=== PATIENT | female | born 1990 | race Caucasian/White ===

== ENCOUNTER 2017-05-04 16:27 | Emergency (ER) | payer MEDICAID, OTHER ==
[2017-05-04] MEDS ORDERED: NORMAL SALINE 1000 ML 1,000 ML IV ONE ×3 (16:30→17:52)
--- NOTE | 2017-05-04 16:32 | ER Document Report ---
ED Medical Screen (RME) - General Stated Complaint: VOMITING Time Seen by Provider: 05/04/17 16:30 Mode of Arrival: Wheelchair Information source: Patient, Relative Notes: Patient presents with nausea and vomiting and concerned about DKA. Patient was sent here from her doctor's office. Patient tachycardic and vomiting in the triage area. Family stated that patient was recently intubated 2 weeks ago due to her DKA. Charge nurse advised the patient status TRAVEL OUTSIDE OF THE [place] IN LAST 30 DAYS: No - Related Data Allergies/Adverse Reactions: No Known Allergies Allergy (Verified 06/16/11 12:34) Past Medical History Pulmonary Medical History: Reports: Hx Asthma Endocrine Medical History: Reports: Hx Diabetes Mellitus Type 1 - Immunizations Hx Diphtheria, Pertussis, Tetanus Vaccination: Yes Physical Exam - Cardiovascular Rhythm: Tachycardia Heart sounds: S1 appreciated, S2 appreciated
[2017-05-04 17:25] LABS: ABSOLUTE BASOPHILS # (AUTO) 0.1 10^3/uL (0.0-0.2); ABSOLUTE LYMPHOCYTES (AUTO) 2.1 10^3/uL (0.5-4.7); ABSOLUTE MONOCYTES (AUTO) 0.8 10^3/uL (0.1-1.4); ABSOLUTE NEUT (AUTO) 7.7 10^3/uL (1.7-8.2); BASOPHILS % (AUTO) 0.6 % (0-2); EOSINOPHILS % (AUTO) 0.3 % (0-6); HEMATOCRIT 50.9 % (36.0-47.0); HEMOGLOBIN 17.7 g/dL (12.0-15.5); LYMPHOCYTES % (AUTO) 19.7 % (13-45); MEAN CORPUSCULAR HEMOGLOBIN 33.2 pg (27.0-33.4); MEAN CORPUSCULAR HGB CONC 34.8 g/dL (32.0-36.0); MEAN CORPUSCULAR VOLUME 96 fl (80-97); MONOCYTES % (AUTO) 7.5 % (3-13); PLATELET COUNT 705 10^3/uL (150-450); RED BLOOD COUNT 5.33 10^6/uL (3.72-5.28); RED CELL DISTRIBUTION WIDTH 13.9 % (11.5-14.0); SEGMENTED NEUTROPHILS % (AUTO) 71.9 % (42-78); TOTAL CELLS COUNTED % (AUTO) 100 %; WHITE BLOOD COUNT 10.6 10^3/uL (4.0-10.5)
--- NOTE | 2017-05-04 17:34 | RADIOLOGY REPORT (SQ) ---
EXAM DESCRIPTION: CHEST SINGLE VIEW COMPLETED DATE/TIME: 05/04/2017 5:24 pm REASON FOR STUDY: vomiting, tachycardia COMPARISON: 10/07/2015 NUMBER OF VIEWS: One view. TECHNIQUE: Single frontal radiographic view of the chest acquired. LIMITATIONS: None. FINDINGS: LUNGS AND PLEURA: No opacities, masses or pneumothorax. No pleural effusion. MEDIASTINUM AND HILAR STRUCTURES: No masses. Contour normal. HEART AND VASCULAR STRUCTURES: Heart normal in size. Normal vasculature. BONES: No acute findings. HARDWARE: None in the chest. OTHER: No other significant finding. IMPRESSION: NO SIGNIFICANT RADIOGRAPHIC FINDING IN THE CHEST. TECHNICAL DOCUMENTATION: JOB ID: [id number] [employer]- All Rights Reserved
[2017-05-04 17:47] LABS: ALANINE AMINOTRANSFERASE 16 U/L (9-52); ALKALINE PHOSPHATASE 159 U/L (38-126); ASPARTATE AMINO TRANSFERASE 14 U/L (14-36); BILIRUBIN,DIRECT 0.7 mg/dL (0.0-0.4); BILIRUBIN,TOTAL 1.2 mg/dL (0.2-1.3); BLOOD UREA NITROGEN 28 mg/dL (7-20); LIPASE 96.2 U/L (23-300); TOTAL PROTEIN 8.6 g/dL (6.3-8.2)
[2017-05-04 17:49] LABS: VENOUS BLOOD BASE EXCESS -6.3 mmol/L; VENOUS BLOOD HCO3 17.1 mmol/L (20-32); VENOUS BLOOD PCO2 30.1 mmHg (35-63); VENOUS BLOOD PH 7.37 (7.30-7.42)
[2017-05-04 17:55] LABS: CARBON DIOXIDE 16 mmol/L (22-30); CHLORIDE 93 mmol/L (98-107); POTASSIUM 4.8 mmol/L (3.6-5.0); SODIUM 133.5 mmol/L (137-145)
[2017-05-04 17:58] LABS: ANION GAP 25 (5-19)
[2017-05-04 18:01] LABS: CALCIUM 12.1 mg/dL (8.4-10.2); GLUCOSE 420 mg/dL (75-110)
[2017-05-04] MEDS ORDERED: INSULIN REG, HUMAN 100 UNIT/ML 3 ML VIAL (PYX) IV ONE (18:16)
[2017-05-04 19:03] LABS: APPEARANCE,URINE SLIGHTLY-CLOUDY; BILIRUBIN,URINE NEGATIVE (NEGATIVE); COLOR,URINE YELLOW; GLUCOSE, URINE >=500 mg/dL (NEGATIVE); KETONES,URINE 80 mg/dL (NEGATIVE); LEUKOCYTE ESTERASE,URINE NEGATIVE (NEGATIVE); NITRITE,URINE NEGATIVE (NEGATIVE); PROTEIN,URINE 30 mg/dL (NEGATIVE); URINE SPECIFIC GRAVITY 1.026; UROBILINOGEN,URINE NEGATIVE mg/dL (<2.0)
[2017-05-04 19:13] LABS: URINE AMPHETAMINES SCREEN NEGATIVE; URINE BARBITURATES SCREEN NEGATIVE; URINE BENZODIAZEPINES SCREEN NEGATIVE; URINE COCAINE SCREEN NEGATIVE; URINE MARIJUANA (THC) SCREEN NEGATIVE; URINE METHADONE SCREEN NEGATIVE; URINE PHENCYCLIDINE SCREEN NEGATIVE
--- NOTE | 2017-05-04 19:29 | ER Document Report ---
ED Flu Like - General Chief Complaint: Vomiting Stated Complaint: VOMITING Time Seen by Provider: 05/04/17 16:30 Mode of Arrival: Wheelchair Notes: The patient is a 26-year-old female, past medical history type 1 diabetes, history of polysubstance abuse, presents with 4 days of decreased oral intake, nausea vomiting. She feels like she is back in DKA. She was admitted to an outside hospital a few weeks ago where she required intubation due to severe DKA. She said that she is taking her insulin as directed, but she is not eating much. Her cousin said that she smoked meth 4 days ago. Patient denies abdominal pain, fevers, rash, diarrhea, constipation, chest pain or shortness of breath. TRAVEL OUTSIDE OF THE [place] IN LAST 30 DAYS: No - Related Data Allergies/Adverse Reactions: No Known Allergies Allergy (Verified 05/04/17 17:14) Past Medical History - General Information source: Patient, Relative - Social History Smoking Status: Unknown if Ever Smoked Chew tobacco use (# tins/day): No Frequency of alcohol use: None Drug Abuse: Heroin - in the past, Methamphetamine, Prescription drugs - in the past Family History: Reviewed & Not Pertinent Patient has suicidal ideation: No Patient has homicidal ideation: No Pulmonary Medical History: Reports: Hx Asthma Endocrine Medical History: Reports: Hx Diabetes Mellitus Type 1 Renal/ Medical History: Denies: Hx Peritoneal Dialysis - Immunizations Hx Diphtheria, Pertussis, Tetanus Vaccination: Yes Hx Pneumococcal Vaccination: 10/23/11 Review of Systems - Review of Systems Notes: REVIEW OF SYSTEMS: CONSTITUTIONAL: -fevers, -chills EENT: -eye pain, -difficulty swallowing, -nasal congestion CARDIOVASCULAR: -chest pain, -syncope. RESPIRATORY: -cough, -SOB GASTROINTESTINAL: -abdominal pain, +nausea, +vomiting, -diarrhea GENITOURINARY: -dysuria, -hematuria MUSCULOSKELETAL: -back pain, -neck pain SKIN: -rash or skin lesions. HEMATOLOGIC: -easy bruising or bleeding. LYMPHATIC: -swollen, enlarged glands. NEUROLOGICAL: -altered mental status or loss of consciousness, -headache, - neurologic symptoms PSYCHIATRIC: -anxiety, -depression. ALL OTHER SYSTEMS REVIEWED AND NEGATIVE. Physical Exam - Vital signs Vitals: Temp Pulse Resp BP Pulse Ox 97.8 F 158 H 18 101/61 97 05/04/17 16:29 05/04/17 16:29 05/04/17 16:29 05/04/17 16:29 05/04/17 16:29 - Notes Notes: PHYSICAL EXAMINATION: GENERAL: Well-appearing, well-nourished and in no acute distress. HEAD: Atraumatic, normocephalic. EYES: Pupils equal round and reactive to light, extraocular movements intact, sclera anicteric, conjunctiva are normal. ENT: nares patent, oropharynx clear without exudates. Moist mucous membranes. NECK: Normal range of motion, supple without lymphadenopathy LUNGS: Breath sounds clear to auscultation bilaterally and equal. No wheezes rales or rhonchi. HEART: Tachycardia, regular rhythm. ABDOMEN: Soft, nontender, normoactive bowel sounds. No guarding, no rebound. No masses appreciated. EXTREMITIES: Normal range of motion, no pitting or edema. No cyanosis. NEUROLOGICAL: Cranial nerves grossly intact. Normal speech, normal gait. Normal sensory and motor exams. PSYCH: Normal mood, normal affect. SKIN: Warm, Dry, normal turgor, no rashes or lesions noted. Course - Re-evaluation Re-evalutation: Patient found to be in mild DKA, most likely from noncompliance with her insulin. Provided her with IV fluids started on insulin drip to help close the anion gap. 05/04/17 23:24 Pt feels much better. She is eating and drinking in the ER and her anion gap remains closed. Her potassium dropped as expected and she was provided potassium replacement and instructed to eat foods with potassium. Patient is requesting a refill of her Lantus 24 units qHS, Humalog 12 units tidwm, lancets and accucheck strips. She will follow-up with her primary care physician for further evaluation and treatment. Given very strict return precautions and she understands. - Vital Signs Vital signs: Temp Pulse Resp BP Pulse Ox 97.8 F 158 H 15 133/85 H 100 05/04/17 16:29 05/04/17 16:29 05/04/17 19:01 05/04/17 19:01 05/04/17 19:01 - Laboratory Result Diagrams: 05/04/17 17:02 05/04/17 23:15 Laboratory results interpreted by me: 05/04/17 05/04/17 05/04/17 17:02 17:02 17:02 WBC 10.6 H RBC 5.33 H Hgb 17.7 H Hct 50.9 H Plt Count 705 H VBG pCO2 30.1 L VBG HCO3 17.1 L Sodium 133.5 L Potassium Chloride 93 L Carbon Dioxide 16 L Anion Gap 25 H BUN 28 H Creatinine Glucose 420 H* POC Glucose Calcium 12.1 H* Direct Bilirubin 0.7 H AST Alkaline Phosphatase 159 H Total Protein 8.6 H Albumin Urine Protein Urine Glucose (UA) Urine Ketones 05/04/17 05/04/17 05/04/17 18:43 19:20 19:40 WBC RBC Hgb Hct Plt Count VBG pCO2 VBG HCO3 Sodium 136.4 L Potassium Chloride Carbon Dioxide 14 L Anion Gap BUN 24 H Creatinine Glucose 332 H POC Glucose 314 H Calcium Direct Bilirubin 0.5 H AST Alkaline Phosphatase Total Protein Albumin Urine Protein 30 H Urine Glucose (UA) >=500 H Urine Ketones 80 H 05/04/17 05/04/17 05/04/17 20:42 21:52 22:45 WBC RBC Hgb Hct Plt Count VBG pCO2 VBG HCO3 Sodium Potassium Chloride Carbon Dioxide Anion Gap BUN Creatinine Glucose POC Glucose 291 H 179 H 161 H Calcium Direct Bilirubin AST Alkaline Phosphatase Total Protein Albumin Urine Protein Urine Glucose (UA) Urine Ketones 05/04/17 23:15 WBC RBC Hgb Hct Plt Count VBG pCO2 VBG HCO3 Sodium Potassium 2.8 L* D Chloride 108 H Carbon Dioxide 20 L Anion Gap BUN Creatinine 0.42 L Glucose 117 H POC Glucose Calcium Direct Bilirubin AST 8 L Alkaline Phosphatase Total Protein 5.5 L Albumin 3.1 L Urine Protein Urine Glucose (UA) Urine Ketones - Diagnostic Test Radiology reviewed: Image reviewed, Reports reviewed Radiology results interpreted by me: CXR: NAD - EKG Interpretation by Me EKG shows normal: Sinus rhythm, [place], Intervals, QRS Complexes, ST-T Waves Rate: Normal Critical Care Note - Critical Care Note Total time excluding time spent on procedures (mins): 65 Discharge - Discharge Clinical Impression: DKA (diabetic ketoacidoses) Qualifiers: Diabetes mellitus type: type 1 Diabetes mellitus complication detail: without coma Qualified Code(s): E10.10 - Type 1 diabetes mellitus with ketoacidosis without coma Condition: Stable Disposition: HOME, SELF-CARE Additional Instructions: Diabetes You have an abnormally high blood sugar, suspicious for diabetes. Not all high blood sugar requires long-term treatment. High blood sugar can be due to medications, , or the stress of illness. (These cases are "borderline diabetes.") If the doctor feels your high blood sugar might get better with time, you may not require treatment now. You will be scheduled for further evaluation. It's very important that you follow through. Uncontrolled high blood sugar leads to early heart disease , strokes, nerve damage, eye damage, and kidney damage. All diabetics should follow a diet designed to control the blood sugar. Overweight diabetics should exercise regularly and lose weight. If this is not sufficient to control the blood sugar, pills or insulin shots are necessary. Younger people who develop diabetes almost always require insulin daily. Home testing of blood sugars or urine sugar is required. Diabetic teaching is available to help you figure insulin doses and monitor the blood sugar. Call the physician if there is faintness, excess sleepiness, or very rapid breathing. If hypoglycemia (LOW blood sugar) develops, symptoms are shakiness, weakness, sweating, and confusion. In this case, you should eat or drink something with sugar at once. Prescriptions: Insulin Glargine,Hum.rec.anlog [Lantus Insulin 100 Unit/1 ml 10 ml] 24 unit SUBCUT QHS 30 Days unit Blood Sugar Diagnostic [Accu-Chek Guide Test Strip] 1 each MC TID PRN #90 strip PRN Reason: Insulin Lispro [Humalog Kwikpen U-200] 12 unit SQ TID #1 insuln.pen Lancets [Accu-Chek] 1 each MC TID #90 each Metoclopramide HCl [Reglan 10 mg Tablet] 1 - 2 tab PO ASDIR PRN #25 tablet PRN Reason: Forms: Elevated Blood Pressure Referrals: [facility] [Outside] - Follow up as needed
[2017-05-04] MEDS ORDERED: NORMAL SALINE 1000 ML 1,000 ML IV SCH (19:30)
[2017-05-04 19:42] LABS: ALANINE AMINOTRANSFERASE 17 U/L (9-52); ALBUMIN 3.7 g/dL (3.5-5.0); ALKALINE PHOSPHATASE 108 U/L (38-126); ANION GAP 19 (5-19); ASPARTATE AMINO TRANSFERASE 15 U/L (14-36); BILIRUBIN,DIRECT 0.5 mg/dL (0.0-0.4); BILIRUBIN,TOTAL 0.8 mg/dL (0.2-1.3); BLOOD UREA NITROGEN 24 mg/dL (7-20); CALCIUM 9.5 mg/dL (8.4-10.2); CARBON DIOXIDE 14 mmol/L (22-30); CHLORIDE 103 mmol/L (98-107); GLUCOSE 332 mg/dL (75-110); POTASSIUM 4.8 mmol/L (3.6-5.0); SODIUM 136.4 mmol/L (137-145); TOTAL PROTEIN 6.4 g/dL (6.3-8.2)
[2017-05-04] MEDS ORDERED: INSULIN LISPRO 100 UNIT/ML 3 ML VIAL SUBCUT ONE (20:26)
[2017-05-04] MEDS ORDERED: INSULIN GLARGINE,HUM.REC.ANLOG 1,000 UNIT/10 ML UNIT SUBCUT ONE (20:26)
[2017-05-04] MEDS ORDERED: METOCLOPRAMIDE HCL INJ/PF 10 MG/2 ML SDV IV ONE (22:00)
[2017-05-04 23:33] LABS: ALANINE AMINOTRANSFERASE 19 U/L (9-52); ALBUMIN 3.1 g/dL (3.5-5.0); ALKALINE PHOSPHATASE 96 U/L (38-126); ANION GAP 11 (5-19); ASPARTATE AMINO TRANSFERASE 8 U/L (14-36); BILIRUBIN,DIRECT 0.1 mg/dL (0.0-0.4); BILIRUBIN,TOTAL 0.5 mg/dL (0.2-1.3); BLOOD UREA NITROGEN 18 mg/dL (7-20); CALCIUM 8.4 mg/dL (8.4-10.2); CARBON DIOXIDE 20 mmol/L (22-30); CHLORIDE 108 mmol/L (98-107); GLUCOSE 117 mg/dL (75-110); SODIUM 138.6 mmol/L (137-145); TOTAL PROTEIN 5.5 g/dL (6.3-8.2)
[2017-05-04 23:44] LABS: POTASSIUM 2.8 mmol/L (3.6-5.0)
[2017-05-04] MEDS ORDERED: POTASSIUM CHLORIDE 10 MEQ TABLET.SA PO ONE (23:46)
[2017-05-05 00:42] VITALS: BP 108/69
--- NOTE | 2017-05-05 09:30 | EKG REPORT ---
SEVERITY:- ABNORMAL ECG - SINUS TACHYCARDIA LEFT POSTERIOR FASCICULAR BLOCK BORDERLINE PROLONGED QT INTERVAL : Confirmed by: Katya Armendariz 05-May-2017 09:29:45
== END 2017-05-05 00:55 | disposition home or self-care (01) ==
LOC: ER 16:27
DX: E10.10 Type 1 diabetes mellitus with ketoacidosis without coma (principal); R11.2 Nausea with vomiting, unspecified; Z79.4 Long term (current) use of insulin
CPT/HCPCS: 93005; 99285; 96361; 96374; 36415; 82962; 83690; 84703; 85025; 80053; 81001; 80307; 82803; 71045; 93010; J1815 ×3; J2765; J7030

== ENCOUNTER 2018-08-09 09:51 | Inpatient (IN) | payer OTHER ==
[2018-08-09] MEDS ORDERED: NORMAL SALINE 1000 ML 1,000 ML IV ONE (09:53)
[2018-08-09] MEDS ORDERED: ONDANSETRON HCL INJ/PF 4 MG/2 ML SDV IV ONE (09:55)
[2018-08-09] MEDS ORDERED: ONDANSETRON HCL INJ/PF 4 MG/2 ML SDV ONE (09:56)
--- NOTE | 2018-08-09 09:59 | ER Document Report ---
ED Blood Sugar Problem - General Chief Complaint: High Blood Sugar Stated Complaint: ABNORMAL LABS Time Seen by Provider: 08/09/18 09:56 Information source: Patient Notes: 28-year-old female that presents to the front with some altered mental status. Mom is at bedside and states a history of diabetes. Unknown if she has been taking her insulin appropriately. Mom states she just recently moved here around 2 weeks ago from [place]. Supposedly patient was having some vomiting yesterday. Mom states the patient has been "intubated" 3 times in the past secondary to DKA with multiple admissions. Mom states that the patient's blood sugar "always runs high". Mom states the patient did have a methamphetamine add iction in the past but denies any drug use recently. Mom denies any other recent illnesses. Patient does not have a primary care physician here. Patient herself has her eyes open and is able to nod yes or no to questions. She states she has been taking her insulin. She denies any pain. TRAVEL OUTSIDE OF THE [place] IN LAST 30 DAYS: No - Related Data Allergies/Adverse Reactions: No Known Allergies Allergy (Verified 05/04/17 17:14) Past Medical History - Social History Smoking Status: Unknown if Ever Smoked Family History: Reviewed & Not Pertinent Pulmonary Medical History: Reports: Hx Asthma Endocrine Medical History: Reports: Hx Diabetes Mellitus Type 1 Renal/ Medical History: Denies: Hx Peritoneal Dialysis - Immunizations Hx Diphtheria, Pertussis, Tetanus Vaccination: Yes Hx Pneumococcal Vaccination: 10/23/11 Review of Systems - Review of Systems Constitutional: denies: Fever EENT: denies: Eye discharge, Nose discharge Cardiovascular: denies: Chest pain, Palpitations Respiratory: denies: Cough, Hurts to breathe, Short of breath Gastrointestinal: Vomiting Genitourinary: denies: Dysuria Musculoskeletal: denies: Leg swelling Skin: Other - no hives. denies: Rash Neurological/Psychological: Other - no slurred speech -: Yes All other systems reviewed and negative Physical Exam - Vital signs Vitals: Temp Pulse Resp BP 97.6 F 113 H 28 H 147/79 H 08/09/18 09:53 08/09/18 09:53 08/09/18 09:53 08/09/18 09:53 Interpretation: Tachycardic Notes: Reviewed vital signs and nursing note as charted by RN. CONSTITUTIONAL: Patient is alert and nods yes or no to questions. She does have some decreased mentation HEAD: Normocephalic; atraumatic EYES: PERRL; no nystagmus ENT: Normal nose; no rhinorrhea; dry mucous membranes; pharynx without lesions noted NECK: Supple without meningismus; non-tender; no cervical lymphadenopathy, no masses CARD: Tachycardic and regular; no murmurs; symmetric distal pulses RESP: Patient is having long deep breaths consistent with kussmaul respirations; breath sounds clear and equal bilaterally; no wheezes, no rhonchi, no rales ABD/GI: Normal bowel sounds; non-distended; soft, non-tender; no palpable organomegaly or masses BACK: The back appears normal and is non-tender to palpation EXT: Normal ROM in all joints; non-tender to palpation; no edema SKIN: No acute lesions noted NEURO: 5/5 bilateral upper and lower extremity strength with sensation intact to light touch Course - Re-evaluation Re-evalutation: 08/09/18 09:59 Given the history and physical, with Accu-Chek as recorded, we will obtain 2 large IV access sites and provide 2 L of fluid while we await for the chemistry venous blood gas, and test. We will elevate the head of the bed 30 degrees to help prevent aspiration. 08/09/18 10:14 EKG showed heart rate of 115, sinus tachycardia, normal axis, no peak T waves or widening QRS complexe. 08/09/18 10:45 pH is 7.19. Ental status slightly improving. I have called out of the facility to help decipher the patient's chemistry. They state that 1 of the analyzers is broken and will take another 20 minutes. 08/09/18 11:20 Chemistry and blood gas as recorded. We will provide IV potassium as well as an insulin drip and admit the patient to the ICU. - Vital Signs Vital signs: Temp Pulse Resp BP Pulse Ox 97.6 F 113 H 27 H 140/81 H 100 08/09/18 09:53 08/09/18 09:53 08/09/18 11:15 08/09/18 11:00 08/09/18 10:01 - Laboratory Result Diagrams: 08/09/18 09:55 08/09/18 09:55 Laboratory results interpreted by me: 08/09/18 08/09/18 08/09/18 09:55 09:55 09:55 WBC 11.6 H RDW 15.1 H Plt Count 471 H Seg Neutrophils % 82.2 H Lymphocytes % 12.5 L Absolute Neutrophils 9.5 H VBG pH 7.19 L* VBG pCO2 17.8 L* VBG HCO3 6.6 L Carbon Dioxide 6 L* Anion Gap 37 H Glucose 438 H* Calcium 10.4 H Direct Bilirubin 0.5 H Alkaline Phosphatase 165 H Critical Care Note - Critical Care Note Total time excluding time spent on procedures (mins): 45 Discharge - Discharge Clinical Impression: Diabetic keto-acidosis Qualifiers: Diabetes mellitus type: type 1 Diabetes mellitus complication detail: without coma Qualified Code(s): E10.10 - Type 1 diabetes mellitus with ketoacidosis without coma Condition: Serious Disposition: ADMITTED INPATIENT Admitting Provider: Omega (Hospitalist) Unit Admitted: ICU
[2018-08-09 10:09] LABS: ABSOLUTE LYMPHOCYTES (AUTO) 1.5 10^3/uL (0.5-4.7); ABSOLUTE MONOCYTES (AUTO) 0.6 10^3/uL (0.1-1.4); ABSOLUTE NEUT (AUTO) 9.5 10^3/uL (1.7-8.2); BASOPHILS % (AUTO) 0.3 % (0-2); EOSINOPHILS % (AUTO) 0.3 % (0-6); HEMATOCRIT 46.2 % (36.0-47.0); HEMOGLOBIN 15.3 g/dL (12.0-15.5); LYMPHOCYTES % (AUTO) 12.5 % (13-45); MEAN CORPUSCULAR HEMOGLOBIN 30.8 pg (27.0-33.4); MEAN CORPUSCULAR HGB CONC 33.2 g/dL (32.0-36.0); MEAN CORPUSCULAR VOLUME 93 fl (80-97); MONOCYTES % (AUTO) 4.7 % (3-13); PLATELET COUNT 471 10^3/uL (150-450); RED BLOOD COUNT 4.97 10^6/uL (3.72-5.28); RED CELL DISTRIBUTION WIDTH 15.1 % (11.5-14.0); SEGMENTED NEUTROPHILS % (AUTO) 82.2 % (42-78); TOTAL CELLS COUNTED % (AUTO) 100 %; WHITE BLOOD COUNT 11.6 10^3/uL (4.0-10.5)
[2018-08-09] MEDS ORDERED: NORMAL SALINE 1000 ML 1,000 ML IV PRN (10:21)
[2018-08-09 10:42] LABS: VENOUS BLOOD BASE EXCESS -19.2 mmol/L; VENOUS BLOOD HCO3 6.6 mmol/L (20-32)
[2018-08-09 10:45] LABS: VENOUS BLOOD PCO2 17.8 mmHg (35-63); VENOUS BLOOD PH 7.19 (7.30-7.42)
[2018-08-09 10:52] LABS: ALANINE AMINOTRANSFERASE 40 U/L (9-52); ALBUMIN 4.6 g/dL (3.5-5.0); ALKALINE PHOSPHATASE 165 U/L (38-126); ASPARTATE AMINO TRANSFERASE 28 U/L (14-36); BILIRUBIN,DIRECT 0.5 mg/dL (0.0-0.4); BILIRUBIN,TOTAL 0.7 mg/dL (0.2-1.3); BLOOD UREA NITROGEN 14 mg/dL (7-20); CALCIUM 10.4 mg/dL (8.4-10.2); POTASSIUM 3.7 mmol/L (3.6-5.0); TOTAL PROTEIN 7.4 g/dL (6.3-8.2)
[2018-08-09 10:57] LABS: CHLORIDE 98 mmol/L (98-107); SODIUM 141.1 mmol/L (137-145)
[2018-08-09 11:08] LABS: ANION GAP 37 (5-19)
[2018-08-09 11:10] LABS: CARBON DIOXIDE 6 mmol/L (22-30); GLUCOSE 438 mg/dL (75-110)
[2018-08-09] MEDS ORDERED: POTASSI CL 20 MEQ/NS 1L 1,000 ML IV ONE (11:17)
[2018-08-09] MEDS ORDERED: POTASSI CL 20 MEQ/50 ML RIDER 20 MEQ/50 ML RTUPB IV ONE (11:18)
[2018-08-09] MEDS ORDERED: DEXTROSE 40% GEL 15 GM TUBE PO PRN ×2 (11:19)
[2018-08-09] MEDS ORDERED: DEXTROSE 50%-WATER 25 GM/50 ML DISP.SYRIN IV PRN ×2 (11:19)
[2018-08-09] MEDS ORDERED: GLUCAGON,HUMAN RECOMB 1 MG INJ IM PRN (11:19)
[2018-08-09] MEDS ORDERED: INSULIN REG, HUMAN 100 UNIT/ML 3 ML VIAL (PYX) ONE (11:25)
[2018-08-09] MEDS: NORMAL SALINE 100 ML with INSULIN REGULAR, HUMAN 100 UNIT IV PRN ×2 (11:39)
[2018-08-09] MEDS ORDERED: ONDANSETRON 4 MG TAB.RAPDIS PO PRN (12:30)
[2018-08-09] MEDS ORDERED: IPRATROPIUM/ALBUTEROL 0.5-2.5 MG/3 ML AMPUL NEB PRN (12:30)
[2018-08-09] MEDS ORDERED: OXYCODONE-ACETAMINOPHEN 5-325 MG TABLET PO PRN (12:30)
[2018-08-09] MEDS ORDERED: ACETAMINOPHEN 325 MG TABLET PO PRN (12:30)
--- NOTE | 2018-08-09 12:48 | PDOC H&P ---
History of Present Illness Admission Date/PCP: 08/09/18 11:50 History of Present Illness: ZANE GEIGER is a 27 year old female past medical history of diabetes type 1 with multiple DKA admissions, presenting to ED accompanied by her mother complaining of nausea, vomiting, starting 4 AM last night. Source of history is mother who is at bed side. Patient herself is very lethargic and altered. Mother reports compliance with her insulin regimen denies any fever,chills, chest pain, cough diarrhea, constipation or any urinary symptoms. In ED he was found to have a be very tachycardic, tachypneic, VBG pH 7.19, WBC 11.6, bicarb 6, glucose 438 anion gap of 37. Patient was started on volume resuscitation and insulin drip and hospitalist consulted for admission. Past Medical History Pulmonary Medical History: Reports: Asthma Endocrine Medical History: Reports: Diabetes Mellitus Type 1 Social History Smoking Status: Unknown if Ever Smoked Frequency of Alcohol Use: None Hx Recreational Drug Use: No Drugs: None Hx Prescription Drug Abuse: No Family History Family History: Reviewed & Not Pertinent Parental Family History Reviewed: Yes Children Family History Reviewed: Yes Sibling(s) Family History Reviewed.: Yes Medication/Allergy Home Medications: Insulin Aspart Protam & Aspart [Novolog Mix 70-30 Vial] 0 unit SQ MEALS 08/09/18 Insulin Lispro [Humalog Insulin 100 Unit/1 ml 3 ml Vial] unit SUBCUT QHS 9 Magnesium Oxide [Mag-Ox 400 mg Tablet] 400 mg PO BID 08/09/18 Allergies/Adverse Reactions: No Known Allergies Allergy (Verified 05/04/17 17:14) Review of Systems Review of Systems: as per HPI Physical Exam Vital Signs: Temp Pulse Resp BP Pulse Ox 97.6 F 113 H 27 H 140/81 H 100 08/09/18 09:53 08/09/18 09:53 08/09/18 11:15 08/09/18 11:00 08/09/18 10:01 Intake & Output 08/08/18 08/09/18 08/10/18 06:59 06:59 06:59 Intake Total 1000 Balance 1000 Weight 52.163 kg General appearance: PRESENT: mild distress, severe distress Eye exam: PRESENT: conjunctiva pink, EOMI, PERRLA. ABSENT: scleral icterus Respiratory exam: PRESENT: accessory muscle use, clear to auscultation george, tachypnea. ABSENT: rales, rhonchi, wheezes Cardiovascular exam: PRESENT: RRR, tachycardia. ABSENT: diastolic murmur, rubs, systolic murmur GI/Abdominal exam: PRESENT: normal bowel sounds, soft. ABSENT: distended, guarding, mass, organolmegaly, rebound, tenderness Extremities exam: PRESENT: full ROM. ABSENT: calf tenderness, clubbing, pedal edema Neurological exam: PRESENT: alert, awake, oriented to person, CN II-XII grossly intact. ABSENT: motor sensory deficit Skin exam: PRESENT: dry, intact, warm. ABSENT: cyanosis, rash Results Laboratory Results: 08/09/18 09:55 08/09/18 09:55 08/09/18 08/09/18 08/09/18 09:55 09:55 09:55 WBC 11.6 H RBC 4.97 Hgb 15.3 Hct 46.2 MCV 93 MCH 30.8 MCHC 33.2 RDW 15.1 H Plt Count 471 H Seg Neutrophils % 82.2 H Lymphocytes % 12.5 L Monocytes % 4.7 Eosinophils % 0.3 Basophils % 0.3 Absolute Neutrophils 9.5 H Absolute Lymphocytes 1.5 Absolute Monocytes 0.6 Absolute Eosinophils 0.0 Absolute Basophils 0.0 VBG pH 7.19 L* VBG pCO2 17.8 L* VBG HCO3 6.6 L VBG Base Excess -19.2 Sodium 141.1 Potassium 3.7 Chloride 98 Carbon Dioxide 6 L* Anion Gap 37 H BUN 14 Creatinine 0.69 Est GFR ( Amer) > 60 Est GFR (Non-Af Amer) > 60 Glucose 438 H* Calcium 10.4 H Total Bilirubin 0.7 AST 28 ALT 40 Alkaline Phosphatase 165 H Total Protein 7.4 Albumin 4.6 Serum HCG, Qual 08/09/18 09:55 WBC RBC Hgb Hct MCV MCH MCHC RDW Plt Count Seg Neutrophils % Lymphocytes % Monocytes % Eosinophils % Basophils % Absolute Neutrophils Absolute Lymphocytes Absolute Monocytes Absolute Eosinophils Absolute Basophils VBG pH VBG pCO2 VBG HCO3 VBG Base Excess Sodium Potassium Chloride Carbon Dioxide Anion Gap BUN Creatinine Est GFR ( Amer) Est GFR (Non-Af Amer) Glucose Calcium Total Bilirubin AST ALT Alkaline Phosphatase Total Protein Albumin Serum HCG, Qual NEGATIVE Assessment and Plan - Diagnosis (1) DKA (diabetic ketoacidosis) Qualifiers: Diabetes mellitus type: type 1 Diabetes mellitus complication detail: with out coma Qualified Code(s): E10.10 - Type 1 diabetes mellitus with ketoac idosis without coma Is this a current diagnosis for this admission?: Yes Plan: No trigger identified. Patient known to have been noncompliant with her insulin regimen in the past and has been intubated in the past due to DKA. UA negative for infection. IV fluid resuscitation, antiemetics, insulin drip, BMP every 6, replace electrolytes as needed, switch to D5 NS once blood glucose level drops to less than 250. Transition to subcutaneous insulins once patient's gap is closed. Advance diet as tolerated. (2) Diabetes type I Is this a current diagnosis for this admission?: Yes Plan: As #1. (3) Tobacco dependency Is this a current diagnosis for this admission?: No Plan: Counseled on quitting. NicoDerm patch. (4) Metabolic encephalopathy Is this a current diagnosis for this admission?: Yes (5) Hypothermia Qualifiers: Encounter type: initial encounter Qualified Code(s): T68.XXXA - Hypothermia, initial encounter Is this a current diagnosis for this admission?: Yes Plan: Volume depletion vs Sepsis Volume resuscitation. Panculture. Empiric IV antibiotics. Trend lactic acid. TSH, Random Cortisol. (6) Metabolic acidosis Is this a current diagnosis for this admission?: Yes Plan: Due to DKA. pH 6.99, HCO3 9. Bicar Drip, DKA protocol. Will transfer to ICU and intubate if Pt can not protect airways. (7) Oral ulcer Is this a current diagnosis for this admission?: No Plan: Patient is altered and does not provide any history. Will culture. Needs further history
[2018-08-09 13:27] LABS: APPEARANCE,URINE SLIGHTLY-CLOUDY; BILIRUBIN,URINE NEGATIVE (NEGATIVE); COLOR,URINE STRAW; GLUCOSE, URINE >=500 mg/dL (NEGATIVE); KETONES,URINE 80 mg/dL (NEGATIVE); LEUKOCYTE ESTERASE,URINE TRACE (NEGATIVE); NITRITE,URINE NEGATIVE (NEGATIVE); PROTEIN,URINE NEGATIVE (NEGATIVE); URINE SPECIFIC GRAVITY 1.018; UROBILINOGEN,URINE NEGATIVE mg/dL (<2.0)
[2018-08-09 16:35] LABS: ARTERIAL BLOOD BASE EXCESS -27.3 mmol/L; ARTERIAL BLOOD H2CO3 0.27 mmol/L (1.05-1.35); ARTERIAL BLOOD HCO3 2.2 mmol/L (20-24); ARTERIAL BLOOD O2 SATURATION 97.9 % (94-98); ARTERIAL BLOOD TOTAL CO2 2.4 mmol/L (21-25)
[2018-08-09 16:38] LABS: ARTERIAL BLOOD PH 6.99 (7.35-7.45)
[2018-08-09 16:39] LABS: ARTERIAL BLOOD PCO2 9.1 mmHg (35-45)
[2018-08-09] MEDS: POTASSI CL 20 MEQ/NS 1L 1,000 ML IV PRN ×2 (16:43→19:43)
[2018-08-09 16:51] LABS: ARTERIAL BLOOD FIO2 ROOM AIR
[2018-08-09] MEDS ORDERED: SODIUM BICARBONATE 8.4% INJ 50 MEQ/50 ML DISP.SYRIN ONE (16:58)
[2018-08-09] MEDS ORDERED: SODIUM BICARBONATE 8.4% INJ 50 MEQ/50 ML DISP.SYRIN IV ONE (17:00)
[2018-08-09] MEDS: DOCUSATE SODIUM 100 MG CAPSULE PO SCH (17:18)
[2018-08-09] MEDS ORDERED: VANCOMYCIN HCL 0 MG in DEXTROSE 5%-WATER 250 ML IV NR (18:00)
[2018-08-09] MEDS ORDERED: SODIUM BICARBONATE 8.4% INJ 50 MEQ/50 ML DISP.SYRIN IV SCH (18:00)
[2018-08-09] MEDS ORDERED: LIDOCAINE 1%/EPINEPHRINE INJ 20 ML VIAL INJ ONE (18:30)
--- NOTE | 2018-08-09 19:05 | PDOC CONSULTATION ---
Consultation Consult Date: 08/09/18 Provider Consulted: ANETA MCKINNEY Consult reason:: need IV access History of Present Illness Admission Date/PCP: 08/09/18 11:50 History of Present Illness: ZANE GEIGER is a 27 year old female with type 1 diabetes in DKA in need of IV access fro medications and fluids administration. Past Medical History Pulmonary Medical History: Reports: Asthma Endocrine Medical History: Reports: Diabetes Mellitus Type 1 Social History Smoking Status: Unknown if Ever Smoked Frequency of Alcohol Use: None Hx Recreational Drug Use: No Drugs: None Hx Prescription Drug Abuse: No - Advance Directive Resuscitation Status: Full Code Family History Family History: Reviewed & Not Pertinent Parental Family History Reviewed: No Children Family History Reviewed: No Sibling(s) Family History Reviewed.: No Medication/Allergy Home Medications: Insulin Aspart Protam & Aspart [Novolog Mix 70-30 Vial] 0 unit SQ MEALS 08/09/18 Insulin Lispro [Humalog Insulin 100 Unit/1 ml 3 ml Vial] unit SUBCUT QHS 08/09/18 Magnesium Oxide [Mag-Ox 400 mg Tablet] 400 mg PO BID 08/09/18 Allergies/Adverse Reactions: No Known Allergies Allergy (Verified 05/04/17 17:14) Physical Exam Vital Signs: Temp Pulse Resp BP Pulse Ox 96.2 F L 119 H 36 H 126/77 H 100 08/09/18 18:32 08/09/18 18:32 08/09/18 18:32 08/09/18 18:32 08/09/18 18:32 Intake & Output 08/08/18 08/09/18 08/10/18 06:59 06:59 06:59 Intake Total 3018 Output Total 800 Balance 2218 Weight 51.5 kg General appearance: PRESENT: mild distress, other - confused and agitated Mouth exam: PRESENT: dry mucosa, neck supple Neck exam: PRESENT: full ROM Respiratory exam: PRESENT: chest wall tenderness Cardiovascular exam: PRESENT: RRR GI/Abdominal exam: PRESENT: soft Psychiatric exam: PRESENT: agitated, anxious Results Laboratory Results: 08/09/18 09:55 08/09/18 09:55 08/09/18 08/09/18 08/09/18 09:55 09:55 09:55 WBC 11.6 H RBC 4.97 Hgb 15.3 Hct 46.2 MCV 93 MCH 30.8 MCHC 33.2 RDW 15.1 H Plt Count 471 H Seg Neutrophils % 82.2 H Lymphocytes % 12.5 L Monocytes % 4.7 Eosinophils % 0.3 Basophils % 0.3 Absolute Neutrophils 9.5 H Absolute Lymphocytes 1.5 Absolute Monocytes 0.6 Absolute Eosinophils 0.0 Absolute Basophils 0.0 Carbonic Acid HCO3/H2CO3 Ratio ABG pH ABG pCO2 ABG pO2 ABG HCO3 ABG O2 Saturation ABG Base Excess VBG pH 7.19 L* VBG pCO2 17.8 L* VBG HCO3 6.6 L VBG Base Excess -19.2 FiO2 Sodium 141.1 Potassium 3.7 Chloride 98 Carbon Dioxide 6 L* Anion Gap 37 H BUN 14 Creatinine 0.69 Est GFR ( Amer) > 60 Est GFR (Non-Af Amer) > 60 Glucose 438 H* Calcium 10.4 H Total Bilirubin 0.7 AST 28 ALT 40 Alkaline Phosphatase 165 H Total Protein 7.4 Albumin 4.6 Serum HCG, Qual Urine Color Urine Appearance Urine pH Ur Specific [place] Urine Protein Urine Glucose (UA) Urine Ketones Urine Blood Urine Nitrite Ur Leukocyte Esterase Urine WBC (Auto) Urine RBC (Auto) 08/09/18 08/09/18 08/09/18 09:55 12:05 16:12 WBC RBC Hgb Hct MCV MCH MCHC RDW Plt Count Seg Neutrophils % Lymphocytes % Monocytes % Eosinophils % Basophils % Absolute Neutrophils Absolute Lymphocytes Absolute Monocytes Absolute Eosinophils Absolute Basophils Carbonic Acid 0.27 L HCO3/H2CO3 Ratio 8:1 ABG pH 6.99 L* ABG pCO2 9.1 L* ABG pO2 154.0 H ABG HCO3 2.2 L ABG O2 Saturation 97.9 ABG Base Excess -27.3 VBG pH VBG pCO2 VBG HCO3 VBG Base Excess FiO2 ROOM AIR Sodium Potassium Chloride Carbon Dioxide Anion Gap BUN Creatinine Est GFR ( Amer) Est GFR (Non-Af Amer) Glucose Calcium Total Bilirubin AST ALT Alkaline Phosphatase Total Protein Albumin Serum HCG, Qual NEGATIVE Urine Color STRAW Urine Appearance SLIGHTLY-CLOUDY Urine pH 5.0 Ur Specific [place] 1.018 Urine Protein NEGATIVE Urine Glucose (UA) >=500 H Urine Ketones 80 H Urine Blood NEGATIVE Urine Nitrite NEGATIVE Ur Leukocyte Esterase TRACE H Urine WBC (Auto) 3 Urine RBC (Auto) 2 Assessment & Plan - Diagnosis (1) Need for intravenous access Is this a current diagnosis for this admission?: Yes (2) DKA (diabetic ketoacidosis) Qualifiers: Diabetes mellitus type: type 1 Diabetes mellitus complication detail: without coma Qualified Code(s): E10.10 - Type 1 diabetes mellitus with ketoacidosis without coma Is this a current diagnosis for this admission?: Yes - Plan Summary Plan Summary: A/ 27 y/o F with DKA in need of IV access for medications and fluids P/ Placement emergently if central venous line in the ICU Patient unable to sign her own consent. I will sign it for her.
[2018-08-09] MEDS ORDERED: DEXTROSE 5%-NORMAL SALINE 1,000 ML IV PRN (19:06)
--- NOTE | 2018-08-09 19:07 | Operative Report ---
Nonrecallable Operative Report DATE OF SURGERY: 08/09/18 PREOPERATIVE DIAGNOSIS: need of IV access POSTOPERATIVE DIAGNOSIS: same OPERATION: Placement of right subclavian vein central venous catheter TISSUE REMOVED OR ALTERED: n/a COMPLICATIONS: none ESTIMATED BLOOD LOSS: n/a INTRAOPERATIVE FINDINGS: single venoius stick PROCEDURE: see dictation
[2018-08-09] MEDS ORDERED: DEXTROSE 5%-WATER 1000 ML 1,000 ML with SODIUM BICARBONATE 150 MEQ IV ONE ×2 (20:00)
--- NOTE | 2018-08-09 20:13 | RADIOLOGY REPORT (SQ) ---
EXAM DESCRIPTION: XR CHEST 1 VIEW COMPLETED DATE/TME: 08/09/2018 18:45 CLINICAL HISTORY: 27 years, Female, Placement of Central Line COMPARISON: Prior study from 05/04/2017 NUMBER OF VIEWS: One TECHNIQUE: Single frontal radiograph the chest was obtained LIMITATIONS: None. FINDINGS: Right subclavian approach central venous catheter tip is located in the SVC. Cardiac and mediastinal contours are normal. Lungs are clear. No pleural effusion or pneumothorax. IMPRESSION: Right sequela approach central venous catheter tip is located in the SVC. Otherwise, clear lungs. copyright 2010 [employer]- All Rights Reserved
[2018-08-09] MEDS: PIPERACILLIN SODIUM/TAZOBACTAM 3.375 GM in NORMAL SALINE 100 ML IV SCH (21:32)
[2018-08-09] MEDS: FAMOTIDINE 20 MG TABLET PO SCH (21:32)
--- NOTE | 2018-08-09 22:14 | OPERATIVE REPORT E ---
Operative Report NAME: ZANE GEIGER : 1990 AGE: 27Y DATE OF SURGERY: 08/09/2018 ROOM: 602 PREOPERATIVE DIAGNOSIS: 1. DKA. 2. COMA. 3. NEED FOR IV ACCESS. POSTOPERATIVE DIAGNOSIS: 1. DKA. 2. COMA. 3. NEED FOR IV ACCESS. OPERATION: Placement of right subclavian vein triple-lumen central venous catheter. SURGEON: ANETA MCKINNEY M.D. STUDIO OPERATIONS MANAGER: None. ESTIMATED BLOOD LOSS: None. COMPLICATIONS: None. ANESTHESIA: Local, 10 mL of 1% lidocaine without epinephrine. INDICATIONS AND FINDINGS: A 27-year-old female with type 1 diabetes on BKA and confusion who needs IV access for administration of medication and fluids. PROCEDURE: The procedure was done emergently in the ICU. The patient was in supine position. A rolled towel was placed in between the scapulae. The right side of the neck and chest was prepped and draped in the usual fashion. The area just below the mid clavicle was infiltrated with lidocaine. Following this, a 16-gauge needle was used to cannulate the right subclavian vein just below the mid portion of the right clavicle without difficulty. The guidewire was inserted through the needle into the subclavian vein and superior vena cava. The needle was removed. The insertion point for the guidewire was enlarged with a #11 blade and a tissue dilator, which was removed, and a triple-lumen catheter was inserted over the guidewire into the subclavian vein and superior vena cava, up to 16 cm. The guidewire was then removed. The catheter was secured to the skin with silk sutures and covered with sterile dressings. Every port of the catheter was aspirated and flushed with normal saline without difficulty. The patient tolerated the procedure well. A chest x-ray was then done to confirm good position of the line. DICTATING PHYSICIAN: ANETA MCKINNEY M.D. [id number] PHY#: [id number] ID: [id number] JOB#: [id number] ACCT: [id number] cc:ANETA MCKINNEY M.D. > [facility]
[2018-08-09] MEDS: VANCOMYCIN HCL 500 MG in DEXTROSE 5%-WATER 100 ML IV SCH (22:18)
[2018-08-09 23:45] LABS: BLOOD UREA NITROGEN 12 mg/dL (7-20); CALCIUM 8.6 mg/dL (8.4-10.2); CHLORIDE 120 mmol/L (98-107); GLUCOSE 219 mg/dL (75-110); POTASSIUM 4.2 mmol/L (3.6-5.0); SODIUM 144.4 mmol/L (137-145)
[2018-08-09 23:51] LABS: ANION GAP 18 (5-19)
[2018-08-10] MEDS: PROMETHAZINE HCL INJ 25 MG/1 ML VIAL IV PRN ×2 (00:11→04:40)
[2018-08-10 00:19] LABS: CARBON DIOXIDE 6 mmol/L (22-30)
[2018-08-10] MEDS: NORMAL SALINE 100 ML with INSULIN REGULAR, HUMAN 100 UNIT IV PRN ×2 (00:56)
[2018-08-10] MEDS: PIPERACILLIN SODIUM/TAZOBACTAM 3.375 GM in NORMAL SALINE 100 ML IV SCH ×4 (03:36→21:53)
[2018-08-10 05:16] LABS: BLOOD UREA NITROGEN 10 mg/dL (7-20); CALCIUM 7.9 mg/dL (8.4-10.2); CHLORIDE 120 mmol/L (98-107); GLUCOSE 116 mg/dL (75-110); SODIUM 145.5 mmol/L (137-145)
[2018-08-10] MEDS: VANCOMYCIN HCL 500 MG in DEXTROSE 5%-WATER 100 ML IV SCH ×3 (05:27→21:57)
[2018-08-10 05:28] LABS: ANION GAP 7 (5-19)
[2018-08-10 05:30] LABS: CARBON DIOXIDE 19 mmol/L (22-30); POTASSIUM 3.2 mmol/L (3.6-5.0)
[2018-08-10] MEDS ORDERED: GLUCAGON,HUMAN RECOMB 1 MG INJ IM PRN (06:30)
[2018-08-10] MEDS ORDERED: DEXTROSE 40% GEL 15 GM TUBE X 2 PO PRN (06:30)
[2018-08-10] MEDS ORDERED: DEXTROSE 40% GEL 15 GM TUBE PO PRN (06:30)
[2018-08-10] MEDS ORDERED: DEXTROSE 50%-WATER SYRINGE 25 GM/50 ML DOSE IV PRN (06:30)
[2018-08-10] MEDS ORDERED: DEXTROSE 50%-WATER SYRINGE 12.5 GM/25 ML DOSE IV PRN (06:30)
[2018-08-10] MEDS ORDERED: INSULIN GLARGINE,HUM.REC.ANLOG 1,000 UNIT/10 ML VIAL SUBCUT SCH (07:00)
[2018-08-10] MEDS: INSULIN REG, HUMAN 100 UNIT/ML 3 ML VIAL (PYX) SUBCUT SCH ×4 (08:44→21:38)
[2018-08-10] MEDS ORDERED: POTASSIUM CHLORIDE 10 MEQ CAPSULE.ER PO ONE (10:00)
[2018-08-10] MEDS: FAMOTIDINE 20 MG TABLET PO SCH ×2 (10:01→21:42)
[2018-08-10] MEDS: ENOXAPARIN SODIUM INJ 40 MG/0.4 ML DISP.SYRIN SUBCUT SCH (10:01)
[2018-08-10] MEDS: DOCUSATE SODIUM 100 MG CAPSULE PO SCH ×2 (10:01→17:29)
[2018-08-10] MEDS: INSULIN GLARGINE,HUM.REC.ANLOG 1,000 UNIT/10 ML VIAL SUBCUT SCH ×2 (10:01→21:45)
[2018-08-10] MEDS: POTASSI CL 20 MEQ/NS 1L 1,000 ML IV PRN ×2 (10:02→21:38)
[2018-08-10 12:54] LABS: ANION GAP 12 (5-19); BLOOD UREA NITROGEN 6 mg/dL (7-20); CALCIUM 7.4 mg/dL (8.4-10.2); CARBON DIOXIDE 15 mmol/L (22-30); CHLORIDE 112 mmol/L (98-107); GLUCOSE 231 mg/dL (75-110); POTASSIUM 3.4 mmol/L (3.6-5.0); SODIUM 138.8 mmol/L (137-145)
--- NOTE | 2018-08-10 15:48 | PDOC PROGRESS REPORT ---
Subjective Progress Note for:: 08/10/18 Subjective:: This is a 27 years old female patient presented with chief complaint of nausea and vomiting. Patient is a known case of diabetes and bronchial asthma. At admission patient was found to be in DKA for which she is admitted to ICU and started on insulin drip. Currently her anion gap is closed patient is able to eat and tolerate well. No more nausea vomiting or fever. Her vitals and blood works are unremarkable and patient downgraded to medical floor. Reason For Visit: DIABETIC KETO ACIDOSIS Physical Exam Vital Signs: Temp Pulse Resp BP Pulse Ox 98.1 F 85 28 H 125/81 100 08/10/18 12:00 08/10/18 12:00 08/10/18 12:00 08/10/18 12:00 08/10/18 12:00 Intake & Output 08/09/18 08/10/18 08/11/18 06:59 06:59 06:59 Intake Total 5725 1200 Output Total 2125 1050 Balance 3600 150 Weight 51.6 kg General appearance: PRESENT: no acute distress Head exam: PRESENT: atraumatic Eye exam: PRESENT: conjunctiva pink Neck exam: ABSENT: carotid bruit, JVD, lymphadenopathy, thyromegaly Respiratory exam: PRESENT: clear to auscultation george. ABSENT: rales, rhonchi, wheezes GI/Abdominal exam: PRESENT: normal bowel sounds, soft. ABSENT: distended, guarding, mass, organolmegaly, rebound, tenderness Neurological exam: PRESENT: alert, awake, oriented to time, oriented to situation Results Laboratory Results: 08/09/18 09:55 08/10/18 12:07 08/09/18 08/09/18 08/09/18 16:12 19:01 22:05 Carbonic Acid 0.27 L HCO3/H2CO3 Ratio 8:1 ABG pH 6.99 L* ABG pCO2 9.1 L* ABG pO2 154.0 H ABG HCO3 2.2 L ABG O2 Saturation 97.9 ABG Base Excess -27.3 FiO2 ROOM AIR Sodium Potassium Chloride Carbon Dioxide Anion Gap BUN Creatinine Est GFR ( Amer) Est GFR (Non-Af Amer) Glucose Lactic Acid 2.2 H Calcium Magnesium TSH 0.14 L 08/09/18 08/09/18 08/10/18 22:48 22:48 03:42 Carbonic Acid HCO3/H2CO3 Ratio ABG pH ABG pCO2 ABG pO2 ABG HCO3 ABG O2 Saturation ABG Base Excess FiO2 Sodium 144.4 Cancelled Potassium 4.2 Cancelled Chloride 120 H Cancelled Carbon Dioxide 6 L* Cancelled Anion Gap 18 Cancelled BUN 12 Cancelled Creatinine 0.53 Cancelled Est GFR ( Amer) > 60 Cancelled Est GFR (Non-Af Amer) > 60 Cancelled Glucose 219 H Cancelled Lactic Acid 1.0 Calcium 8.6 Cancelled Magnesium Cancelled TSH 08/10/18 08/10/18 04:42 12:07 Carbonic Acid HCO3/H2CO3 Ratio ABG pH ABG pCO2 ABG pO2 ABG HCO3 ABG O2 Saturation ABG Base Excess FiO2 Sodium 145.5 H 138.8 Potassium 3.2 L D 3.4 L Chloride 120 H 112 H Carbon Dioxide 19 L D 15 L Anion Gap 7 12 BUN 10 6 L Creatinine 0.39 L 0.38 L Est GFR ( Amer) > 60 > 60 Est GFR (Non-Af Amer) > 60 > 60 Glucose 116 H 231 H Lactic Acid Calcium 7.9 L 7.4 L Magnesium 1.6 1.5 L TSH Impressions: Chest X-Ray 08/09/18 18:45 IMPRESSION: Right sequela approach central venous catheter tip is located in the SVC. Otherwise, clear lungs. copyright 2011 [employer]- All Rights Reserved Assessment and Plan - Diagnosis (1) DKA (diabetic ketoacidoses) Qualifiers: Diabetes mellitus type: type 1 Is this a current diagnosis for this admission?: Yes Plan: Has resolved. Patient switched to subcu insulin. (2) Uncontrolled type 1 diabetes mellitus Qualifiers: Glycemic state: with hyperglycemia Qualified Code(s): E10.65 - Type 1 diabetes mellitus with hyperglycemia Is this a current diagnosis for this admission?: Yes Plan: Her hemoglobin A1c is 9.3. We will reinforce diabetic education. (3) Metabolic encephalopathy Is this a current diagnosis for this admission?: Yes Plan: Has resolved (4) Metabolic acidosis Is this a current diagnosis for this admission?: Yes Plan: Has been resolving. (5) Tobacco dependence Is this a current diagnosis for this admission?: Yes Plan: Patient counseled and encouraged to quit smoking. (6) Bronchial asthma Is this a current diagnosis for this admission?: Yes Plan: In remission.
[2018-08-11] MEDS: PIPERACILLIN SODIUM/TAZOBACTAM 3.375 GM in NORMAL SALINE 100 ML IV SCH ×2 (03:59→10:12)
[2018-08-11] MEDS: VANCOMYCIN HCL 500 MG in DEXTROSE 5%-WATER 100 ML IV SCH (05:59)
[2018-08-11 06:38] LABS: VANCOMYCIN,TROUGH 6.5 ug/mL (5.0-20.0)
[2018-08-11 07:08] LABS: ANION GAP 11 (5-19); CALCIUM 7.6 mg/dL (8.4-10.2); CARBON DIOXIDE 22 mmol/L (22-30); CHLORIDE 106 mmol/L (98-107); GLUCOSE 198 mg/dL (75-110); SODIUM 139.4 mmol/L (137-145)
[2018-08-11 07:13] LABS: BLOOD UREA NITROGEN < 2 mg/dL (7-20)
[2018-08-11 07:15] LABS: POTASSIUM 2.8 mmol/L (3.6-5.0)
[2018-08-11] MEDS: INSULIN REG, HUMAN 100 UNIT/ML 3 ML VIAL (PYX) SUBCUT SCH ×4 (07:30→21:26)
[2018-08-11] MEDS ORDERED: PROMETHAZINE HCL INJ 25 MG/1 ML VIAL IV PRN (08:30)
[2018-08-11] MEDS: POTASSIUM CHLORIDE 20 MEQ/50 ML RTU IV SCH ×2 (08:44→10:16)
[2018-08-11] MEDS ORDERED: MAGNESIUM SULFATE/D5W 1 GM/100 ML RTUPB IV ONE (09:00)
[2018-08-11] MEDS ORDERED: ONDANSETRON 4 MG TAB.RAPDIS PO PRN (09:00)
[2018-08-11] MEDS ORDERED: POTASSIUM CHLORIDE 10 MEQ CAPSULE.ER PO ONE ×2 (09:00→17:45)
[2018-08-11] MEDS: FAMOTIDINE 20 MG TABLET PO SCH ×2 (10:14→21:27)
[2018-08-11] MEDS: DOCUSATE SODIUM 100 MG CAPSULE PO SCH ×2 (10:14→17:09)
[2018-08-11] MEDS: INSULIN GLARGINE,HUM.REC.ANLOG 1,000 UNIT/10 ML VIAL SUBCUT SCH ×2 (10:14→21:26)
[2018-08-11] MEDS: ENOXAPARIN SODIUM INJ 40 MG/0.4 ML DISP.SYRIN SUBCUT SCH (10:22)
--- NOTE | 2018-08-11 11:23 | EKG REPORT ---
SEVERITY:- ABNORMAL ECG - SINUS TACHYCARDIA BIATRIAL ABNORMALITIES PROLONGED QT INTERVAL : Confirmed by: Katya Armendariz 11-Aug-2018 11:22:48
[2018-08-11 14:29] LABS: ANION GAP 12 (5-19); CALCIUM 7.8 mg/dL (8.4-10.2); CARBON DIOXIDE 22 mmol/L (22-30); CHLORIDE 105 mmol/L (98-107); GLUCOSE 292 mg/dL (75-110); POTASSIUM 3.5 mmol/L (3.6-5.0); SODIUM 138.7 mmol/L (137-145)
[2018-08-11 14:34] LABS: BLOOD UREA NITROGEN < 2 mg/dL (7-20)
[2018-08-11 14:42] LABS: FREE T3 4.54 pg/mL (2.77-5.27); FREE T4 (FREE THYROXINE) 1.35 ng/dL (0.78-2.19)
--- NOTE | 2018-08-11 15:03 | PDOC PROGRESS REPORT ---
Subjective Progress Note for:: 08/11/18 Subjective:: This is a 27 yr old female who was admitted to the ICU due to severe DKA. She was started on IV fluids, insulin drip and electrolyte replacements. Her DKA resolved. No acute event overnight. Potassium came back severely low at 2.8. She is not eating a lot yet and has poor appetite. No vomiting. Reason For Visit: DIABETIC KETO ACIDOSIS Physical Exam Vital Signs: Temp Pulse Resp BP Pulse Ox 97.9 F 97 16 115/59 L 100 08/11/18 12:00 08/11/18 14:07 08/11/18 14:07 08/11/18 12:00 08/11/18 14:07 Intake & Output 08/10/18 08/11/18 08/12/18 06:59 06:59 06:59 Intake Total 5725 2690 1628 Output Total 2125 2175 Balance 3600 515 1628 Weight 113 lb 12.136 oz 116 lb 6.465 oz General appearance: PRESENT: no acute distress, well-developed, well-nourished Head exam: PRESENT: atraumatic, normocephalic Eye exam: PRESENT: conjunctiva pink, EOMI, PERRLA. ABSENT: scleral icterus Ear exam: PRESENT: normal external ear exam Mouth exam: PRESENT: moist, tongue midline Neck exam: ABSENT: carotid bruit, JVD, lymphadenopathy, thyromegaly Respiratory exam: PRESENT: clear to auscultation george. ABSENT: rales, rhonchi, wheezes Cardiovascular exam: PRESENT: RRR. ABSENT: diastolic murmur, rubs, systolic murmur Pulses: PRESENT: normal dorsalis pedis pul GI/Abdominal exam: PRESENT: normal bowel sounds, soft. ABSENT: distended, guarding, mass, organolmegaly, rebound, tenderness Rectal exam: PRESENT: deferred Neurological exam: PRESENT: alert, awake, oriented to person, oriented to place, oriented to time, oriented to situation, CN II-XII grossly intact. ABSENT: motor sensory deficit Results Laboratory Results: 08/09/18 09:55 08/11/18 13:45 08/11/18 08/11/18 08/11/18 05:45 13:45 13:45 Sodium 139.4 138.7 Potassium 2.8 L* 3.5 L Chloride 106 105 Carbon Dioxide 22 22 Anion Gap 11 12 BUN < 2 L < 2 L Creatinine 0.38 L 0.38 L Est GFR ( Amer) > 60 > 60 Est GFR (Non-Af Amer) > 60 > 60 Glucose 198 H 292 H Calcium 7.6 L 7.8 L Magnesium 1.5 L 1.9 Free T4 1.35 Free T3 pg/mL 4.54 Impressions: Chest X-Ray 08/09/18 18:45 IMPRESSION: Right sequela approach central venous catheter tip is located in the SVC. Otherwise, clear lungs. copyright 2010 [employer]- All Rights Reserved Assessment and Plan - Diagnosis (1) DKA (diabetic ketoacidosis) Qualifiers: Diabetes mellitus type: type 1 Diabetes mellitus complication detail: without coma Qualified Code(s): E10.10 - Type 1 diabetes mellitus with ketoacidosis without coma Is this a current diagnosis for this admission?: Yes Plan: Resolved. Cultures have been negative so far. No other evidence of ongoing infection requiring antibiotics. DC vancomycin and Zosyn. Will check thyroid panel. (2) Hypokalemia Is this a current diagnosis for this admission?: Yes Plan: Replace with oral and PO Potassium. Repeat K thereafter. (3) Metabolic encephalopathy Is this a current diagnosis for this admission?: Yes Plan: Resolved. - Time Time Spent with patient: 15-24 minutes
[2018-08-11] MEDS: POTASSI CL 20 MEQ/NS 1L 1,000 ML IV PRN (16:57)
[2018-08-12] MEDS: POTASSI CL 20 MEQ/NS 1L 1,000 ML IV PRN (05:42)
[2018-08-12] MEDS: INSULIN REG, HUMAN 100 UNIT/ML 3 ML VIAL (PYX) SUBCUT SCH ×3 (08:48→16:49)
--- NOTE | 2018-08-12 10:28 | RADIOLOGY REPORT (SQ) ---
EXAM DESCRIPTION: HAND RIGHT 2 VIEWS COMPLETED DATE/TIME: 08/12/2018 10:15 am REASON FOR STUDY: fall, swelling COMPARISON: None. EXAM PARAMETERS: NUMBER OF VIEWS: Three views. TECHNIQUE: AP, lateral and oblique radiographic images acquired of the right hand. LIMITATIONS: None. FINDINGS: MINERALIZATION: Normal. BONES: No acute fracture or dislocation. No worrisome bone lesions. JOINTS: No effusions. SOFT TISSUES: Soft tissue swelling dorsal aspect of the hand. OTHER: No other significant finding. IMPRESSION: No acute posttraumatic bony changes. Soft tissue swelling dorsal aspect of the hand TECHNICAL DOCUMENTATION: JOB ID: [id number] [employer]- All Rights Reserved Reading location - IP/workstation name: [email or web address]
[2018-08-12] MEDS: DOCUSATE SODIUM 100 MG CAPSULE PO SCH (10:36)
[2018-08-12] MEDS: FAMOTIDINE 20 MG TABLET PO SCH (10:42)
[2018-08-12] MEDS: ENOXAPARIN SODIUM INJ 40 MG/0.4 ML DISP.SYRIN SUBCUT SCH (10:43)
[2018-08-12] MEDS: INSULIN GLARGINE,HUM.REC.ANLOG 1,000 UNIT/10 ML VIAL SUBCUT SCH (10:48)
[2018-08-12 13:57] LABS: ABSOLUTE EOSINOPHILS # (AUTO) 0.1 10^3/uL (0.0-0.6); ABSOLUTE LYMPHOCYTES (AUTO) 1.5 10^3/uL (0.5-4.7); ABSOLUTE MONOCYTES (AUTO) 0.4 10^3/uL (0.1-1.4); ABSOLUTE NEUT (AUTO) 3.5 10^3/uL (1.7-8.2); BASOPHILS % (AUTO) 0.1 % (0-2); EOSINOPHILS % (AUTO) 1.2 % (0-6); HEMATOCRIT 34.9 % (36.0-47.0); LYMPHOCYTES % (AUTO) 27.3 % (13-45); MEAN CORPUSCULAR HEMOGLOBIN 30.8 pg (27.0-33.4); MEAN CORPUSCULAR HGB CONC 34.3 g/dL (32.0-36.0); MEAN CORPUSCULAR VOLUME 90 fl (80-97); MONOCYTES % (AUTO) 7.2 % (3-13); PLATELET COUNT 261 10^3/uL (150-450); RED BLOOD COUNT 3.89 10^6/uL (3.72-5.28); RED CELL DISTRIBUTION WIDTH 15.3 % (11.5-14.0); SEGMENTED NEUTROPHILS % (AUTO) 64.2 % (42-78); TOTAL CELLS COUNTED % (AUTO) 100 %; WHITE BLOOD COUNT 5.5 10^3/uL (4.0-10.5)
[2018-08-12 14:13] LABS: BLOOD UREA NITROGEN 5 mg/dL (7-20); CALCIUM 8.5 mg/dL (8.4-10.2); CARBON DIOXIDE 31 mmol/L (22-30); CHLORIDE 104 mmol/L (98-107); GLUCOSE 242 mg/dL (75-110); SODIUM 138.7 mmol/L (137-145)
[2018-08-12 14:14] LABS: ANION GAP 4 (5-19)
[2018-08-12 17:32] VITALS: BP 126/77
--- NOTE | 2018-08-13 17:46 | PDOC DISCHARGE SUMMARY ---
General - Admit/Disc Date/PCP Admission Date/Primary Care Provider: 08/09/18 11:50 Discharge Date: 08/12/18 - Discharge Diagnosis (1) DKA (diabetic ketoacidosis) Is this a current diagnosis for this admission?: Yes (2) Hypokalemia Is this a current diagnosis for this admission?: Yes (3) Metabolic encephalopathy Is this a current diagnosis for this admission?: Yes - Additional Information Resuscitation Status: Full Code Discharge Diet: As Tolerated, Diabetic Discharge Activity: Activity As Tolerated, Balance Activity w/Rest Home Medications: Magnesium Oxide [Mag-Ox 400 mg Tablet] 400 mg PO BID 08/09/18 Insulin Aspart [Novolog Flexpen] 20 unit SUBCUT MEALS 08/12/18 Insulin Glargine,Hum.rec.anlog [Lantus Insulin 100 Unit/1 ml 10 ml] 28 unit SUBCUT QHS MDD NEVER PICKED UP 08/12/18 History of Present Illness History of Present Illness: Admitting hospitalist's H&P: ZANE GEIGER is a 27 year old female past medical history of diabetes type 1 with multiple DKA admissions, presenting to ED accompanied by her mother complaining of nausea, vomiting, starting 4 AM last night. Source of history is mother who is at bed side. Patient herself is very let hargic and altered. Mother reports compliance with her insulin regimen denies any fever,chills, chest pain, cough diarrhea, constipation or any urinary symptoms. In ED he was found to have a be very tachycardic, tachypneic, VBG pH 7.19, WBC 11.6, bicarb 6, glucose 438 anion gap of 37. Patient was started on volume resuscitation and insulin drip and hospitalist consulted for admission. Hospital Course Hospital Course: This is a 27 yr old female who was admitted to the ICU due to severe DKA. She was started on IV fluids, insulin drip and electrolyte replacements. Her DKA resolved the next day. Her encephalopathy also promptly resolved with resolution of her DKA. Her diet was advanced and she started tolerating her diet. Hba1c came back at 9.3. When pharmacy verified her home meds and dosing with her local pharmacy, latter said she has not picked up her last refill of Lantus and Novolog. Patient though says she had insulin supplies from [place]. Physical Exam Vital Signs: Temp Pulse Resp BP Pulse Ox 97.2 F 67 16 126/77 H 99 08/12/18 17:27 08/12/18 17:27 08/12/18 17:27 08/12/18 17:27 08/12/18 17:27 Intake & Output 08/12/18 08/13/18 08/14/18 06:59 06:59 06:59 Intake Total 5038 480 Output Total 2 Balance 5038 478 Weight 116 lb 9.992 oz General appearance: PRESENT: no acute distress, well-developed, well-nourished Head exam: PRESENT: atraumatic, normocephalic Eye exam: PRESENT: conjunctiva pink, EOMI, PERRLA. ABSENT: scleral icterus Ear exam: PRESENT: normal external ear exam Mouth exam: PRESENT: moist, tongue midline Neck exam: ABSENT: carotid bruit, JVD, lymphadenopathy, thyromegaly Respiratory exam: PRESENT: clear to auscultation george. ABSENT: rales, rhonchi, wheezes Cardiovascular exam: PRESENT: RRR. ABSENT: diastolic murmur, rubs, systolic murmur Pulses: PRESENT: normal dorsalis pedis pul GI/Abdominal exam: PRESENT: normal bowel sounds, soft. ABSENT: distended, guarding, mass, organolmegaly, rebound, tenderness Rectal exam: PRESENT: deferred Neurological exam: PRESENT: alert, awake, oriented to person, oriented to place, oriented to time, oriented to situation, CN II-XII grossly intact. ABSENT: m otor sensory deficit Results Laboratory Results: 08/12/18 13:30 08/12/18 13:30 08/09/18 16:12 Mouth - Sore Gram Stain - Final Impressions: Chest X-Ray 08/09/18 18:45 IMPRESSION: Right sequela approach central venous catheter tip is located in the SVC. Otherwise, clear lungs. copyright 2011 [employer]- All Rights Reserved Hand X-Ray 08/12/18 08:48 IMPRESSION: No acute posttraumatic bony changes. Soft tissue swelling dorsal aspect of the hand Qualifiers - * PATIENT BEING DISCHARGED WITH ANY OF THE FOLLOWING DIAGNOSIS: No Acute Heart Failure Is this a Heart Failure Patient?: No
== END 2018-08-12 18:45 | disposition home or self-care (01) | DRG 637 ==
LOC: ER 09:51 → EH 11:50 → 3N 14:30 → ICU 18:22 → 4N 08-10 17:48
PROVIDERS: ADMIT Internal Medicine; ATTEND Internal Medicine
PROC: 02HV33Z Insertion of Infusion Device into Superior Vena Cava, Percutaneous Approach (ICD-10-PCS; principal; 2018-08-09)
DX: E10.11 Type 1 diabetes mellitus with ketoacidosis with coma (principal); G93.41 Metabolic encephalopathy; E87.6 Hypokalemia; T68.XXXA Hypothermia, initial encounter; K12.1 Other forms of stomatitis; J45.909 Unspecified asthma, uncomplicated; F17.210 Nicotine dependence, cigarettes, uncomplicated; Z79.4 Long term (current) use of insulin; Z91.14 Patient's other noncompliance with medication regimen
CPT/HCPCS: 36415; 71045; 80048; 80053; 80202; 81001; 81025; 82533; 82803; 82962; 83036; 83605; 83735; 84439; 84443; 84481; 84703; 85025; 87040; 87070; 87205; 93005; 93010; 96361; 96374; 99291; C1751; J1650; J1815; J2405; J2543; J2550; J3370; J3475; J3480; J3490; J7030; J7042; J7050; J7060

== ENCOUNTER 2018-08-16 04:20 | Inpatient (IN) | payer OTHER ==
[2018-08-16] MEDS ORDERED: MIDAZOLAM HCL 50 MG/100 ML RTUINJ ONE (04:57)
[2018-08-16] MEDS ORDERED: NOREPINEPHRINE BITARTRATE INJ/PF 4 MG/4 ML SDV IV ONE (04:57)
[2018-08-16] MEDS ORDERED: ETOMIDATE INJ/PF 20 MG/10 ML SDV IV ONE ×4 (04:57→06:31)
[2018-08-16] MEDS: MIDAZOLAM HCL 50 MG/100 ML RTUINJ IV PRN ×3 (05:08→19:36)
[2018-08-16 05:24] LABS: HEMOGLOBIN 12.9 g/dL (12.0-15.5); RED CELL DISTRIBUTION WIDTH 16.7 % (11.5-14.0)
[2018-08-16 05:29] LABS: VENOUS BLOOD BASE EXCESS -27.9 mmol/L; VENOUS BLOOD HCO3 4.4 mmol/L (20-32); VENOUS BLOOD PCO2 23.2 mmHg (35-63)
[2018-08-16 05:31] LABS: HEMATOCRIT 42.5 % (36.0-47.0); MEAN CORPUSCULAR HEMOGLOBIN 30.4 pg (27.0-33.4); MEAN CORPUSCULAR HGB CONC 30.4 g/dL (32.0-36.0); PLATELET COUNT 462 10^3/uL (150-450); RED BLOOD COUNT 4.25 10^6/uL (3.72-5.28); WHITE BLOOD COUNT 26.6 10^3/uL (4.0-10.5)
[2018-08-16] MEDS: RINGERS SOLUTION,LACTATED 1,000 ML IV PRN ×2 (05:33→06:34)
--- NOTE | 2018-08-16 05:36 | ER Document Report ---
ED General - General Chief Complaint: Unresponsive Stated Complaint: UNRESPONSIVE Notes: Patient is a 27-year-old female who is brought in by ambulance after being found poorly responsive and altered at her house by her boyfriend. Patient is a known diabetic who is frequently DKA. She was actually just recently discharged from our facility on after being treated for DKA. She is been on the ventilator several times due to severe DKA. Per medics arrived they said that she was hypotensive and hypothermic. Upon arrival here her core temp is 87 degrees. Patient is very confused and thrashing about and she is unable to give us any further history. TRAVEL OUTSIDE OF THE [place] IN LAST 30 DAYS: No - Related Data Allergies/Adverse Reactions: No Known Allergies Allergy (Verified 05/04/17 17:14) Past Medical History - Social History Smoking Status: Current Every Day Smoker Frequency of alcohol use: unknown Drug Abuse: Other - unknown Family History: Other - unknown Pulmonary Medical History: Reports: Hx Asthma Endocrine Medical History: Reports: Hx Diabetes Mellitus Type 1 Renal/ Medical History: Denies: Hx Peritoneal Dialysis - Immunizations Hx Diphtheria, Pertussis, Tetanus Vaccination: Yes Hx Pneumococcal Vaccination: 10/23/11 Review of Systems - Review of Systems -: Yes ROS unobtainable due to patient's medical condition - Patient is altered and unable to contribute Physical Exam - Vital signs Vitals: Resp BP 24 H 105/70 08/16/18 04:21 08/16/18 04:21 - Notes Notes: General Appearance: Patient has eyes closed. Mouth is very dry. She smells of ketones. She is thrashing about in the bed and obviously altered. Patient is very thin. Vitals: reviewed, See vital signs table. Head: no swelling or tenderness to the head Eyes: PERRL, EOMI, Conjuctiva clear Mouth: Very dry mucous membranes. Neck: Supple, no neck tenderness Lungs: No wheezing, No rales, No rhonci, No accessory muscle use, good air exchange bilaterally. Heart: Normal rate, Regular rythm, No murmur, no rub Abdomen: Normal BS, soft, No rigidity, No abdominal tenderness, No guarding, no rebound, no abdominal masses, no organomegaly Extremities: strength 5/5 in all extremities, good pulses in all extremities, no swelling in extremities., no edema. Skin: warm, dry, appropriate color, no rash Neuro: Patient is very strong on exam and thrashing about. She does not appear to be aware of what she is doing. She is obviously altered. She maintains eyes closed. When I do check her pupils with light she does have equal pupils which are reactive to light. She does not answer any questions or following commands at this time. Course - Re-evaluation Re-evalutation: 08/16/18 05:31 I was at bedside soon as the patient arrived by ambulance. We immediately tried to place more peripheral lines to give her IV fluids however she had poor peripheral access. I therefore placed central line and right femoral vein. This was placed on first attempt. Patient started on 2 L of lactated Ringer's. Fluids are being placed thru the warmer because the patient is hypothermic. Bear hugger placed on patient. Patient is very confused and is fighting the staff and difficult to treat. We did do four-point restraints but she continues to fight through the four-point restraints therefore I decided to intubate her so that we can treat her appropriately and also for her own safety as I was afraid that she would injure herself pulling so hard against restraints and eventually she would lose her lines and be difficult to treat. I did place her on the ventilator at a rate of 22 because I suspect that she is very acidotic from DKA. I am awaiting her labs to come back to determine what start her insulin drip at to make sure that her potassium level is appropriate. I have spoken with the mother who is aware of the situation. 08/16/18 05:57 Chemistry panel results are still not yet back which I assume is because patient's blood sugar is very high therefore they sometimes have to diluted before given result. I therefore did call them and to at least obtain the potassium result. Potassium is 5.3. Therefore we will start her on insulin drip. I have notified the nurse of the orders for insulin drip so we can get it started. She is blood pressure is maintaining well without any pressors. Heart rate is in upper 90s to low 100s. She is doing well on the ventilator and sedation 08/16/18 06:32 Chemistry panel is back. Patient is very acidotic. pH is 6.9. I did call and speak to the hospitalist, Dr. Fierro, who agrees to accept the patient for admission and will likely have the daytime hospitalist admit the patient being that they come on in less than 30 minutes. I asked him about bicarb drip and he said to go ahead and started at this time. I have ordered bicarb drip. Patient received 2 L of lactated Ringer's. Insulin drip has been started. I will order a repeat BMP to trend patient's potassium and acidosis. She does have a leukocytosis but I do not suspect infection as patient's urine is clear, her chest x-ray is clear, and she is in severe DKA suggesting that this is more likely a white blood cell count elevation related to demargination. I did talk to the boyfriend who said that the patient was fine 24 hours ago without any complaints or any signs of infection. Dictation of this chart was performed using voice recognition software; therefore, there may be some unintended grammatical errors. 08/16/18 06:45 - Vital Signs Vital signs: Temp Pulse Resp BP Pulse Ox 89.9 F L 22 H 122/80 100 08/16/18 05:36 08/16/18 05:36 08/16/18 05:36 08/16/18 05:36 - Laboratory Result Diagrams: 08/16/18 04:50 08/16/18 04:50 Laboratory results interpreted by me: 08/16/18 08/16/18 08/16/18 04:50 04:50 04:50 WBC 26.6 H MCV 100 H D MCHC 30.4 L RDW 16.7 H Plt Count 462 H Seg Neuts % (Manual) 91 H Band Neutrophils % 2 L Lymphocytes % (Manual) 3 L Abs Neuts (Manual) 24.7 H VBG pH 6.90 L* VBG pCO2 23.2 L VBG HCO3 4.4 L Sodium 151.4 H Potassium 5.3 H Chloride 111 H Carbon Dioxide < 5 L* BUN 35 H Creatinine 1.42 H Est GFR ( Amer) 54 L Est GFR (Non-Af Amer) 45 L Glucose 788 H* POC Glucose Direct Bilirubin 0.5 H Alkaline Phosphatase 242 H Urine Glucose (UA) Urine Ketones Urine Blood Salicylates < 1.0 L Acetaminophen < 10 L 08/16/18 08/16/18 04:50 06:07 WBC MCV MCHC RDW Plt Count Seg Neuts % (Manual) Band Neutrophils % Lymphocytes % (Manual) Abs Neuts (Manual) VBG pH VBG pCO2 VBG HCO3 Sodium Potassium Chloride Carbon Dioxide BUN Creatinine Est GFR ( Amer) Est GFR (Non-Af Amer) Glucose POC Glucose 531 H* Direct Bilirubin Alkaline Phosphatase Urine Glucose (UA) >=500 H Urine Ketones 80 H Urine Blood MODERATE H Salicylates Acetaminophen - EKG Interpretation by Me Additional EKG results interpreted by me: 08/16/18 05:37 EKG is reviewed and interpreted by me. EKG shows sinus rhythm with rate of [address] up ST segment elevation in inferior leads. No reciprocal ST segment depression. DC interval, QRS duration, QT intervals are within normal range. Procedures - Intubation Orotracheal Airway evaluation: Normal anatomy Mallampati Classification: Class 1 Intubation method: Orotracheal Blade type: Shay Blade size: 3 ETT size: 7.5 Breath Sounds after Intubation: Equal End tidal CO2 confirmed: Yes Post Intubation Xray: Yes - appropriate positioning Intubation Complications: No complications Critical Care Note - Critical Care Note Total time excluding time spent on procedures (mins): 70 Comments: Critical care time for the patient not including time spent on procedures approximately 70 minutes due to management of hypothermia, management of DKA, management of sedation for ventilator. Discharge - Discharge Clinical Impression: Metabolic acidosis DKA (diabetic ketoacidoses) Qualifiers: Diabetes mellitus type: type 1 Diabetes mellitus complication detail: with coma Qualified Code(s): E10.11 - Type 1 diabetes mellitus with ketoacidosis with coma Leukocytosis Qualifiers: Leukocytosis type: unspecified Qualified Code(s): D72.829 - Elevated white blood cell count, unspecified Hypothermia Qualifiers: Encounter type: initial encounter Qualified Code(s): T68.XXXA - Hypothermia, initial encounter Condition: Serious Disposition: ADMITTED INPATIENT Admitting Provider: Vadim (Hospitalist) Unit Admitted: ICU
[2018-08-16 05:45] LABS: ABSOLUTE LYMPHOCYTES# (MANUAL) 0.8 10^3/uL (0.5-4.7); ABSOLUTE MONOCYTES # (MANUAL) 1.1 10^3/uL (0.1-1.4); ABSOLUTE NEUTROPHILS# (MANUAL) 24.7 10^3/uL (1.7-8.2); BAND NEUTROPHILS % (MANUAL) 2 % (3-5); BASOPHILS % (MANUAL) 0 % (0-2); EOSINOPHILS % (MANUAL) 0 % (0-6); LYMPHOCYTES % (MANUAL) 3 % (13-45); MONOCYTES % (MANUAL) 4 % (3-13); SEGMENTED NEUTROPHILS % (MAN) 91 % (42-78); TOTAL CELLS COUNTED 100; TOXIC VACUOLATION PRESENT; VENOUS BLOOD PH 6.9 (7.30-7.42)
[2018-08-16 05:47] LABS: ALANINE AMINOTRANSFERASE 24 U/L (9-52); ALBUMIN 4.1 g/dL (3.5-5.0); ALKALINE PHOSPHATASE 242 U/L (38-126); ASPARTATE AMINO TRANSFERASE 24 U/L (14-36); BILIRUBIN,DIRECT 0.5 mg/dL (0.0-0.4); BILIRUBIN,TOTAL 0.5 mg/dL (0.2-1.3); BLOOD UREA NITROGEN 35 mg/dL (7-20); CHLORIDE 111 mmol/L (98-107); POTASSIUM 5.3 mmol/L (3.6-5.0); SODIUM 151.4 mmol/L (137-145); TOTAL PROTEIN 6.7 g/dL (6.3-8.2)
[2018-08-16 05:48] LABS: APPEARANCE,URINE CLEAR; BILIRUBIN,URINE NEGATIVE (NEGATIVE); COLOR,URINE YELLOW; GLUCOSE, URINE >=500 mg/dL (NEGATIVE); KETONES,URINE 80 mg/dL (NEGATIVE); LEUKOCYTE ESTERASE,URINE NEGATIVE (NEGATIVE); NITRITE,URINE NEGATIVE (NEGATIVE); PROTEIN,URINE NEGATIVE (NEGATIVE); URINE SPECIFIC GRAVITY 1.022; UROBILINOGEN,URINE NEGATIVE mg/dL (<2.0)
[2018-08-16 05:51] LABS: ANISOCYTOSIS 1+; PLATELET COMMENT INCREASED
[2018-08-16 05:52] LABS: BURR CELLS 2+; OVALOCYTES 1+; POLYCHROMASIA SLIGHT
[2018-08-16] MEDS ORDERED: GLUCAGON,HUMAN RECOMB 1 MG INJ IM PRN ×3 (05:53→19:50)
[2018-08-16] MEDS ORDERED: DEXTROSE 50%-WATER 25 GM/50 ML DISP.SYRIN IV PRN ×6 (05:53→19:50)
[2018-08-16] MEDS ORDERED: NORMAL SALINE 100 ML with INSULIN REGULAR, HUMAN 100 UNIT IV PRN ×2 (05:53)
[2018-08-16] MEDS ORDERED: DEXTROSE 40% GEL 15 GM TUBE PO PRN ×6 (05:53→19:50)
[2018-08-16 05:54] LABS: ACETAMINOPHEN < 10 ug/mL (10-30); ALCOHOL < 10 mg/dL (NONE DETECTED); SALICYLATE < 1.0 mg/dL (2.0-20.0)
--- NOTE | 2018-08-16 05:55 | RADIOLOGY REPORT (SQ) ---
EXAM DESCRIPTION: XR CHEST 1 VIEW COMPLETED DATE/TME: 08/16/2018 04:37 CLINICAL HISTORY: 27 years Female, AMS, DKA COMPARISON: 10/07/15 NUMBER OF VIEWS/TECHNIQUE: 1/AP FINDINGS: Adequate lung volume, clear parenchyma, normal cardiac silhouette, and intact bony thorax. Adequate appearing endotracheal tube. Adequate appearing enteric tube. IMPRESSION: No acute cardiopulmonary findings.
[2018-08-16 06:00] LABS: MEAN CORPUSCULAR VOLUME 100 fl (80-97)
[2018-08-16] MEDS ORDERED: INSULIN REG, HUMAN 100 UNIT/ML 3 ML VIAL (PYX) ONE (06:01)
[2018-08-16 06:02] LABS: URINE BARBITURATES SCREEN NEGATIVE; URINE BENZODIAZEPINES SCREEN NEGATIVE; URINE COCAINE SCREEN NEGATIVE; URINE MARIJUANA (THC) SCREEN NEGATIVE; URINE METHADONE SCREEN NEGATIVE; URINE PHENCYCLIDINE SCREEN NEGATIVE
[2018-08-16 06:15] LABS: GLUCOSE 788 mg/dL (75-110)
[2018-08-16 06:16] LABS: CARBON DIOXIDE < 5 mmol/L (22-30)
[2018-08-16] MEDS ORDERED: ROCURONIUM BROMIDE INJ 50 MG/5 ML VIAL IV ONE ×2 (06:28→11:38)
[2018-08-16] MEDS ORDERED: DEXTROSE 5%-WATER 1000 ML 1,000 ML with SODIUM BICARBONATE 150 MEQ IV PRN ×2 (06:30)
[2018-08-16] MEDS ORDERED: RINGERS SOLUTION,LACTATED 1,000 ML IV ONE ×2 (06:31→06:32)
[2018-08-16] MEDS ORDERED: SODIUM BICARBONATE 8.4% INJ 50 MEQ/50 ML DISP.SYRIN ONE (06:36)
--- NOTE | 2018-08-16 06:59 | EKG REPORT ---
SEVERITY:- BORDERLINE ECG - SINUS RHYTHM BORDERLINE PROLONGED QT INTERVAL : Confirmed by: Katya Armendariz 16-Aug-2018 06:58:55
--- NOTE | 2018-08-16 08:20 | PDOC H&P ---
History of Present Illness History of Present Illness: ZANE GEIGER is a 27 year old female patient with past medical history of uncontrolled type 1 diabetes mellitus, recurrent DKA, recurrent acute metabolic encephalopathy which requires intubation and ICU placement, brought by EMS with chief complaint of unresponsiveness. Since patient is intubated and on mechanical ventilation she is not social history. History is obtained from ER attending note and and by reviewing previous medical records and charts. As per ER attending note patient brought in by ambulance after being found poorly responsive and altered at her house by her boyfriend. Patient is a known diabetic who is frequently DKA. She was actually just recently discharged from the facility on August 12 after being treated for DKA. She has been on the ventilator several times due to severe DKA. When paramedics arrived they states that she was hypotensive and hypothermic. Upon arrival her core temperature is 87 degrees. Her initial blood work shows marked leukocytosis which might be related to her DKA, blood sugar of 788, BUN of 35, creatinine of 1.42, potassium 5.3, sodium of 151 and bicarb of less than 5. Further detailed history and review of systems unobtainable due to patient's mental status. Past Medical History Pulmonary Medical History: Reports: Asthma Endocrine Medical History: Reports: Diabetes Mellitus Type 1 Social History Smoking Status: Current Every Day Smoker Frequency of Alcohol Use: None Hx Recreational Drug Use: No Drugs: None Hx Prescription Drug Abuse: No - Advance Directive Resuscitation Status: Full Code Family History Family History: Other - unknown Parental Family History Reviewed: Yes Children Family History Reviewed: Yes Sibling(s) Family History Reviewed.: Yes Medication/Allergy Home Medications: Magnesium Oxide [Mag-Ox 400 mg Tablet] 400 mg PO BID 08/09/18 Insulin Aspart [Novolog Flexpen] 20 unit SUBCUT MEALS 08/12/18 Insulin Glargine,Hum.rec.anlog [Lantus Insulin 100 Unit/1 ml 10 ml] 28 unit SUBCUT QHS MDD NEVER PICKED UP 08/12/18 Allergies/Adverse Reactions: No Known Allergies Allergy (Verified 08/16/18 07:37) Review of Systems ROS unobtainable: Due to mental status Physical Exam Vital Signs: Temp Pulse Resp BP Pulse Ox 98.1 F 27 H 107/51 L 99 08/16/18 07:36 08/16/18 07:36 08/16/18 07:36 08/16/18 07:36 Intake & Output 08/15/18 08/16/18 08/17/18 06:59 06:59 06:59 Intake Total 1000 3516 Output Total 1000 Balance 1000 2516 Weight 45.359 kg General appearance: PRESENT: no acute distress Mouth exam: PRESENT: dry mucosa Respiratory exam: PRESENT: clear to auscultation george. ABSENT: rales, rhonchi, wheezes Cardiovascular exam: PRESENT: RRR. ABSENT: diastolic murmur, rubs, systolic murmur GI/Abdominal exam: PRESENT: normal bowel sounds, soft. ABSENT: distended, guarding, mass, organolmegaly, rebound, tenderness Neurological exam: PRESENT: altered Results Laboratory Results: 08/16/18 04:50 08/16/18 04:50 08/16/18 08/16/18 08/16/18 04:50 04:50 04:50 WBC 26.6 H RBC 4.25 Hgb 12.9 Hct 42.5 MCV 100 H D MCH 30.4 MCHC 30.4 L RDW 16.7 H Plt Count 462 H Seg Neutrophils % Not Reportable Lymphocytes % Not Reportable Monocytes % Not Reportable Eosinophils % Not Reportable Basophils % Not Reportable Absolute Neutrophils Not Reportable Absolute Lymphocytes Not Reportable Absolute Monocytes Not Reportable Absolute Eosinophils Not Reportable Absolute Basophils Not Reportable VBG pH 6.90 L* VBG pCO2 23.2 L VBG HCO3 4.4 L VBG Base Excess -27.9 Sodium 151.4 H Potassium 5.3 H Chloride 111 H Carbon Dioxide < 5 L* Anion Gap CLEANING ATTENDANT BUN 35 H Creatinine 1.42 H Est GFR ( Amer) 54 L Est GFR (Non-Af Amer) 45 L Glucose 788 H* Lactic Acid Calcium 10.0 Total Bilirubin 0.5 AST 24 ALT 24 Alkaline Phosphatase 242 H Total Protein 6.7 Albumin 4.1 Serum HCG, Qual Urine Color Urine Appearance Urine pH Ur Specific [place] Urine Protein Urine Glucose (UA) Urine Ketones Urine Blood Urine Nitrite Ur Leukocyte Esterase Urine WBC (Auto) 08/16/18 08/16/18 08/16/18 04:50 04:50 04:50 WBC RBC Hgb Hct MCV MCH MCHC RDW Plt Count Seg Neutrophils % Lymphocytes % Monocytes % Eosinophils % Basophils % Absolute Neutrophils Absolute Lymphocytes Absolute Monocytes Absolute Eosinophils Absolute Basophils VBG pH VBG pCO2 VBG HCO3 VBG Base Excess Sodium Potassium Chloride Carbon Dioxide Anion Gap BUN Creatinine Est GFR ( Amer) Est GFR (Non-Af Amer) Glucose Lactic Acid 1.5 Calcium Total Bilirubin AST ALT Alkaline Phosphatase Total Protein Albumin Serum HCG, Qual NEGATIVE Urine Color YELLOW Urine Appearance CLEAR Urine pH 5.0 Ur Specific [place] 1.022 Urine Protein NEGATIVE Urine Glucose (UA) >=500 H Urine Ketones 80 H Urine Blood MODERATE H Urine Nitrite NEGATIVE Ur Leukocyte Esterase NEGATIVE Urine WBC (Auto) 2 Impressions: Chest X-Ray 08/16/18 04:37 IMPRESSION: No acute cardiopulmonary findings. Assessment and Plan - Diagnosis (1) Acute metabolic encephalopathy Is this a current diagnosis for this admission?: Yes Plan: Due to DKA. Patient requires mechanical ventilation and intubation. Treating her underlying DKA will resolve her encephalopathy. (2) DKA (diabetic ketoacidoses) Qualifiers: Diabetes mellitus type: type 1 Is this a current diagnosis for this admission?: Yes Plan: Patient has history of recurrent DKA. She is noncompliant with her medications. Patient is on DKA protocol and admitted to ICU. Acute check your every an hour and BMP every 2 hours. We will manage her fluid requirement based on his clinical response and blood glucose level. (3) Uncontrolled diabetes mellitus Qualifiers: Diabetes mellitus type: type 1 Is this a current diagnosis for this admission?: Yes Plan: Her last hemoglobin A1c was 9.3 about a week ago. Reportedly patient failed to refill her insulin. We will reinforce diabetic education. (4) History of polysubstance abuse Is this a current diagnosis for this admission?: Yes Plan: Currently her urine drug screen is negative. (5) Tobacco dependence Is this a current diagnosis for this admission?: Yes Plan: When she wakes up will encourage counseled her to quit smoking.
[2018-08-16 08:37] LABS: BLOOD UREA NITROGEN 33 mg/dL (7-20); CALCIUM 9.3 mg/dL (8.4-10.2); POTASSIUM 5.4 mmol/L (3.6-5.0)
[2018-08-16 08:43] LABS: CHLORIDE 114 mmol/L (98-107); SODIUM 152.2 mmol/L (137-145)
[2018-08-16 08:57] LABS: ANION GAP 32 (5-19)
[2018-08-16 08:59] LABS: CARBON DIOXIDE 6 mmol/L (22-30); GLUCOSE 577 mg/dL (75-110)
[2018-08-16 09:38] LABS: ARTERIAL BLOOD BASE EXCESS -19.5 mmol/L; ARTERIAL BLOOD H2CO3 0.49 mmol/L (1.05-1.35); ARTERIAL BLOOD HCO3 6.3 mmol/L (20-24); ARTERIAL BLOOD O2 SATURATION 99.4 % (94-98); ARTERIAL BLOOD PO2 235.1 mmHg (80-100); ARTERIAL BLOOD TOTAL CO2 6.8 mmol/L (21-25)
[2018-08-16 09:39] LABS: ARTERIAL BLOOD FIO2 40%
[2018-08-16 09:41] LABS: ARTERIAL BLOOD PCO2 16.4 mmHg (35-45)
[2018-08-16] MEDS ORDERED: NORMAL SALINE 1000 ML 1,000 ML IV PRN (10:16)
[2018-08-16] MEDS ORDERED: LORAZEPAM INJ 2 MG/1 ML VIAL ONE (10:37)
[2018-08-16] MEDS: ENOXAPARIN SODIUM INJ 40 MG/0.4 ML DISP.SYRIN SUBCUT SCH (10:39)
[2018-08-16] MEDS: PANTOPRAZOLE SODIUM 40 MG VIAL IV SCH (10:40)
[2018-08-16] MEDS: NORMAL SALINE 100 ML with INSULIN REGULAR, HUMAN 100 UNIT IV PRN ×4 (10:44→17:14)
[2018-08-16 11:19] LABS: ARTERIAL BLOOD BASE EXCESS -13.2 mmol/L; ARTERIAL BLOOD HCO3 9.6 mmol/L (20-24); ARTERIAL BLOOD O2 SATURATION 99.2 % (94-98); ARTERIAL BLOOD PH 7.38 (7.35-7.45); ARTERIAL BLOOD PO2 178.7 mmHg (80-100); ARTERIAL BLOOD TOTAL CO2 10.1 mmol/L (21-25)
[2018-08-16 11:24] LABS: ARTERIAL BLOOD FIO2 35%; ARTERIAL BLOOD PCO2 16.7 mmHg (35-45)
[2018-08-16] MEDS ORDERED: PROPOFOL 1,000 MG/100 ML INFUS..BTL IV ONE (11:27)
[2018-08-16 12:35] LABS: BLOOD UREA NITROGEN 31 mg/dL (7-20); GLUCOSE 245 mg/dL (75-110)
[2018-08-16 12:41] LABS: CARBON DIOXIDE 11 mmol/L (22-30); CHLORIDE 120 mmol/L (98-107)
[2018-08-16 12:51] LABS: POTASSIUM 4.2 mmol/L (3.6-5.0)
[2018-08-16 12:52] LABS: ANION GAP 23 (5-19)
[2018-08-16] MEDS: DEXTROSE 5%-1/2 NORMAL SALINE 1,000 ML IV PRN (14:00)
[2018-08-16] MEDS: PROPOFOL 1,000 MG/100 ML INFUS..BTL IV PRN ×2 (14:05→23:23)
[2018-08-16 14:52] LABS: ANION GAP 17 (5-19); BLOOD UREA NITROGEN 31 mg/dL (7-20); CALCIUM 9.1 mg/dL (8.4-10.2); CARBON DIOXIDE 18 mmol/L (22-30); CHLORIDE 122 mmol/L (98-107); GLUCOSE 132 mg/dL (75-110); POTASSIUM 4.1 mmol/L (3.6-5.0); SODIUM 156.5 mmol/L (137-145)
[2018-08-16] MEDS: LORAZEPAM INJ 2 MG/1 ML VIAL IV PRN (15:35)
[2018-08-16] MEDS ORDERED: INSULIN, REGULAR 100 UNIT/100 ML NORMAL SALINE IV PRN ×2 (17:30)
[2018-08-16 17:54] LABS: ARTERIAL BLOOD H2CO3 1.08 mmol/L (1.05-1.35); ARTERIAL BLOOD HCO3 20.6 mmol/L (20-24); ARTERIAL BLOOD O2 SATURATION 84.7 % (94-98); ARTERIAL BLOOD PCO2 35.8 mmHg (35-45); ARTERIAL BLOOD PH 7.38 (7.35-7.45); ARTERIAL BLOOD PO2 49.7 mmHg (80-100); ARTERIAL BLOOD TOTAL CO2 21.7 mmol/L (21-25)
[2018-08-16 17:55] LABS: ARTERIAL BLOOD FIO2 35%
[2018-08-16 19:01] LABS: ANION GAP 10 (5-19); BLOOD UREA NITROGEN 32 mg/dL (7-20); CARBON DIOXIDE 23 mmol/L (22-30); CHLORIDE 121 mmol/L (98-107); GLUCOSE 153 mg/dL (75-110); POTASSIUM 4.1 mmol/L (3.6-5.0); SODIUM 153.6 mmol/L (137-145)
[2018-08-16 19:08] LABS: CALCIUM 8.3 mg/dL (8.4-10.2)
[2018-08-16 19:21] LABS: ANION GAP 10 (5-19); BLOOD UREA NITROGEN 32 mg/dL (7-20); CARBON DIOXIDE 22 mmol/L (22-30); CHLORIDE 123 mmol/L (98-107); GLUCOSE 110 mg/dL (75-110); POTASSIUM 3.9 mmol/L (3.6-5.0)
[2018-08-16 19:23] LABS: CALCIUM 8.9 mg/dL (8.4-10.2)
[2018-08-16 19:47] LABS: ARTERIAL BLOOD BASE EXCESS -1.7 mmol/L; ARTERIAL BLOOD H2CO3 1.15 mmol/L (1.05-1.35); ARTERIAL BLOOD HCO3 22.9 mmol/L (20-24); ARTERIAL BLOOD O2 SATURATION 99.5 % (94-98); ARTERIAL BLOOD PCO2 38.3 mmHg (35-45); ARTERIAL BLOOD PO2 223.7 mmHg (80-100); ARTERIAL BLOOD TOTAL CO2 24.1 mmol/L (21-25)
[2018-08-16 19:48] LABS: ARTERIAL BLOOD FIO2 45%
[2018-08-16] MEDS: POTASSI CL 20 MEQ/50 ML RIDER 20 MEQ/50 ML RTUPB IV SCH ×2 (20:51→22:14)
[2018-08-16 20:52] LABS: ANION GAP 7 (5-19); BLOOD UREA NITROGEN 33 mg/dL (7-20); CALCIUM 8.1 mg/dL (8.4-10.2); CARBON DIOXIDE 24 mmol/L (22-30); CHLORIDE 122 mmol/L (98-107); GLUCOSE 146 mg/dL (75-110); POTASSIUM 4.1 mmol/L (3.6-5.0); SODIUM 152.6 mmol/L (137-145)
[2018-08-16] MEDS ORDERED: INSULIN GLARGINE,HUM.REC.ANLOG 1,000 UNIT/10 ML VIAL (PYX) SUBCUT ONE (21:19)
[2018-08-16] MEDS ORDERED: INSULIN GLARGINE,HUM.REC.ANLOG 1,000 UNIT/10 ML VIAL SUBCUT SCH (22:00)
[2018-08-16] MEDS: INSULIN LISPRO 100 UNIT/ML 3 ML VIAL SUBCUT SCH (23:32)
[2018-08-17] MEDS: FENTANYL CITRATE INJ/PF 100 MCG/2 ML AMPUL IV PRN (00:35)
[2018-08-17] MEDS: MIDAZOLAM HCL 50 MG/100 ML RTUINJ IV PRN ×4 (01:13→21:14)
[2018-08-17] MEDS: LORAZEPAM INJ 2 MG/1 ML VIAL IV PRN (01:51)
[2018-08-17] MEDS: 1/2 NORMAL SALINE 1,000 ML IV PRN ×2 (02:53→07:36)
[2018-08-17] MEDS: PROPOFOL 1,000 MG/100 ML INFUS..BTL IV PRN ×3 (03:22→17:54)
[2018-08-17 04:26] LABS: ABSOLUTE LYMPHOCYTES (AUTO) 1.6 10^3/uL (0.5-4.7); ABSOLUTE MONOCYTES (AUTO) 1.1 10^3/uL (0.1-1.4); ABSOLUTE NEUT (AUTO) 10.6 10^3/uL (1.7-8.2); BASOPHILS % (AUTO) 0.3 % (0-2); EOSINOPHILS % (AUTO) 0.2 % (0-6); LYMPHOCYTES % (AUTO) 12.2 % (13-45); MEAN CORPUSCULAR HEMOGLOBIN 31.1 pg (27.0-33.4); MEAN CORPUSCULAR HGB CONC 33.8 g/dL (32.0-36.0); MONOCYTES % (AUTO) 7.9 % (3-13); PLATELET COUNT 311 10^3/uL (150-450); RED BLOOD COUNT 3.49 10^6/uL (3.72-5.28); RED CELL DISTRIBUTION WIDTH 15.3 % (11.5-14.0); SEGMENTED NEUTROPHILS % (AUTO) 79.4 % (42-78); TOTAL CELLS COUNTED % (AUTO) 100 %; WHITE BLOOD COUNT 13.4 10^3/uL (4.0-10.5)
[2018-08-17 04:35] LABS: ANION GAP 13 (5-19); BLOOD UREA NITROGEN 33 mg/dL (7-20); CALCIUM 7.9 mg/dL (8.4-10.2); CARBON DIOXIDE 18 mmol/L (22-30); CHLORIDE 121 mmol/L (98-107); GLUCOSE 201 mg/dL (75-110); POTASSIUM 4.5 mmol/L (3.6-5.0); SODIUM 152.3 mmol/L (137-145)
[2018-08-17 04:39] LABS: HEMOGLOBIN 10.8 g/dL (12.0-15.5); MEAN CORPUSCULAR VOLUME 92 fl (80-97)
[2018-08-17] MEDS: INSULIN LISPRO 100 UNIT/ML 3 ML VIAL SUBCUT SCH (05:21)
--- NOTE | 2018-08-17 07:42 | EKG REPORT ---
SEVERITY:- OTHERWISE NORMAL ECG - SINUS TACHYCARDIA : Confirmed by: Brie Camacho MD 17-Aug-2018 07:41:11
[2018-08-17] MEDS ORDERED: DEXTROSE 40% GEL 15 GM TUBE PO PRN ×2 (09:41)
[2018-08-17] MEDS ORDERED: GLUCAGON,HUMAN RECOMB 1 MG INJ IM PRN (09:41)
[2018-08-17] MEDS ORDERED: DEXTROSE 50%-WATER 25 GM/50 ML DISP.SYRIN IV PRN ×2 (09:41)
[2018-08-17] MEDS ORDERED: NORMAL SALINE 100 ML with INSULIN REGULAR, HUMAN 100 UNIT IV PRN ×2 (10:30)
[2018-08-17] MEDS: PANTOPRAZOLE SODIUM 40 MG VIAL IV SCH (10:53)
[2018-08-17] MEDS: ENOXAPARIN SODIUM INJ 40 MG/0.4 ML DISP.SYRIN SUBCUT SCH (10:54)
[2018-08-17] MEDS: DEXTROSE 5%-1/2 NORMAL SALINE 1,000 ML IV PRN ×3 (12:00→21:14)
[2018-08-17 12:05] LABS: ANION GAP 15 (5-19); APPEARANCE,URINE CLOUDY; BILIRUBIN,URINE NEGATIVE (NEGATIVE); BLOOD UREA NITROGEN 31 mg/dL (7-20); CALCIUM 7.9 mg/dL (8.4-10.2); CARBON DIOXIDE 14 mmol/L (22-30); CHLORIDE 119 mmol/L (98-107); COLOR,URINE STRAW; GLUCOSE 212 mg/dL (75-110); GLUCOSE, URINE 150 mg/dL (NEGATIVE); KETONES,URINE 20 mg/dL (NEGATIVE); LEUKOCYTE ESTERASE,URINE NEGATIVE (NEGATIVE); NITRITE,URINE NEGATIVE (NEGATIVE); POTASSIUM 4.2 mmol/L (3.6-5.0); PROTEIN,URINE NEGATIVE (NEGATIVE); URIC ACID CRYSTALS,URINE MODERATE /HPF; URINE SPECIFIC GRAVITY 1.009; UROBILINOGEN,URINE NEGATIVE mg/dL (<2.0)
--- NOTE | 2018-08-17 12:10 | PDOC PROGRESS REPORT ---
Subjective Progress Note for:: 08/17/18 Subjective:: ZANE GEIGER is a 27 year old female patient with past medical history of uncontrolled type 1 diabetes mellitus, recurrent DKA, recurrent acute metabolic encephalopathy which requires intubation and ICU placement, brought by EMS with chief complaint of unresponsiveness. Since patient is intubated and on mechanical ventilation she is not social history. History is obtained from ER attending note and and by reviewing previous medical records and charts. As per ER attending note patient brought in by ambulance after being found poorly responsive and altered at her house by her boyfriend. Patient is a known diabetic who is frequently DKA. She was actually just recently discharged from the facility on August 12 after being treated for DKA. She has been on the ventilator several times due to severe DKA. When paramedics arrived they states that she was hypotensive and hypothermic. Upon arrival her core temperature is 87 degrees. Her initial blood work shows marked leukocytosis which might be related to her DKA, blood sugar of 788, BUN of 35, creatinine of 1.42, potassium 5.3, sodium of 151 and bicarb of less than 5. Patient has been managed with hydration, insulin drip and bicarb drip. I reviewed her labs this morning and it shows that her acute kidney edema resolved with her creatinine trended down from 1.4-0.87. Blood sugar also trended from 7 88-1 25 and currently patient has been on half saline and dextrose. Her ABG shows market improvement with pH of 7.40 PCO2 38.3 and PO2 of 2-3. Reason For Visit: ACUTE METABOLIC ENCEPHALOPATHY,DKA Physical Exam Vital Signs: Temp Pulse Resp BP Pulse Ox 99.0 F 110 H 23 H 129/75 H 99 08/17/18 11:25 08/17/18 10:00 08/17/18 11:25 08/17/18 11:25 08/17/18 11:25 Intake & Output 08/16/18 08/17/18 08/18/18 06:59 06:59 06:59 Intake Total 1000 4909 943 Output Total 1940 200 Balance 1000 2969 743 Weight 45.359 kg 51.1 kg General appearance: PRESENT: no acute distress Eye exam: PRESENT: conjunctiva pink Mouth exam: PRESENT: dry mucosa Neck exam: ABSENT: carotid bruit, JVD, lymphadenopathy, thyromegaly Respiratory exam: PRESENT: clear to auscultation george. ABSENT: rales, rhonchi, wheezes Cardiovascular exam: PRESENT: RRR. ABSENT: diastolic murmur, rubs, systolic murmur Results Laboratory Results: 08/17/18 04:03 08/16/18 08/16/18 08/16/18 12:05 14:00 16:00 WBC RBC Hgb Hct MCV MCH MCHC RDW Plt Count Seg Neutrophils % Lymphocytes % Monocytes % Eosinophils % Basophils % Absolute Neutrophils Absolute Lymphocytes Absolute Monocytes Absolute Eosinophils Absolute Basophils Carbonic Acid HCO3/H2CO3 Ratio ABG pH ABG pCO2 ABG pO2 ABG HCO3 ABG O2 Saturation ABG Base Excess FiO2 Sodium 154.0 H 156.5 H 155.0 H Potassium 4.2 D 4.1 3.9 Chloride 120 H 122 H 123 H Carbon Dioxide 11 L 18 L 22 Anion Gap 23 H 17 10 BUN 31 H 31 H 32 H Creatinine 0.73 0.68 0.70 Est GFR ( Amer) > 60 > 60 > 60 Est GFR (Non-Af Amer) > 60 > 60 > 60 Glucose 245 H 132 H 110 Calcium 9.0 9.1 8.9 08/16/18 08/16/18 08/16/18 16:15 18:10 19:35 WBC RBC Hgb Hct MCV MCH MCHC RDW Plt Count Seg Neutrophils % Lymphocytes % Monocytes % Eosinophils % Basophils % Absolute Neutrophils Absolute Lymphocytes Absolute Monocytes Absolute Eosinophils Absolute Basophils Carbonic Acid 1.08 1.15 HCO3/H2CO3 Ratio 19:1 19:1 ABG pH 7.38 7.40 ABG pCO2 35.8 38.3 ABG pO2 49.7 L 223.7 H ABG HCO3 20.6 22.9 ABG O2 Saturation 84.7 L 99.5 H ABG Base Excess -4.0 -1.7 FiO2 35% 45% Sodium 153.6 H Potassium 4.1 Chloride 121 H Carbon Dioxide 23 Anion Gap 10 BUN 32 H Creatinine 0.58 Est GFR ( Amer) > 60 Est GFR (Non-Af Amer) > 60 Glucose 153 H Calcium 8.3 L 08/16/18 08/17/18 08/17/18 19:58 04:03 04:03 WBC 13.4 H RBC 3.49 L Hgb 10.8 L D Hct 32.0 L MCV 92 D MCH 31.1 MCHC 33.8 RDW 15.3 H Plt Count 311 Seg Neutrophils % 79.4 H Lymphocytes % 12.2 L Monocytes % 7.9 Eosinophils % 0.2 Basophils % 0.3 Absolute Neutrophils 10.6 H Absolute Lymphocytes 1.6 Absolute Monocytes 1.1 Absolute Eosinophils 0.0 Absolute Basophils 0.0 Carbonic Acid HCO3/H2CO3 Ratio ABG pH ABG pCO2 ABG pO2 ABG HCO3 ABG O2 Saturation ABG Base Excess FiO2 Sodium 152.6 H 152.3 H Potassium 4.1 4.5 Chloride 122 H 121 H Carbon Dioxide 24 18 L Anion Gap 7 13 BUN 33 H 33 H Creatinine 0.73 0.87 Est GFR ( Amer) > 60 > 60 Est GFR (Non-Af Amer) > 60 > 60 Glucose 146 H 201 H Calcium 8.1 L 7.9 L Impressions: Chest X-Ray 08/16/18 04:37 IMPRESSION: No acute cardiopulmonary findings. Assessment and Plan - Diagnosis (1) Acute kidney injury Is this a current diagnosis for this admission?: Yes Plan: Resolved. (2) Acute metabolic encephalopathy Is this a current diagnosis for this admission?: Yes Plan: Patient remained intubated. (3) DKA (diabetic ketoacidoses) Qualifiers: Diabetes mellitus type: type 1 Is this a current diagnosis for this admission?: Yes Plan: Has be resolving. (4) Uncontrolled diabetes mellitus Qualifiers: Diabetes mellitus type: type 1 Is this a current diagnosis for this admission?: Yes Plan: When she wakes up we encouraged her to comply with her medication and her diet. (5) History of polysubstance abuse Is this a current diagnosis for this admission?: Yes Plan: Currently her urine drug screen is negative. (6) Tobacco dependence Is this a current diagnosis for this admission?: Yes Plan: When she wakes up will encourage counseled her to quit smoking.
[2018-08-17 17:17] LABS: ANION GAP 9 (5-19); BLOOD UREA NITROGEN 30 mg/dL (7-20); CARBON DIOXIDE 20 mmol/L (22-30); CHLORIDE 118 mmol/L (98-107); GLUCOSE 249 mg/dL (75-110); POTASSIUM 3.7 mmol/L (3.6-5.0); SODIUM 147.4 mmol/L (137-145)
[2018-08-17 19:12] LABS: ANION GAP 7 (5-19); BLOOD UREA NITROGEN 30 mg/dL (7-20); CALCIUM 8.1 mg/dL (8.4-10.2); CARBON DIOXIDE 22 mmol/L (22-30); CHLORIDE 118 mmol/L (98-107); GLUCOSE 238 mg/dL (75-110); POTASSIUM 3.7 mmol/L (3.6-5.0); SODIUM 146.5 mmol/L (137-145)
[2018-08-18 01:25] LABS: ANION GAP 6 (5-19); BLOOD UREA NITROGEN 30 mg/dL (7-20); CALCIUM 7.9 mg/dL (8.4-10.2); CARBON DIOXIDE 23 mmol/L (22-30); CHLORIDE 120 mmol/L (98-107); GLUCOSE 257 mg/dL (75-110); POTASSIUM 3.5 mmol/L (3.6-5.0); SODIUM 148.8 mmol/L (137-145)
[2018-08-18 02:32] LABS: ANION GAP 6 (5-19); BLOOD UREA NITROGEN 29 mg/dL (7-20); CARBON DIOXIDE 23 mmol/L (22-30); CHLORIDE 120 mmol/L (98-107); GLUCOSE 243 mg/dL (75-110); POTASSIUM 3.4 mmol/L (3.6-5.0); SODIUM 148.9 mmol/L (137-145)
[2018-08-18] MEDS: ACETAMINOPHEN 650 MG SUPP.RECT PR PRN (02:38)
[2018-08-18] MEDS: MIDAZOLAM HCL 50 MG/100 ML RTUINJ IV PRN ×4 (03:08→18:37)
[2018-08-18 04:19] LABS: ARTERIAL BLOOD H2CO3 0.96 mmol/L (1.05-1.35); ARTERIAL BLOOD HCO3 21.4 mmol/L (20-24); ARTERIAL BLOOD O2 SATURATION 97.1 % (94-98); ARTERIAL BLOOD PCO2 31.9 mmHg (35-45); ARTERIAL BLOOD PH 7.45 (7.35-7.45); ARTERIAL BLOOD PO2 87.7 mmHg (80-100); ARTERIAL BLOOD TOTAL CO2 22.4 mmol/L (21-25)
[2018-08-18 04:20] LABS: ARTERIAL BLOOD FIO2 28%
[2018-08-18 04:31] LABS: APPEARANCE,URINE SLIGHTLY-CLOUDY; BILIRUBIN,URINE NEGATIVE (NEGATIVE); COLOR,URINE YELLOW; GLUCOSE, URINE >=500 mg/dL (NEGATIVE); KETONES,URINE NEGATIVE (NEGATIVE); LEUKOCYTE ESTERASE,URINE SMALL (NEGATIVE); NITRITE,URINE NEGATIVE (NEGATIVE); PROTEIN,URINE NEGATIVE (NEGATIVE); URINE SPECIFIC GRAVITY 1.009; UROBILINOGEN,URINE NEGATIVE mg/dL (<2.0)
[2018-08-18 05:51] LABS: ABSOLUTE LYMPHOCYTES (AUTO) 1.3 10^3/uL (0.5-4.7); ABSOLUTE MONOCYTES (AUTO) 0.6 10^3/uL (0.1-1.4); ABSOLUTE NEUT (AUTO) 9.2 10^3/uL (1.7-8.2); BASOPHILS % (AUTO) 0.1 % (0-2); EOSINOPHILS % (AUTO) 0.1 % (0-6); HEMATOCRIT 28.2 % (36.0-47.0); HEMOGLOBIN 9.5 g/dL (12.0-15.5); LYMPHOCYTES % (AUTO) 11.3 % (13-45); MEAN CORPUSCULAR HEMOGLOBIN 30.7 pg (27.0-33.4); MEAN CORPUSCULAR HGB CONC 33.6 g/dL (32.0-36.0); MEAN CORPUSCULAR VOLUME 92 fl (80-97); MONOCYTES % (AUTO) 5.2 % (3-13); PLATELET COUNT 225 10^3/uL (150-450); RED BLOOD COUNT 3.08 10^6/uL (3.72-5.28); RED CELL DISTRIBUTION WIDTH 16.2 % (11.5-14.0); SEGMENTED NEUTROPHILS % (AUTO) 83.3 % (42-78); TOTAL CELLS COUNTED % (AUTO) 100 %
[2018-08-18 06:16] LABS: ANION GAP 5 (5-19); BLOOD UREA NITROGEN 29 mg/dL (7-20); CALCIUM 7.8 mg/dL (8.4-10.2); CARBON DIOXIDE 24 mmol/L (22-30); CHLORIDE 120 mmol/L (98-107); GLUCOSE 181 mg/dL (75-110); PHOSPHORUS 2.1 mg/dL (2.5-4.5); POTASSIUM 3.1 mmol/L (3.6-5.0); SODIUM 149.1 mmol/L (137-145)
[2018-08-18] MEDS: DEXTROSE 5%-1/2 NORMAL SALINE 1,000 ML IV PRN ×2 (06:23→14:05)
--- NOTE | 2018-08-18 07:55 | RADIOLOGY REPORT (SQ) ---
EXAM DESCRIPTION: CHEST SINGLE VIEW COMPLETED DATE/TIME: 08/18/2018 6:29 am REASON FOR STUDY: resp failure COMPARISON: Chest films 05/04/2017, 08/09/2018, 08/16/2018 EXAM PARAMETERS: NUMBER OF VIEWS: One view. TECHNIQUE: Single frontal radiographic view of the chest acquired. RADIATION DOSE: NA LIMITATIONS: None. FINDINGS: LUNGS AND PLEURA: Minimal airspace disease in the medial right lung base atelectasis versu s pneumonia. Lungs are otherwise well inflated and clear. No pleural effusion or pneumothorax MEDIASTINUM AND HILAR STRUCTURES: No masses. Contour normal. HEART AND VASCULAR STRUCTURES: Heart normal in size. Normal vasculature. BONES: No acute findings. HARDWARE: Endotracheal tube tip 4 cm above the alejandra. Nasogastric tube tip and side port in the sto mach. OTHER: No other significant finding. IMPRESSION: Endotracheal and nasogastric tubes in good positioning. Minimal right medial basilar airspace disease atelectasis versus pneumonia TECHNICAL DOCUMENTATION: JOB ID: [id number] [employer]- All Rights Reserved Reading location - IP/workstation name: [email or web address]
[2018-08-18] MEDS: ENOXAPARIN SODIUM INJ 40 MG/0.4 ML DISP.SYRIN SUBCUT SCH (09:19)
[2018-08-18] MEDS: PANTOPRAZOLE SODIUM 40 MG VIAL IV SCH (09:19)
[2018-08-18] MEDS ORDERED: POTASSI CL 20 MEQ/50 ML RIDER 20 MEQ/50 ML RTUPB IV ONE (13:28)
--- NOTE | 2018-08-18 13:32 | PDOC PROGRESS REPORT ---
Subjective Progress Note for:: 08/18/18 Reason For Visit: ACUTE METABOLIC ENCEPHALOPATHY,DKA Physical Exam Vital Signs: Temp Pulse Resp BP Pulse Ox 97.5 F 73 16 100/67 100 08/18/18 12:00 08/18/18 12:00 08/18/18 12:00 08/18/18 12:00 08/18/18 12:00 Intake & Output 08/17/18 08/18/18 08/19/18 06:59 06:59 06:59 Intake Total 5909 4279 100 Output Total 1940 1635 305 Balance 3969 2644 -205 Weight 51.1 kg 53.7 kg General appearance: PRESENT: no acute distress, well-developed Head exam: PRESENT: atraumatic, normocephalic Ear exam: PRESENT: normal external ear exam Mouth exam: PRESENT: other - Endotracheal tube and nasogastric tube in place Respiratory exam: PRESENT: symmetrical. ABSENT: accessory muscle use, rales, rhonchi, tachypnea, wheezes Cardiovascular exam: PRESENT: RRR, +S1, +S2. ABSENT: diastolic murmur, systolic murmur Pulses: PRESENT: +1 pedal pulses bilateral GI/Abdominal exam: PRESENT: hypoactive bowel sounds, soft. ABSENT: distended, tenderness Rectal exam: PRESENT: deferred Gentrourinary exam: PRESENT: indwelling catheter Extremities exam: ABSENT: pedal edema Musculoskeletal exam: PRESENT: normal inspection. ABSENT: ambulatory Neurological exam: ABSENT: awake Psychiatric exam: ABSENT: agitated Focused psych exam: ABSENT: restlessness Skin exam: PRESENT: dry, warm. ABSENT: rash Results Laboratory Results: 08/18/18 05:30 08/17/18 08/17/18 08/18/18 16:20 18:00 00:50 WBC RBC Hgb Hct MCV MCH MCHC RDW Plt Count Seg Neutrophils % Lymphocytes % Monocytes % Eosinophils % Basophils % Absolute Neutrophils Absolute Lymphocytes Absolute Monocytes Absolute Eosinophils Absolute Basophils Carbonic Acid HCO3/H2CO3 Ratio ABG pH ABG pCO2 ABG pO2 ABG HCO3 ABG O2 Saturation ABG Base Excess FiO2 Sodium 147.4 H 146.5 H 148.8 H Potassium 3.7 3.7 3.5 L Chloride 118 H 118 H 120 H Carbon Dioxide 20 L 22 23 Anion Gap 9 7 6 BUN 30 H 30 H 30 H Creatinine 1.10 1.12 0.95 Est GFR ( Amer) > 60 > 60 > 60 Est GFR (Non-Af Amer) > 60 59 L > 60 Glucose 249 H 238 H 257 H Calcium 8.0 L 8.1 L 7.9 L Phosphorus Magnesium Urine Color Urine Appearance Urine pH Ur Specific [place] Urine Protein Urine Glucose (UA) Urine Ketones Urine Blood Urine Nitrite Ur Leukocyte Esterase Urine WBC (Auto) Urine RBC (Auto) 08/18/18 08/18/18 08/18/18 02:10 04:00 04:03 WBC RBC Hgb Hct MCV MCH MCHC RDW Plt Count Seg Neutrophils % Lymphocytes % Monocytes % Eosinophils % Basophils % Absolute Neutrophils Absolute Lymphocytes Absolute Monocytes Absolute Eosinophils Absolute Basophils Carbonic Acid 0.96 L HCO3/H2CO3 Ratio 22:1 ABG pH 7.45 ABG pCO2 31.9 L ABG pO2 87.7 ABG HCO3 21.4 ABG O2 Saturation 97.1 ABG Base Excess -2.0 FiO2 28% Sodium 148.9 H Potassium 3.4 L Chloride 120 H Carbon Dioxide 23 Anion Gap 6 BUN 29 H Creatinine 0.97 Est GFR ( Amer) > 60 Est GFR (Non-Af Amer) > 60 Glucose 243 H Calcium 8.0 L Phosphorus Magnesium Urine Color YELLOW Urine Appearance SLIGHTLY-CLOUDY Urine pH 5.0 Ur Specific [place] 1.009 Urine Protein NEGATIVE Urine Glucose (UA) >=500 H Urine Ketones NEGATIVE Urine Blood MODERATE H Urine Nitrite NEGATIVE Ur Leukocyte Esterase SMALL H Urine WBC (Auto) 17 Urine RBC (Auto) 3 08/18/18 08/18/18 05:30 05:30 WBC 11.0 H RBC 3.08 L Hgb 9.5 L Hct 28.2 L MCV 92 MCH 30.7 MCHC 33.6 RDW 16.2 H Plt Count 225 Seg Neutrophils % 83.3 H Lymphocytes % 11.3 L Monocytes % 5.2 Eosinophils % 0.1 Basophils % 0.1 Absolute Neutrophils 9.2 H Absolute Lymphocytes 1.3 Absolute Monocytes 0.6 Absolute Eosinophils 0.0 Absolute Basophils 0.0 Carbonic Acid HCO3/H2CO3 Ratio ABG pH ABG pCO2 ABG pO2 ABG HCO3 ABG O2 Saturation ABG Base Excess FiO2 Sodium 149.1 H Potassium 3.1 L Chloride 120 H Carbon Dioxide 24 Anion Gap 5 BUN 29 H Creatinine 0.95 Est GFR ( Amer) > 60 Est GFR (Non-Af Amer) > 60 Glucose 181 H Calcium 7.8 L Phosphorus 2.1 L Magnesium 2.2 Urine Color Urine Appearance Urine pH Ur Specific [place] Urine Protein Urine Glucose (UA) Urine Ketones Urine Blood Urine Nitrite Ur Leukocyte Esterase Urine WBC (Auto) Urine RBC (Auto) Impressions: Chest X-Ray 08/18/18 06:00 IMPRESSION: Endotracheal and nasogastric tubes in good positioning. Minimal right medial basilar airspace disease atelectasis versus pneumonia Assessment and Plan - Diagnosis (1) Acute kidney injury Is this a current diagnosis for this admission?: Yes Plan: Resolved. 08/18/2018-acute kidney injury is resolved. (2) Acute metabolic encephalopathy Is this a current diagnosis for this admission?: Yes Plan: Patient remained intubated. 08/18/2018-unable to assess as patient is intubated and sedated (3) DKA (diabetic ketoacidoses) Qualifiers: Diabetes mellitus type: type 1 Is this a current diagnosis for this admission?: Yes Plan: Has be resolving. 08/18/2018-the patient had urine ketones earlier today but has had her first negative ketone study. We are starting tube feeds and I will continue her on the insulin drip for the time being. Should be able to convert her to a combination of long-acting and sliding scale coverage. (4) Uncontrolled diabetes mellitus Qualifiers: Diabetes mellitus type: type 1 Is this a current diagnosis for this admission?: Yes Plan: When she wakes up we encouraged her to comply with her medication and her diet. 08/18/2018-the patient's fingerstick glucoses are significantly improved. Hemoglobin A1c was not checked but she was just released from this hospital a pproximately 1 week ago for the same diagnosis. We will need to encourage better compliance. (5) History of polysubstance abuse Is this a current diagnosis for this admission?: Yes Plan: Currently her urine drug screen is negative. (6) Tobacco dependence Is this a current diagnosis for this admission?: Yes Plan: When she wakes up will encourage counseled her to quit smoking. 08/18/2018-we will address when extubated (7) Hypernatremia Is this a current diagnosis for this admission?: Yes Plan: 08/18/2018-the patient has had elevated serum sodium since admission. I will need to adjust her fluids. I will await the next basic metabolic panel. Now that we are starting tube feeds this should be able to stop the D5 and change her to half-normal saline. (8) Hypokalemia Is this a current diagnosis for this admission?: Yes Plan: 08/18/2018-likely a combination of etiologies. The chronic insulin therapy for 1. Will order a 20 mEq dose of IV potassium chloride and place the patient on the electrolyte replacement protocol.
[2018-08-18 14:12] LABS: ANION GAP 6 (5-19); BLOOD UREA NITROGEN 29 mg/dL (7-20); CALCIUM 7.7 mg/dL (8.4-10.2); CARBON DIOXIDE 21 mmol/L (22-30); CHLORIDE 120 mmol/L (98-107); GLUCOSE 112 mg/dL (75-110); POTASSIUM 3.1 mmol/L (3.6-5.0); SODIUM 147.4 mmol/L (137-145)
[2018-08-18] MEDS: NORMAL SALINE 1000 ML 1,000 ML IV PRN (17:02)
[2018-08-18] MEDS: INSULIN LISPRO 100 UNIT/ML 3 ML VIAL SUBCUT SCH ×2 (17:40→23:51)
[2018-08-18] MEDS: PROPOFOL 1,000 MG/100 ML INFUS..BTL IV PRN (17:41)
[2018-08-18 21:28] LABS: ANION GAP 8 (5-19); BLOOD UREA NITROGEN 29 mg/dL (7-20); CALCIUM 7.9 mg/dL (8.4-10.2); CARBON DIOXIDE 20 mmol/L (22-30); CHLORIDE 117 mmol/L (98-107); GLUCOSE 267 mg/dL (75-110)
[2018-08-18] MEDS ORDERED: INSULIN GLARGINE,HUM.REC.ANLOG 1,000 UNIT/10 ML VIAL SUBCUT SCH (22:00)
[2018-08-18] MEDS: AMINO AC/PROTEIN HYDR/WHEY PRO 11 GM/45 ML PKT NG SCH (22:04)
[2018-08-18 23:52] LABS: ANION GAP 9 (5-19); BLOOD UREA NITROGEN 27 mg/dL (7-20); CALCIUM 7.9 mg/dL (8.4-10.2); CARBON DIOXIDE 17 mmol/L (22-30); CHLORIDE 119 mmol/L (98-107); GLUCOSE 285 mg/dL (75-110); POTASSIUM 3.6 mmol/L (3.6-5.0); SODIUM 144.7 mmol/L (137-145)
[2018-08-19 05:13] LABS: APPEARANCE,URINE SLIGHTLY-CLOUDY; BILIRUBIN,URINE NEGATIVE (NEGATIVE); COLOR,URINE YELLOW; GLUCOSE, URINE >=500 mg/dL (NEGATIVE); KETONES,URINE 20 mg/dL (NEGATIVE); LEUKOCYTE ESTERASE,URINE SMALL (NEGATIVE); NITRITE,URINE POSITIVE (NEGATIVE); PROTEIN,URINE NEGATIVE (NEGATIVE); URINE SPECIFIC GRAVITY 1.012; UROBILINOGEN,URINE NEGATIVE mg/dL (<2.0)
[2018-08-19 05:18] LABS: ABSOLUTE MONOCYTES (AUTO) 0.6 10^3/uL (0.1-1.4); ABSOLUTE NEUT (AUTO) 8.4 10^3/uL (1.7-8.2); BASOPHILS % (AUTO) 0.1 % (0-2); EOSINOPHILS % (AUTO) 0.4 % (0-6); HEMATOCRIT 29.9 % (36.0-47.0); HEMOGLOBIN 10.3 g/dL (12.0-15.5); LYMPHOCYTES % (AUTO) 9.8 % (13-45); MEAN CORPUSCULAR HEMOGLOBIN 31.7 pg (27.0-33.4); MEAN CORPUSCULAR HGB CONC 34.5 g/dL (32.0-36.0); MEAN CORPUSCULAR VOLUME 92 fl (80-97); MONOCYTES % (AUTO) 5.7 % (3-13); PLATELET COUNT 231 10^3/uL (150-450); RED BLOOD COUNT 3.26 10^6/uL (3.72-5.28); TOTAL CELLS COUNTED % (AUTO) 100 %
[2018-08-19 05:23] LABS: ARTERIAL BLOOD BASE EXCESS -5.8 mmol/L; ARTERIAL BLOOD HCO3 16.9 mmol/L (20-24); ARTERIAL BLOOD O2 SATURATION 97.8 % (94-98); ARTERIAL BLOOD PCO2 26.7 mmHg (35-45); ARTERIAL BLOOD PH 7.42 (7.35-7.45); ARTERIAL BLOOD TOTAL CO2 17.7 mmol/L (21-25)
[2018-08-19 05:25] LABS: ARTERIAL BLOOD FIO2 25%
[2018-08-19 05:27] LABS: PHOSPHORUS 2.6 mg/dL (2.5-4.5)
[2018-08-19] MEDS: INSULIN LISPRO 100 UNIT/ML 3 ML VIAL SUBCUT SCH (06:11)
[2018-08-19 08:26] LABS: ANION GAP 8 (5-19); BLOOD UREA NITROGEN 21 mg/dL (7-20); CARBON DIOXIDE 13 mmol/L (22-30); CHLORIDE 129 mmol/L (98-107); GLUCOSE 222 mg/dL (75-110)
[2018-08-19 08:46] LABS: CALCIUM 6.4 mg/dL (8.4-10.2); POTASSIUM 2.7 mmol/L (3.6-5.0)
[2018-08-19] MEDS ORDERED: GLUCAGON,HUMAN RECOMB 1 MG INJ IM PRN (09:13)
[2018-08-19] MEDS ORDERED: DEXTROSE 40% GEL 15 GM TUBE PO PRN ×2 (09:13)
[2018-08-19] MEDS ORDERED: DEXTROSE 50%-WATER 25 GM/50 ML DISP.SYRIN IV PRN ×2 (09:13)
[2018-08-19] MEDS: ENOXAPARIN SODIUM INJ 40 MG/0.4 ML DISP.SYRIN SUBCUT SCH (10:00)
[2018-08-19] MEDS: AMINO AC/PROTEIN HYDR/WHEY PRO 11 GM/45 ML PKT NG SCH (10:01)
[2018-08-19] MEDS: PROPOFOL 1,000 MG/100 ML INFUS..BTL IV PRN (11:05)
[2018-08-19] MEDS: NORMAL SALINE 1000 ML 1,000 ML IV PRN (11:09)
[2018-08-19] MEDS: POTASSIUM CHLORIDE 20 MEQ/50 ML RTU IV SCH ×3 (11:09→15:01)
[2018-08-19] MEDS: NORMAL SALINE 100 ML with INSULIN REGULAR, HUMAN 100 UNIT IV PRN ×2 (11:19)
--- NOTE | 2018-08-19 12:21 | PDOC PROGRESS REPORT ---
Subjective Progress Note for:: 08/19/18 Subjective:: Patient remains intubated and sedated. Reason For Visit: ACUTE METABOLIC ENCEPHALOPATHY,DKA Physical Exam Vital Signs: Temp Pulse Resp BP Pulse Ox 99.1 F 88 17 114/69 100 08/19/18 08:00 08/19/18 10:00 08/19/18 10:00 08/19/18 10:00 08/19/18 10:00 Intake & Output 08/18/18 08/19/18 08/20/18 06:59 06:59 06:59 Intake Total 4279 2181 797 Output Total 1635 1560 500 Balance 2644 621 297 Weight 53.7 kg 54.9 kg General appearance: PRESENT: no acute distress, well-developed Head exam: PRESENT: atraumatic, normocephalic Mouth exam: PRESENT: other - Endotracheal tube and nasogastric tube in place Respiratory exam: PRESENT: clear to auscultation george, symmetrical, unlabored. ABSENT: rhonchi, wheezes Cardiovascular exam: PRESENT: RRR, +S1, +S2 GI/Abdominal exam: PRESENT: normal bowel sounds, soft. ABSENT: distended, tenderness Rectal exam: PRESENT: deferred Gentrourinary exam: PRESENT: indwelling catheter Extremities exam: PRESENT: other - Arms are starting to appear puffy but no pitting edema. ABSENT: pedal edema Musculoskeletal exam: PRESENT: normal inspection Neurological exam: ABSENT: awake Psychiatric exam: ABSENT: agitated Focused psych exam: ABSENT: restlessness Skin exam: PRESENT: dry, warm. ABSENT: rash Results Laboratory Results: 08/19/18 04:55 08/19/18 07:58 08/18/18 08/18/18 08/18/18 11:24 13:35 18:04 WBC RBC Hgb Hct MCV MCH MCHC RDW Plt Count Seg Neutrophils % Lymphocytes % Monocytes % Eosinophils % Basophils % Absolute Neutrophils Absolute Lymphocytes Absolute Monocytes Absolute Eosinophils Absolute Basophils Carbonic Acid HCO3/H2CO3 Ratio ABG pH ABG pCO2 ABG pO2 ABG HCO3 ABG O2 Saturation ABG Base Excess FiO2 Sodium Cancelled 147.4 H 145.0 Potassium Cancelled 3.1 L 4.0 Chloride Cancelled 120 H 117 H Carbon Dioxide Cancelled 21 L 20 L Anion Gap Cancelled 6 8 BUN Cancelled 29 H 29 H Creatinine Cancelled 0.79 0.69 Est GFR ( Amer) Cancelled > 60 > 60 Est GFR (Non-Af Amer) Cancelled > 60 > 60 Glucose Cancelled 112 H 267 H Calcium Cancelled 7.7 L 7.9 L Phosphorus Magnesium Albumin Urine Color Urine Appearance Urine pH Ur Specific [place] Urine Protein Urine Glucose (UA) Urine Ketones Urine Blood Urine Nitrite Ur Leukocyte Esterase Urine WBC (Auto) Urine RBC (Auto) 08/18/18 08/19/18 08/19/18 23:17 04:55 04:55 WBC 10.0 RBC 3.26 L Hgb 10.3 L Hct 29.9 L MCV 92 MCH 31.7 MCHC 34.5 RDW 17.0 H Plt Count 231 Seg Neutrophils % 84.0 H Lymphocytes % 9.8 L Monocytes % 5.7 Eosinophils % 0.4 Basophils % 0.1 Absolute Neutrophils 8.4 H Absolute Lymphocytes 1.0 Absolute Monocytes 0.6 Absolute Eosinophils 0.0 Absolute Basophils 0.0 Carbonic Acid 0.80 L HCO3/H2CO3 Ratio 21:1 ABG pH 7.42 ABG pCO2 26.7 L ABG pO2 100.0 ABG HCO3 16.9 L ABG O2 Saturation 97.8 ABG Base Excess -5.8 FiO2 25% Sodium 144.7 Potassium 3.6 Chloride 119 H Carbon Dioxide 17 L Anion Gap 9 BUN 27 H Creatinine 0.73 Est GFR ( Amer) > 60 Est GFR (Non-Af Amer) > 60 Glucose 285 H Calcium 7.9 L Phosphorus Magnesium Albumin Urine Color Urine Appearance Urine pH Ur Specific [place] Urine Protein Urine Glucose (UA) Urine Ketones Urine Blood Urine Nitrite Ur Leukocyte Esterase Urine WBC (Auto) Urine RBC (Auto) 08/19/18 08/19/18 08/19/18 04:55 04:59 07:58 WBC RBC Hgb Hct MCV MCH MCHC RDW Plt Count Seg Neutrophils % Lymphocytes % Monocytes % Eosinophils % Basophils % Absolute Neutrophils Absolute Lymphocytes Absolute Monocytes Absolute Eosinophils Absolute Basophils Carbonic Acid HCO3/H2CO3 Ratio ABG pH ABG pCO2 ABG pO2 ABG HCO3 ABG O2 Saturation ABG Base Excess FiO2 Sodium 150.0 H Potassium 2.7 L* Chloride 129 H Carbon Dioxide 13 L Anion Gap 8 BUN 21 H Creatinine 0.53 Est GFR ( Amer) > 60 Est GFR (Non-Af Amer) > 60 Glucose 222 H Calcium 6.4 L* Phosphorus 2.6 Magnesium 2.0 Albumin Urine Color YELLOW Urine Appearance SLIGHTLY-CLOUDY Urine pH 5.0 Ur Specific [place] 1.012 Urine Protein NEGATIVE Urine Glucose (UA) >=500 H Urine Ketones 20 H Urine Blood SMALL H Urine Nitrite POSITIVE H Ur Leukocyte Esterase SMALL H Urine WBC (Auto) 44 Urine RBC (Auto) 2 08/19/18 07:58 WBC RBC Hgb Hct MCV MCH MCHC RDW Plt Count Seg Neutrophils % Lymphocytes % Monocytes % Eosinophils % Basophils % Absolute Neutrophils Absolute Lymphocytes Absolute Monocytes Absolute Eosinophils Absolute Basophils Carbonic Acid HCO3/H2CO3 Ratio ABG pH ABG pCO2 ABG pO2 ABG HCO3 ABG O2 Saturation ABG Base Excess FiO2 Sodium Potassium Chloride Carbon Dioxide Anion Gap BUN Creatinine Est GFR ( Amer) Est GFR (Non-Af Amer) Glucose Calcium Phosphorus Magnesium Albumin 1.7 L Urine Color Urine Appearance Urine pH Ur Specific [place] Urine Protein Urine Glucose (UA) Urine Ketones Urine Blood Urine Nitrite Ur Leukocyte Esterase Urine WBC (Auto) Urine RBC (Auto) Impressions: Chest X-Ray 08/18/18 06:00 IMPRESSION: Endotracheal and nasogastric tubes in good positioning. Minimal right medial basilar airspace disease atelectasis versus pneumonia Assessment and Plan - Diagnosis (1) Acute kidney injury Is this a current diagnosis for this admission?: Yes Plan: Resolved. 08/18/2018-acute kidney injury is resolved. 08/19/2018-BUN is still slightly elevated but GFR is greater than 60. (2) Acute metabolic encephalopathy Is this a current diagnosis for this admission?: Yes Plan: Patient remained intubated. 08/18/2018-unable to assess as patient is intubated and sedated 08/19/2018-as above (3) DKA (diabetic ketoacidoses) Qualifiers: Diabetes mellitus type: type 1 Is this a current diagnosis for this admission?: Yes Plan: Has be resolving. 08/18/2018-the patient had urine ketones earlier today but has had her first negative ketone study. We are starting tube feeds and I will continue her on the insulin drip for the time being. Should be able to convert her to a combination of long-acting and sliding scale coverage. 08/19/2018-unfortunately the patient's urine was ketone positive today. She is back on the insulin drip at 3 units/h. I will hold her tube feeds. Once her fingersticks are less than 200 I will change the fluid to D5 half-normal saline. Her anion gap has corrected. (4) Uncontrolled diabetes mellitus Qualifiers: Diabetes mellitus type: type 1 Is this a current diagnosis for this admission?: Yes Plan: When she wakes up we encouraged her to comply with her medication and her diet. 08/18/2018-the patient's fingerstick glucoses are significantly improved. Hemoglobin A1c was not checked but she was just released from this hospital approximately 1 week ago for the same diagnosis. We will need to encourage better compliance. 08/19/2018-as above (5) History of polysubstance abuse Is this a current diagnosis for this admission?: Yes Plan: Currently her urine drug screen is negative. 08/19/2018-counseling when patient is awake. (6) Tobacco dependence Is this a current diagnosis for this admission?: Yes Plan: When she wakes up will encourage counseled her to quit smoking. 08/18/2018-we will address when extubated 08/19/2018-as above (7) Hypernatremia Is this a current diagnosis for this admission?: Yes Plan: 08/18/2018-the patient has had elevated serum sodium since admission. I will need to adjust her fluids. I will await the next basic metabolic panel. Now that we are starting tube feeds this should be able to stop the D5 and change her to half-normal saline. 08/19/2018-serum sodium is back to elevated level at 150. At this point I will change to the D5 half-normal saline. (8) Hypokalemia Is this a current diagnosis for this admission?: Yes Plan: 08/18/2018-likely a combination of etiologies. The chronic insulin therapy for 1. Will order a 20 mEq dose of IV potassium chloride and place the patient on the electrolyte replacement protocol. 08/19/2018-continue electrolyte replacement protocol. - Time Time Spent with patient: 15-24 minutes Medications reviewed and adjusted accordingly: Yes
--- NOTE | 2018-08-19 12:35 | PDOC CONSULTATION ---
Consultation Consult Date: 08/17/18 Attending physician:: MARIA G DE LEON Provider Consulted: SHERI TORIBIO Consult reason:: resp failure History of Present Illness Admission Date/PCP: 08/16/18 08:16 History of Present Illness: ZANE GEIGER is a 27 year old female presented with DKA was lethargic and subsequently intubated she was on an insulin drip and her ketonuria resolved was unable to get as serum acetones and so her insulin drip was changed to a sliding scale and subsequently her ketonuria returned and she was replaced back on insulin drip. Currently intubated and sedated Past Medical History Pulmonary Medical History: Reports: Asthma Endocrine Medical History: Reports: Diabetes Mellitus Type 1 Traumatic Medical History: Denies: Gunshot Wound Hematology: Denies: Sickle Cell Disease Infectious Medical History: Denies: Methicillin-Resistant Staph Aureus Social History Information Source: [facility] Records Smoking Status: Current Every Day Smoker Cigarettes Packs Per Day: 0.5 Number of Years Smokin Frequency of Alcohol Use: None Hx Recreational Drug Use: Yes - mother states no longer uses drugs Drugs: Marijuana, Methadone Hx Prescription Drug Abuse: No - Advance Directive Resuscitation Status: Full Code Family History Family History: Other - unknown Parental Family History Reviewed: No Children Family History Reviewed: No Sibling(s) Family History Reviewed.: No Medication/Allergy Home Medications: RX: Insulin Aspart [Novolog Flexpen] 20 unit SUBCUT MEALS 08/12/18 RX: Insulin Glargine,Hum.rec.anlog [Lantus Insulin 100 Unit/1 ml 10 ml] 28 unit SUBCUT QHS MDD NEVER PICKED UP 08/12/18 Allergies/Adverse Reactions: No Known Allergies Allergy (Verified 08/16/18 07:37) Review of Systems ROS unobtainable: Due to endotracheal tube Physical Exam Vital Signs: Temp Pulse Resp BP Pulse Ox 97.9 F 84 14 111/73 99 08/18/18 08:00 08/18/18 08:00 08/18/18 08:00 08/18/18 08:00 08/18/18 09:15 Intake & Output 08/17/18 08/18/18 08/19/18 06:59 06:59 06:59 Intake Total 0270 4279 100 Output Total 6043 2115 Balance 3969 2644 100 Weight 51.1 kg 53.7 kg General appearance: PRESENT: no acute distress, disheveled, thin. ABSENT: morbidly obese, obese, severe distress Head exam: PRESENT: atraumatic, normocephalic Eye exam: PRESENT: conjunctiva pale. ABSENT: EOMI, nystagmus, periorbital swelling Mouth exam: PRESENT: dry mucosa, tongue midline, other - ET tube Teeth exam: PRESENT: edentulous Respiratory exam: PRESENT: decreased breath sounds, prolonged expiratory phas, rales, rhonchi, tachypnea, unlabored. ABSENT: retraction, stridor Cardiovascular exam: PRESENT: RRR, +S1, +S2, tachycardia Pulses: PRESENT: normal radial pulses GI/Abdominal exam: PRESENT: diminished bowel sounds, soft. ABSENT: mass, tenderness Gentrourinary exam: PRESENT: indwelling catheter Extremities exam: ABSENT: calf tenderness, clubbing, joint swelling Musculoskeletal exam: ABSENT: ambulatory, deformity, dislocation Neurological exam: ABSENT: awake Skin exam: PRESENT: dry, warm Results Laboratory Results: 08/18/18 05:30 08/18/18 05:30 08/17/18 08/17/18 08/17/18 11:20 11:20 11:20 WBC RBC Hgb Hct MCV MCH MCHC RDW Plt Count Seg Neutrophils % Lymphocytes % Monocytes % Eosinophils % Basophils % Absolute Neutrophils Absolute Lymphocytes Absolute Monocytes Absolute Eosinophils Absolute Basophils Carbonic Acid HCO3/H2CO3 Ratio ABG pH ABG pCO2 ABG pO2 ABG HCO3 ABG O2 Saturation ABG Base Excess FiO2 Sodium 148.0 H Potassium 4.2 Chloride 119 H Carbon Dioxide 14 L Anion Gap 15 BUN 31 H Creatinine 1.03 Est GFR ( Amer) > 60 Est GFR (Non-Af Amer) > 60 Glucose 212 H Lactic Acid 0.6 L Calcium 7.9 L Phosphorus Magnesium Urine Color [place]AW Urine Appearance CLOUDY Urine pH 5.0 Ur Specific [place] 1.009 Urine Protein NEGATIVE Urine Glucose (UA) 150 H Urine Ketones 20 H Urine Blood SMALL H Urine Nitrite NEGATIVE Ur Leukocyte Esterase NEGATIVE Urine WBC (Auto) 3 Urine RBC (Auto) 8 08/17/18 08/17/18 08/18/18 16:20 18:00 00:50 WBC RBC Hgb Hct MCV MCH MCHC RDW Plt Count Seg Neutrophils % Lymphocytes % Monocytes % Eosinophils % Basophils % Absolute Neutrophils Absolute Lymphocytes Absolute Monocytes Absolute Eosinophils Absolute Basophils Carbonic Acid HCO3/H2CO3 Ratio ABG pH ABG pCO2 ABG pO2 ABG HCO3 ABG O2 Saturation ABG Base Excess FiO2 Sodium 147.4 H 146.5 H 148.8 H Potassium 3.7 3.7 3.5 L Chloride 118 H 118 H 120 H Carbon Dioxide 20 L 22 23 Anion Gap 9 7 6 BUN 30 H 30 H 30 H Creatinine 1.10 1.12 0.95 Est GFR ( Amer) > 60 > 60 > 60 Est GFR (Non-Af Amer) > 60 59 L > 60 Glucose 249 H 238 H 257 H Lactic Acid Calcium 8.0 L 8.1 L 7.9 L Phosphorus Magnesium Urine Color Urine Appearance Urine pH Ur Specific [place] Urine Protein Urine Glucose (UA) Urine Ketones Urine Blood Urine Nitrite Ur Leukocyte Esterase Urine WBC (Auto) Urine RBC (Auto) 08/18/18 08/18/18 08/18/18 02:10 04:00 04:03 WBC RBC Hgb Hct MCV MCH MCHC RDW Plt Count Seg Neutrophils % Lymphocytes % Monocytes % Eosinophils % Basophils % Absolute Neutrophils Absolute Lymphocytes Absolute Monocytes Absolute Eosinophils Absolute Basophils Carbonic Acid 0.96 L HCO3/H2CO3 Ratio 22:1 ABG pH 7.45 ABG pCO2 31.9 L ABG pO2 87.7 ABG HCO3 21.4 ABG O2 Saturation 97.1 ABG Base Excess -2.0 FiO2 28% Sodium 148.9 H Potassium 3.4 L Chloride 120 H Carbon Dioxide 23 Anion Gap 6 BUN 29 H Creatinine 0.97 Est GFR ( Amer) > 60 Est GFR (Non-Af Amer) > 60 Glucose 243 H Lactic Acid Calcium 8.0 L Phosphorus Magnesium Urine Color YELLOW Urine Appearance SLIGHTLY-CLOUDY Urine pH 5.0 Ur Specific [place] 1.009 Urine Protein NEGATIVE Urine Glucose (UA) >=500 H Urine Ketones NEGATIVE Urine Blood MODERATE H Urine Nitrite NEGATIVE Ur Leukocyte Esterase SMALL H Urine WBC (Auto) 17 Urine RBC (Auto) 3 08/18/18 08/18/18 05:30 05:30 WBC 11.0 H RBC 3.08 L Hgb 9.5 L Hct 28.2 L MCV 92 MCH 30.7 MCHC 33.6 RDW 16.2 H Plt Count 225 Seg Neutrophils % 83.3 H Lymphocytes % 11.3 L Monocytes % 5.2 Eosinophils % 0.1 Basophils % 0.1 Absolute Neutrophils 9.2 H Absolute Lymphocytes 1.3 Absolute Monocytes 0.6 Absolute Eosinophils 0.0 Absolute Basophils 0.0 Carbonic Acid HCO3/H2CO3 Ratio ABG pH ABG pCO2 ABG pO2 ABG HCO3 ABG O2 Saturation ABG Base Excess FiO2 Sodium 149.1 H Potassium 3.1 L Chloride 120 H Carbon Dioxide 24 Anion Gap 5 BUN 29 H Creatinine 0.95 Est GFR ( Amer) > 60 Est GFR (Non-Af Amer) > 60 Glucose 181 H Lactic Acid Calcium 7.8 L Phosphorus 2.1 L Magnesium 2.2 Urine Color Urine Appearance Urine pH Ur Specific [place] Urine Protein Urine Glucose (UA) Urine Ketones Urine Blood Urine Nitrite Ur Leukocyte Esterase Urine WBC (Auto) Urine RBC (Auto) Impressions: Chest X-Ray 08/18/18 06:00 IMPRESSION: Endotracheal and nasogastric tubes in good positioning. Minimal right medial basilar airspace disease atelectasis versus pneumonia Assessment & Plan - Diagnosis (1) Acute kidney injury Is this a current diagnosis for this admission?: Yes Plan: suspect ATN due to hypotension (2) DKA (diabetic ketoacidoses) Qualifiers: Diabetes mellitus type: type 1 Diabetes mellitus complication detail: with coma Qualified Code(s): E10.11 - Type 1 diabetes mellitus with ketoacidosis with coma Is this a current diagnosis for this admission?: Yes Plan: Labs- All tests 24 hr 08/16/18 08/16/18 08/16/18 04:50 08:08 09:15 ABG pH 7.20 L* ABG pCO2 16.4 L* Carbon Dioxide < 5 L* 6 L* 08/16/18 08/16/18 08/16/18 11:10 12:05 14:00 ABG pH 7.38 ABG pCO2 16.7 L* Carbon Dioxide 11 L 18 L 08/16/18 08/16/18 08/16/18 16:15 18:10 19:58 ABG pH 7.38 ABG pCO2 35.8 Carbon Dioxide 23 24 08/17/18 08/17/18 08/17/18 04:03 11:20 16:20 ABG pH ABG pCO2 Carbon Dioxide 18 L 14 L 20 L 08/17/18 08/18/18 08/18/18 18:00 00:50 02:10 ABG pH ABG pCO2 Carbon Dioxide 22 23 23 08/18/18 05:30 ABG pH ABG pCO2 Carbon Dioxide 24 (3) History of polysubstance abuse Is this a current diagnosis for this admission?: Yes Plan: Historical no positive breast screen at this time (4) Leukocytosis Qualifiers: Leukocytosis type: unspecified Qualified Code(s): D72.829 - Elevated white blood cell count, unspecified Is this a current diagnosis for this admission?: Yes Plan: Labs- All tests 24 hr 08/16/18 04:50 WBC 26.6 H Seg Neuts % (Manual) 91 H Band Neutrophils % 2 L - Time Total Critical Time (Minutes): 55
[2018-08-19] MEDS: ALBUMIN HUMAN 12.5 GM/50 ML RTUINJ IV SCH ×2 (12:38→13:13)
[2018-08-19] MEDS: DEXTROSE 5%-1/2 NORMAL SALINE 1,000 ML IV PRN ×2 (12:58→18:12)
[2018-08-19 13:03] LABS: ANION GAP 11 (5-19); BLOOD UREA NITROGEN 25 mg/dL (7-20); CALCIUM 8.4 mg/dL (8.4-10.2); CARBON DIOXIDE 17 mmol/L (22-30); CHLORIDE 122 mmol/L (98-107); GLUCOSE 299 mg/dL (75-110); POTASSIUM 3.6 mmol/L (3.6-5.0); SODIUM 149.7 mmol/L (137-145)
--- NOTE | 2018-08-19 14:34 | PDOC PROGRESS REPORT ---
Subjective Progress Note for:: 08/18/18 Subjective:: Currently intubated and sedated Reason For Visit: ACUTE METABOLIC ENCEPHALOPATHY,DKA Physical Exam Vital Signs: Temp Pulse Resp BP Pulse Ox 99.3 F 89 18 116/69 97 08/19/18 14:00 08/19/18 12:00 08/19/18 14:00 08/19/18 13:26 08/19/18 14:00 Intake & Output 08/18/18 08/19/18 08/20/18 06:59 06:59 06:59 Intake Total 4279 2181 937 Output Total 1635 1560 510 Balance 2644 621 427 Weight 53.7 kg 54.9 kg General appearance: PRESENT: no acute distress, well-developed, well-nourished Head exam: PRESENT: atraumatic, normocephalic Eye exam: PRESENT: conjunctiva pink, EOMI, PERRLA. ABSENT: scleral icterus Ear exam: PRESENT: normal external ear exam Mouth exam: PRESENT: moist, tongue midline Neck exam: ABSENT: carotid bruit, JVD, lymphadenopathy, thyromegaly Respiratory exam: PRESENT: decreased breath sounds, prolonged expiratory phas Cardiovascular exam: PRESENT: RRR. ABSENT: diastolic murmur, rubs, systolic murmur Pulses: PRESENT: normal radial pulses Vascular exam: PRESENT: normal capillary refill GI/Abdominal exam: PRESENT: normal bowel sounds, soft. ABSENT: distended, guarding, mass, organolmegaly, rebound, tenderness Rectal exam: PRESENT: deferred Extremities exam: PRESENT: full ROM. ABSENT: calf tenderness, clubbing, pedal edema Neurological exam: ABSENT: awake Skin exam: PRESENT: dry, intact, warm. ABSENT: cyanosis, rash Results Laboratory Results: 08/19/18 04:55 08/19/18 12:19 08/18/18 08/18/18 08/19/18 18:04 23:17 04:55 WBC RBC Hgb Hct MCV MCH MCHC RDW Plt Count Seg Neutrophils % Lymphocytes % Monocytes % Eosinophils % Basophils % Absolute Neutrophils Absolute Lymphocytes Absolute Monocytes Absolute Eosinophils Absolute Basophils Carbonic Acid 0.80 L HCO3/H2CO3 Ratio 21:1 ABG pH 7.42 ABG pCO2 26.7 L ABG pO2 100.0 ABG HCO3 16.9 L ABG O2 Saturation 97.8 ABG Base Excess -5.8 FiO2 25% Sodium 145.0 144.7 Potassium 4.0 3.6 Chloride 117 H 119 H Carbon Dioxide 20 L 17 L Anion Gap 8 9 BUN 29 H 27 H Creatinine 0.69 0.73 Est GFR ( Amer) > 60 > 60 Est GFR (Non-Af Amer) > 60 > 60 Glucose 267 H 285 H Calcium 7.9 L 7.9 L Phosphorus Magnesium Albumin Urine Color Urine Appearance Urine pH Ur Specific [place] Urine Protein Urine Glucose (UA) Urine Ketones Urine Blood Urine Nitrite Ur Leukocyte Esterase Urine WBC (Auto) Urine RBC (Auto) 08/19/18 08/19/18 08/19/18 04:55 04:55 04:59 WBC 10.0 RBC 3.26 L Hgb 10.3 L Hct 29.9 L MCV 92 MCH 31.7 MCHC 34.5 RDW 17.0 H Plt Count 231 Seg Neutrophils % 84.0 H Lymphocytes % 9.8 L Monocytes % 5.7 Eosinophils % 0.4 Basophils % 0.1 Absolute Neutrophils 8.4 H Absolute Lymphocytes 1.0 Absolute Monocytes 0.6 Absolute Eosinophils 0.0 Absolute Basophils 0.0 Carbonic Acid HCO3/H2CO3 Ratio ABG pH ABG pCO2 ABG pO2 ABG HCO3 ABG O2 Saturation ABG Base Excess FiO2 Sodium Potassium Chloride Carbon Dioxide Anion Gap BUN Creatinine Est GFR ( Amer) Est GFR (Non-Af Amer) Glucose Calcium Phosphorus 2.6 Magnesium 2.0 Albumin Urine Color YELLOW Urine Appearance SLIGHTLY-CLOUDY Urine pH 5.0 Ur Specific [place] 1.012 Urine Protein NEGATIVE Urine Glucose (UA) >=500 H Urine Ketones 20 H Urine Blood SMALL H Urine Nitrite POSITIVE H Ur Leukocyte Esterase SMALL H Urine WBC (Auto) 44 Urine RBC (Auto) 2 08/19/18 08/19/18 08/19/18 07:58 07:58 12:19 WBC RBC Hgb Hct MCV MCH MCHC RDW Plt Count Seg Neutrophils % Lymphocytes % Monocytes % Eosinophils % Basophils % Absolute Neutrophils Absolute Lymphocytes Absolute Monocytes Absolute Eosinophils Absolute Basophils Carbonic Acid HCO3/H2CO3 Ratio ABG pH ABG pCO2 ABG pO2 ABG HCO3 ABG O2 Saturation ABG Base Excess FiO2 Sodium 150.0 H 149.7 H Potassium 2.7 L* 3.6 Chloride 129 H 122 H Carbon Dioxide 13 L 17 L Anion Gap 8 11 BUN 21 H 25 H Creatinine 0.53 0.79 Est GFR ( Amer) > 60 > 60 Est GFR (Non-Af Amer) > 60 > 60 Glucose 222 H 299 H Calcium 6.4 L* 8.4 Phosphorus Magnesium Albumin 1.7 L Urine Color Urine Appearance Urine pH Ur Specific [place] Urine Protein Urine Glucose (UA) Urine Ketones Urine Blood Urine Nitrite Ur Leukocyte Esterase Urine WBC (Auto) Urine RBC (Auto) Impressions: Chest X-Ray 08/18/18 06:00 IMPRESSION: Endotracheal and nasogastric tubes in good positioning. Minimal right medial basilar airspace disease atelectasis versus pneumonia Assessment & Plan - Diagnosis (1) DKA (diabetic ketoacidoses) Qualifiers: Diabetes mellitus type: type 1 Diabetes mellitus complication detail: with coma Qualified Code(s): E10.11 - Type 1 diabetes mellitus with ketoacidosis with coma Is this a current diagnosis for this admission?: Yes Plan: sliding scale insulin (2) Leukocytosis Qualifiers: Leukocytosis type: unspecified Qualified Code(s): D72.829 - Elevated white blood cell count, unspecified Is this a current diagnosis for this admission?: Yes (3) Tobacco dependence Is this a current diagnosis for this admission?: Yes Plan: Will encourage tobacco cessation upon waking (4) Acute metabolic encephalopathy Is this a current diagnosis for this admission?: Yes Plan: Patient currently intubated - Time Total Critical Time (Minutes): 50 Inpatient Scribe Statement - . Entered by Chani Feliz, acting as scribe for .
--- NOTE | 2018-08-19 14:41 | PDOC PROGRESS REPORT ---
Subjective Progress Note for:: 08/19/18 Subjective:: Currently intubated and sedated Reason For Visit: ACUTE METABOLIC ENCEPHALOPATHY,DKA Physical Exam Vital Signs: Temp Pulse Resp BP Pulse Ox 99.3 F 89 18 116/69 97 08/19/18 14:00 08/19/18 12:00 08/19/18 14:00 08/19/18 13:26 08/19/18 14:00 Intake & Output 08/18/18 08/19/18 08/20/18 06:59 06:59 06:59 Intake Total 4279 2181 937 Output Total 1635 1560 510 Balance 2644 621 427 Weight 53.7 kg 54.9 kg General appearance: PRESENT: no acute distress, well-developed, well-nourished Head exam: PRESENT: atraumatic, normocephalic Eye exam: PRESENT: conjunctiva pink, EOMI, PERRLA. ABSENT: scleral icterus Ear exam: PRESENT: normal external ear exam Mouth exam: PRESENT: moist, tongue midline Neck exam: ABSENT: carotid bruit, JVD, lymphadenopathy, thyromegaly Respiratory exam: PRESENT: decreased breath sounds, prolonged expiratory phas. ABSENT: rales, rhonchi, wheezes Cardiovascular exam: PRESENT: RRR. ABSENT: diastolic murmur, rubs, systolic murmur Pulses: PRESENT: normal dorsalis pedis pul Vascular exam: PRESENT: normal capillary refill GI/Abdominal exam: PRESENT: normal bowel sounds, soft. ABSENT: distended, guarding, mass, organolmegaly, rebound, tenderness Rectal exam: PRESENT: deferred Extremities exam: PRESENT: full ROM. ABSENT: calf tenderness, clubbing, pedal edema Neurological exam: PRESENT: alert, awake, oriented to person, oriented to place, oriented to time, oriented to situation, CN II-XII grossly intact. ABSENT: motor sensory deficit Psychiatric exam: PRESENT: appropriate affect, normal mood. ABSENT: homicidal ideation, suicidal ideation Skin exam: PRESENT: dry, intact, warm. ABSENT: cyanosis, rash Results Laboratory Results: 08/19/18 04:55 08/19/18 12:19 08/18/18 08/18/18 08/19/18 18:04 23:17 04:55 WBC RBC Hgb Hct MCV MCH MCHC RDW Plt Count Seg Neutrophils % Lymphocytes % Monocytes % Eosinophils % Basophils % Absolute Neutrophils Absolute Lymphocytes Absolute Monocytes Absolute Eosinophils Absolute Basophils Carbonic Acid 0.80 L HCO3/H2CO3 Ratio 21:1 ABG pH 7.42 ABG pCO2 26.7 L ABG pO2 100.0 ABG HCO3 16.9 L ABG O2 Saturation 97.8 ABG Base Excess -5.8 FiO2 25% Sodium 145.0 144.7 Potassium 4.0 3.6 Chloride 117 H 119 H Carbon Dioxide 20 L 17 L Anion Gap 8 9 BUN 29 H 27 H Creatinine 0.69 0.73 Est GFR ( Amer) > 60 > 60 Est GFR (Non-Af Amer) > 60 > 60 Glucose 267 H 285 H Calcium 7.9 L 7.9 L Phosphorus Magnesium Albumin Urine Color Urine Appearance Urine pH Ur Specific [place] Urine Protein Urine Glucose (UA) Urine Ketones Urine Blood Urine Nitrite Ur Leukocyte Esterase Urine WBC (Auto) Urine RBC (Auto) 08/19/18 08/19/18 08/19/18 04:55 04:55 04:59 WBC 10.0 RBC 3.26 L Hgb 10.3 L Hct 29.9 L MCV 92 MCH 31.7 MCHC 34.5 RDW 17.0 H Plt Count 231 Seg Neutrophils % 84.0 H Lymphocytes % 9.8 L Monocytes % 5.7 Eosinophils % 0.4 Basophils % 0.1 Absolute Neutrophils 8.4 H Absolute Lymphocytes 1.0 Absolute Monocytes 0.6 Absolute Eosinophils 0.0 Absolute Basophils 0.0 Carbonic Acid HCO3/H2CO3 Ratio ABG pH ABG pCO2 ABG pO2 ABG HCO3 ABG O2 Saturation ABG Base Excess FiO2 Sodium Potassium Chloride Carbon Dioxide Anion Gap BUN Creatinine Est GFR ( Amer) Est GFR (Non-Af Amer) Glucose Calcium Phosphorus 2.6 Magnesium 2.0 Albumin Urine Color YELLOW Urine Appearance SLIGHTLY-CLOUDY Urine pH 5.0 Ur Specific [place] 1.012 Urine Protein NEGATIVE Urine Glucose (UA) >=500 H Urine Ketones 20 H Urine Blood SMALL H Urine Nitrite POSITIVE H Ur Leukocyte Esterase SMALL H Urine WBC (Auto) 44 Urine RBC (Auto) 2 08/19/18 08/19/18 08/19/18 07:58 07:58 12:19 WBC RBC Hgb Hct MCV MCH MCHC RDW Plt Count Seg Neutrophils % Lymphocytes % Monocytes % Eosinophils % Basophils % Absolute Neutrophils Absolute Lymphocytes Absolute Monocytes Absolute Eosinophils Absolute Basophils Carbonic Acid HCO3/H2CO3 Ratio ABG pH ABG pCO2 ABG pO2 ABG HCO3 ABG O2 Saturation ABG Base Excess FiO2 Sodium 150.0 H 149.7 H Potassium 2.7 L* 3.6 Chloride 129 H 122 H Carbon Dioxide 13 L 17 L Anion Gap 8 11 BUN 21 H 25 H Creatinine 0.53 0.79 Est GFR ( Amer) > 60 > 60 Est GFR (Non-Af Amer) > 60 > 60 Glucose 222 H 299 H Calcium 6.4 L* 8.4 Phosphorus Magnesium Albumin 1.7 L Urine Color Urine Appearance Urine pH Ur Specific [place] Urine Protein Urine Glucose (UA) Urine Ketones Urine Blood Urine Nitrite Ur Leukocyte Esterase Urine WBC (Auto) Urine RBC (Auto) Impressions: Chest X-Ray 08/18/18 06:00 IMPRESSION: Endotracheal and nasogastric tubes in good positioning. Minimal right medial basilar airspace disease atelectasis versus pneumonia Assessment & Plan - Diagnosis (1) DKA (diabetic ketoacidoses) Qualifiers: Diabetes mellitus type: type 1 Diabetes mellitus complication detail: with coma Qualified Code(s): E10.11 - Type 1 diabetes mellitus with ketoacidosis with coma Is this a current diagnosis for this admission?: Yes Plan: sliding scale insulin (2) Leukocytosis Qualifiers: Leukocytosis type: unspecified Qualified Code(s): D72.829 - Elevated white blood cell count, unspecified Is this a current diagnosis for this admission?: Yes (3) Tobacco dependence Is this a current diagnosis for this admission?: Yes Plan: Will encourage tobacco cessation upon waking - Time Total Critical Time (Minutes): 45 Inpatient Scribe Statement - . Entered by Chani Feliz, acting as scribe for .
[2018-08-19 17:00] LABS: ANION GAP 6 (5-19); BLOOD UREA NITROGEN 23 mg/dL (7-20); CALCIUM 8.4 mg/dL (8.4-10.2); CARBON DIOXIDE 22 mmol/L (22-30); CHLORIDE 124 mmol/L (98-107); GLUCOSE 220 mg/dL (75-110); POTASSIUM 3.9 mmol/L (3.6-5.0); SODIUM 152.1 mmol/L (137-145)
[2018-08-19 18:57] LABS: APPEARANCE,URINE TURBID; BILIRUBIN,URINE NEGATIVE (NEGATIVE); COLOR,URINE YELLOW; GLUCOSE, URINE >=500 mg/dL (NEGATIVE); KETONES,URINE TRACE mg/dL (NEGATIVE); LEUKOCYTE ESTERASE,URINE MODERATE (NEGATIVE); NITRITE,URINE POSITIVE (NEGATIVE); PROTEIN,URINE NEGATIVE (NEGATIVE); URINE SPECIFIC GRAVITY 1.011; UROBILINOGEN,URINE NEGATIVE mg/dL (<2.0)
[2018-08-19] MEDS: LORAZEPAM INJ 2 MG/1 ML VIAL IV PRN (21:01)
[2018-08-20] MEDS: LORAZEPAM INJ 2 MG/1 ML VIAL IV PRN
[2018-08-20 00:20] LABS: ANION GAP 5 (5-19); BLOOD UREA NITROGEN 18 mg/dL (7-20); CALCIUM 8.6 mg/dL (8.4-10.2); CARBON DIOXIDE 24 mmol/L (22-30); CHLORIDE 120 mmol/L (98-107); GLUCOSE 188 mg/dL (75-110); POTASSIUM 3.4 mmol/L (3.6-5.0); SODIUM 148.5 mmol/L (137-145)
[2018-08-20] MEDS: PROPOFOL 1,000 MG/100 ML INFUS..BTL IV PRN ×4 (01:15→23:35)
[2018-08-20] MEDS: DEXTROSE 5%-1/2 NORMAL SALINE 1,000 ML IV PRN ×4 (01:16→22:56)
[2018-08-20] MEDS: FENTANYL CITRATE INJ/PF 100 MCG/2 ML AMPUL IV PRN ×3 (01:31→23:02)
[2018-08-20] MEDS: ACETAMINOPHEN 650 MG SUPP.RECT PR PRN (01:31)
[2018-08-20 04:26] LABS: ARTERIAL BLOOD BASE EXCESS -1.6 mmol/L; ARTERIAL BLOOD H2CO3 0.94 mmol/L (1.05-1.35); ARTERIAL BLOOD HCO3 21.6 mmol/L (20-24); ARTERIAL BLOOD O2 SATURATION 97.1 % (94-98); ARTERIAL BLOOD PCO2 31.2 mmHg (35-45); ARTERIAL BLOOD PH 7.46 (7.35-7.45); ARTERIAL BLOOD PO2 86.6 mmHg (80-100); ARTERIAL BLOOD TOTAL CO2 22.6 mmol/L (21-25)
[2018-08-20 04:27] LABS: ARTERIAL BLOOD FIO2 25%
[2018-08-20 04:32] LABS: APPEARANCE,URINE CLEAR; BILIRUBIN,URINE NEGATIVE (NEGATIVE); COLOR,URINE STRAW; GLUCOSE, URINE >=500 mg/dL (NEGATIVE); KETONES,URINE TRACE mg/dL (NEGATIVE); LEUKOCYTE ESTERASE,URINE NEGATIVE (NEGATIVE); NITRITE,URINE NEGATIVE (NEGATIVE); PROTEIN,URINE NEGATIVE (NEGATIVE); UROBILINOGEN,URINE NEGATIVE mg/dL (<2.0)
[2018-08-20 04:35] LABS: ABSOLUTE LYMPHOCYTES (AUTO) 0.6 10^3/uL (0.5-4.7); ABSOLUTE MONOCYTES (AUTO) 0.6 10^3/uL (0.1-1.4); ABSOLUTE NEUT (AUTO) 9.2 10^3/uL (1.7-8.2); EOSINOPHILS % (AUTO) 0.2 % (0-6); HEMATOCRIT 27.2 % (36.0-47.0); HEMOGLOBIN 9.2 g/dL (12.0-15.5); LYMPHOCYTES % (AUTO) 5.8 % (13-45); MEAN CORPUSCULAR HEMOGLOBIN 31.3 pg (27.0-33.4); MEAN CORPUSCULAR HGB CONC 33.8 g/dL (32.0-36.0); MEAN CORPUSCULAR VOLUME 93 fl (80-97); MONOCYTES % (AUTO) 5.9 % (3-13); PLATELET COUNT 243 10^3/uL (150-450); RED BLOOD COUNT 2.94 10^6/uL (3.72-5.28); RED CELL DISTRIBUTION WIDTH 16.3 % (11.5-14.0); SEGMENTED NEUTROPHILS % (AUTO) 88.1 % (42-78); TOTAL CELLS COUNTED % (AUTO) 100 %; WHITE BLOOD COUNT 10.4 10^3/uL (4.0-10.5)
[2018-08-20 04:40] LABS: ANION GAP 9 (5-19); BLOOD UREA NITROGEN 14 mg/dL (7-20); CALCIUM 8.3 mg/dL (8.4-10.2); CARBON DIOXIDE 22 mmol/L (22-30); CHLORIDE 119 mmol/L (98-107); GLUCOSE 250 mg/dL (75-110); PHOSPHORUS 1.9 mg/dL (2.5-4.5); POTASSIUM 3.1 mmol/L (3.6-5.0); SODIUM 149.6 mmol/L (137-145)
[2018-08-20 09:29] LABS: ANION GAP 7 (5-19); BLOOD UREA NITROGEN 13 mg/dL (7-20); CALCIUM 8.4 mg/dL (8.4-10.2); CARBON DIOXIDE 25 mmol/L (22-30); CHLORIDE 117 mmol/L (98-107); GLUCOSE 180 mg/dL (75-110); SODIUM 148.9 mmol/L (137-145)
[2018-08-20] MEDS: AMINO AC/PROTEIN HYDR/WHEY PRO 11 GM/45 ML PKT NG SCH (10:20)
[2018-08-20] MEDS: MAGNESIUM SULFATE 1 GM/D5W 100 ML IV SCH ×2 (10:41→12:17)
[2018-08-20] MEDS: POTASSIUM CHLORIDE 20 MEQ/50 ML RTU IV SCH ×4 (10:41→22:55)
[2018-08-20] MEDS: ENOXAPARIN SODIUM INJ 40 MG/0.4 ML DISP.SYRIN SUBCUT SCH (10:42)
[2018-08-20 11:18] LABS: APPEARANCE,URINE CLOUDY; BILIRUBIN,URINE NEGATIVE (NEGATIVE); COLOR,URINE YELLOW; GLUCOSE, URINE >=500 mg/dL (NEGATIVE); KETONES,URINE NEGATIVE (NEGATIVE); LEUKOCYTE ESTERASE,URINE MODERATE (NEGATIVE); NITRITE,URINE POSITIVE (NEGATIVE); PROTEIN,URINE NEGATIVE (NEGATIVE); UROBILINOGEN,URINE NEGATIVE mg/dL (<2.0)
--- NOTE | 2018-08-20 12:12 | PDOC PROGRESS REPORT ---
Subjective Progress Note for:: 08/20/18 Subjective:: Currently intubated and sedated Reason For Visit: ACUTE METABOLIC ENCEPHALOPATHY,DKA Physical Exam Vital Signs: Temp Pulse Resp BP Pulse Ox 101.8 F H 87 29 H 120/77 94 08/20/18 11:27 08/20/18 10:00 08/20/18 11:27 08/20/18 11:27 08/20/18 11:51 Intake & Output 08/19/18 08/20/18 08/21/18 06:59 06:59 06:59 Intake Total 2181 2834 1066 Output Total 1560 2760 250 Balance 621 74 816 Weight 54.9 kg 54.7 kg General appearance: PRESENT: no acute distress, well-developed, well-nourished Head exam: PRESENT: atraumatic, normocephalic Eye exam: PRESENT: conjunctiva pink, EOMI, PERRLA. ABSENT: scleral icterus Ear exam: PRESENT: normal external ear exam Mouth exam: PRESENT: moist, tongue midline Neck exam: ABSENT: carotid bruit, JVD, lymphadenopathy, thyromegaly Respiratory exam: PRESENT: decreased breath sounds, prolonged expiratory phas, rales, rhonchi. ABSENT: wheezes Cardiovascular exam: PRESENT: RRR. ABSENT: diastolic murmur, rubs, systolic murmur Pulses: PRESENT: normal radial pulses Vascular exam: PRESENT: normal capillary refill GI/Abdominal exam: PRESENT: normal bowel sounds, soft. ABSENT: distended, guarding, mass, organolmegaly, rebound, tenderness Rectal exam: PRESENT: deferred Extremities exam: PRESENT: full ROM. ABSENT: calf tenderness, clubbing, pedal edema Neurological exam: PRESENT: alert, awake, oriented to person, oriented to place, oriented to time, oriented to situation, CN II-XII grossly intact. ABSENT: motor sensory deficit Psychiatric exam: PRESENT: appropriate affect, normal mood. ABSENT: homicidal ideation, suicidal ideation Skin exam: PRESENT: dry, intact, warm. ABSENT: cyanosis, rash Results Laboratory Results: 08/20/18 04:10 08/19/18 08/19/18 08/19/18 12:19 16:04 18:21 WBC RBC Hgb Hct MCV MCH MCHC RDW Plt Count Seg Neutrophils % Lymphocytes % Monocytes % Eosinophils % Basophils % Absolute Neutrophils Absolute Lymphocytes Absolute Monocytes Absolute Eosinophils Absolute Basophils Carbonic Acid HCO3/H2CO3 Ratio ABG pH ABG pCO2 ABG pO2 ABG HCO3 ABG O2 Saturation ABG Base Excess FiO2 Sodium 149.7 H 152.1 H Potassium 3.6 3.9 Chloride 122 H 124 H Carbon Dioxide 17 L 22 Anion Gap 11 6 BUN 25 H 23 H Creatinine 0.79 0.68 Est GFR ( Amer) > 60 > 60 Est GFR (Non-Af Amer) > 60 > 60 Glucose 299 H 220 H Calcium 8.4 8.4 Phosphorus Magnesium Urine Color YELLOW Urine Appearance TURBID Urine pH 5.0 Ur Specific [place] 1.011 Urine Protein NEGATIVE Urine Glucose (UA) >=500 H Urine Ketones TRACE H Urine Blood MODERATE H Urine Nitrite POSITIVE H Ur Leukocyte Esterase MODERATE H Urine WBC (Auto) 65 Urine RBC (Auto) 5 08/19/18 08/19/18 08/20/18 22:50 23:50 04:10 WBC RBC Hgb Hct MCV MCH MCHC RDW Plt Count Seg Neutrophils % Lymphocytes % Monocytes % Eosinophils % Basophils % Absolute Neutrophils Absolute Lymphocytes Absolute Monocytes Absolute Eosinophils Absolute Basophils Carbonic Acid HCO3/H2CO3 Ratio ABG pH ABG pCO2 ABG pO2 ABG HCO3 ABG O2 Saturation ABG Base Excess FiO2 Sodium Cancelled 148.5 H 149.6 H Potassium Cancelled 3.4 L 3.1 L Chloride Cancelled 120 H 119 H Carbon Dioxide Cancelled 24 22 Anion Gap Cancelled 5 9 BUN Cancelled 18 14 Creatinine Cancelled 0.60 0.56 Est GFR ( Amer) Cancelled > 60 > 60 Est GFR (Non-Af Amer) Cancelled > 60 > 60 Glucose Cancelled 188 H 250 H Calcium Cancelled 8.6 8.3 L Phosphorus 1.9 L Magnesium 1.5 L Urine Color Urine Appearance Urine pH Ur Specific [place] Urine Protein Urine Glucose (UA) Urine Ketones Urine Blood Urine Nitrite Ur Leukocyte Esterase Urine WBC (Auto) Urine RBC (Auto) 08/20/18 08/20/18 08/20/18 04:10 04:10 04:10 WBC 10.4 RBC 2.94 L Hgb 9.2 L Hct 27.2 L MCV 93 MCH 31.3 MCHC 33.8 RDW 16.3 H Plt Count 243 Seg Neutrophils % 88.1 H Lymphocytes % 5.8 L Monocytes % 5.9 Eosinophils % 0.2 Basophils % 0.0 Absolute Neutrophils 9.2 H Absolute Lymphocytes 0.6 Absolute Monocytes 0.6 Absolute Eosinophils 0.0 Absolute Basophils 0.0 Carbonic Acid 0.94 L HCO3/H2CO3 Ratio 22:1 ABG pH 7.46 H ABG pCO2 31.2 L ABG pO2 86.6 ABG HCO3 21.6 ABG O2 Saturation 97.1 ABG Base Excess -1.6 FiO2 25% Sodium Potassium Chloride Carbon Dioxide Anion Gap BUN Creatinine Est GFR ( Amer) Est GFR (Non-Af Amer) Glucose Calcium Phosphorus Magnesium Urine Color STRAW Urine Appearance CLEAR Urine pH 5.0 Ur Specific [place] 1.010 Urine Protein NEGATIVE Urine Glucose (UA) >=500 H Urine Ketones TRACE H Urine Blood SMALL H Urine Nitrite NEGATIVE Ur Leukocyte Esterase NEGATIVE Urine WBC (Auto) 13 Urine RBC (Auto) 3 08/20/18 08/20/18 08:53 10:43 WBC RBC Hgb Hct MCV MCH MCHC RDW Plt Count Seg Neutrophils % Lymphocytes % Monocytes % Eosinophils % Basophils % Absolute Neutrophils Absolute Lymphocytes Absolute Monocytes Absolute Eosinophils Absolute Basophils Carbonic Acid HCO3/H2CO3 Ratio ABG pH ABG pCO2 ABG pO2 ABG HCO3 ABG O2 Saturation ABG Base Excess FiO2 Sodium 148.9 H Potassium 3.0 L* Chloride 117 H Carbon Dioxide 25 Anion Gap 7 BUN 13 Creatinine 0.46 L Est GFR ( Amer) > 60 Est GFR (Non-Af Amer) > 60 Glucose 180 H Calcium 8.4 Phosphorus Magnesium Urine Color YELLOW Urine Appearance CLOUDY Urine pH 5.0 Ur Specific [place] 1.010 Urine Protein NEGATIVE Urine Glucose (UA) >=500 H Urine Ketones NEGATIVE Urine Blood SMALL H Urine Nitrite POSITIVE H Ur Leukocyte Esterase MODERATE H Urine WBC (Auto) 102 Urine RBC (Auto) 11 Impressions: Chest X-Ray 08/18/18 06:00 IMPRESSION: Endotracheal and nasogastric tubes in good positioning. Minimal right medial basilar airspace disease atelectasis versus pneumonia Assessment & Plan - Diagnosis (1) DKA (diabetic ketoacidoses) Qualifiers: Diabetes mellitus type: type 1 Diabetes mellitus complication detail: with coma Qualified Code(s): E10.11 - Type 1 diabetes mellitus with ketoacidosis with coma Is this a current diagnosis for this admission?: Yes Plan: sliding scale insulin (2) Leukocytosis Qualifiers: Leukocytosis type: unspecified Qualified Code(s): D72.829 - Elevated white blood cell count, unspecified Is this a current diagnosis for this admission?: Yes Plan: Will Continue to monitor (3) Tobacco dependence Is this a current diagnosis for this admission?: Yes Plan: Will encourage tobacco cessation upon waking - Time Total Critical Time (Minutes): 35 Inpatient Scribe Statement - . Entered by Chani Feliz, acting as scribe for .
[2018-08-20 13:58] LABS: BLOOD UREA NITROGEN 10 mg/dL (7-20); CALCIUM 8.4 mg/dL (8.4-10.2); CARBON DIOXIDE 25 mmol/L (22-30); CHLORIDE 117 mmol/L (98-107); GLUCOSE 161 mg/dL (75-110); POTASSIUM 3.1 mmol/L (3.6-5.0)
[2018-08-20 14:00] LABS: ANION GAP 4 (5-19)
[2018-08-20] MEDS: NORMAL SALINE 100 ML with INSULIN REGULAR, HUMAN 100 UNIT IV PRN ×2 (14:11)
[2018-08-20] MEDS ORDERED: ALTEPLASE INJ 2 MG VIAL (CATH CLEARANCE) IV ONE (15:00)
[2018-08-20 16:39] LABS: ANION GAP 7 (5-19); BLOOD UREA NITROGEN 10 mg/dL (7-20); CALCIUM 8.1 mg/dL (8.4-10.2); CARBON DIOXIDE 23 mmol/L (22-30); CHLORIDE 117 mmol/L (98-107); GLUCOSE 137 mg/dL (75-110); POTASSIUM 3.1 mmol/L (3.6-5.0); SODIUM 146.6 mmol/L (137-145)
[2018-08-20 18:58] LABS: APPEARANCE,URINE SLIGHTLY-CLOUDY; BILIRUBIN,URINE NEGATIVE (NEGATIVE); COLOR,URINE YELLOW; GLUCOSE, URINE NEGATIVE (NEGATIVE); KETONES,URINE NEGATIVE (NEGATIVE); LEUKOCYTE ESTERASE,URINE MODERATE (NEGATIVE); NITRITE,URINE POSITIVE (NEGATIVE); PROTEIN,URINE NEGATIVE (NEGATIVE); URINE SPECIFIC GRAVITY 1.011; UROBILINOGEN,URINE NEGATIVE mg/dL (<2.0)
[2018-08-20 20:26] LABS: ANION GAP 7 (5-19); BLOOD UREA NITROGEN 9 mg/dL (7-20); CARBON DIOXIDE 23 mmol/L (22-30); CHLORIDE 114 mmol/L (98-107); GLUCOSE 113 mg/dL (75-110); POTASSIUM 3.1 mmol/L (3.6-5.0); SODIUM 143.7 mmol/L (137-145)
[2018-08-20] MEDS: INSULIN GLARGINE,HUM.REC.ANLOG 1,000 UNIT/10 ML VIAL SUBCUT SCH (21:28)
[2018-08-21] MEDS ORDERED: POTASSI CL 20 MEQ/50 ML RIDER 20 MEQ/50 ML RTUPB IV ONE (00:05)
[2018-08-21] MEDS: POTASSIUM CHLORIDE 20 MEQ/50 ML RTU IV SCH ×3 (00:06→09:12)
[2018-08-21] MEDS: ACETAMINOPHEN 650 MG SUPP.RECT PR PRN ×2 (02:24→20:36)
[2018-08-21] MEDS: LORAZEPAM INJ 2 MG/1 ML VIAL IV PRN ×4 (02:35→22:56)
[2018-08-21 04:46] LABS: ABSOLUTE LYMPHOCYTES (AUTO) 0.7 10^3/uL (0.5-4.7); ABSOLUTE MONOCYTES (AUTO) 0.5 10^3/uL (0.1-1.4); BASOPHILS % (AUTO) 0.4 % (0-2); EOSINOPHILS % (AUTO) 0.6 % (0-6); HEMATOCRIT 25.5 % (36.0-47.0); HEMOGLOBIN 8.7 g/dL (12.0-15.5); LYMPHOCYTES % (AUTO) 9.3 % (13-45); MEAN CORPUSCULAR HEMOGLOBIN 31.1 pg (27.0-33.4); MEAN CORPUSCULAR VOLUME 91 fl (80-97); MONOCYTES % (AUTO) 7.5 % (3-13); PLATELET COUNT 263 10^3/uL (150-450); RED CELL DISTRIBUTION WIDTH 16.3 % (11.5-14.0); SEGMENTED NEUTROPHILS % (AUTO) 82.2 % (42-78); TOTAL CELLS COUNTED % (AUTO) 100 %; WHITE BLOOD COUNT 7.3 10^3/uL (4.0-10.5)
[2018-08-21 04:48] LABS: ARTERIAL BLOOD BASE EXCESS -0.8 mmol/L; ARTERIAL BLOOD H2CO3 0.82 mmol/L (1.05-1.35); ARTERIAL BLOOD HCO3 21.5 mmol/L (20-24); ARTERIAL BLOOD PCO2 27.4 mmHg (35-45); ARTERIAL BLOOD PH 7.51 (7.35-7.45); ARTERIAL BLOOD PO2 80.5 mmHg (80-100); ARTERIAL BLOOD TOTAL CO2 22.4 mmol/L (21-25)
[2018-08-21 04:50] LABS: APPEARANCE,URINE SLIGHTLY-CLOUDY; ARTERIAL BLOOD FIO2 25%; BILIRUBIN,URINE NEGATIVE (NEGATIVE); COLOR,URINE YELLOW; GLUCOSE, URINE 150 mg/dL (NEGATIVE); KETONES,URINE NEGATIVE (NEGATIVE); LEUKOCYTE ESTERASE,URINE SMALL (NEGATIVE); NITRITE,URINE POSITIVE (NEGATIVE); PROTEIN,URINE NEGATIVE (NEGATIVE); URINE SPECIFIC GRAVITY 1.011; UROBILINOGEN,URINE NEGATIVE mg/dL (<2.0)
[2018-08-21 05:41] LABS: ANION GAP 6 (5-19); BLOOD UREA NITROGEN 9 mg/dL (7-20); CALCIUM 7.9 mg/dL (8.4-10.2); CARBON DIOXIDE 22 mmol/L (22-30); CHLORIDE 114 mmol/L (98-107); GLUCOSE 165 mg/dL (75-110); POTASSIUM 3.2 mmol/L (3.6-5.0); SODIUM 142.4 mmol/L (137-145)
[2018-08-21 05:48] LABS: PREALBUMIN 5.3 mg/dL (17.6-36.0)
[2018-08-21] MEDS ORDERED: DEXTROSE 5%-1/2 NORMAL SALINE 1,000 ML IV PRN (05:57)
--- NOTE | 2018-08-21 06:19 | PDOC PROGRESS REPORT ---
Subjective Progress Note for:: 08/20/18 Subjective:: Patient is resting comfortably intubated and sedated. Currently on insulin drip with introduction of Lantus twice daily. Ketones have been negative for the last several urine tests. Reason For Visit: ACUTE METABOLIC ENCEPHALOPATHY,DKA Physical Exam Vital Signs: Temp Pulse Resp BP Pulse Ox 99.7 F 84 20 96/55 L 98 08/20/18 16:00 08/20/18 16:00 08/20/18 16:00 08/20/18 16:00 08/20/18 16:00 Intake & Output 08/19/18 08/20/18 08/21/18 06:59 06:59 06:59 Intake Total 2181 2834 2317 Output Total 1560 2760 1050 Balance 206 07 9470 Weight 54.9 kg 54.7 kg General appearance: PRESENT: no acute distress Head exam: PRESENT: atraumatic, normocephalic Mouth exam: PRESENT: other - Endotracheal tube and nasogastric tube in place Respiratory exam: PRESENT: clear to auscultation george, symmetrical, unlabored. ABSENT: accessory muscle use, rales, rhonchi, wheezes Cardiovascular exam: PRESENT: RRR, +S1, +S2, other - No additional heart sounds GI/Abdominal exam: PRESENT: normal bowel sounds, soft. ABSENT: distended, tenderness Rectal exam: PRESENT: deferred Gentrourinary exam: PRESENT: indwelling catheter Extremities exam: PRESENT: +1 edema - Bilateral hands. ABSENT: pedal edema Musculoskeletal exam: PRESENT: normal inspection Neurological exam: ABSENT: awake Psychiatric exam: ABSENT: agitated Focused psych exam: ABSENT: restlessness Skin exam: PRESENT: dry, warm. ABSENT: rash Results Laboratory Results: 08/20/18 04:10 08/20/18 16:00 08/19/18 08/19/18 08/19/18 16:04 18:21 22:50 WBC RBC Hgb Hct MCV MCH MCHC RDW Plt Count Seg Neutrophils % Lymphocytes % Monocytes % Eosinophils % Basophils % Absolute Neutrophils Absolute Lymphocytes Absolute Monocytes Absolute Eosinophils Absolute Basophils Carbonic Acid HCO3/H2CO3 Ratio ABG pH ABG pCO2 ABG pO2 ABG HCO3 ABG O2 Saturation ABG Base Excess FiO2 Sodium 152.1 H Cancelled Potassium 3.9 Cancelled Chloride 124 H Cancelled Carbon Dioxide 22 Cancelled Anion Gap 6 Cancelled BUN 23 H Cancelled Creatinine 0.68 Cancelled Est GFR ( Amer) > 60 Cancelled Est GFR (Non-Af Amer) > 60 Cancelled Glucose 220 H Cancelled Calcium 8.4 Cancelled Phosphorus Magnesium Urine Color YELLOW Urine Appearance TURBID Urine pH 5.0 Ur Specific [place] 1.011 Urine Protein NEGATIVE Urine Glucose (UA) >=500 H Urine Ketones TRACE H Urine Blood MODERATE H Urine Nitrite POSITIVE H Ur Leukocyte Esterase MODERATE H Urine WBC (Auto) 65 Urine RBC (Auto) 5 08/19/18 08/20/18 08/20/18 23:50 04:10 04:10 WBC RBC Hgb Hct MCV MCH MCHC RDW Plt Count Seg Neutrophils % Lymphocytes % Monocytes % Eosinophils % Basophils % Absolute Neutrophils Absolute Lymphocytes Absolute Monocytes Absolute Eosinophils Absolute Basophils Carbonic Acid 0.94 L HCO3/H2CO3 Ratio 22:1 ABG pH 7.46 H ABG pCO2 31.2 L ABG pO2 86.6 ABG HCO3 21.6 ABG O2 Saturation 97.1 ABG Base Excess -1.6 FiO2 25% Sodium 148.5 H 149.6 H Potassium 3.4 L 3.1 L Chloride 120 H 119 H Carbon Dioxide 24 22 Anion Gap 5 9 BUN 18 14 Creatinine 0.60 0.56 Est GFR ( Amer) > 60 > 60 Est GFR (Non-Af Amer) > 60 > 60 Glucose 188 H 250 H Calcium 8.6 8.3 L Phosphorus 1.9 L Magnesium 1.5 L Urine Color Urine Appearance Urine pH Ur Specific [place] Urine Protein Urine Glucose (UA) Urine Ketones Urine Blood Urine Nitrite Ur Leukocyte Esterase Urine WBC (Auto) Urine RBC (Auto) 08/20/18 08/20/18 08/20/18 04:10 04:10 08:53 WBC 10.4 RBC 2.94 L Hgb 9.2 L Hct 27.2 L MCV 93 MCH 31.3 MCHC 33.8 RDW 16.3 H Plt Count 243 Seg Neutrophils % 88.1 H Lymphocytes % 5.8 L Monocytes % 5.9 Eosinophils % 0.2 Basophils % 0.0 Absolute Neutrophils 9.2 H Absolute Lymphocytes 0.6 Absolute Monocytes 0.6 Absolute Eosinophils 0.0 Absolute Basophils 0.0 Carbonic Acid HCO3/H2CO3 Ratio ABG pH ABG pCO2 ABG pO2 ABG HCO3 ABG O2 Saturation ABG Base Excess FiO2 Sodium 148.9 H Potassium 3.0 L* Chloride 117 H Carbon Dioxide 25 Anion Gap 7 BUN 13 Creatinine 0.46 L Est GFR ( Amer) > 60 Est GFR (Non-Af Amer) > 60 Glucose 180 H Calcium 8.4 Phosphorus Magnesium Urine Color STRAW Urine Appearance CLEAR Urine pH 5.0 Ur Specific [place] 1.010 Urine Protein NEGATIVE Urine Glucose (UA) >=500 H Urine Ketones TRACE H Urine Blood SMALL H Urine Nitrite NEGATIVE Ur Leukocyte Esterase NEGATIVE Urine WBC (Auto) 13 Urine RBC (Auto) 3 08/20/18 08/20/18 08/20/18 10:43 12:00 13:29 WBC RBC Hgb Hct MCV MCH MCHC RDW Plt Count Seg Neutrophils % Lymphocytes % Monocytes % Eosinophils % Basophils % Absolute Neutrophils Absolute Lymphocytes Absolute Monocytes Absolute Eosinophils Absolute Basophils Carbonic Acid HCO3/H2CO3 Ratio ABG pH ABG pCO2 ABG pO2 ABG HCO3 ABG O2 Saturation ABG Base Excess FiO2 Sodium Cancelled 146.0 H Potassium Cancelled 3.1 L Chloride Cancelled 117 H Carbon Dioxide Cancelled 25 Anion Gap Cancelled 4 L BUN Cancelled 10 Creatinine Cancelled 0.53 Est GFR ( Amer) Cancelled > 60 Est GFR (Non-Af Amer) Cancelled > 60 Glucose Cancelled 161 H Calcium Cancelled 8.4 Phosphorus Magnesium Urine Color YELLOW Urine Appearance CLOUDY Urine pH 5.0 Ur Specific [place] 1.010 Urine Protein NEGATIVE Urine Glucose (UA) >=500 H Urine Ketones NEGATIVE Urine Blood SMALL H Urine Nitrite POSITIVE H Ur Leukocyte Esterase MODERATE H Urine WBC (Auto) 102 Urine RBC (Auto) 11 08/20/18 16:00 WBC RBC Hgb Hct MCV MCH MCHC RDW Plt Count Seg Neutrophils % Lymphocytes % Monocytes % Eosinophils % Basophils % Absolute Neutrophils Absolute Lymphocytes Absolute Monocytes Absolute Eosinophils Absolute Basophils Carbonic Acid HCO3/H2CO3 Ratio ABG pH ABG pCO2 ABG pO2 ABG HCO3 ABG O2 Saturation ABG Base Excess FiO2 Sodium 146.6 H Potassium 3.1 L Chloride 117 H Carbon Dioxide 23 Anion Gap 7 BUN 10 Creatinine 0.59 Est GFR ( Amer) > 60 Est GFR (Non-Af Amer) > 60 Glucose 137 H Calcium 8.1 L Phosphorus Magnesium Urine Color Urine Appearance Urine pH Ur Specific [place] Urine Protein Urine Glucose (UA) Urine Ketones Urine Blood Urine Nitrite Ur Leukocyte Esterase Urine WBC (Auto) Urine RBC (Auto) Impressions: Chest X-Ray 08/18/18 06:00 IMPRESSION: Endotracheal and nasogastric tubes in good positioning. Minimal right medial basilar airspace disease atelectasis versus pneumonia Assessment and Plan - Diagnosis (1) Acute kidney injury Is this a current diagnosis for this admission?: Yes Plan: Resolved. 08/18/2018-acute kidney injury is resolved. 08/19/2018-BUN is still slightly elevated but GFR is greater than 60. 08/20/2018-resolved (2) Acute metabolic encephalopathy Is this a current diagnosis for this admission?: Yes Plan: Patient remained intubated. 08/18/2018-unable to assess as patient is intubated and sedated 08/19/2018-as above 08/20/2018-with weaning sedation will be decreased. Further assessment when the patient is no longer sedated. (3) DKA (diabetic ketoacidoses) Qualifiers: Diabetes mellitus type: type 1 Is this a current diagnosis for this admission?: Yes Plan: Has be resolving. 08/18/2018-the patient had urine ketones earlier today but has had her first negative ketone study. We are starting tube feeds and I will continue her on the insulin drip for the time being. Should be able to convert her to a combination of long-acting and sliding scale coverage. 08/19/2018-unfortunately the patient's urine was ketone positive today. She is back on the insulin drip at 3 units/h. I will hold her tube feeds. Once her fingersticks are less than 200 I will change the fluid to D5 half-normal saline. Her anion gap has corrected. 08/20/2018-she did have a negative urine ketone test today. I will introduce Lantus dosing and adjust her insulin drip. I will start with 15 units every 12 hours and this should easily be able to decrease the insulin drip by 1 unit/h. Continue sliding scale. Reassess tomorrow and increase Lantus again for slow conversion to long-acting insulin from the insulin infusion. (4) Uncontrolled diabetes mellitus Qualifiers: Diabetes mellitus type: type 1 Is this a current diagnosis for this admission?: Yes Plan: When she wakes up we encouraged her to comply with her medication and her diet. 08/18/2018-the patient's fingerstick glucoses are significantly improved. Hemoglobin A1c was not checked but she was just released from this hospital approximately 1 week ago for the same diagnosis. We will need to encourage better compliance. 08/19/2018-as above 08/20/2018-the patient exhibits a pattern of behavior that is quite harmful to herself. Consider psychiatric consult once extubated and awake. (5) History of polysubstance abuse Is this a current diagnosis for this admission?: Yes Plan: Currently her urine drug screen is negative. 08/19/2018-counseling when patient is awake. 08/20/2018-contributing to poor self care. Psychiatric consult when patient is awake and interactive. (6) Tobacco dependence Is this a current diagnosis for this admission?: Yes Plan: When she wakes up will encourage counseled her to quit smoking. 08/18/2018-we will address when extubated 08/19/2018-as above 08/20/2018-address when patient is no longer sedated. (7) Hypernatremia Is this a current diagnosis for this admission?: Yes Plan: 08/18/2018-the patient has had elevated serum sodium since admission. I will need to adjust her fluids. I will await the next basic metabolic panel. Now that we are starting tube feeds this should be able to stop the D5 and change her to half-normal saline. 08/19/2018-serum sodium is back to elevated level at 150. At this point I will change to the D5 half-normal saline. 08/20/2018-resolved. Will need to monitor electrolytes once patient is off of the aggressive IV fluids. (8) Hypokalemia Is this a current diagnosis for this admission?: Yes Plan: 08/18/2018-likely a combination of etiologies. The chronic insulin therapy for 1. Will order a 20 mEq dose of IV potassium chloride and place the patient on the electrolyte replacement protocol. 08/19/2018-continue electrolyte replacement protocol. 08/20/2018-currently on the electrolyte replacement protocol. Her potassium should stabilize when she is off of the insulin infusion and is taking a normal diet. (9) Anemia Qualifiers: Anemia type: other cause Other causes of anemia: other cause, not classified Qualified Code(s): D64.89 - Other specified anemias Is this a current diagnosis for this admission?: Yes Plan: 08/20/2018-the anemia is multifactorial. This is likely related to her chronic diabetes with recurrent severe complications as well as her critical illness, aggressive fluid hydration due to the diabetic ketoacidosis as well as nutrition. We will continue to monitor hemoglobin. If it drops below 8 she josé luis l receive transfusions. (10) Hypomagnesemia Is this a current diagnosis for this admission?: Yes Plan: 08/20/2018-again likely related to the aggressive hydration and current lack of nutrition while treating her ketoacidosis. Continue to monitor and continue electrolyte replacement protocol. (11) Noncompliance Is this a current diagnosis for this admission?: Yes Plan: 08/20/2018-as noted above the patient exhibits a pattern of self-harm. Psychiatry consult when the patient is awake and alert. - Time Time Spent with patient: 35 or more minutes Medications reviewed and adjusted accordingly: Yes Anticipated discharge: Home
[2018-08-21] MEDS: PROPOFOL 1,000 MG/100 ML INFUS..BTL IV PRN ×3 (06:52→19:37)
[2018-08-21] MEDS: MAGNESIUM SULFATE 1 GM/D5W 100 ML IV SCH ×2 (06:59→08:05)
--- NOTE | 2018-08-21 08:18 | RADIOLOGY REPORT (SQ) ---
EXAM DESCRIPTION: CHEST SINGLE VIEW COMPLETED DATE/TIME: 08/21/2018 6:51 am REASON FOR STUDY: resp failure COMPARISON: 08/18/2018 FINDINGS: Single-view chest AP portable upright. Endotracheal and nasogastric tubes are appropriate. Opacity over the lung apices, external artifact. Lungs otherwise clear. Stable exam. TECHNICAL DOCUMENTATION: JOB ID: [id number] Reading location - IP/workstation name: [email or web address]
[2018-08-21] MEDS: ENOXAPARIN SODIUM INJ 40 MG/0.4 ML DISP.SYRIN SUBCUT SCH (09:19)
[2018-08-21] MEDS: AMINO AC/PROTEIN HYDR/WHEY PRO 11 GM/45 ML PKT NG SCH (09:20)
[2018-08-21] MEDS: INSULIN GLARGINE,HUM.REC.ANLOG 1,000 UNIT/10 ML VIAL SUBCUT SCH ×2 (10:30→22:09)
--- NOTE | 2018-08-21 11:33 | PDOC PROGRESS REPORT ---
Subjective Progress Note for:: 08/21/18 Subjective:: Patient appears comfortable on the vent. Reason For Visit: ACUTE METABOLIC ENCEPHALOPATHY,DKA Physical Exam Vital Signs: Temp Pulse Resp BP Pulse Ox 98.4 F 78 20 90/54 L 100 08/21/18 10:00 08/21/18 10:00 08/21/18 10:00 08/21/18 10:00 08/21/18 10:00 Intake & Output 08/20/18 08/21/18 08/22/18 06:59 06:59 06:59 Intake Total 2834 3500 100 Output Total 2760 2425 195 Balance 74 1075 -95 Weight 54.7 kg 55.8 kg General appearance: PRESENT: no acute distress, well-nourished Head exam: PRESENT: atraumatic, normocephalic Ear exam: PRESENT: normal external ear exam Mouth exam: PRESENT: other - Endotracheal and nasogastric tubes in place Respiratory exam: PRESENT: clear to auscultation george, symmetrical, unlabored. ABSENT: rales, rhonchi, tachypnea, wheezes Cardiovascular exam: PRESENT: RRR, +S1, +S2 GI/Abdominal exam: PRESENT: normal bowel sounds, soft. ABSENT: distended, tenderness Rectal exam: PRESENT: deferred Gentrourinary exam: PRESENT: indwelling catheter Extremities exam: PRESENT: +1 edema - Bilateral hands. ABSENT: pedal edema Musculoskeletal exam: PRESENT: normal inspection Neurological exam: ABSENT: awake Psychiatric exam: ABSENT: agitated Focused psych exam: ABSENT: restlessness Results Laboratory Results: 08/21/18 04:31 08/21/18 04:30 08/20/18 08/20/18 08/20/18 12:00 13:29 16:00 WBC RBC Hgb Hct MCV MCH MCHC RDW Plt Count Seg Neutrophils % Lymphocytes % Monocytes % Eosinophils % Basophils % Absolute Neutrophils Absolute Lymphocytes Absolute Monocytes Absolute Eosinophils Absolute Basophils Carbonic Acid HCO3/H2CO3 Ratio ABG pH ABG pCO2 ABG pO2 ABG HCO3 ABG O2 Saturation ABG Base Excess FiO2 Sodium Cancelled 146.0 H 146.6 H Potassium Cancelled 3.1 L 3.1 L Chloride Cancelled 117 H 117 H Carbon Dioxide Cancelled 25 23 Anion Gap Cancelled 4 L 7 BUN Cancelled 10 10 Creatinine Cancelled 0.53 0.59 Est GFR ( Amer) Cancelled > 60 > 60 Est GFR (Non-Af Amer) Cancelled > 60 > 60 Glucose Cancelled 161 H 137 H Lactic Acid Calcium Cancelled 8.4 8.1 L Magnesium Prealbumin Urine Color Urine Appearance Urine pH Ur Specific [place] Urine Protein Urine Glucose (UA) Urine Ketones Urine Blood Urine Nitrite Ur Leukocyte Esterase Urine WBC (Auto) Urine RBC (Auto) 08/20/18 08/20/18 08/21/18 18:22 20:00 04:30 WBC RBC Hgb Hct MCV MCH MCHC RDW Plt Count Seg Neutrophils % Lymphocytes % Monocytes % Eosinophils % Basophils % Absolute Neutrophils Absolute Lymphocytes Absolute Monocytes Absolute Eosinophils Absolute Basophils Carbonic Acid 0.82 L HCO3/H2CO3 Ratio 26:1 ABG pH 7.51 H ABG pCO2 27.4 L ABG pO2 80.5 ABG HCO3 21.5 ABG O2 Saturation 97.0 ABG Base Excess -0.8 FiO2 25% Sodium 143.7 Potassium 3.1 L Chloride 114 H Carbon Dioxide 23 Anion Gap 7 BUN 9 Creatinine 0.47 L Est GFR ( Amer) > 60 Est GFR (Non-Af Amer) > 60 Glucose 113 H Lactic Acid Calcium 8.0 L Magnesium 1.8 Prealbumin Urine Color YELLOW Urine Appearance SLIGHTLY-CLOUDY Urine pH 5.0 Ur Specific [place] 1.011 Urine Protein NEGATIVE Urine Glucose (UA) NEGATIVE Urine Ketones NEGATIVE Urine Blood SMALL H Urine Nitrite POSITIVE H Ur Leukocyte Esterase MODERATE H Urine WBC (Auto) 94 Urine RBC (Auto) 8 08/21/18 08/21/18 08/21/18 04:30 04:30 04:30 WBC RBC Hgb Hct MCV MCH MCHC RDW Plt Count Seg Neutrophils % Lymphocytes % Monocytes % Eosinophils % Basophils % Absolute Neutrophils Absolute Lymphocytes Absolute Monocytes Absolute Eosinophils Absolute Basophils Carbonic Acid HCO3/H2CO3 Ratio ABG pH ABG pCO2 ABG pO2 ABG HCO3 ABG O2 Saturation ABG Base Excess FiO2 Sodium 142.4 Potassium 3.2 L Chloride 114 H Carbon Dioxide 22 Anion Gap 6 BUN 9 Creatinine 0.45 L Est GFR ( Amer) > 60 Est GFR (Non-Af Amer) > 60 Glucose 165 H Lactic Acid 1.0 Calcium 7.9 L Magnesium 1.5 L Prealbumin 5.3 L Urine Color YELLOW Urine Appearance SLIGHTLY-CLOUDY Urine pH 5.0 Ur Specific [place] 1.011 Urine Protein NEGATIVE Urine Glucose (UA) 150 H Urine Ketones NEGATIVE Urine Blood SMALL H Urine Nitrite POSITIVE H Ur Leukocyte Esterase SMALL H Urine WBC (Auto) 21 Urine RBC (Auto) 2 08/21/18 04:31 WBC 7.3 RBC 2.80 L Hgb 8.7 L Hct 25.5 L MCV 91 MCH 31.1 MCHC 34.0 RDW 16.3 H Plt Count 263 Seg Neutrophils % 82.2 H Lymphocytes % 9.3 L Monocytes % 7.5 Eosinophils % 0.6 Basophils % 0.4 Absolute Neutrophils 6.0 Absolute Lymphocytes 0.7 Absolute Monocytes 0.5 Absolute Eosinophils 0.0 Absolute Basophils 0.0 Carbonic Acid HCO3/H2CO3 Ratio ABG pH ABG pCO2 ABG pO2 ABG HCO3 ABG O2 Saturation ABG Base Excess FiO2 Sodium Potassium Chloride Carbon Dioxide Anion Gap BUN Creatinine Est GFR ( Amer) Est GFR (Non-Af Amer) Glucose Lactic Acid Calcium Magnesium Prealbumin Urine Color Urine Appearance Urine pH Ur Specific [place] Urine Protein Urine Glucose (UA) Urine Ketones Urine Blood Urine Nitrite Ur Leukocyte Esterase Urine WBC (Auto) Urine RBC (Auto) 08/16/18 05:21 Blood Blood Culture - Final NO GROWTH IN 5 DAYS 08/16/18 04:50 Blood Blood Culture - Final NO GROWTH IN 5 DAYS Assessment and Plan - Diagnosis (1) Acute kidney injury Is this a current diagnosis for this admission?: Yes Plan: Resolved. 08/18/2018-acute kidney injury is resolved. 08/19/2018-BUN is still slightly elevated but GFR is greater than 60. 08/20/2018-resolved 08/21/2018-resolved. We will continue to monitor renal function. (2) Acute metabolic encephalopathy Is this a current diagnosis for this admission?: Yes Plan: Patient remained intubated. 08/18/2018-unable to assess as patient is intubated and sedated 08/19/2018-as above 08/20/2018-with weaning sedation will be decreased. Further assessment when the patient is no longer sedated. 08/21/2018-reassess when off of sedation (3) DKA (diabetic ketoacidoses) Qualifiers: Diabetes mellitus type: type 1 Is this a current diagnosis for this admission?: Yes Plan: Has be resolving. 08/18/2018-the patient had urine ketones earlier today but has had her first negative ketone study. We are starting tube feeds and I will continue her on the insulin drip for the time being. Should be able to convert her to a combination of long-acting and sliding scale coverage. 08/19/2018-unfortunately the patient's urine was ketone positive today. She is back on the insulin drip at 3 units/h. I will hold her tube feeds. Once her fingersticks are less than 200 I will change the fluid to D5 half-normal saline. Her anion gap has corrected. 08/20/2018-she did have a negative urine ketone test today. I will introduce Lantus dosing and adjust her insulin drip. I will start with 15 units every 12 hours and this should easily be able to decrease the insulin drip by 1 unit/h. Continue sliding scale. Reassess tomorrow and increase Lantus again for slow conversion to long-acting insulin from the insulin infusion. Currently off of the insulin drip. Will monitor Accu-Cheks and sliding scale requirements and adjust Lantus accordingly. (4) Uncontrolled diabetes mellitus Qualifiers: Diabetes mellitus type: type 1 Is this a current diagnosis for this admission?: Yes Plan: When she wakes up we encouraged her to comply with her medication and her diet. 08/18/2018-the patient's fingerstick glucoses are significantly improved. Hemoglobin A1c was not checked but she was just released from this hospital approximately 1 week ago for the same diagnosis. We will need to encourage better compliance. 08/19/2018-as above 08/20/2018-the patient exhibits a pattern of behavior that is quite harmful to herself. Consider psychiatric consult once extubated and awake. 08/21/2018-currently with improved control however she will need education post discharge. (5) History of polysubstance abuse Is this a current diagnosis for this admission?: Yes Plan: Currently her urine drug screen is negative. 08/19/2018-counseling when patient is awake. 08/20/2018-contributing to poor self care. Psychiatric consult when patient is awake and interactive. 08/21/2018-as above (6) Tobacco dependence Is this a current diagnosis for this admission?: Yes Plan: When she wakes up will encourage counseled her to quit smoking. 08/18/2018-we will address when extubated 08/19/2018-as above 08/20/2018-address when patient is no longer sedated. 08/21/2018-as above (7) Hypernatremia Is this a current diagnosis for this admission?: Yes Plan: 08/18/2018-the patient has had elevated serum sodium since admission. I will need to adjust her fluids. I will await the next basic metabolic panel. Now that we are starting tube feeds this should be able to stop the D5 and change her to half-normal saline. 08/19/2018-serum sodium is back to elevated level at 150. At this point I will change to the D5 half-normal saline. 08/20/2018-resolved. Will need to monitor electrolytes once patient is off of the aggressive IV fluids. 08/21/2018-currently normal. Continue to monitor. (8) Hypokalemia Is this a current diagnosis for this admission?: Yes Plan: 08/18/2018-likely a combination of etiologies. The chronic insulin therapy for 1. Will order a 20 mEq dose of IV potassium chloride and place the patient on the electrolyte replacement protocol. 08/19/2018-continue electrolyte replacement protocol. 08/20/2018-currently on the electrolyte replacement protocol. Her potassium should stabilize when she is off of the insulin infusion and is taking a normal diet. 08/21/2018-continue electrolyte protocol. Should improve now that the continuous insulin infusion has discontinued and we will increase her tube feeds. (9) Anemia Qualifiers: Anemia type: other cause Other causes of anemia: other cause, not classified Qualified Code(s): D64.89 - Other specified anemias Is this a current diagnosis for this admission?: Yes Plan: 08/20/2018-the anemia is multifactorial. This is likely related to her chronic diabetes with recurrent severe complications as well as her critical illness, aggressive fluid hydration due to the diabetic ketoacidosis as well as nutrition. We will continue to monitor hemoglobin. If it drops below 8 she will receive transfusions. 08/21/2018-hemoglobin is slightly lower again today. We will continue to monitor. No evidence of charisse blood loss anywhere. (10) Hypomagnesemia Is this a current diagnosis for this admission?: Yes Plan: 08/20/2018-again likely related to the aggressive hydration and current lack of nutrition while treating her ketoacidosis. Continue to monitor and continue electrolyte replacement protocol. 08/21/2018-just below normal. Continue electrolyte protocol. (11) Noncompliance Is this a current diagnosis for this admission?: Yes Plan: 08/20/2018-as noted above the patient exhibits a pattern of self-harm. Ps ychiatry consult when the patient is awake and alert. 08/21/2018-as above - Time Time Spent with patient: 15-24 minutes Medications reviewed and adjusted accordingly: Yes
[2018-08-21] MEDS: INSULIN LISPRO 100 UNIT/ML 3 ML VIAL SUBCUT SCH ×3 (13:28→20:30)
[2018-08-21] MEDS: FENTANYL CITRATE INJ/PF 100 MCG/2 ML AMPUL IV PRN (14:22)
[2018-08-21 20:54] LABS: ANION GAP 9 (5-19); BLOOD UREA NITROGEN 10 mg/dL (7-20); CARBON DIOXIDE 22 mmol/L (22-30); CHLORIDE 111 mmol/L (98-107); GLUCOSE 157 mg/dL (75-110); PHOSPHORUS 2.5 mg/dL (2.5-4.5); POTASSIUM 3.8 mmol/L (3.6-5.0); SODIUM 141.8 mmol/L (137-145)
[2018-08-21] MEDS ORDERED: SCOPOLAMINE HYDROBROMIDE 1.5 MG PATCH.TD72 TD ONE (23:15)
[2018-08-22] MEDS ORDERED: NORMAL SALINE 1000 ML 1,000 ML IV PRN ×2 (02:26)
[2018-08-22] MEDS: PROPOFOL 1,000 MG/100 ML INFUS..BTL IV PRN ×2 (03:50→10:03)
[2018-08-22] MEDS: INSULIN LISPRO 100 UNIT/ML 3 ML VIAL SUBCUT SCH ×6 (04:59→21:30)
[2018-08-22 05:26] LABS: ARTERIAL BLOOD BASE EXCESS -1.5 mmol/L; ARTERIAL BLOOD FIO2 25%; ARTERIAL BLOOD H2CO3 1.01 mmol/L (1.05-1.35); ARTERIAL BLOOD HCO3 22.3 mmol/L (20-24); ARTERIAL BLOOD O2 SATURATION 97.9 % (94-98); ARTERIAL BLOOD PCO2 33.6 mmHg (35-45); ARTERIAL BLOOD PH 7.44 (7.35-7.45); ARTERIAL BLOOD PO2 100.9 mmHg (80-100); ARTERIAL BLOOD TOTAL CO2 23.3 mmol/L (21-25)
[2018-08-22 05:48] LABS: ANION GAP 7 (5-19); BLOOD UREA NITROGEN 12 mg/dL (7-20); CALCIUM 7.2 mg/dL (8.4-10.2); CARBON DIOXIDE 23 mmol/L (22-30); CHLORIDE 114 mmol/L (98-107); PHOSPHORUS 3.1 mg/dL (2.5-4.5); POTASSIUM 3.3 mmol/L (3.6-5.0)
[2018-08-22 05:53] LABS: GLUCOSE 65 mg/dL (75-110)
[2018-08-22 06:50] LABS: HEMATOCRIT 23.3 % (36.0-47.0); MEAN CORPUSCULAR HEMOGLOBIN 31.2 pg (27.0-33.4); MEAN CORPUSCULAR HGB CONC 33.8 g/dL (32.0-36.0); MEAN CORPUSCULAR VOLUME 92 fl (80-97); PLATELET COUNT 263 10^3/uL (150-450); RED BLOOD COUNT 2.53 10^6/uL (3.72-5.28); RED CELL DISTRIBUTION WIDTH 16.4 % (11.5-14.0); WHITE BLOOD COUNT 7.5 10^3/uL (4.0-10.5)
[2018-08-22 06:51] LABS: HEMOGLOBIN 7.9 g/dL (12.0-15.5)
[2018-08-22] MEDS: ENOXAPARIN SODIUM INJ 40 MG/0.4 ML DISP.SYRIN SUBCUT SCH (10:12)
[2018-08-22] MEDS: POTASSIUM CHLORIDE 20 MEQ/50 ML RTU IV SCH ×2 (10:13→12:12)
[2018-08-22] MEDS: AMINO AC/PROTEIN HYDR/WHEY PRO 11 GM/45 ML PKT NG SCH (10:54)
[2018-08-22] MEDS: INSULIN GLARGINE,HUM.REC.ANLOG 1,000 UNIT/10 ML VIAL SUBCUT SCH ×2 (10:55→21:27)
--- NOTE | 2018-08-22 20:10 | PDOC PROGRESS REPORT ---
Subjective Progress Note for:: 08/22/18 Subjective:: Vented and sedated. Reason For Visit: ACUTE METABOLIC ENCEPHALOPATHY,DKA Physical Exam Vital Signs: Temp Pulse Resp BP Pulse Ox 98.1 F 87 18 98/68 L 100 08/22/18 14:00 08/22/18 14:00 08/22/18 14:00 08/22/18 14:00 08/22/18 15:53 Intake & Output 08/21/18 08/22/18 08/23/18 06:59 06:59 06:59 Intake Total 3500 1328 68 Output Total 2425 1395 985 Balance 1075 -67 -917 Weight 55.8 kg 55 kg General appearance: PRESENT: no acute distress, well-developed Head exam: PRESENT: atraumatic, normocephalic Respiratory exam: PRESENT: clear to auscultation george, symmetrical. ABSENT: rales, rhonchi, tachypnea, wheezes Cardiovascular exam: PRESENT: RRR, +S1, +S2 GI/Abdominal exam: PRESENT: normal bowel sounds, soft. ABSENT: distended, tenderness Rectal exam: PRESENT: deferred Gentrourinary exam: PRESENT: indwelling catheter Extremities exam: PRESENT: +1 edema - Hands Neurological exam: ABSENT: awake Psychiatric exam: ABSENT: agitated Focused psych exam: ABSENT: restlessness Results Laboratory Results: 08/22/18 04:57 08/22/18 04:57 08/21/18 08/22/18 08/22/18 20:20 04:57 04:57 WBC RBC Hgb Hct MCV MCH MCHC RDW Plt Count Carbonic Acid 1.01 L HCO3/H2CO3 Ratio 22:1 ABG pH 7.44 ABG pCO2 33.6 L ABG pO2 100.9 H ABG HCO3 22.3 ABG O2 Saturation 97.9 ABG Base Excess -1.5 FiO2 25% Sodium 141.8 144.0 Potassium 3.8 3.3 L Chloride 111 H 114 H Carbon Dioxide 22 23 Anion Gap 9 7 BUN 10 12 Creatinine 0.45 L 0.45 L Est GFR ( Amer) > 60 > 60 Est GFR (Non-Af Amer) > 60 > 60 Glucose 157 H 65 L Calcium 8.0 L 7.2 L Phosphorus 2.5 3.1 Magnesium 1.7 08/22/18 04:57 WBC 7.5 RBC 2.53 L Hgb 7.9 L Hct 23.3 L MCV 92 MCH 31.2 MCHC 33.8 RDW 16.4 H Plt Count 263 Carbonic Acid HCO3/H2CO3 Ratio ABG pH ABG pCO2 ABG pO2 ABG HCO3 ABG O2 Saturation ABG Base Excess FiO2 Sodium Potassium Chloride Carbon Dioxide Anion Gap BUN Creatinine Est GFR ( Amer) Est GFR (Non-Af Amer) Glucose Calcium Phosphorus Magnesium Assessment and Plan - Diagnosis (1) Acute kidney injury Is this a current diagnosis for this admission?: Yes Plan: Resolved. 08/18/2018-acute kidney injury is resolved. 08/19/2018-BUN is still slightly elevated but GFR is greater than 60. 08/20/2018-resolved 08/21/2018-resolved. We will continue to monitor renal function. August 22, 2018-acute kidney injury is resolved. The patient is still experiencing hypokalemia. We will continue to monitor renal function. We will decrease her IV fluids as she is likely fluid overloaded. (2) Acute metabolic encephalopathy Is this a current diagnosis for this admission?: Yes Plan: Patient remained intubated. 08/18/2018-unable to assess as patient is intubated and sedated 08/19/2018-as above 08/20/2018-with weaning sedation will be decreased. Further assessment when the patient is no longer sedated. 08/21/2018-reassess when off of sedation August 22, 2018-unable to properly assess due to ongoing sedation (3) DKA (diabetic ketoacidoses) Qualifiers: Diabetes mellitus type: type 1 Is this a current diagnosis for this admission?: Yes Plan: Has be resolving. 08/18/2018-the patient had urine ketones earlier today but has had her first negative ketone study. We are starting tube feeds and I will continue her on the insulin drip for the time being. Should be able to convert her to a combination of long-acting and sliding scale coverage. 08/19/2018-unfortunately the patient's urine was ketone positive today. She is back on the insulin drip at 3 units/h. I will hold her tube feeds. Once her fingersticks are less than 200 I will change the fluid to D5 half-normal saline. Her anion gap has corrected. 08/20/2018-she did have a negative urine ketone test today. I will introduce Lantus dosing and adjust her insulin drip. I will start with 15 units every 12 hours and this should easily be able to decrease the insulin drip by 1 unit/h. Continue sliding scale. Reassess tomorrow and increase Lantus again for slow conversion to long-acting insulin from the insulin infusion. 08/21/2018-currently off of the insulin drip. Will monitor Accu-Cheks and sliding scale requirements and adjust Lantus accordingly. August 22, 2018-I have change the Accu-Cheks to every 6 hours. We have decreased the serial studies to once daily with as needed laboratory assessments. I have increased the rate of her tube feeds. Continue Lantus and sliding scale c overage. (4) Uncontrolled diabetes mellitus Qualifiers: Diabetes mellitus type: type 1 Is this a current diagnosis for this admission?: Yes Plan: When she wakes up we encouraged her to comply with her medication and her diet. 08/18/2018-the patient's fingerstick glucoses are significantly improved. Hemoglobin A1c was not checked but she was just released from this hospital approximately 1 week ago for the same diagnosis. We will need to encourage better compliance. 08/19/2018-as above 08/20/2018-the patient exhibits a pattern of behavior that is quite harmful to herself. Consider psychiatric consult once extubated and awake. 08/21/2018-currently with improved control however she will need education post discharge. August 22, 2018-on the current regimen her most recent Accu-Cheks have all been u nder 200. (5) History of polysubstance abuse Is this a current diagnosis for this admission?: Yes Plan: Currently her urine drug screen is negative. 08/19/2018-counseling when patient is awake. 08/20/2018-contributing to poor self care. Psychiatric consult when patient is awake and interactive. 08/21/2018-as above August 22, 2018-we will need psych consult after she is weaned from sedation (6) Tobacco dependence Is this a current diagnosis for this admission?: Yes Plan: When she wakes up will encourage counseled her to quit smoking. 08/18/2018-we will address when extubated 08/19/2018-as above 08/20/2018-address when patient is no longer sedated. 08/21/2018-as above August 22, 2018-revisit the subject when the patient is weaning from sedation (7) Hypernatremia Is this a current diagnosis for this admission?: Yes Plan: 08/18/2018-the patient has had elevated serum sodium since admission. I will need to adjust her fluids. I will await the next basic metabolic panel. Now that we are starting tube feeds this should be able to stop the D5 and change her to half-normal saline. 08/19/2018-serum sodium is back to elevated level at 150. At this point I will change to the D5 half-normal saline. 08/20/2018-resolved. Will need to monitor electrolytes once patient is off of the aggressive IV fluids. 08/21/2018-currently normal. Continue to monitor. August 22, 2018-resolved. Continue to monitor especially with transition to tube feeds and then oral diet. (8) Hypokalemia Is this a current diagnosis for this admission?: Yes Plan: 08/18/2018-likely a combination of etiologies. The chronic insulin therapy for 1. Will order a 20 mEq dose of IV potassium chloride and place the patient on the electrolyte replacement protocol. 08/19/2018-continue electrolyte replacement protocol. 08/20/2018-currently on the electrolyte replacement protocol. Her potassium should stabilize when she is off of the insulin infusion and is taking a normal diet. 08/21/2018-continue electrolyte protocol. Should improve now that the continuous insulin infusion has discontinued and we will increase her tube feeds. August 22, 2018-continue to replace potassium. Patient remains on a replacement protocol. (9) Anemia Qualifiers: Anemia type: other cause Other causes of anemia: other cause, not classified Qualified Code(s): D64.89 - Other specified anemias Is this a current diagnosis for this admission?: Yes Plan: 08/20/2018-the anemia is multifactorial. This is likely related to her chronic diabetes with recurrent severe complications as well as her critical illness, aggressive fluid hydration due to the diabetic ketoacidosis as well as nutrition. We will continue to monitor hemoglobin. If it drops below 8 she will receive transfusions. 08/21/2018-hemoglobin is slightly lower again today. We will continue to monitor. No evidence of charisse blood loss anywhere. August 22, 2018-the patient's hemoglobin is 7.9. If she is any lower tomorrow she will receive transfusion. I will add anemia studies to the morning blood work. (10) Hypomagnesemia Is this a current diagnosis for this admission?: Yes Plan: 08/20/2018-again likely related to the aggressive hydration and current lack of nutrition while treating her ketoacidosis. Continue to monitor and continue electrolyte replacement protocol. 08/21/2018-just below normal. Continue electrolyte protocol. August 22, 2018-continue to monitor closely and supplement if required. Serum magnesium was back in the normal range today. (11) Noncompliance Is this a current diagnosis for this admission?: Yes Plan: 08/20/2018-as noted above the patient exhibits a pattern of self-harm. Psychiatry consult when the patient is awake and alert. 08/21/2018-as above August 22, 2018-we will obtain psych consult when patient is weaned from sedation. (12) Acute cystitis with positive culture Is this a current diagnosis for this admission?: Yes Plan: A recent urinalysis showed increased white blood cells. A urine culture was obtained. Negative bacilli are growing and patient is now on Unasyn. - Time Time Spent with patient: 25-34 minutes Medications reviewed and adjusted accordingly: Yes
[2018-08-23] MEDS: POTASSIUM CHLORIDE 20 MEQ/50 ML RTU IV SCH ×2 (00:08→01:38)
[2018-08-23] MEDS: INSULIN LISPRO 100 UNIT/ML 3 ML VIAL SUBCUT SCH ×6 (00:19→20:02)
[2018-08-23] MEDS: ACETAMINOPHEN 650 MG SUPP.RECT PR PRN (00:20)
[2018-08-23] MEDS: AMPICILLIN SODIUM/SULBACTAM NA 3 GM in NORMAL SALINE 100 ML IV SCH ×3 (00:25→05:36)
[2018-08-23] MEDS: AMPICILLIN SOD/SULBACTAM 3 GM VIAL ONE ×2 (00:25→00:48)
[2018-08-23] MEDS: LORAZEPAM INJ 2 MG/1 ML VIAL IV PRN (00:41)
[2018-08-23] MEDS: MIDAZOLAM HCL 50 MG/100 ML RTUINJ IV PRN ×6 (01:00→23:22)
[2018-08-23] MEDS: LEVALBUTEROL HCL NEB 0.63 MG/3 ML AMPUL NEB PRN ×3 (01:38→20:30)
[2018-08-23] MEDS: PROPOFOL 1,000 MG/100 ML INFUS..BTL IV PRN ×3 (01:39→18:49)
[2018-08-23] MEDS: FENTANYL CITRATE INJ/PF 100 MCG/2 ML AMPUL IV PRN (02:22)
[2018-08-23 04:06] LABS: ARTERIAL BLOOD BASE EXCESS -5.2 mmol/L; ARTERIAL BLOOD H2CO3 0.94 mmol/L (1.05-1.35); ARTERIAL BLOOD HCO3 18.8 mmol/L (20-24); ARTERIAL BLOOD O2 SATURATION 96.8 % (94-98); ARTERIAL BLOOD PCO2 31.2 mmHg (35-45); ARTERIAL BLOOD PO2 87.4 mmHg (80-100); ARTERIAL BLOOD TOTAL CO2 19.8 mmol/L (21-25)
[2018-08-23 04:07] LABS: ARTERIAL BLOOD FIO2 50%
--- NOTE | 2018-08-23 04:18 | Progress Note ---
Provider Note Provider Note: Critical Care Note: 08/23/2018 Onset of critical care: 02:03 Critical care issue: Sudden worsening of respiratory status Patient was noted to have a sudden onset of increased oxygen requirement after an episode where she had been coughing and had her endotracheal airway lavaged and suctioned with removal of significant mucus. Her oxygen requirement was noted to be significant higher afterwards and there was no significant return on further suctioning/lavage. Patient's respiratory status seemed to plateau on 75% O2 using her previous rate pressure and volume settings. I was contacted and advised that we should try to gradually wean her back to her previous setting (FiO2 25%) and I came to see the patient for further evaluation. Patient's oxygen saturation would not stay in the desired therapeutic range without continuation of at least 50% oxygen on her ventilator. Examination showed her lungs to be essentially clear with good breath sounds throughout all sosa. Air movement was somewhat decreased as the patient is tachypneic despite sedation. The patient was reassessed on several occasions over the course of her critical care. With essentially clear airways the greatest pathologic likelihood is that she either has a mucous plug in a large airway or she has a pulmonary embolus. To this end a CTA of the chest was ordered and results will be followed up on when available. A repeat blood gas was obtained prior to ordering CTA with results available in the chart. End of critical care: 04:17 Total axmx-rb-kxomlje critical care time: 26 minutes
[2018-08-23] MEDS ORDERED: AMPICILLIN SOD/SULBACTAM 3 GM VIAL ONE (05:13)
[2018-08-23 05:44] LABS: APPEARANCE,URINE SLIGHTLY-CLOUDY; BILIRUBIN,URINE NEGATIVE (NEGATIVE); COLOR,URINE YELLOW; GLUCOSE, URINE 50 mg/dL (NEGATIVE); KETONES,URINE 20 mg/dL (NEGATIVE); LEUKOCYTE ESTERASE,URINE SMALL (NEGATIVE); NITRITE,URINE NEGATIVE (NEGATIVE); PROTEIN,URINE NEGATIVE (NEGATIVE); URINE SPECIFIC GRAVITY 1.018; UROBILINOGEN,URINE NEGATIVE mg/dL (<2.0)
[2018-08-23 05:55] LABS: ABSOLUTE RETICS # 0.035 10^6/uL (0.028-0.122); HEMATOCRIT 25.1 % (36.0-47.0); HEMOGLOBIN 8.4 g/dL (12.0-15.5); MEAN CORPUSCULAR HEMOGLOBIN 30.9 pg (27.0-33.4); MEAN CORPUSCULAR HGB CONC 33.5 g/dL (32.0-36.0); MEAN CORPUSCULAR VOLUME 92 fl (80-97); PLATELET COUNT 337 10^3/uL (150-450); RED BLOOD COUNT 2.72 10^6/uL (3.72-5.28); RED CELL DISTRIBUTION WIDTH 16.7 % (11.5-14.0); WHITE BLOOD COUNT 8.1 10^3/uL (4.0-10.5)
--- NOTE | 2018-08-23 06:04 | RADIOLOGY REPORT (SQ) ---
EXAM DESCRIPTION: CT CHEST ANGIOGRAPHY WITHOUT THEN WITH IV CONTRAST COMPLETED DATE/TME: 08/23/2018 04:03 CLINICAL HISTORY: 27 years Female, Sudden increase in O2 needed to maintain O2 sat Comparison: None. Technique: IV contrast. Coronal and sagittal reformat. 3d reconstruction. This exam was performed according to our departmental dose-optimization program, which includes automated exposure control, adjustment of the mA and/or kV according to patient size and/or use of iterative reconstruction technique.[facility]: Dose Right [facility]: CareDose [facility]: Dose Right [facility]: Teradose 4D [facility]: [employer] LIMITATIONS: None Findings: No pulmonary embolus. No right ventricular strain. Moderate extensive consolidation of the left lower lobe, streak the airspace opacities in the right lower lobe, small bilateral pleural effusions. Moderate pericholecystic fluid. Developmental ductus bump of the descending aorta. Mild anasarca. Adequate appearing endotracheal tube. Adequate appearing enteric tube. Developmental fragmentation at the anterior aspect of the T11 inferior endplate. Small anterior pneumomediastinum. Mild mediastinal lymphadenopathy. Inferior neck, axillae, airway, heart, vasculature, upper abdomen, and musculoskeleton appear otherwise unremarkable. Impression: 1. Bilateral lower lobar pneumonia, predominantly on the left. Small bilateral pleural effusions. 2. Moderate pericholecystic fluid, nonspecific. 3. Lines and tubes. 4. Small pneumomediastinum. 5. No pulmonary embolus.
[2018-08-23 06:18] LABS: ANION GAP 12 (5-19); BLOOD UREA NITROGEN 9 mg/dL (7-20); CALCIUM 7.6 mg/dL (8.4-10.2); CARBON DIOXIDE 19 mmol/L (22-30); CHLORIDE 116 mmol/L (98-107); GLUCOSE 154 mg/dL (75-110); IRON(TIBC) 18.9 ug/dL (37-170); POTASSIUM 3.5 mmol/L (3.6-5.0); SODIUM 146.5 mmol/L (137-145)
[2018-08-23 06:19] LABS: ABSOLUTE LYMPHOCYTES# (MANUAL) 0.4 10^3/uL (0.5-4.7); ABSOLUTE MONOCYTES # (MANUAL) 0.1 10^3/uL (0.1-1.4); ABSOLUTE NEUTROPHILS# (MANUAL) 7.6 10^3/uL (1.7-8.2); BAND NEUTROPHILS % (MANUAL) 22 % (3-5); BASOPHILS % (MANUAL) 0 % (0-2); EOSINOPHILS % (MANUAL) 0 % (0-6); LYMPHOCYTES % (MANUAL) 5 % (13-45); MONOCYTES % (MANUAL) 1 % (3-13); SEGMENTED NEUTROPHILS % (MAN) 72 % (42-78); TOTAL CELLS COUNTED 100
[2018-08-23 06:21] LABS: ANISOCYTOSIS 1+; PLATELET COMMENT ADEQUATE; POLYCHROMASIA 1+
[2018-08-23] MEDS ORDERED: FUROSEMIDE INJ/PF 20 MG/2 ML SDV IV PRN ×2 (06:36→07:11)
[2018-08-23] MEDS ORDERED: LORAZEPAM INJ 2 MG/1 ML VIAL IV PRN (06:40)
[2018-08-23] MEDS ORDERED: FENTANYL CITRATE INJ/PF 100 MCG/2 ML AMPUL IV PRN (06:40)
[2018-08-23 07:14] LABS: FOLATE 7.19 ng/mL (>2.76)
[2018-08-23] MEDS: ACETYLCYSTEINE 20% SOLN 800 MG/4 ML VIAL.NEB NEB SCH ×2 (08:04→20:30)
[2018-08-23] MEDS ORDERED: ACETAMINOPHEN SOLN 325 MG/10.15 ML UDCUP ONE (08:05)
[2018-08-23] MEDS: ALBUMIN HUMAN 12.5 GM/50 ML RTUINJ IV SCH ×2 (08:08→08:40)
[2018-08-23] MEDS ORDERED: MAGNESIUM SULFATE/D5W 2 GM/200 ML RTUPB IV ONE (08:58)
[2018-08-23] MEDS ORDERED: PHENYLEPHRINE HCL INJ/PF 10 MG/1 ML SDV ONE (09:02)
[2018-08-23] MEDS ORDERED: DEXTROSE 5%-WATER 250 ML with PHENYLEPHRINE HCL 40 MG IV PRN ×2 (09:04)
[2018-08-23] MEDS ORDERED: HYDROCORTISONE SOD SUCCINATE INJ/PF 100 MG/2 ML SDV ONE (09:16)
[2018-08-23] MEDS ORDERED: HYDROCORTISONE SOD SUCCINATE INJ/PF 100 MG/2 ML SDV IV ONE (09:30)
[2018-08-23] MEDS ORDERED: NORMAL SALINE 250 ML IV PRN ×4 (09:35→09:36)
[2018-08-23] MEDS ORDERED: VANCOMYCIN HCL 0 MG in DEXTROSE 5%-WATER 250 ML IV NR (09:45)
[2018-08-23 09:46] LABS: CREATINE KINASE MB 0.41 ng/mL (<4.55)
[2018-08-23 09:48] LABS: TROPONIN I < 0.012 ng/mL
[2018-08-23 09:57] LABS: APPEARANCE,URINE SLIGHTLY-CLOUDY; BILIRUBIN,URINE NEGATIVE (NEGATIVE); COLOR,URINE YELLOW; GLUCOSE, URINE NEGATIVE (NEGATIVE); KETONES,URINE 20 mg/dL (NEGATIVE); LEUKOCYTE ESTERASE,URINE TRACE (NEGATIVE); NITRITE,URINE NEGATIVE (NEGATIVE); PROTEIN,URINE NEGATIVE (NEGATIVE); URINE SPECIFIC GRAVITY 1.045; UROBILINOGEN,URINE NEGATIVE mg/dL (<2.0)
[2018-08-23] MEDS ORDERED: CEFTRIAXONE 1 GM/D5W RTU 1 GM/50 ML RTUPB IV SCH (10:00)
[2018-08-23] MEDS: ENOXAPARIN SODIUM INJ 40 MG/0.4 ML DISP.SYRIN SUBCUT SCH (11:14)
[2018-08-23] MEDS: AMINO AC/PROTEIN HYDR/WHEY PRO 11 GM/45 ML PKT NG SCH (11:15)
[2018-08-23] MEDS: CEFEPIME 1 GM/D5W RTU 1 GM/50 ML RTUPB IV SCH ×2 (11:15→21:04)
[2018-08-23] MEDS: INSULIN GLARGINE,HUM.REC.ANLOG 1,000 UNIT/10 ML VIAL SUBCUT SCH ×2 (11:32→21:03)
--- NOTE | 2018-08-23 13:22 | EKG REPORT ---
SEVERITY:- ABNORMAL ECG - SINUS TACHYCARDIA NONSPECIFIC REPOL ABNORMALITY, DIFFUSE LEADS : Confirmed by: Steven Becerra MD 23-Aug-2018 13:22:10
[2018-08-23] MEDS: VANCOMYCIN HCL 750 MG in DEXTROSE 5%-WATER 250 ML IV SCH ×2 (13:55→21:04)
[2018-08-23] MEDS: DEXTROSE 5%-WATER 250 ML with VASOPRESSIN 100 UNIT IV PRN ×2 (15:00)
[2018-08-23 16:35] LABS: POTASSIUM 3.3 mmol/L (3.6-5.0)
[2018-08-23 17:13] LABS: CREATINE KINASE MB 0.42 ng/mL (<4.55)
[2018-08-23 17:15] LABS: TROPONIN I < 0.012 ng/mL
[2018-08-23] MEDS: NORMAL SALINE 1000 ML 1,000 ML IV PRN (18:50)
--- NOTE | 2018-08-23 19:48 | XCELERA REPORT ---
[address] [address] Transthoracic Echocardiogram Report Name: ZANE GEIGER Age: 27 yrs Gender: Female : 1990 Patient Status: Inpatient Patient Location: ICU^605^A Study Date: 08/23/2018 09:12 AM Height: 63 in Weight: 126 lb BSA: 1.6 m2 Procedure: A two-dimensional transthoracic echocardiogram with color flow and Doppler was performed. Study Quality: Fair. Reason For Study: Endocarditis History: Endocarditis. Ordering Physician: AMY SWANSON Performed By: Crystal Davila Interpretation Summary No defenite vegetations seen. The left ventricle is normal in size. There is normal left ventricular wall thickness. LV EF is 70% Left ventricular systolic function is normal. Doppler measurements suggest normal left ventricular diastolic function The left ventricular wall motion is normal. There is no thrombus. No ASD ,VSD,or PFO The right ventricle is normal in size and function. The right atrium is normal. The left atrial size is normal. There is no evidence of mitral valve prolapse. There is no vegetation seen on the mitral valve. There is no mitral valve stenosis. There is no mitral regurgitation noted. There is no aortic valvular vegetation. There is no aortic valve stenosis There is no LVOT obstruction. No aortic regurgitation is present. There is no tricuspid stenosis. There is no tricuspid valve vegetation. There is a trace amount of tricuspid regurgitation There is mild pulmonary hypertension by echo RVSP is 35 to 40 mm of Hg , with RA mean of 10 to 15. There is no pulmonic valvular stenosis. There is a trace amount of pulmonic regurgitation The aortic root is normal size. The inferior vena cava appeared normal and decreased < 50% with respiration (RAP 10-15 mmHg) There is no pericardial effusion. No defenite vegetations seen. MMode/2D Measurements & Calculations RVDd: 2.7 cm LVIDd: 4.1 cm FS: 32.0 % Ao root diam: 2.5 cm IVSd: 0.71 cm LVIDs: 2.8 cm EDV(Teich): Ao root area: LVPWd: 0.98 cm 72.9 ml 5.0 cm2 ESV(Teich): 28.7 ml EF(Teich): 60.6 % EDV(MOD-sp4): SV(MOD-sp4): 55.0 ml 39.7 ml ESV(MOD-sp4): 15.3 ml EF(MOD-sp4): 72.2 % Doppler Measurements & Calculations MV E max alejo: MV dec slope: Ao V2 max: LV V1 max P.0 cm/sec 136.1 cm/sec 6.8 mmHg MV A max alejo: 975.5 cm/sec2 Ao max PG: LV V1 max: 75.5 cm/sec MV dec time: 7.4 mmHg 130.7 cm/sec MV E/A: 1.6 0.12 sec PA V2 max: PI end-d alejo: TR max alejo: 95.1 cm/sec 53.0 cm/sec 254.0 cm/sec PA max P.6 mmHg TR max P.8 mmHg Left Ventricle The left ventricle is normal in size. There is normal left ventricular wall thickness. LV EF is 70%. Left ventricular systolic function is normal. Doppler measurements suggest normal left ventricular diastolic function. The left ventricular wall motion is normal. There is no thrombus. No ASD ,VSD,or PFO. Right Ventricle The right ventricle is normal in size and function. Atria The right atrium is normal. The left atrial size is normal. Mitral Valve There is no evidence of mitral valve prolapse. There is no vegetation seen on the mitral valve. There is no mitral valve stenosis. There is no mitral regurgitation noted. Aortic Valve There is no aortic valvular vegetation. There is no aortic valve stenosis. There is no LVOT obstruction. No aortic regurgitation is present. Tricuspid Valve There is no tricuspid valve vegetation. There is no tricuspid stenosis. There is a trace amount of tricuspid regurgitation. There is mild pulmonary hypertension by echo. RVSP is 35 to 40 mm of Hg , with RA mean of 10 to 15. Pulmonic Valve There is no pulmonic valvular stenosis. There is a trace amount of pulmonic regurgitation. Great Vessels The aortic root is normal size. The inferior vena cava appeared normal and decreased < 50% with respiration (RAP 10-15 mmHg). Effusions There is no pericardial effusion. : AMY SWANSON > Brie Camacho
[2018-08-24] MEDS: INSULIN LISPRO 100 UNIT/ML 3 ML VIAL SUBCUT SCH ×6 (00:04→21:14)
[2018-08-24] MEDS: PROPOFOL 1,000 MG/100 ML INFUS..BTL IV PRN ×3 (02:32→22:26)
[2018-08-24 04:41] LABS: ARTERIAL BLOOD BASE EXCESS -0.7 mmol/L; ARTERIAL BLOOD H2CO3 1.03 mmol/L (1.05-1.35); ARTERIAL BLOOD O2 SATURATION 97.7 % (94-98); ARTERIAL BLOOD PCO2 34.1 mmHg (35-45); ARTERIAL BLOOD PH 7.45 (7.35-7.45); ARTERIAL BLOOD PO2 97.5 mmHg (80-100)
[2018-08-24 04:42] LABS: ARTERIAL BLOOD FIO2 35%
[2018-08-24 04:46] LABS: ABSOLUTE LYMPHOCYTES (AUTO) 1.5 10^3/uL (0.5-4.7); ABSOLUTE MONOCYTES (AUTO) 0.7 10^3/uL (0.1-1.4); ABSOLUTE NEUT (AUTO) 9.6 10^3/uL (1.7-8.2); BASOPHILS % (AUTO) 0.1 % (0-2); EOSINOPHILS % (AUTO) 0.3 % (0-6); HEMATOCRIT 28.8 % (36.0-47.0); HEMOGLOBIN 9.7 g/dL (12.0-15.5); LYMPHOCYTES % (AUTO) 12.9 % (13-45); MEAN CORPUSCULAR HEMOGLOBIN 30.4 pg (27.0-33.4); MEAN CORPUSCULAR HGB CONC 33.7 g/dL (32.0-36.0); MEAN CORPUSCULAR VOLUME 90 fl (80-97); MONOCYTES % (AUTO) 6.2 % (3-13); PLATELET COUNT 367 10^3/uL (150-450); RED BLOOD COUNT 3.19 10^6/uL (3.72-5.28); RED CELL DISTRIBUTION WIDTH 16.1 % (11.5-14.0); SEGMENTED NEUTROPHILS % (AUTO) 80.5 % (42-78); TOTAL CELLS COUNTED % (AUTO) 100 %; WHITE BLOOD COUNT 11.9 10^3/uL (4.0-10.5)
[2018-08-24 04:58] LABS: ALANINE AMINOTRANSFERASE 24 U/L (9-52); ALBUMIN 2.3 g/dL (3.5-5.0); ALKALINE PHOSPHATASE 131 U/L (38-126); ANION GAP 11 (5-19); ASPARTATE AMINO TRANSFERASE 8 U/L (14-36); BILIRUBIN,DIRECT 0.2 mg/dL (0.0-0.4); BILIRUBIN,TOTAL 0.3 mg/dL (0.2-1.3); BLOOD UREA NITROGEN 10 mg/dL (7-20); CALCIUM 7.9 mg/dL (8.4-10.2); CARBON DIOXIDE 24 mmol/L (22-30); CHLORIDE 112 mmol/L (98-107); GLUCOSE 132 mg/dL (75-110); PHOSPHORUS 3.7 mg/dL (2.5-4.5); SODIUM 146.6 mmol/L (137-145); TOTAL PROTEIN 4.6 g/dL (6.3-8.2)
[2018-08-24 05:05] LABS: PREALBUMIN 5.4 mg/dL (17.6-36.0)
[2018-08-24 05:08] LABS: POTASSIUM 2.8 mmol/L (3.6-5.0)
[2018-08-24] MEDS ORDERED: POTASSI CL 20 MEQ/50 ML RIDER 20 MEQ/50 ML RTUPB IV ONE ×2 (05:12→18:34)
[2018-08-24] MEDS: VANCOMYCIN HCL 750 MG in DEXTROSE 5%-WATER 250 ML IV SCH ×2 (05:13→13:26)
[2018-08-24] MEDS: MIDAZOLAM HCL 50 MG/100 ML RTUINJ IV PRN ×3 (05:14→22:26)
[2018-08-24] MEDS: POTASSIUM CHLORIDE 20 MEQ/50 ML RTU IV SCH ×5 (05:36→21:14)
[2018-08-24] MEDS: LEVALBUTEROL HCL NEB 0.63 MG/3 ML AMPUL NEB PRN ×2 (08:06→21:33)
[2018-08-24] MEDS: ACETYLCYSTEINE 20% SOLN 800 MG/4 ML VIAL.NEB NEB SCH ×2 (08:06→21:33)
[2018-08-24] MEDS: ENOXAPARIN SODIUM INJ 40 MG/0.4 ML DISP.SYRIN SUBCUT SCH (09:28)
[2018-08-24] MEDS: CEFEPIME 1 GM/D5W RTU 1 GM/50 ML RTUPB IV SCH ×2 (09:29→21:15)
[2018-08-24] MEDS ORDERED: SCOPOLAMINE HYDROBROMIDE 1.5 MG PATCH.TD72 TD SCH (10:00)
--- NOTE | 2018-08-24 10:06 | RADIOLOGY REPORT (SQ) ---
EXAM DESCRIPTION: CHEST SINGLE VIEW COMPLETED DATE/TIME: 08/24/2018 9:58 am REASON FOR STUDY: reassess pneumomediastinum COMPARISON: 08/21/2008. EXAM PARAMETERS: NUMBER OF VIEWS: One view. TECHNIQUE: Single frontal radiographic view of the chest acquired. RADIATION DOSE: NA LIMITATIONS: None. FINDINGS: LUNGS AND PLEURA: Worsening infiltrate in the lung bases, right greater than left. Possib le small pleural effusions. No pneumothorax. MEDIASTINUM AND HILAR STRUCTURES: No masses. Contour normal. HEART AND VASCULAR STRUCTURES: Heart normal in size. Normal vasculature. BONES: No acute findings. HARDWARE: Stable endotracheal tube and nasogastric tube. OTHER: No other significant finding. IMPRESSION: STABLE LIFE LINES. WORSENING INFILTRATE IN THE LUNG BASES. POSSIBLE SMALL PLEURAL EFFU SIONS. TECHNICAL DOCUMENTATION: JOB ID: [id number] [employer]- All Rights Reserved Reading location - IP/workstation name: [email or web address]
[2018-08-24] MEDS: INSULIN GLARGINE,HUM.REC.ANLOG 1,000 UNIT/10 ML VIAL SUBCUT SCH ×2 (11:17→21:15)
[2018-08-24] MEDS: AMINO AC/PROTEIN HYDR/WHEY PRO 11 GM/45 ML PKT NG SCH ×2 (11:19→17:34)
--- NOTE | 2018-08-24 13:46 | RADIOLOGY REPORT (SQ) ---
EXAM DESCRIPTION: U/S ABDOMEN LIMITED W/O DOP COMPLETED DATE/TIME: 08/24/2018 1:35 pm REASON FOR STUDY: r/o cholecystitis COMPARISON: None. TECHNIQUE: Dynamic and static grayscale images acquired of the abdomen and recorded on PACS. Fiorellao fer selected color Doppler and spectral images recorded. LIMITATIONS: None. FINDINGS: PANCREAS: No masses. Visualized pancreatic duct normal caliber. LIVER: No masses. Echotexture normal. LIVER VASCULATURE: Normal directional flow of the main portal vein and hepatic veins. GALLBLADDER: Contracted gallbladder. No stones. The gallbladder wall is thickened at 7 mm. ULTRASOUND-DETECTED DAVISON'S SIGN: Negative. INTRAHEPATIC DUCTS AND COMMON DUCT: CBD and intrahepatic ducts normal caliber. No filling defects. INFERIOR VENA CAVA: Not imaged. AORTA: No aneurysm. RIGHT KIDNEY: Normal size, 11.1 cm. Normal echogenicity. No solid or suspicious masses. No hydroneph rosis. No calcifications. PERITONEAL AND RIGHT PLEURAL SPACE: No ascites or effusions. OTHER: No other significant findings. IMPRESSION: Gallbladder wall thickening. This may merely be secondary to the nondistention of the g allbladder. TECHNICAL DOCUMENTATION: JOB ID: [id number] [employer]- All Rights Reserved Reading location - IP/workstation name: [email or web address]
[2018-08-24] MEDS ORDERED: FUROSEMIDE INJ/PF 40 MG/4 ML SDV IV ONE (15:31)
[2018-08-24] MEDS ORDERED: FUROSEMIDE INJ/PF 40 MG/4 ML SDV ONE (15:34)
[2018-08-24] MEDS: ACETAMINOPHEN 650 MG SUPP.RECT PR PRN (15:35)
[2018-08-24 15:43] LABS: AMORPHOUS SEDIMENT,URINE TRACE /HPF; APPEARANCE,URINE CLOUDY; BILIRUBIN,URINE NEGATIVE (NEGATIVE); COLOR,URINE YELLOW; GLUCOSE, URINE 50 mg/dL (NEGATIVE); KETONES,URINE NEGATIVE (NEGATIVE); LEUKOCYTE ESTERASE,URINE NEGATIVE (NEGATIVE); NITRITE,URINE NEGATIVE (NEGATIVE); PROTEIN,URINE NEGATIVE (NEGATIVE); URINE SPECIFIC GRAVITY 1.017; UROBILINOGEN,URINE NEGATIVE mg/dL (<2.0)
[2018-08-24 15:56] LABS: VANCOMYCIN,TROUGH 9.4 ug/mL (5.0-20.0)
--- NOTE | 2018-08-24 15:58 | PDOC PROGRESS REPORT ---
Subjective Progress Note for:: 08/24/18 Subjective:: Assumed care today. Reviewed chart and ICU course. This is a 27-year-old female with past medical history of uncontrolled type 1 diabetes mellitus and recurrent DKA who was brought in because of unresponsiveness. Patient was intubated she was noted to be obtunded upon presentation. She was also noted to be positive for amphetamines on her UDS. She was also not noted to have bilateral pneumonia. She is currently sedated on propofol. Currently saturating well on minimal vent settings at 30% FiO2. She does have dark watery stools from the rectal tube. She did have a fever last night. Reason For Visit: ACUTE METABOLIC ENCEPHALOPATHY,DKA Physical Exam Vital Signs: Temp Pulse Resp BP Pulse Ox 99.0 F 73 19 99/61 L 97 08/24/18 11:30 08/24/18 10:00 08/24/18 11:30 08/24/18 11:30 08/24/18 11:30 Intake & Output 08/23/18 08/24/18 08/25/18 06:59 06:59 06:59 Intake Total 658 2506 449 Output Total 2700 2950 25 Balance -2042 -444 424 Weight 126 lb 12.253 oz 128 lb 1.417 oz General appearance: PRESENT: other - Intubated, sedated Eye exam: PRESENT: conjunctiva pink, EOMI, PERRLA. ABSENT: scleral icterus Ear exam: PRESENT: normal external ear exam Neck exam: ABSENT: carotid bruit, JVD, lymphadenopathy, thyromegaly Respiratory exam: PRESENT: rhonchi. ABSENT: rales, wheezes Cardiovascular exam: PRESENT: RRR. ABSENT: diastolic murmur, rubs, systolic murmur Pulses: PRESENT: normal dorsalis pedis pul GI/Abdominal exam: PRESENT: normal bowel sounds, soft. ABSENT: distended, guarding, mass, organolmegaly, rebound, tenderness Rectal exam: PRESENT: deferred Neurological exam: PRESENT: other - Intubated, [id number] Results Laboratory Results: 08/24/18 04:30 08/24/18 04:30 08/23/18 08/23/18 08/24/18 10:12 15:55 04:30 WBC RBC Hgb Hct MCV MCH MCHC RDW Plt Count Seg Neutrophils % Lymphocytes % Monocytes % Eosinophils % Basophils % Absolute Neutrophils Absolute Lymphocytes Absolute Monocytes Absolute Eosinophils Absolute Basophils Carbonic Acid 1.03 L HCO3/H2CO3 Ratio 22:1 ABG pH 7.45 ABG pCO2 34.1 L ABG pO2 97.5 ABG HCO3 23.0 ABG O2 Saturation 97.7 ABG Base Excess -0.7 FiO2 35% Sodium Potassium 3.3 L Chloride Carbon Dioxide Anion Gap BUN Creatinine Est GFR ( Amer) Est GFR (Non-Af Amer) Glucose Lactic Acid Calcium Phosphorus Magnesium 1.7 Total Bilirubin AST ALT Alkaline Phosphatase Total Protein Albumin Prealbumin Blood Type O POSITIVE Antibody Screen NEGATIVE 08/24/18 08/24/18 08/24/18 04:30 04:30 04:30 WBC 11.9 H RBC 3.19 L Hgb 9.7 L Hct 28.8 L MCV 90 MCH 30.4 MCHC 33.7 RDW 16.1 H Plt Count 367 Seg Neutrophils % 80.5 H Lymphocytes % 12.9 L Monocytes % 6.2 Eosinophils % 0.3 Basophils % 0.1 Absolute Neutrophils 9.6 H Absolute Lymphocytes 1.5 Absolute Monocytes 0.7 Absolute Eosinophils 0.0 Absolute Basophils 0.0 Carbonic Acid HCO3/H2CO3 Ratio ABG pH ABG pCO2 ABG pO2 ABG HCO3 ABG O2 Saturation ABG Base Excess FiO2 Sodium 146.6 H Potassium 2.8 L* Chloride 112 H Carbon Dioxide 24 Anion Gap 11 BUN 10 Creatinine 0.40 L Est GFR ( Amer) > 60 Est GFR (Non-Af Amer) > 60 Glucose 132 H Lactic Acid 1.1 Calcium 7.9 L Phosphorus 3.7 Magnesium 1.8 Total Bilirubin 0.3 AST 8 L ALT 24 Alkaline Phosphatase 131 H Total Protein 4.6 L Albumin 2.3 L Prealbumin 5.4 L Blood Type Antibody Screen 08/23/18 08:10 Tracheal Aspirate Gram Stain - Final 08/23/18 08/23/18 08/23/18 08:55 08:55 15:55 Creatine Kinase 100 60 CK-MB (CK-2) 0.41 Troponin I < 0.012 08/23/18 16:30 Creatine Kinase CK-MB (CK-2) 0.42 Troponin I < 0.012 Impressions: Chest X-Ray 08/24/18 09:28 IMPRESSION: STABLE LIFE LINES. WORSENING INFILTRATE IN THE LUNG BASES. POSSIBLE SMALL PLEURAL EFFUSIONS. Assessment and Plan - Diagnosis (1) Acute metabolic encephalopathy Is this a current diagnosis for this admission?: Yes Plan: Currently intubated and sedated. She is tolerating minimal vent settings. Wean off sedation today to mental status. (2) Pneumonia Is this a current diagnosis for this admission?: Yes Plan: Sputum culture is growing gram-positive gram-negative rods. Continue vancomycin and cefepime. (3) DKA (diabetic ketoacidoses) Qualifiers: Diabetes mellitus type: type 1 Diabetes mellitus complication detail: with coma Qualified Code(s): E10.11 - Type 1 diabetes mellitus with ketoacidosis with coma Is this a current diagnosis for this admission?: Yes Plan: Resolved. Potassium is low at 2.8. Continue IV and PO replacement. Repeat BMP. - Time Time Spent with patient: 25-34 minutes
[2018-08-24] MEDS: NORMAL SALINE 1000 ML 1,000 ML IV PRN (16:46)
[2018-08-24 17:48] LABS: ANION GAP 8 (5-19); BLOOD UREA NITROGEN 11 mg/dL (7-20); CALCIUM 8.3 mg/dL (8.4-10.2); CARBON DIOXIDE 26 mmol/L (22-30); CHLORIDE 108 mmol/L (98-107); GLUCOSE 229 mg/dL (75-110); POTASSIUM 3.3 mmol/L (3.6-5.0); SODIUM 141.8 mmol/L (137-145)
[2018-08-24 20:25] LABS: HEMATOCRIT 27.6 % (36.0-47.0); HEMOGLOBIN 9.7 g/dL (12.0-15.5); MEAN CORPUSCULAR HEMOGLOBIN 31.3 pg (27.0-33.4); MEAN CORPUSCULAR VOLUME 89 fl (80-97); PLATELET COUNT 411 10^3/uL (150-450); RED BLOOD COUNT 3.08 10^6/uL (3.72-5.28); RED CELL DISTRIBUTION WIDTH 15.8 % (11.5-14.0); WHITE BLOOD COUNT 9.8 10^3/uL (4.0-10.5)
[2018-08-24] MEDS: VANCOMYCIN HCL 1,250 MG in DEXTROSE 5%-WATER 250 ML IV SCH (21:16)
[2018-08-24] MEDS: DEXTROSE 5%-WATER 250 ML with VASOPRESSIN 100 UNIT IV PRN ×2 (21:17)
[2018-08-25] MEDS: INSULIN LISPRO 100 UNIT/ML 3 ML VIAL SUBCUT SCH ×6 (00:32→22:05)
[2018-08-25] MEDS: POTASSIUM CHLORIDE 20 MEQ/50 ML RTU IV SCH ×4 (03:42→14:50)
[2018-08-25] MEDS: PROPOFOL 1,000 MG/100 ML INFUS..BTL IV PRN (03:52)
[2018-08-25] MEDS: VANCOMYCIN HCL 1,250 MG in DEXTROSE 5%-WATER 250 ML IV SCH ×3 (05:12→22:08)
[2018-08-25 05:15] LABS: ARTERIAL BLOOD BASE EXCESS 2.1 mmol/L; ARTERIAL BLOOD H2CO3 0.99 mmol/L (1.05-1.35); ARTERIAL BLOOD O2 SATURATION 98.3 % (94-98); ARTERIAL BLOOD PCO2 32.9 mmHg (35-45); ARTERIAL BLOOD PO2 105.8 mmHg (80-100)
[2018-08-25 05:22] LABS: ARTERIAL BLOOD FIO2 30%
[2018-08-25 05:30] LABS: ANION GAP 8 (5-19); BLOOD UREA NITROGEN 11 mg/dL (7-20); CALCIUM 8.2 mg/dL (8.4-10.2); CARBON DIOXIDE 27 mmol/L (22-30); CHLORIDE 109 mmol/L (98-107); GLUCOSE 123 mg/dL (75-110); POTASSIUM 3.1 mmol/L (3.6-5.0); SODIUM 143.7 mmol/L (137-145)
[2018-08-25] MEDS ORDERED: FENTANYL CITRATE INJ/PF 100 MCG/2 ML AMPUL IV ONE (06:45)
[2018-08-25] MEDS: MIDAZOLAM HCL 50 MG/100 ML RTUINJ IV PRN (06:59)
--- NOTE | 2018-08-25 07:55 | RADIOLOGY REPORT (SQ) ---
EXAM DESCRIPTION: XR CHEST 1 VIEW COMPLETED DATE/TME: 08/25/2018 06:00 CLINICAL HISTORY: 27 years Female, Resp. Failure, Pneumonia ET Tube Placement COMPARISON: One day prior. NUMBER OF VIEWS/TECHNIQUE: 1/AP FINDINGS: Mild interstitial and airspace opacity, central lower. Adequate appearing endotracheal tube. Adequate appearing enteric tube partially obscured. Normal cardiac silhouette size. No pneumothorax. Stable bony thorax. IMPRESSION: No significant change.
[2018-08-25] MEDS: ACETYLCYSTEINE 20% SOLN 800 MG/4 ML VIAL.NEB NEB SCH ×2 (08:02→20:56)
[2018-08-25] MEDS: LEVALBUTEROL HCL NEB 0.63 MG/3 ML AMPUL NEB PRN ×4 (08:02→20:56)
[2018-08-25 10:25] LABS: APPEARANCE,URINE CLEAR; BILIRUBIN,URINE NEGATIVE (NEGATIVE); COLOR,URINE YELLOW; GLUCOSE, URINE 50 mg/dL (NEGATIVE); KETONES,URINE NEGATIVE (NEGATIVE); LEUKOCYTE ESTERASE,URINE NEGATIVE (NEGATIVE); NITRITE,URINE NEGATIVE (NEGATIVE); PROTEIN,URINE NEGATIVE (NEGATIVE); URINE SPECIFIC GRAVITY 1.014; UROBILINOGEN,URINE NEGATIVE mg/dL (<2.0)
[2018-08-25 10:41] LABS: ANION GAP 8 (5-19); BLOOD UREA NITROGEN 11 mg/dL (7-20); CALCIUM 8.2 mg/dL (8.4-10.2); CARBON DIOXIDE 27 mmol/L (22-30); CHLORIDE 107 mmol/L (98-107); GLUCOSE 168 mg/dL (75-110); POTASSIUM 3.1 mmol/L (3.6-5.0); SODIUM 141.5 mmol/L (137-145)
[2018-08-25] MEDS ORDERED: DEXAMETHASONE SOD PHOS INJ 10 MG/1 ML VIAL IV ONE ×2 (12:15→17:00)
[2018-08-25] MEDS ORDERED: EPINEPHRINE INJ/PF 1 MG/1 ML AMPULE ONE (12:15)
[2018-08-25] MEDS ORDERED: RACEPINEPHRINE HCL 2.25% NEB 0.5 ML AMPUL NEB ONE ×3 (12:15→15:30)
[2018-08-25] MEDS ORDERED: DEXAMETHASONE SOD PHOSPHATE INJ 4 MG/1 ML VIAL ONE (12:16)
[2018-08-25 12:24] LABS: ARTERIAL BLOOD BASE EXCESS 1.5 mmol/L; ARTERIAL BLOOD FIO2 70%; ARTERIAL BLOOD HCO3 27.7 mmol/L (20-24); ARTERIAL BLOOD O2 SATURATION 94.6 % (94-98); ARTERIAL BLOOD PCO2 49.7 mmHg (35-45); ARTERIAL BLOOD PH 7.36 (7.35-7.45); ARTERIAL BLOOD PO2 75.9 mmHg (80-100); ARTERIAL BLOOD TOTAL CO2 29.2 mmol/L (21-25)
[2018-08-25] MEDS: CEFEPIME 1 GM/D5W RTU 1 GM/50 ML RTUPB IV SCH ×2 (12:33→21:58)
--- NOTE | 2018-08-25 12:36 | PDOC PROGRESS REPORT ---
Subjective Progress Note for:: 08/25/18 Subjective:: 08/24: Assumed care today. Reviewed chart and ICU course. This is a 27-year-old female with past medical history of uncontrolled type 1 diabetes mellitus and recurrent DKA who was brought in because of unresponsiveness. Patient was intubated she was noted to be obtunded upon presentation. She was also noted to be positive for amphetamines on her UDS. She was also not noted to have bilateral pneumonia. She is currently sedated on propofol. Currently saturating well on minimal vent settings at 30% FiO2. She does have dark watery stools from the rectal tube. She did have a fever last night. 08/25: No acute event overnight. Patient did well on breathing trial. She just got extubated and after a few minutes developed stridor, SOB and tachypnea. Will give her racemic epinephrine and decadron. Standby reintubation if no improvement. Sats have improved to 95% on BIPAP. 2 PM: Patient was given 2 doses of racemic epinephrine and Decadron to which she responded significantly. Upon reassessment, patient's stridor completely resolved. Tachypnea and tachycardia resolved. She is now saturating well on BiPAP. Reason For Visit: ACUTE METABOLIC ENCEPHALOPATHY,DKA Physical Exam Vital Signs: Temp Pulse Resp BP Pulse Ox 99.9 F 70 18 117/83 99 08/25/18 08:00 08/25/18 10:00 08/25/18 10:00 08/25/18 10:00 08/25/18 10:00 Intake & Output 08/24/18 08/25/18 08/26/18 06:59 06:59 06:59 Intake Total 2506 3429 280 Output Total 2950 3200 785 Balance -444 229 -505 Weight 128 lb 1.417 oz 127 lb 3.307 oz General appearance: PRESENT: mild distress Head exam: PRESENT: atraumatic, normocephalic Eye exam: PRESENT: conjunctiva pink, EOMI, PERRLA. ABSENT: scleral icterus Ear exam: PRESENT: normal external ear exam Mouth exam: PRESENT: moist, tongue midline Neck exam: ABSENT: carotid bruit, JVD, lymphadenopathy, thyromegaly Respiratory exam: PRESENT: rhonchi, stridor, wheezes Cardiovascular exam: PRESENT: RRR. ABSENT: diastolic murmur, rubs, systolic murmur GI/Abdominal exam: PRESENT: normal bowel sounds, soft. ABSENT: distended, guarding, mass, organolmegaly, rebound, tenderness Rectal exam: PRESENT: deferred Neurological exam: PRESENT: alert, awake, CN II-XII grossly intact. ABSENT: motor sensory deficit Results Laboratory Results: 08/24/18 20:00 08/25/18 09:50 08/24/18 08/24/18 08/24/18 15:00 15:00 17:00 WBC RBC Hgb Hct MCV MCH MCHC RDW Plt Count Carbonic Acid HCO3/H2CO3 Ratio ABG pH ABG pCO2 ABG pO2 ABG HCO3 ABG O2 Saturation ABG Base Excess FiO2 Sodium 141.8 Potassium 3.3 L Chloride 108 H Carbon Dioxide 26 Anion Gap 8 BUN 11 Creatinine 0.36 L Est GFR ( Amer) > 60 Est GFR (Non-Af Amer) > 60 Glucose 229 H Calcium 8.3 L Phosphorus Magnesium Urine Color YELLOW Urine Appearance CLOUDY Urine pH 5.0 Ur Specific [place] 1.017 Urine Protein NEGATIVE Urine Glucose (UA) 50 H Urine Ketones NEGATIVE Urine Blood NEGATIVE Urine Nitrite NEGATIVE Ur Leukocyte Esterase NEGATIVE Urine WBC (Auto) 12 Urine RBC (Auto) 3 Stool Occult Blood NEGATIVE 08/24/18 08/25/18 08/25/18 20:00 01:25 05:00 WBC 9.8 RBC 3.08 L Hgb 9.7 L Hct 27.6 L MCV 89 MCH 31.3 MCHC 35.0 RDW 15.8 H Plt Count 411 Carbonic Acid 0.99 L HCO3/H2CO3 Ratio 25:1 ABG pH 7.50 H ABG pCO2 32.9 L ABG pO2 105.8 H ABG HCO3 25.0 H ABG O2 Saturation 98.3 H ABG Base Excess 2.1 FiO2 30% Sodium Potassium 3.1 L Chloride Carbon Dioxide Anion Gap BUN Creatinine Est GFR ( Amer) Est GFR (Non-Af Amer) Glucose Calcium Phosphorus Magnesium Urine Color Urine Appearance Urine pH Ur Specific [place] Urine Protein Urine Glucose (UA) Urine Ketones Urine Blood Urine Nitrite Ur Leukocyte Esterase Urine WBC (Auto) Urine RBC (Auto) Stool Occult Blood 08/25/18 08/25/18 08/25/18 05:00 09:50 09:50 WBC RBC Hgb Hct MCV MCH MCHC RDW Plt Count Carbonic Acid HCO3/H2CO3 Ratio ABG pH ABG pCO2 ABG pO2 ABG HCO3 ABG O2 Saturation ABG Base Excess FiO2 Sodium 143.7 141.5 Potassium 3.1 L 3.1 L Chloride 109 H 107 Carbon Dioxide 27 27 Anion Gap 8 8 BUN 11 11 Creatinine 0.36 L 0.32 L Est GFR ( Amer) > 60 > 60 Est GFR (Non-Af Amer) > 60 > 60 Glucose 123 H 168 H Calcium 8.2 L 8.2 L Phosphorus 3.0 Magnesium 1.6 Urine Color YELLOW Urine Appearance CLEAR Urine pH 5.0 Ur Specific [place] 1.014 Urine Protein NEGATIVE Urine Glucose (UA) 50 H Urine Ketones NEGATIVE Urine Blood NEGATIVE Urine Nitrite NEGATIVE Ur Leukocyte Esterase NEGATIVE Urine WBC (Auto) 2 Urine RBC (Auto) 1 Stool Occult Blood 08/23/18 08:10 Tracheal Aspirate Gram Stain - Final 08/23/18 08/23/18 08/23/18 08:55 08:55 15:55 Creatine Kinase 100 60 CK-MB (CK-2) 0.41 Troponin I < 0.012 08/23/18 16:30 Creatine Kinase CK-MB (CK-2) 0.42 Troponin I < 0.012 Impressions: Abdomen Ultrasound 08/24/18 09:27 IMPRESSION: Gallbladder wall thickening. This may merely be secondary to the nondistention of the gallbladder. Chest X-Ray 08/25/18 06:00 IMPRESSION: No significant change. Assessment and Plan - Diagnosis (1) Acute respiratory failure Qualifiers: Respiratory failure complication: hypoxia Qualified Code(s): J96.01 - Acute respiratory failure with hypoxia Is this a current diagnosis for this admission?: Yes Plan: Secondary to a combination of toxic and metabolic encephalopathy. 08/25: No acute event overnight. Patient did well on breathing trial. She just got extubated and after a few minutes developed stridor, SOB and tachypnea. Will give her racemic epinephrine and decadron. Standby reintubation if no improvement. Sats have improved to 95% on BIPAP. (2) Acute metabolic encephalopathy Is this a current diagnosis for this admission?: Yes Plan: As per number 1. (3) Pneumonia Is this a current diagnosis for this admission?: Yes Plan: Sputum culture is growing gram-positive and gram-negative rods. Continue vancomycin and cefepime. (4) DKA (diabetic ketoacidoses) Qualifiers: Diabetes mellitus type: type 1 Diabetes mellitus complication detail: with coma Qualified Code(s): E10.11 - Type 1 diabetes mellitus with ketoacidosis with coma Is this a current diagnosis for this admission?: Yes Plan: Resolved. - Time Time Spent with patient: 25-34 minutes
[2018-08-25] MEDS: ENOXAPARIN SODIUM INJ 40 MG/0.4 ML DISP.SYRIN SUBCUT SCH (12:38)
[2018-08-25] MEDS: AMINO AC/PROTEIN HYDR/WHEY PRO 11 GM/45 ML PKT NG SCH ×2 (12:39→17:03)
--- NOTE | 2018-08-25 13:09 | RADIOLOGY REPORT (SQ) ---
EXAM DESCRIPTION: CHEST SINGLE VIEW COMPLETED DATE/TIME: 08/25/2018 12:49 pm REASON FOR STUDY: Resp. Distress. Post Extubation COMPARISON: 08/25/2018 EXAM PARAMETERS: NUMBER OF VIEWS: One view. TECHNIQUE: Single frontal radiographic view of the chest acquired. RADIATION DOSE: NA LIMITATIONS: None. FINDINGS: LUNGS AND PLEURA: Cannot exclude mild pulmonary edema. MEDIASTINUM AND HILAR STRUCTURES: No masses. Contour normal. HEART AND VASCULAR STRUCTURES: Heart normal in size. Normal vasculature. BONES: No acute findings. HARDWARE: Endotracheal tube has been removed. NG tube has been removed. OTHER: No other significant finding. IMPRESSION: Cannot exclude mild pulmonary edema. TECHNICAL DOCUMENTATION: JOB ID: [id number] [employer]- All Rights Reserved Reading location - IP/workstation name: [email or web address]
[2018-08-25 13:17] LABS: ARTERIAL BLOOD H2CO3 1.16 mmol/L (1.05-1.35); ARTERIAL BLOOD HCO3 27.8 mmol/L (20-24); ARTERIAL BLOOD O2 SATURATION 98.5 % (94-98); ARTERIAL BLOOD PCO2 38.5 mmHg (35-45); ARTERIAL BLOOD PH 7.48 (7.35-7.45); ARTERIAL BLOOD PO2 118.2 mmHg (80-100)
[2018-08-25] MEDS: ACETAMINOPHEN 650 MG SUPP.RECT PR PRN (13:18)
[2018-08-25] MEDS: INSULIN GLARGINE,HUM.REC.ANLOG 1,000 UNIT/10 ML VIAL SUBCUT SCH ×2 (13:24→22:05)
[2018-08-25 13:25] LABS: ARTERIAL BLOOD FIO2 45%
[2018-08-25] MEDS ORDERED: FUROSEMIDE INJ/PF 20 MG/2 ML SDV IV ONE (13:31)
--- NOTE | 2018-08-25 13:34 | EKG REPORT ---
SEVERITY:- ABNORMAL ECG - SINUS RHYTHM PROBABLE LEFT ATRIAL ABNORMALITY NONSPECIFIC T ABNORMALITIES, LATERAL LEADS : Confirmed by: Steven Becerra MD 25-Aug-2018 13:34:31
[2018-08-25] MEDS: FUROSEMIDE INJ/PF 40 MG/4 ML SDV IV SCH (17:06)
[2018-08-25 21:41] LABS: ANION GAP 12 (5-19); BLOOD UREA NITROGEN 7 mg/dL (7-20); CALCIUM 8.6 mg/dL (8.4-10.2); CARBON DIOXIDE 32 mmol/L (22-30); CHLORIDE 97 mmol/L (98-107); GLUCOSE 175 mg/dL (75-110); POTASSIUM 3.6 mmol/L (3.6-5.0); SODIUM 140.7 mmol/L (137-145)
[2018-08-26] MEDS: INSULIN LISPRO 100 UNIT/ML 3 ML VIAL SUBCUT SCH ×6 (00:58→20:53)
[2018-08-26 05:09] LABS: ANION GAP 9 (5-19); BLOOD UREA NITROGEN 8 mg/dL (7-20); CALCIUM 8.2 mg/dL (8.4-10.2); CARBON DIOXIDE 34 mmol/L (22-30); CHLORIDE 102 mmol/L (98-107); GLUCOSE 143 mg/dL (75-110); SODIUM 144.6 mmol/L (137-145)
[2018-08-26 05:13] LABS: VANCOMYCIN,TROUGH 23.4 ug/mL (5.0-20.0)
[2018-08-26] MEDS: FUROSEMIDE INJ/PF 40 MG/4 ML SDV IV SCH (05:37)
[2018-08-26] MEDS: POTASSIUM CHLORIDE 20 MEQ/50 ML RTU IV SCH ×3 (06:28→09:55)
[2018-08-26] MEDS: VANCOMYCIN HCL 1,250 MG in DEXTROSE 5%-WATER 250 ML IV SCH (06:35)
[2018-08-26] MEDS: NORMAL SALINE 1000 ML 1,000 ML IV PRN (06:36)
--- NOTE | 2018-08-26 07:51 | RADIOLOGY REPORT (SQ) ---
EXAM DESCRIPTION: XR CHEST 1 VIEW COMPLETED DATE/TME: 08/26/2018 06:00 CLINICAL HISTORY: 27 years Female, resp failure COMPARISON: One day prior. NUMBER OF VIEWS/TECHNIQUE: 1/AP FINDINGS: Moderate mixed interstitial and airspace opacity with central lower predominance. Normal cardiac silhouette size. No pneumothorax. Stable bony thorax. IMPRESSION: No significant change.
[2018-08-26] MEDS: ACETYLCYSTEINE 20% SOLN 800 MG/4 ML VIAL.NEB NEB SCH (08:01)
[2018-08-26] MEDS: LEVALBUTEROL HCL NEB 0.63 MG/3 ML AMPUL NEB PRN (08:01)
[2018-08-26] MEDS: ENOXAPARIN SODIUM INJ 40 MG/0.4 ML DISP.SYRIN SUBCUT SCH (09:55)
[2018-08-26] MEDS: CEFEPIME 1 GM/D5W RTU 1 GM/50 ML RTUPB IV SCH ×2 (09:55→21:49)
[2018-08-26] MEDS: INSULIN GLARGINE,HUM.REC.ANLOG 1,000 UNIT/10 ML VIAL SUBCUT SCH ×2 (09:55→21:45)
[2018-08-26] MEDS: AMINO AC/PROTEIN HYDR/WHEY PRO 11 GM/45 ML PKT NG SCH (09:56)
[2018-08-26] MEDS ORDERED: KETOROLAC TROMETHAMINE INJ/PF 30 MG/1 ML SDV ONE (12:46)
[2018-08-26] MEDS: KETOROLAC TROMETHAMINE INJ/PF 30 MG/1 ML SDV IV PRN (13:00)
--- NOTE | 2018-08-26 13:52 | PDOC PROGRESS REPORT ---
Subjective Progress Note for:: 08/26/18 Subjective:: 08/24: Assumed care today. Reviewed chart and ICU course. This is a 27-year-old female with past medical history of uncontrolled type 1 diabetes mellitus and recurrent DKA who was brought in because of unresponsiveness. Patient was intubated she was noted to be obtunded upon presentation. She was also noted to be positive for amphetamines on her UDS. She was also not noted to have bilateral pneumonia. She is currently sedated on propofol. Currently saturating well on minimal vent settings at 30% FiO2. She does have dark watery stools from the rectal tube. She did have a fever last night. 08/25: Patient did well on breathing trial. She just got extubated and after a few minutes developed stridor, SOB and tachypnea. Will give her racemic epinephrine and decadron. Standby reintubation if no improvement. Sats have improved to 95% on BIPAP. 2 PM: Patient was given 2 doses of racemic epinephrine and Decadron to which she responded significantly. Upon reassessment, patient's stridor completely resolved. Tachypnea and tachycardia resolved. She is now saturating well on BiPAP. 08/26: No acute event overnight. She was weaned off BiPAP overnight. She is currently comfortable and saturating well on nasal cannula. She denies shortness of breath. No recurrence of stridor. She is awaiting evaluation by speech therapy. She will be downgraded to telemetry. Reason For Visit: ACUTE METABOLIC ENCEPHALOPATHY,DKA Physical Exam Vital Signs: Temp Pulse Resp BP Pulse Ox 98.8 F 82 15 99/53 L 99 08/26/18 12:00 08/26/18 12:00 08/26/18 12:00 08/26/18 12:00 08/26/18 12:00 Intake & Output 08/25/18 08/26/18 08/27/18 06:59 06:59 06:59 Intake Total 0000 5385 300 Output Total 8850 7303 1330 Balance 293 -4131 -1030 Weight 127 lb 3.307 oz 123 lb 10.869 oz General appearance: PRESENT: no acute distress, well-developed, well-nourished Head exam: PRESENT: atraumatic, normocephalic Eye exam: PRESENT: conjunctiva pink, EOMI, PERRLA. ABSENT: scleral icterus Ear exam: PRESENT: normal external ear exam Mouth exam: PRESENT: moist, tongue midline Neck exam: ABSENT: carotid bruit, JVD, lymphadenopathy, thyromegaly Respiratory exam: PRESENT: rhonchi. ABSENT: rales, wheezes Cardiovascular exam: PRESENT: RRR. ABSENT: diastolic murmur, rubs, systolic murmur Pulses: PRESENT: normal dorsalis pedis pul GI/Abdominal exam: PRESENT: normal bowel sounds, soft. ABSENT: distended, guarding, mass, organolmegaly, rebound, tenderness Rectal exam: PRESENT: deferred Extremities exam: PRESENT: full ROM. ABSENT: calf tenderness, clubbing, pedal edema Neurological exam: PRESENT: alert, awake, oriented to person, oriented to place, oriented to time, CN II-XII grossly intact. ABSENT: motor sensory deficit Results Laboratory Results: 08/24/18 20:00 08/26/18 04:50 08/25/18 08/26/18 18:40 04:50 Sodium 140.7 144.6 Potassium 3.6 3.0 L* Chloride 97 L 102 Carbon Dioxide 32 H 34 H Anion Gap 12 9 BUN 7 8 Creatinine 0.41 L 0.36 L Est GFR ( Amer) > 60 > 60 Est GFR (Non-Af Amer) > 60 > 60 Glucose 175 H 143 H Calcium 8.6 8.2 L Magnesium 1.6 08/23/18 08:10 Tracheal Aspirate Gram Stain - Final 08/23/18 08:10 Tracheal Aspirate Sputum Culture - Final Acinetobacter Baumannii/Haem Mrsa (Meth Resis Staph Aureus) Normal Mariann Absent 08/23/18 00:34 Vaginal Gram Stain - Final 08/23/18 00:34 Vaginal Vaginal Culture - Final NORMAL VAGINAL MARIANN NO GROUP B STREPTOCOCCUS RECOVERED NO NEISSERIA GONORRHOEAE RECOVERED 08/23/18 08/23/18 08/23/18 08:55 08:55 15:55 Creatine Kinase 100 60 CK-MB (CK-2) 0.41 Troponin I < 0.012 08/23/18 16:30 Creatine Kinase CK-MB (CK-2) 0.42 Troponin I < 0.012 Impressions: Abdomen Ultrasound 08/24/18 09:27 IMPRESSION: Gallbladder wall thickening. This may merely be secondary to the nondistention of the gallbladder. Chest X-Ray 08/26/18 06:00 IMPRESSION: No significant change. Assessment and Plan - Diagnosis (1) Acute respiratory failure Qualifiers: Respiratory failure complication: hypoxia Qualified Code(s): J96.01 - Acute respiratory failure with hypoxia Is this a current diagnosis for this admission?: Yes Plan: Secondary to a combination of toxic and metabolic encephalopathy. 08/25: Patient did well on breathing trial. She just got extubated and after a few minutes developed stridor, SOB and tachypnea. Will give her racemic epinephrine and decadron. Standby reintubation if no improvement. Sats have improved to 95% on BIPAP. 2 PM: Patient was given 2 doses of racemic epinephrine and Decadron to which she responded significantly. Upon reassessment, patient's stridor completely resolved. Tachypnea and tachycardia resolved. She is now saturating well on BiPAP. 08/26: No acute event overnight. She was weaned off BiPAP overnight. She is currently comfortable and saturating well on nasal cannula. She denies shortness of breath. No recurrence of stridor. She is awaiting evaluation by speech therapy. (2) Acute metabolic encephalopathy Is this a current diagnosis for this admission?: Yes Plan: Resolved. As per number 1. (3) Pneumonia Is this a current diagnosis for this admission?: Yes Plan: Sputum culture grew MRSa and A. baumanii. Continue vancomycin and cefepime. (4) DKA (diabetic ketoacidoses) Qualifiers: Diabetes mellitus type: type 1 Diabetes mellitus complication detail: with coma Qualified Code(s): E10.11 - Type 1 diabetes mellitus with ketoacidosis with coma Is this a current diagnosis for this admission?: Yes Plan: Resolved. Continue Lantus. (5) Pulmonary congestion Is this a current diagnosis for this admission?: Yes Plan: 08/25: Continue Lasix. 08/26: Decrease Lasix to 20 mg bid. (6) Hypokalemia Is this a current diagnosis for this admission?: Yes Plan: Likely related to diuresis and being NPO. Curently getting potassium replacement. Repeat Potassium after IV replacement. - Time Time Spent with patient: 25-34 minutes
[2018-08-26] MEDS: FUROSEMIDE INJ/PF 20 MG/2 ML SDV IV SCH (17:28)
[2018-08-26] MEDS ORDERED: FUROSEMIDE INJ/PF 40 MG/4 ML SDV IV SCH (18:00)
[2018-08-26] MEDS ORDERED: NORMAL SALINE 1000 ML 2,000 ML IV ONE (20:30)
[2018-08-26] MEDS: VANCOMYCIN HCL 750 MG in DEXTROSE 5%-WATER 250 ML IV SCH (21:52)
[2018-08-27] MEDS: INSULIN LISPRO 100 UNIT/ML 3 ML VIAL SUBCUT SCH ×6 (01:15→20:52)
[2018-08-27] MEDS: VANCOMYCIN HCL 750 MG in DEXTROSE 5%-WATER 250 ML IV SCH ×3 (05:13→22:59)
[2018-08-27] MEDS: FUROSEMIDE INJ/PF 20 MG/2 ML SDV IV SCH ×2 (05:13→17:47)
[2018-08-27 05:37] LABS: ABSOLUTE LYMPHOCYTES (AUTO) 1.4 10^3/uL (0.5-4.7); ABSOLUTE MONOCYTES (AUTO) 0.6 10^3/uL (0.1-1.4); ABSOLUTE NEUT (AUTO) 5.3 10^3/uL (1.7-8.2); BASOPHILS % (AUTO) 0.2 % (0-2); EOSINOPHILS % (AUTO) 0.5 % (0-6); HEMATOCRIT 30.1 % (36.0-47.0); HEMOGLOBIN 10.4 g/dL (12.0-15.5); LYMPHOCYTES % (AUTO) 19.2 % (13-45); MEAN CORPUSCULAR HEMOGLOBIN 31.2 pg (27.0-33.4); MEAN CORPUSCULAR HGB CONC 34.4 g/dL (32.0-36.0); MEAN CORPUSCULAR VOLUME 91 fl (80-97); MONOCYTES % (AUTO) 7.7 % (3-13); PLATELET COUNT 481 10^3/uL (150-450); RED BLOOD COUNT 3.32 10^6/uL (3.72-5.28); RED CELL DISTRIBUTION WIDTH 15.3 % (11.5-14.0); SEGMENTED NEUTROPHILS % (AUTO) 72.4 % (42-78); TOTAL CELLS COUNTED % (AUTO) 100 %; WHITE BLOOD COUNT 7.3 10^3/uL (4.0-10.5)
[2018-08-27 05:54] LABS: ANION GAP 10 (5-19); BLOOD UREA NITROGEN 6 mg/dL (7-20); CALCIUM 7.4 mg/dL (8.4-10.2); CARBON DIOXIDE 37 mmol/L (22-30); CHLORIDE 98 mmol/L (98-107); GLUCOSE 147 mg/dL (75-110); SODIUM 145.1 mmol/L (137-145)
[2018-08-27 05:58] LABS: POTASSIUM 2.8 mmol/L (3.6-5.0)
[2018-08-27] MEDS: POTASSIUM CHLORIDE 20 MEQ/50 ML RTU IV SCH ×4 (07:43→23:38)
[2018-08-27] MEDS: ENOXAPARIN SODIUM INJ 40 MG/0.4 ML DISP.SYRIN SUBCUT SCH (09:33)
[2018-08-27] MEDS: CEFEPIME 1 GM/D5W RTU 1 GM/50 ML RTUPB IV SCH ×2 (09:34→22:10)
[2018-08-27] MEDS: INSULIN GLARGINE,HUM.REC.ANLOG 1,000 UNIT/10 ML VIAL SUBCUT SCH ×2 (09:34→22:10)
[2018-08-27] MEDS ORDERED: POTASSIUM CHLORIDE 20 MEQ PACKET PO ONE (10:33)
[2018-08-27 18:43] LABS: ANION GAP 7 (5-19); BLOOD UREA NITROGEN 4 mg/dL (7-20); CALCIUM 7.6 mg/dL (8.4-10.2); CARBON DIOXIDE 36 mmol/L (22-30); CHLORIDE 97 mmol/L (98-107); GLUCOSE 227 mg/dL (75-110); POTASSIUM 3.1 mmol/L (3.6-5.0); SODIUM 139.8 mmol/L (137-145)
--- NOTE | 2018-08-27 19:22 | PDOC PROGRESS REPORT ---
Subjective Progress Note for:: 08/27/18 Subjective:: 27-year-old female with past medical history of uncontrolled type 1 diabetes mellitus and recurrent DKA who was brought in because of unresponsiveness. Patient was intubated she was noted to be obtunded upon presentation. She was also noted to be positive for amphetamines on her UDS. She was also not noted to have bilateral pneumonia. She is currently sedated on propofol. Currently saturating well on minimal vent settings at 30% FiO2. She does have dark watery stools from the rectal tube. She did have a fever last night. 08/27/2018. Assumed care today. Status post extubation due to severe DKA. Complaining of feeling weak, congestion, hoarseness otherwise denies any fever, chills, nausea, vomiting, diarrhea, constipation or any urinary symptoms. Patient passed swallow eval. Reason For Visit: ACUTE METABOLIC ENCEPHALOPATHY,DKA Physical Exam Vital Signs: Temp Pulse Resp BP Pulse Ox 97.8 F 96 24 H 94/54 L 97 08/27/18 16:00 08/27/18 16:00 08/27/18 16:00 08/27/18 16:00 08/27/18 16:00 Intake & Output 08/26/18 08/27/18 08/28/18 06:59 06:59 06:59 Intake Total 1955 3600 1150 Output Total 7443 3700 1200 Balance -5490 -100 -50 Weight 56.1 kg 51.5 kg General appearance: PRESENT: mild distress Head exam: PRESENT: atraumatic, normocephalic Respiratory exam: PRESENT: crackles. ABSENT: rales, rhonchi, wheezes Cardiovascular exam: PRESENT: RRR, tachycardia. ABSENT: diastolic murmur, rubs, systolic murmur GI/Abdominal exam: PRESENT: normal bowel sounds, soft. ABSENT: distended, guarding, mass, organolmegaly, rebound, tenderness Extremities exam: PRESENT: full ROM. ABSENT: calf tenderness, clubbing, pedal edema Neurological exam: PRESENT: alert, awake, oriented to person, oriented to place, oriented to time, oriented to situation, CN II-XII grossly intact. ABSENT: motor sensory deficit Psychiatric exam: PRESENT: anxious Results Laboratory Results: 08/27/18 05:00 08/27/18 18:00 08/27/18 08/27/1819 05:00 05:00 18:00 WBC 7.3 RBC 3.32 L Hgb 10.4 L Hct 30.1 L MCV 91 MCH 31.2 MCHC 34.4 RDW 15.3 H Plt Count 481 H Seg Neutrophils % 72.4 Lymphocytes % 19.2 Monocytes % 7.7 Eosinophils % 0.5 Basophils % 0.2 Absolute Neutrophils 5.3 Absolute Lymphocytes 1.4 Absolute Monocytes 0.6 Absolute Eosinophils 0.0 Absolute Basophils 0.0 Sodium 145.1 H 139.8 Potassium 2.8 L* 3.1 L Chloride 98 97 L Carbon Dioxide 37 H 36 H Anion Gap 10 7 BUN 6 L 4 L Creatinine 0.25 L 0.29 L Est GFR ( Amer) > 60 > 60 Est GFR (Non-Af Amer) > 60 > 60 Glucose 147 H 227 H Calcium 7.4 L 7.6 L Magnesium 1.4 L 08/25/18 15:00 Yun Catheter Urine Culture - Final Yeast, Not Misty Albicans 08/23/18 08/23/18 08/23/18 08:55 08:55 15:55 Creatine Kinase 100 60 CK-MB (CK-2) 0.41 Troponin I < 0.012 08/23/18 16:30 Creatine Kinase CK-MB (CK-2) 0.42 Troponin I < 0.012 Impressions: Abdomen Ultrasound 08/24/18 09:27 IMPRESSION: Gallbladder wall thickening. This may merely be secondary to the nondistention of the gallbladder. Chest X-Ray 08/26/18 06:00 IMPRESSION: No significant change. Assessment and Plan - Diagnosis (1) Acute respiratory failure Qualifiers: Respiratory failure complication: hypoxia Qualified Code(s): J96.01 - Acute respiratory failure with hypoxia Is this a current diagnosis for this admission?: Yes Plan: Secondary to a combination of toxic and metabolic encephalopathy with severe metabolic acidosis. Extubation day 1. Saturating 99% on 2 L. Denies abdominal oxygen, continue treating underlying metabolic abnormalities. (2) Acute metabolic encephalopathy Is this a current diagnosis for this admission?: Yes Plan: Resolved. As per number 1. (3) DKA (diabetic ketoacidosis) Qualifiers: Diabetes mellitus type: type 1 Diabetes mellitus complication detail: without coma Qualified Code(s): E10.10 - Type 1 diabetes mellitus with ketoacidosis without coma Is this a current diagnosis for this admission?: Yes Plan: Resolved. (4) Hypokalemia Is this a current diagnosis for this admission?: Yes Plan: Likely related to diuresis and being NPO. Curently getting potassium replacement. Repeat Potassium after IV replacement. (5) Pneumonia Is this a current diagnosis for this admission?: Yes Plan: Sputum culture grew MRSa and A. baumanii. Continue vancomycin and cefepime. (6) Pulmonary congestion Is this a current diagnosis for this admission?: Yes Plan: Continue Lasix. Monitor Volume status.
[2018-08-27] MEDS ORDERED: ONDANSETRON HCL INJ/PF 4 MG/2 ML SDV ONE (19:38)
[2018-08-27] MEDS: ONDANSETRON HCL INJ/PF 4 MG/2 ML SDV IV PRN (19:48)
[2018-08-27] MEDS ORDERED: PANTOPRAZOLE SODIUM 40 MG TABLET.DR PO ONE (20:00)
[2018-08-27] MEDS ORDERED: NORMAL SALINE 1000 ML 1,000 ML IV PRN (23:15)
[2018-08-28] MEDS: MAGNESIUM SULFATE 1 GM/D5W 100 ML IV SCH ×2 (00:45→02:10)
[2018-08-28] MEDS: INSULIN LISPRO 100 UNIT/ML 3 ML VIAL SUBCUT SCH ×4 (00:46→17:21)
[2018-08-28 01:52] LABS: ARTERIAL BLOOD BASE EXCESS 9.5 mmol/L; ARTERIAL BLOOD H2CO3 1.44 mmol/L (1.05-1.35); ARTERIAL BLOOD HCO3 34.4 mmol/L (20-24); ARTERIAL BLOOD O2 SATURATION 93.9 % (94-98); ARTERIAL BLOOD PH 7.47 (7.35-7.45); ARTERIAL BLOOD PO2 65.6 mmHg (80-100); ARTERIAL BLOOD TOTAL CO2 35.9 mmol/L (21-25)
[2018-08-28 01:53] LABS: ARTERIAL BLOOD FIO2 21
[2018-08-28] MEDS: POTASSIUM CHLORIDE 20 MEQ/50 ML RTU IV SCH ×2 (02:10→04:18)
[2018-08-28] MEDS: ONDANSETRON HCL INJ/PF 4 MG/2 ML SDV IV PRN ×3 (02:14→21:13)
[2018-08-28] MEDS: LEVALBUTEROL HCL NEB 0.63 MG/3 ML AMPUL NEB PRN ×3 (03:43→10:13)
[2018-08-28] MEDS: PANTOPRAZOLE SODIUM 40 MG TABLET.DR PO SCH (05:15)
[2018-08-28] MEDS: FUROSEMIDE INJ/PF 20 MG/2 ML SDV IV SCH ×2 (05:15→17:22)
[2018-08-28] MEDS: VANCOMYCIN HCL 750 MG in DEXTROSE 5%-WATER 250 ML IV SCH (05:15)
[2018-08-28 08:34] LABS: ANION GAP 5 (5-19); BLOOD UREA NITROGEN 2 mg/dL (7-20); CALCIUM 7.7 mg/dL (8.4-10.2); CARBON DIOXIDE 37 mmol/L (22-30); CHLORIDE 98 mmol/L (98-107); GLUCOSE 231 mg/dL (75-110); POTASSIUM 3.5 mmol/L (3.6-5.0); SODIUM 139.7 mmol/L (137-145)
[2018-08-28] MEDS ORDERED: DEXTROSE 50%-WATER 25 GM/50 ML DISP.SYRIN IV PRN ×6 (08:39→08:47)
[2018-08-28] MEDS ORDERED: GLUCAGON,HUMAN RECOMB 1 MG INJ IM PRN ×3 (08:39→08:47)
[2018-08-28] MEDS ORDERED: DEXTROSE 40% GEL 15 GM TUBE PO PRN ×6 (08:39→08:47)
[2018-08-28] MEDS ORDERED: INSULIN GLARGINE,HUM.REC.ANLOG 1,000 UNIT/10 ML VIAL SUBCUT SCH ×3 (10:00→22:00)
[2018-08-28] MEDS: CEFEPIME 1 GM/D5W RTU 1 GM/50 ML RTUPB IV SCH ×2 (10:51→21:13)
[2018-08-28] MEDS ORDERED: INSULIN LISPRO 100 UNIT/ML 3 ML VIAL SUBCUT SCH (11:00)
--- NOTE | 2018-08-28 11:21 | PDOC PROGRESS REPORT ---
Subjective Progress Note for:: 08/28/18 Subjective:: 27-year-old female with past medical history of uncontrolled type 1 diabetes mellitus and recurrent DKA who was brought in because of unresponsiveness. Patient was intubated she was noted to be obtunded upon presentation. She was also noted to be positive for amphetamines on her UDS. She was also not noted to have bilateral pneumonia. She is currently sedated on propofol. Currently saturating well on minimal vent settings at 30% FiO2. She does have dark watery stools from the rectal tube. She did have a fever last night. 08/27/2018. Assumed care today. Status post extubation due to severe DKA. Complaining of feeling weak, congestion, hoarseness otherwise denies any fever, chills, nausea, vomiting, diarrhea, constipation or any urinary symptoms. 08/28/2018. Was found to be tachypneic overnight, ABG was done which showed worsening of hypoxemia, otherwise no acute events, patient is feeling of very congested and short of breath, has been able to tolerate her p.o. meds, her hoarseness is getting better, denies any fever, chills, nausea, vomiting, diarrhea constipation or any urinary symptoms. Reason For Visit: ACUTE METABOLIC ENCEPHALOPATHY,DKA Physical Exam Vital Signs: Temp Pulse Resp BP Pulse Ox 97.8 F 117 H 23 H 123/61 95 08/28/18 08:00 08/28/18 10:13 08/28/18 10:13 08/28/18 08:00 08/28/18 10:13 Intake & Output 08/27/18 08/28/18 08/29/18 06:59 06:59 06:59 Intake Total 3600 2620 1000 Output Total 3700 2030 Balance -894 125 6366 Weight 51.5 kg 51.5 kg General appearance: PRESENT: no acute distress, well-developed, well-nourished Head exam: PRESENT: atraumatic, normocephalic Neck exam: ABSENT: carotid bruit, JVD, lymphadenopathy, thyromegaly Respiratory exam: PRESENT: crackles. ABSENT: rales, rhonchi, wheezes Cardiovascular exam: PRESENT: RRR. ABSENT: diastolic murmur, rubs, systolic murmur GI/Abdominal exam: PRESENT: normal bowel sounds, soft. ABSENT: distended, guarding, mass, organolmegaly, rebound, tenderness Neurological exam: PRESENT: alert, awake, oriented to person, oriented to place, oriented to time, oriented to situation, CN II-XII grossly intact. ABSENT: motor sensory deficit Psychiatric exam: PRESENT: anxious Results Laboratory Results: 08/27/18 05:00 08/28/18 08:00 08/27/18 08/28/18 08/28/18 18:00 00:42 08:00 Carbonic Acid 1.44 H HCO3/H2CO3 Ratio 23:1 ABG pH 7.47 H ABG pCO2 48.0 H ABG pO2 65.6 L ABG HCO3 34.4 H ABG O2 Saturation 93.9 L ABG Base Excess 9.5 FiO2 21 Sodium 139.8 139.7 Potassium 3.1 L 3.5 L Chloride 97 L 98 Carbon Dioxide 36 H 37 H Anion Gap 7 5 BUN 4 L 2 L Creatinine 0.29 L 0.24 L Est GFR ( Amer) > 60 > 60 Est GFR (Non-Af Amer) > 60 > 60 Glucose 227 H 231 H Calcium 7.6 L 7.7 L Magnesium 1.9 08/23/18 09:30 Blood Blood Culture - Final NO GROWTH IN 5 DAYS 08/23/18 09:20 Blood Blood Culture - Final NO GROWTH IN 5 DAYS 08/25/18 15:00 Yun Catheter Urine Culture - Final Yeast, Not Misty Albicans 08/23/18 08/23/18 08/23/18 08:55 08:55 15:55 Creatine Kinase 100 60 CK-MB (CK-2) 0.41 Troponin I < 0.012 08/23/18 16:30 Creatine Kinase CK-MB (CK-2) 0.42 Troponin I < 0.012 Impressions: Abdomen Ultrasound 08/24/18 09:27 IMPRESSION: Gallbladder wall thickening. This may merely be secondary to the nondistention of the gallbladder. Chest X-Ray 08/26/18 06:00 IMPRESSION: No significant change. Assessment and Plan - Diagnosis (1) Acute respiratory failure Qualifiers: Respiratory failure complication: hypoxia Qualified Code(s): J96.01 - Acute respiratory failure with hypoxia Is this a current diagnosis for this admission?: Yes Plan: Worsening likely triggered by volume overload and low albumin state. Patient's albumin is 1.7, with prealbumin of 5.4. Likey due to poor intake. Initially triggered by DKA, metabolic encephalopathy, and pneumonia was extubated on 08/16/2018. Extubated 08/26/2018. Extubation day 3. DC IV fluids, continue Lasix, will give 3 dose of albumin, Chest physical therapy, incentive spirometry, nebs, supplemental oxygen. Shower Attendant was consulted for recommendation. 08/28/2018. SBP 986370, T-max 97.8, pulse 83693, RR 1726, SPO2 95% 2 L NC FiO2 45%. ABG: pH 7.47, PCO2 48, PO2 65, FiO2 21%. WBC 7.3, hemoglobin 10.4, platelets 481 Sodium 139.7, potassium 3.5, bicarb 37, creatinine 0.24, HBG to 231. Calcium 7.7, magnesium 1.9, albumin 2.3, prealbumin 5.4. 08/23/2018. Sputum culture for MRSA. IV vancomycin 10 days. DC'd on 08/28/2018. 08/21/2017. Urine culture positive for E. coli pansensitive. On IV vancomycin and cefepime for 10 days. (2) Acute metabolic encephalopathy Is this a current diagnosis for this admission?: Yes Plan: Resolved. As per number 1. (3) DKA (diabetic ketoacidosis) Qualifiers: Diabetes mellitus type: type 1 Diabetes mellitus complication detail: without coma Qualified Code(s): E10.10 - Type 1 diabetes mellitus with ketoacidosis without coma Is this a current diagnosis for this admission?: Yes Plan: Resolved. (4) Hypokalemia Is this a current diagnosis for this admission?: Yes Plan: Improving. Continue supplemental K. BMP tomorrow. 08/28/2018. Sodium 139.7, potassium 3.5, bicarb 37, creatinine 0.24, HBG to 231. Calcium 7.7, magnesium 1.9, albumin 2.3, prealbumin 5.4. (5) Pneumonia Is this a current diagnosis for this admission?: Yes Plan: Resolved. WBC within normal limits, afebrile. Patient does have shortness of breath and congestion which is unlikely pneumonia. Received complete course of empiric IV vancomycin and cefepime. 08/23/2018. Sputum culture for MRSA. IV vancomycin 10 days. DC'd on 08/28/2018. 08/21/2017. Urine culture positive for E. coli pansensitive. (6) Pulmonary congestion Is this a current diagnosis for this admission?: Yes Plan: As problem #1.
[2018-08-28] MEDS: ENOXAPARIN SODIUM INJ 40 MG/0.4 ML DISP.SYRIN SUBCUT SCH (11:33)
[2018-08-28] MEDS: ALBUMIN HUMAN 12.5 GM/50 ML RTUINJ IV SCH ×3 (12:38→13:18)
[2018-08-28] MEDS: GUAIFENESIN 600 MG TABLET.SA PO SCH ×2 (14:21→21:13)
[2018-08-28] MEDS: POTASSIUM CHLORIDE 10 MEQ CAPSULE.ER PO SCH ×2 (17:21→17:32)
[2018-08-28] MEDS ORDERED: POTASSIUM CHLORIDE 20 MEQ PACKET PO ONE (17:45)
[2018-08-29] MEDS: FUROSEMIDE INJ/PF 20 MG/2 ML SDV IV SCH (05:22)
[2018-08-29] MEDS: PANTOPRAZOLE SODIUM 40 MG TABLET.DR PO SCH (05:22)
[2018-08-29 05:56] LABS: ABSOLUTE EOSINOPHILS # (AUTO) 0.1 10^3/uL (0.0-0.6); ABSOLUTE LYMPHOCYTES (AUTO) 2.1 10^3/uL (0.5-4.7); ABSOLUTE MONOCYTES (AUTO) 0.5 10^3/uL (0.1-1.4); ABSOLUTE NEUT (AUTO) 6.6 10^3/uL (1.7-8.2); BASOPHILS % (AUTO) 0.2 % (0-2); HEMATOCRIT 31.5 % (36.0-47.0); HEMOGLOBIN 10.6 g/dL (12.0-15.5); LYMPHOCYTES % (AUTO) 22.3 % (13-45); MEAN CORPUSCULAR HEMOGLOBIN 30.4 pg (27.0-33.4); MEAN CORPUSCULAR HGB CONC 33.7 g/dL (32.0-36.0); MEAN CORPUSCULAR VOLUME 90 fl (80-97); MONOCYTES % (AUTO) 5.2 % (3-13); PLATELET COUNT 593 10^3/uL (150-450); RED BLOOD COUNT 3.48 10^6/uL (3.72-5.28); RED CELL DISTRIBUTION WIDTH 14.4 % (11.5-14.0); SEGMENTED NEUTROPHILS % (AUTO) 71.3 % (42-78); TOTAL CELLS COUNTED % (AUTO) 100 %; WHITE BLOOD COUNT 9.3 10^3/uL (4.0-10.5)
[2018-08-29 06:18] LABS: ALANINE AMINOTRANSFERASE 20 U/L (9-52); ALBUMIN 2.5 g/dL (3.5-5.0); ALKALINE PHOSPHATASE 103 U/L (38-126); ASPARTATE AMINO TRANSFERASE 10 U/L (14-36); BILIRUBIN,DIRECT 0.3 mg/dL (0.0-0.4); BILIRUBIN,TOTAL 0.4 mg/dL (0.2-1.3); BLOOD UREA NITROGEN 2 mg/dL (7-20); CHLORIDE 91 mmol/L (98-107); GLUCOSE 171 mg/dL (75-110); POTASSIUM 3.2 mmol/L (3.6-5.0); TOTAL PROTEIN 5.3 g/dL (6.3-8.2)
[2018-08-29 06:32] LABS: ANION GAP 6 (5-19)
[2018-08-29 06:33] LABS: CARBON DIOXIDE 44 mmol/L (22-30)
[2018-08-29] MEDS ORDERED: DEXTROSE 40% GEL 15 GM TUBE PO PRN ×2 (07:55)
[2018-08-29] MEDS ORDERED: DEXTROSE 50%-WATER 25 GM/50 ML DISP.SYRIN IV PRN ×2 (07:55)
[2018-08-29] MEDS ORDERED: GLUCAGON,HUMAN RECOMB 1 MG INJ IM PRN (07:55)
[2018-08-29] MEDS ORDERED: POTASSI CL 20 MEQ/50 ML RIDER 20 MEQ/50 ML RTUPB IV ONE (07:57)
[2018-08-29] MEDS: ONDANSETRON HCL INJ/PF 4 MG/2 ML SDV IV PRN (07:59)
[2018-08-29] MEDS: INSULIN LISPRO 100 UNIT/ML 3 ML VIAL SUBCUT SCH ×3 (07:59→17:26)
[2018-08-29 08:07] LABS: ARTERIAL BLOOD BASE EXCESS 18.8 mmol/L; ARTERIAL BLOOD H2CO3 1.69 mmol/L (1.05-1.35); ARTERIAL BLOOD HCO3 44.9 mmol/L (20-24); ARTERIAL BLOOD O2 SATURATION 89.3 % (94-98); ARTERIAL BLOOD PCO2 56.1 mmHg (35-45); ARTERIAL BLOOD PH 7.52 (7.35-7.45); ARTERIAL BLOOD PO2 51.9 mmHg (80-100); ARTERIAL BLOOD TOTAL CO2 46.6 mmol/L (21-25)
[2018-08-29 08:08] LABS: ARTERIAL BLOOD FIO2 21%
[2018-08-29] MEDS: KETOROLAC TROMETHAMINE INJ/PF 30 MG/1 ML SDV IV PRN (08:22)
--- NOTE | 2018-08-29 09:01 | RADIOLOGY REPORT (SQ) ---
EXAM DESCRIPTION: CHEST SINGLE VIEW COMPLETED DATE/TIME: 08/29/2018 8:37 am REASON FOR STUDY: congestion, SOB COMPARISON: 08/26/2018 NUMBER OF VIEWS: One view. TECHNIQUE: Single frontal radiographic image of the chest acquired. LIMITATIONS: None. FINDINGS: LUNGS AND PLEURA: Overall improved aeration with residual interstitial pattern in the lowe r lobes. No infiltrate. No effusions. MEDIASTINUM AND HEART: Stable heart size and mediastinal structures. BONY STRUCTURES: No acute findings. HARDWARE: None. OTHER: No other significant finding. IMPRESSION: Slight improvement in pulmonary edema or atypical pneumonia. TECHNICAL DOCUMENTATION: JOB ID: [id number] Reading location - IP/workstation name: [email or web address]
[2018-08-29] MEDS ORDERED: IPRATROPIUM/ALBUTEROL 0.5-2.5 MG/3 ML AMPUL NEB ONE (09:30)
[2018-08-29] MEDS ORDERED: POTASSIUM CHLORIDE 20 MEQ PACKET PO SCH (10:00)
[2018-08-29] MEDS: GUAIFENESIN 600 MG TABLET.SA PO SCH ×2 (10:19→21:57)
[2018-08-29] MEDS: POTASSI CL 20 MEQ/50 ML RIDER 20 MEQ/50 ML RTUPB IV SCH ×2 (10:22→12:46)
[2018-08-29] MEDS: METHYLPREDNISOLONE INJ 40 MG/1 ML SDV IV SCH ×2 (10:22→17:26)
[2018-08-29] MEDS: ENOXAPARIN SODIUM INJ 40 MG/0.4 ML DISP.SYRIN SUBCUT SCH ×3 (10:23→11:33)
--- NOTE | 2018-08-29 10:44 | PDOC PROGRESS REPORT ---
Subjective Progress Note for:: 08/29/18 Subjective:: 27-year-old female with past medical history of uncontrolled type 1 diabetes mellitus and recurrent DKA who was brought in because of unresponsiveness. Patient was intubated she was noted to be obtunded upon presentation. She was also noted to be positive for amphetamines on her UDS. She was also not noted to have bilateral pneumonia. She is currently sedated on propofol. Currently saturating well on minimal vent settings at 30% FiO2. She does have dark watery stools from the rectal tube. She did have a fever last night. 08/27/2018. Assumed care today. Status post extubation due to severe DKA. Complaining of feeling weak, congestion, hoarseness otherwise denies any fever, chills, nausea, vomiting, diarrhea, constipation or any urinary symptoms. 08/28/2018. Was found to be tachypneic overnight, ABG was done which showed worsening of hypoxemia, otherwise no acute events, patient is feeling of very congested and short of breath, has been able to tolerate her p.o. meds, her hoarseness is getting better, denies any fever, chills, nausea, vomiting, diarrhea constipation or any urinary symptoms. 08/29/2018. No acute events overnight, and the chemistry patient's noted to have a bicarb of 44, ABG was done which showed worsening of hypoxia with CO2 retention. On my encounter patient is resting in bed in no apparent acute respiratory distress, stating that she still weak, was taking deep breathing because it makes her chest hurt, eyes any fever, chills, nausea, vomiting, diarrhea, constipation or any urinary symptoms. SBP 78870, T-max 98.3, pulse 7595, SPO2 99%, FiO2 45% on BiPAP. ABG: pH 7.52, PCO2 56.1, PO2 51.9, FiO2 21%. WBC 9.3, hemoglobin 10.6, platelets 593, sodium 141, potassium 3.2, bicarb 44, creatinine 0.31. Reason For Visit: ACUTE METABOLIC ENCEPHALOPATHY,DKA Physical Exam Vital Signs: Temp Pulse Resp BP Pulse Ox 98.3 F 92 12 103/59 L 99 08/29/18 08:00 08/29/18 09:08 08/29/18 09:08 08/29/18 08:00 08/29/18 09:08 Intake & Output 08/28/18 08/29/18 08/30/18 06:59 06:59 06:59 Intake Total 2620 2123 Output Total 2030 1340 Balance 590 783 Weight 51.5 kg 51.5 kg General appearance: PRESENT: mild distress Head exam: PRESENT: atraumatic, normocephalic Respiratory exam: PRESENT: clear to auscultation george, tachypnea - Shallow breathing,. ABSENT: rales, rhonchi, wheezes Cardiovascular exam: PRESENT: RRR. ABSENT: diastolic murmur, rubs, systolic murmur GI/Abdominal exam: PRESENT: normal bowel sounds, soft. ABSENT: distended, guarding, mass, organolmegaly, rebound, tenderness Extremities exam: PRESENT: full ROM. ABSENT: calf tenderness, clubbing, pedal edema Neurological exam: PRESENT: alert, awake, oriented to person, oriented to place, oriented to time, oriented to situation, CN II-XII grossly intact. ABSENT: motor sensory deficit Results Laboratory Results: 08/29/18 05:15 08/29/18 05:15 08/29/18 08/29/18 08/29/18 05:15 05:15 07:51 WBC 9.3 RBC 3.48 L Hgb 10.6 L Hct 31.5 L MCV 90 MCH 30.4 MCHC 33.7 RDW 14.4 H Plt Count 593 H Seg Neutrophils % 71.3 Lymphocytes % 22.3 Monocytes % 5.2 Eosinophils % 1.0 Basophils % 0.2 Absolute Neutrophils 6.6 Absolute Lymphocytes 2.1 Absolute Monocytes 0.5 Absolute Eosinophils 0.1 Absolute Basophils 0.0 Carbonic Acid 1.69 H HCO3/H2CO3 Ratio 26:1 ABG pH 7.52 H ABG pCO2 56.1 H ABG pO2 51.9 L ABG HCO3 44.9 H ABG O2 Saturation 89.3 L ABG Base Excess 18.8 FiO2 21% Sodium 141.0 Potassium 3.2 L Chloride 91 L Carbon Dioxide 44 H* Anion Gap 6 BUN 2 L Creatinine 0.31 L Est GFR ( Amer) > 60 Est GFR (Non-Af Amer) > 60 Glucose 171 H Calcium 8.0 L Magnesium 1.7 Total Bilirubin 0.4 AST 10 L ALT 20 Alkaline Phosphatase 103 Total Protein 5.3 L Albumin 2.5 L 08/23/18 09:30 Blood Blood Culture - Final NO GROWTH IN 5 DAYS 08/23/18 09:20 Blood Blood Culture - Final NO GROWTH IN 5 DAYS 08/23/18 08/23/18 08/23/18 08:55 08:55 15:55 Creatine Kinase 100 60 CK-MB (CK-2) 0.41 Troponin I < 0.012 08/23/18 16:30 Creatine Kinase CK-MB (CK-2) 0.42 Troponin I < 0.012 Impressions: Abdomen Ultrasound 08/24/18 09:27 IMPRESSION: Gallbladder wall thickening. This may merely be secondary to the nondistention of the gallbladder. Chest X-Ray 08/29/18 00:00 IMPRESSION: Slight improvement in pulmonary edema or atypical pneumonia. Assessment and Plan - Diagnosis (1) Acute respiratory failure Qualifiers: Respiratory failure complication: hypoxia Qualified Code(s): J96.01 - Acute respiratory failure with hypoxia Is this a current diagnosis for this admission?: Yes Plan: Worsening. 08/29/2018 ABG positive respiratory alkalosis, hypercarbia and hypoxemia. Patient stating she is afraid to take deep breath because it hurts her chest has not been using her incentive spirometer, patient also refusing to set stating that it hurts her back. Also having wheezing on physical examination could be due to her asthma exacerbation. Initially triggered by DKA, metabolic encephalopathy, and pneumonia was extubated on 08/16/2018. Extubated 08/26/2018. Extubation day 4. 08/29/2017 DC IV fluids and gave give 3 dose of albumin, Chest physical therapy. Switch Xopenex to DuoNeb's, BiPAP, IV steroids, Lasix, incentive spirometer. CTA to rule out PE. ABG at 1300 if worsening or patient cannot protect airways will be intubated and transferred to ICU. Liaison Officer was consulted for no dietary recommendations. 08/29/2018: SBP 22152, T-max 98.3, pulse 7595, RR 12-24, SPO2 99%, FiO2 45% on BiPAP. ABG: pH 7.52, PCO2 56.1, PO2 51.9, FiO2 21%. WBC 9.3, hemoglobin 10.6, platelets 593 08/28/2018. SBP 405133, T-max 97.8, pulse 92840, RR 1726, SPO2 95% 2 L NC FiO2 45%. ABG: pH 7.47, PCO2 48, PO2 65, FiO2 21%. WBC 7.3, hemoglobin 10.4, platelets 481 Sodium 139.7, potassium 3.5, bicarb 37, creatinine 0.24, HBG to 231. Calcium 7.7, magnesium 1.9, albumin 2.3, prealbumin 5.4. 08/23/2018. Sputum culture for MRSA. IV vancomycin 10 days. DC'd on 08/28/2018. 08/21/2017. Urine culture positive for E. coli pansensitive. On IV vancomycin and cefepime for 11 days. (2) Bronchial asthma Is this a current diagnosis for this admission?: No Plan: DuoNeb's, IV steroids, BiPAP, supplemental oxygen. (3) Acute metabolic encephalopathy Is this a current diagnosis for this admission?: Yes Plan: Resolved. As per number 1. (4) DKA (diabetic ketoacidosis) Qualifiers: Diabetes mellitus type: type 1 Diabetes mellitus complication detail: without coma Qualified Code(s): E10.10 - Type 1 diabetes mellitus with ketoacidosis without coma Is this a current diagnosis for this admission?: Yes Plan: Resolved. (5) Hypokalemia Is this a current diagnosis for this admission?: Yes Plan: Improving. Continue supplemental K. BMP tomorrow. 08/29/2018: Sodium 141, potassium 3.2, bicarb 44, creatinine 0.31. 08/28/2018. Sodium 139.7, potassium 3.5, bicarb 37, creatinine 0.24, calcium 7.7, magnesium 1.9, albumin 2.3, prealbumin 5.4. (6) Pneumonia Is this a current diagnosis for this admission?: Yes Plan: Resolved. WBC within normal limits, afebrile. Patient does have shortness of breath and congestion which is unlikely pneumonia. Received complete course of empiric IV vancomycin and cefepime. 08/23/2018. Sputum culture for MRSA. IV vancomycin 10 days. DC'd on 08/28/2018. 08/21/2017. Urine culture positive for E. coli pansensitive. (7) Pulmonary congestion Is this a current diagnosis for this admission?: Yes Plan: As problem #1.
[2018-08-29] MEDS: INSULIN GLARGINE,HUM.REC.ANLOG 1,000 UNIT/10 ML VIAL SUBCUT SCH (11:10)
[2018-08-29] MEDS: CEFEPIME 1 GM/D5W RTU 1 GM/50 ML RTUPB IV SCH ×2 (11:12→21:56)
[2018-08-29 11:34] LABS: URINE AMPHETAMINES SCREEN NEGATIVE; URINE BARBITURATES SCREEN NEGATIVE; URINE BENZODIAZEPINES SCREEN NEGATIVE; URINE COCAINE SCREEN NEGATIVE; URINE MARIJUANA (THC) SCREEN NEGATIVE; URINE METHADONE SCREEN NEGATIVE; URINE PHENCYCLIDINE SCREEN NEGATIVE
[2018-08-29] MEDS: IPRATROPIUM/ALBUTEROL 0.5-2.5 MG/3 ML AMPUL NEB SCH ×3 (12:20→21:08)
[2018-08-29] MEDS: POTASSIUM CHLORIDE 10 MEQ CAPSULE.ER PO SCH ×2 (12:42→21:57)
[2018-08-29 12:56] LABS: ARTERIAL BLOOD BASE EXCESS 14.4 mmol/L; ARTERIAL BLOOD H2CO3 1.54 mmol/L (1.05-1.35); ARTERIAL BLOOD HCO3 39.7 mmol/L (20-24); ARTERIAL BLOOD O2 SATURATION 96.3 % (94-98); ARTERIAL BLOOD PH 7.51 (7.35-7.45); ARTERIAL BLOOD PO2 77.4 mmHg (80-100); ARTERIAL BLOOD TOTAL CO2 41.3 mmol/L (21-25)
[2018-08-29 12:57] LABS: ARTERIAL BLOOD FIO2 2L
--- NOTE | 2018-08-29 14:47 | RADIOLOGY REPORT (SQ) ---
EXAM DESCRIPTION: CTA CHEST COMPLETED DATE/TIME: 08/29/2018 2:31 pm REASON FOR STUDY: SOB, hypoxia COMPARISON: 08/23/2018 TECHNIQUE: CT scan of the chest performed using helical scanning technique with dynamic intravenous contrast injection. Images reviewed with lung, soft tissue and bone windows. Reconstructed coronal and sagittal MPR images reviewed. Additional 3 dimensional post-processing performed to develop Maximal Intensity Projection images (NC P). All images stored on PACS. All CT scanners at this facility use dose modulation, iterative reconstruction, and/or weight based d osing when appropriate to reduce radiation dose to as low as reasonably achievable (ALARA). [facility]: Dose Right [facility]: CareDose [facility]: Dose Right [facility]: Teradose 4D [facility]: Provigent CONTRAST TYPE AND DOSE: 49 cc Isovue 370- low osmolar. RENAL FUNCTION: GFR > 60. RADIATION DOSE: CT Rad equipment meets quality standard of care and radiation dose reduction techniq ues were employed. CTDIvol: 9.9 - 14.3 mGy. DLP: 500 mGy-cm. . LIMITATIONS: Timing of contrast bolus. FINDINGS: LUNGS AND PLEURA: Diffuse ground-glass attenuation. Subsegmental consolidation in the low er lobes with overall slight improved aeration in the left lower lobe. Coalescing subcentimeter nodu lar infiltrate left upper lobe. No definite cavitation. Small effusions. AORTA AND GREAT VESSELS: No aneurysm. No dissection. HEART: No pericardial effusion. No significant coronary artery calcifications. PULMONARY ARTERIES: No central PE. Limited evaluation of the peripheral vessels. HILAR AND MEDIASTINAL STRUCTURES: No identified masses or abnormal nodes. HARDWARE: None in the chest. UPPER ABDOMEN: No significant findings. Limited exam. THYROID AND OTHER SOFT TISSUES: No masses. No adenopathy. BONES: No acute or significant finding. 3D MIPS: Confirm above findings. OTHER: No other significant finding. IMPRESSION: Bilateral pneumonia. Overall improved aeration in the left lower lobe however there is now involvement of the left upper lobe COMMENT: Quality ID # [id number]: Final reports with documentation of one or more dose reduction techniques (e.g., Automated exposure control, adjustment of the mA and/or kV according to patient size, use of iterative reconstruction technique) TECHNICAL DOCUMENTATION: JOB ID: [id number] [employer]- All Rights Reserved Reading location - IP/workstation name: [email or web address]
--- NOTE | 2018-08-29 14:47 | RADIOLOGY REPORT (SQ) ---
EXAM DESCRIPTION: CTA CHEST COMPLETE DATE/TIME: 08/29/2018 11:14 am REASON FOR STUDY: Hypoxemia FINDINGS: Please see combined report for performance of procedure and radiologic supervision and int erpretation. IMPRESSION: Please see combined report for performance of procedure and radiologic supervision and i nterpretation. Reading location - IP/workstation name: [email or web address]
[2018-08-30] MEDS: IPRATROPIUM/ALBUTEROL 0.5-2.5 MG/3 ML AMPUL NEB SCH ×6 (01:03→20:57)
[2018-08-30] MEDS: PANTOPRAZOLE SODIUM 40 MG TABLET.DR PO SCH (05:27)
[2018-08-30] MEDS ORDERED: GLUCAGON,HUMAN RECOMB 1 MG INJ IM PRN (09:03)
[2018-08-30] MEDS ORDERED: DEXTROSE 40% GEL 15 GM TUBE PO PRN ×2 (09:03)
[2018-08-30] MEDS ORDERED: DEXTROSE 50%-WATER 25 GM/50 ML DISP.SYRIN IV PRN ×2 (09:03)
--- NOTE | 2018-08-30 09:18 | PDOC PROGRESS REPORT ---
Subjective Progress Note for:: 08/30/18 Subjective:: 27-year-old female with past medical history of uncontrolled type 1 diabetes mellitus and recurrent DKA who was brought in because of unresponsiveness. Patient was intubated she was noted to be obtunded upon presentation. She was also noted to be positive for amphetamines on her UDS. She was also not noted to have bilateral pneumonia. She is currently sedated on propofol. Currently saturating well on minimal vent settings at 30% FiO2. She does have dark watery stools from the rectal tube. She did have a fever last night. 08/27/2018. Assumed care today. Status post extubation due to severe DKA. Complaining of feeling weak, congestion, hoarseness otherwise denies any fever, chills, nausea, vomiting, diarrhea, constipation or any urinary symptoms. 08/28/2018. Was found to be tachypneic overnight, ABG was done which showed worsening of hypoxemia, otherwise no acute events, patient is feeling of very congested and short of breath, has been able to tolerate her p.o. meds, her hoarseness is getting better, denies any fever, chills, nausea, vomiting, diarrhea constipation or any urinary symptoms. 08/29/2018. No acute events overnight, and the chemistry patient's noted to have a bicarb of 44, ABG was done which showed worsening of hypoxia with CO2 retention. On my encounter patient is resting in bed in no apparent acute respiratory distress, stating that she still weak, was taking deep breathing because it makes her chest hurt, eyes any fever, chills, nausea, vomiting, diarrhea, constipation or any urinary symptoms. SBP 98003, T-max 98.3, pulse 7595, SPO2 99%, FiO2 45% on BiPAP. ABG: pH 7.52, PCO2 56.1, PO2 51.9, FiO2 21%. WBC 9.3, hemoglobin 10.6, platelets 593, sodium 141, potassium 3.2, bicarb 44, creatinine 0.31. 08/30/2018-no acute events in the last 24 hours. Pulse ox is 98% on 2 L. Patient is on BiPAP last night. Requesting for nausea medication and insulin. The diet was up updated by the speech therapist. Blood pressure is 100/58 T-max is 98.1. Heart rate is 81. Not in distress denies any problems. CT abdomen pelvis yesterday indicates bilateral pneumonia. Reason For Visit: ACUTE METABOLIC ENCEPHALOPATHY,DKA Physical Exam Vital Signs: Temp Pulse Resp BP Pulse Ox 98.1 F 81 19 99/58 L 98 08/30/18 03:28 08/30/18 05:47 08/30/18 05:47 08/30/18 03:28 08/30/18 05:47 Intake & Output 08/29/18 08/30/18 08/31/18 06:59 06:59 06:59 Intake Total 2123 1260 Output Total 1340 2900 Balance 783 -1640 Weight 51.5 kg 51.5 kg General appearance: PRESENT: no acute distress, thin Head exam: PRESENT: atraumatic Eye exam: PRESENT: PERRLA Ear exam: PRESENT: normal external ear exam Mouth exam: PRESENT: moist, tongue midline Neck exam: ABSENT: carotid bruit, JVD, lymphadenopathy, thyromegaly Respiratory exam: PRESENT: decreased breath sounds Cardiovascular exam: PRESENT: RRR. ABSENT: diastolic murmur, rubs, systolic murmur GI/Abdominal exam: PRESENT: normal bowel sounds, soft. ABSENT: distended, guarding, mass, organolmegaly, rebound, tenderness Rectal exam: PRESENT: deferred Neurological exam: PRESENT: alert, awake, oriented to person, oriented to place, oriented to time, oriented to situation, CN II-XII grossly intact. ABSENT: motor sensory deficit Psychiatric exam: PRESENT: appropriate affect, normal mood. ABSENT: homicidal ideation, suicidal ideation Results Laboratory Results: 08/29/18 05:15 08/29/18 05:15 08/29/18 12:40 Carbonic Acid 1.54 H HCO3/H2CO3 Ratio 25:1 ABG pH 7.51 H ABG pCO2 51.0 H ABG pO2 77.4 L ABG HCO3 39.7 H ABG O2 Saturation 96.3 ABG Base Excess 14.4 FiO2 2L 08/23/18 08/23/18 08/23/18 08:55 08:55 15:55 Creatine Kinase 100 60 CK-MB (CK-2) 0.41 Troponin I < 0.012 08/23/18 16:30 Creatine Kinase CK-MB (CK-2) 0.42 Troponin I < 0.012 Impressions: Abdomen Ultrasound 08/24/18 09:27 IMPRESSION: Gallbladder wall thickening. This may merely be secondary to the nondistention of the gallbladder. Chest X-Ray 08/29/18 00:00 IMPRESSION: Slight improvement in pulmonary edema or atypical pneumonia. Chest/Abdomen CTA 08/29/18 00:00 IMPRESSION: Please see combined report for performance of procedure and rad iologic supervision and interpretation. Assessment and Plan - Diagnosis (1) Acute respiratory failure Qualifiers: Respiratory failure complication: hypoxia Qualified Code(s): J96.01 - Acute respiratory failure with hypoxia Is this a current diagnosis for this admission?: Yes Plan: Worsening. 08/29/2018 ABG positive respiratory alkalosis, hypercarbia and hypoxemia. Patient stating she is afraid to take deep breath because it hurts her chest has not been using her incentive spirometer, patient also refusing to set stating that it hurts her back. Also having wheezing on physical examination could be due to her asthma exacerbation. Initially triggered by DKA, metabolic encephalopathy, and pneumonia was extubated on 08/16/2018. Extubated 08/26/2018. Extubation day 4. 08/29/2017 DC IV fluids and gave give 3 dose of albumin, Chest physical therapy. Switch Xopenex to DuoNeb's, BiPAP, IV steroids, Lasix, incentive spirometer. CTA to rule out PE. ABG at 1300 if worsening or patient cannot protect airways will be intubated and transferred to ICU. Hospital Intern was consulted for no dietary recommendations. 08/29/2018: SBP 39713, T-max 98.3, pulse 7595, RR 12-24, SPO2 99%, FiO2 45% on BiPAP. ABG: pH 7.52, PCO2 56.1, PO2 51.9, FiO2 21%. WBC 9.3, hemoglobin 10.6, platelets 593 08/28/2018. SBP 697018, T-max 97.8, pulse 86975, RR 1726, SPO2 95% 2 L NC FiO2 45%. ABG: pH 7.47, PCO2 48, PO2 65, FiO2 21%. WBC 7.3, hemoglobin 10.4, platelets 481 Sodium 139.7, potassium 3.5, bicarb 37, creatinine 0.24, HBG to 231. Calcium 7.7, magnesium 1.9, albumin 2.3, prealbumin 5.4. 08/23/2018. Sputum culture for MRSA. IV vancomycin 10 days. DC'd on 08/28/2018. 08/21/2017. Urine culture positive for E. coli pansensitive. On IV vancomycin and cefepime for 11 days. 08/30/[id number]-xtpe-old female admitted with acute respiratory failure ABGs positive for respiratory alkalosis, hypercapnia and hypoxia. Chest x-ray shows bilateral pneumonia presently on cefepime. Sputum culture positive for MRSA completed 10 days of IV vancomycin and urine culture was positive for E. coli and on 5 time at this point. Pulse ox is 98% on room air this morning. Patient is presently off the BiPAP but she is on BiPAP last night. Today's labs are pending. Shunt is receiving incentive spirometry, DuoNeb, Also receiving chest physiotherapy. (2) Bronchial asthma Is this a current diagnosis for this admission?: No Plan: DuoNeb's, IV steroids, BiPAP, supplemental oxygen. 08/30/2018-patient is presently on DuoNeb nebulizations, supplemental oxygen, BiPAP. IV steroids are discontinued. (3) Acute metabolic encephalopathy Is this a current diagnosis for this admission?: Yes Plan: Resolved. As per number 1. 08/30/2018-acute metabolic encephalopathy most likely secondary to acute respiratory failure and DKA resolved. (4) DKA (diabetic ketoacidoses) Qualifiers: Diabetes mellitus type: type 1 Diabetes mellitus complication detail: with coma Qualified Code(s): E10.11 - Type 1 diabetes mellitus with ketoacidosis with coma Is this a current diagnosis for this admission?: Yes Plan: Resolved. Continue Lantus. 08/30/2018-patient is admitted with DKA which was resolved. (5) Hypokalemia Is this a current diagnosis for this admission?: Yes Plan: Improving. Continue supplemental K. BMP tomorrow. 08/29/2018: Sodium 141, potassium 3.2, bicarb 44, creatinine 0.31. 08/28/2018. Sodium 139.7, potassium 3.5, bicarb 37, creatinine 0.24, calcium 7.7, magnesium 1.9, albumin 2.3, prealbumin 5.4. 08/30/2018-patient latest potassium is 3.2 plan is to continue p.o. potassium s upplementation and recheck the potassium tomorrow. presently on 40 mg of p.o. potassium every 8 hours. (6) Pneumonia Is this a current diagnosis for this admission?: Yes Plan: Resolved. WBC within normal limits, afebrile. Patient does have shortness of breath and congestion which is unlikely pneumonia. Received complete course of empiric IV vancomycin and cefepime. 08/23/2018. Sputum culture for MRSA. IV vancomycin 10 days. DC'd on 08/28/2018. 08/21/2017. Urine culture positive for E. coli pansensitive. 08/30/2018-latest investigations indicates bilateral pneumonia most likely aspirated pneumonia. Most likely gram-positive gram-negative organisms. Sputum culture was MRSA. Treated with IV vancomycin. Patient is afebrile. Plan is to continue IV cefepime at this moment. (7) Anemia Qualifiers: Anemia type: other cause Other causes of anemia: other cause, not classified Qualified Code(s): D64.89 - Other specified anemias Is this a current diagnosis for this admission?: Yes Plan: 08/20/2018-the anemia is multifactorial. This is likely related to her chronic diabetes with recurrent severe complications as well as her critical illness, aggressive fluid hydration due to the diabetic ketoacidosis as well as nutrition. We will continue to monitor hemoglobin. If it drops below 8 she will receive transfusions. 08/21/2018-hemoglobin is slightly lower again today. We will continue to monitor. No evidence of charisse blood loss anywhere. August 22, 2018-the patient's hemoglobin is 7.9. If she is any lower tomorrow she will receive transfusion. I will add anemia studies to the morning blood work. 08/30/2018-patient's latest hemoglobin is 8.6 stable. Anemia most likely secondary to critical illness. (8) Pulmonary congestion Is this a current diagnosis for this admission?: Yes Plan: As problem #1. 08/30/2018-study did not indicate any pulmonary congestion. It may be secondary to pneumonia which was resolved now. (9) Acute kidney injury Is this a current diagnosis for this admission?: Yes Plan: Resolved. 08/18/2018-acute kidney injury is resolved. 08/19/2018-BUN is still slightly elevated but GFR is greater than 60. 08/20/2018-resolved 08/21/2018-resolved. We will continue to monitor renal function. August 22, 2018-acute kidney injury is resolved. The patient is still experiencing hypokalemia. We will continue to monitor renal function. We will decrease her IV fluids as she is likely fluid overloaded. 08/30/2018-patient admitted with MOISES, admission creatinine is 1.12 and the latest creatinine is 0.36 acute kidney injury most likely secondary to prerenal causes resolved. Patient's baseline creatinine is around 0.4. - Time Time Spent with patient: 15-24 minutes Smoking Cessation Education: 3 to 10 minutes Medications reviewed and adjusted accordingly: Yes Anticipated discharge: Home
[2018-08-30] MEDS: ONDANSETRON HCL INJ/PF 4 MG/2 ML SDV IV PRN ×2 (09:42→16:05)
[2018-08-30] MEDS: GUAIFENESIN 600 MG TABLET.SA PO SCH ×2 (09:43→21:38)
[2018-08-30] MEDS: INSULIN LISPRO 100 UNIT/ML 3 ML VIAL SUBCUT SCH ×3 (09:44→17:21)
[2018-08-30] MEDS: ENOXAPARIN SODIUM INJ 40 MG/0.4 ML DISP.SYRIN SUBCUT SCH (09:44)
[2018-08-30] MEDS: POTASSIUM CHLORIDE 10 MEQ CAPSULE.ER PO SCH ×2 (09:44→16:05)
[2018-08-30] MEDS: INSULIN GLARGINE,HUM.REC.ANLOG 1,000 UNIT/10 ML VIAL SUBCUT SCH (09:48)
[2018-08-30 10:17] LABS: ABSOLUTE LYMPHOCYTES (AUTO) 1.6 10^3/uL (0.5-4.7); ABSOLUTE MONOCYTES (AUTO) 0.5 10^3/uL (0.1-1.4); ABSOLUTE NEUT (AUTO) 6.4 10^3/uL (1.7-8.2); BASOPHILS % (AUTO) 0.5 % (0-2); EOSINOPHILS % (AUTO) 0.4 % (0-6); HEMATOCRIT 32.2 % (36.0-47.0); HEMOGLOBIN 10.9 g/dL (12.0-15.5); LYMPHOCYTES % (AUTO) 18.6 % (13-45); MEAN CORPUSCULAR HEMOGLOBIN 30.5 pg (27.0-33.4); MEAN CORPUSCULAR HGB CONC 33.7 g/dL (32.0-36.0); MEAN CORPUSCULAR VOLUME 91 fl (80-97); MONOCYTES % (AUTO) 6.2 % (3-13); PLATELET COUNT 631 10^3/uL (150-450); RED BLOOD COUNT 3.56 10^6/uL (3.72-5.28); SEGMENTED NEUTROPHILS % (AUTO) 74.3 % (42-78); TOTAL CELLS COUNTED % (AUTO) 100 %; WHITE BLOOD COUNT 8.7 10^3/uL (4.0-10.5)
[2018-08-30 10:34] LABS: ALANINE AMINOTRANSFERASE 16 U/L (9-52); ALBUMIN 2.9 g/dL (3.5-5.0); ALKALINE PHOSPHATASE 125 U/L (38-126); ASPARTATE AMINO TRANSFERASE 10 U/L (14-36); BILIRUBIN,DIRECT 0.3 mg/dL (0.0-0.4); BILIRUBIN,TOTAL 0.3 mg/dL (0.2-1.3); BLOOD UREA NITROGEN 8 mg/dL (7-20); CALCIUM 8.6 mg/dL (8.4-10.2); CHLORIDE 92 mmol/L (98-107); GLUCOSE 296 mg/dL (75-110); POTASSIUM 3.6 mmol/L (3.6-5.0); SODIUM 139.5 mmol/L (137-145); TOTAL PROTEIN 5.9 g/dL (6.3-8.2)
[2018-08-30 10:51] LABS: ANION GAP 8 (5-19)
[2018-08-30 11:05] LABS: CARBON DIOXIDE 40 mmol/L (22-30)
[2018-08-30] MEDS: CEFEPIME 1 GM/D5W RTU 1 GM/50 ML RTUPB IV SCH ×2 (12:38→21:39)
[2018-08-30] MEDS: KETOROLAC TROMETHAMINE INJ/PF 30 MG/1 ML SDV IV PRN ×2 (16:10→21:48)
[2018-08-30] MEDS ORDERED: POTASSIUM CHLORIDE 20 MEQ PACKET PO SCH (19:00)
[2018-08-31] MEDS: IPRATROPIUM/ALBUTEROL 0.5-2.5 MG/3 ML AMPUL NEB SCH ×6 (00:16→21:19)
[2018-08-31] MEDS ORDERED: INSULIN REG, HUMAN 100 UNIT/ML 3 ML VIAL (PYX) SUBCUT ONE (02:00)
[2018-08-31] MEDS: PANTOPRAZOLE SODIUM 40 MG TABLET.DR PO SCH (05:07)
[2018-08-31] MEDS: POTASSIUM CHLORIDE 20 MEQ PACKET PO SCH ×3 (05:07→22:51)
[2018-08-31 06:46] LABS: ABSOLUTE EOSINOPHILS # (AUTO) 0.1 10^3/uL (0.0-0.6); ABSOLUTE LYMPHOCYTES (AUTO) 1.6 10^3/uL (0.5-4.7); ABSOLUTE MONOCYTES (AUTO) 0.5 10^3/uL (0.1-1.4); ABSOLUTE NEUT (AUTO) 5.5 10^3/uL (1.7-8.2); BASOPHILS % (AUTO) 0.5 % (0-2); EOSINOPHILS % (AUTO) 0.8 % (0-6); HEMATOCRIT 29.1 % (36.0-47.0); LYMPHOCYTES % (AUTO) 20.7 % (13-45); MEAN CORPUSCULAR HEMOGLOBIN 31.1 pg (27.0-33.4); MEAN CORPUSCULAR HGB CONC 34.2 g/dL (32.0-36.0); MEAN CORPUSCULAR VOLUME 91 fl (80-97); MONOCYTES % (AUTO) 6.8 % (3-13); PLATELET COUNT 604 10^3/uL (150-450); RED BLOOD COUNT 3.21 10^6/uL (3.72-5.28); RED CELL DISTRIBUTION WIDTH 15.3 % (11.5-14.0); SEGMENTED NEUTROPHILS % (AUTO) 71.2 % (42-78); TOTAL CELLS COUNTED % (AUTO) 100 %; WHITE BLOOD COUNT 7.7 10^3/uL (4.0-10.5)
[2018-08-31 07:01] LABS: ALANINE AMINOTRANSFERASE 18 U/L (9-52); ALBUMIN 2.6 g/dL (3.5-5.0); ALKALINE PHOSPHATASE 114 U/L (38-126); ANION GAP 5 (5-19); ASPARTATE AMINO TRANSFERASE 8 U/L (14-36); BILIRUBIN,DIRECT 0.2 mg/dL (0.0-0.4); BILIRUBIN,TOTAL 0.2 mg/dL (0.2-1.3); BLOOD UREA NITROGEN 9 mg/dL (7-20); CALCIUM 8.4 mg/dL (8.4-10.2); CARBON DIOXIDE 36 mmol/L (22-30); CHLORIDE 98 mmol/L (98-107); GLUCOSE 256 mg/dL (75-110); POTASSIUM 3.8 mmol/L (3.6-5.0); SODIUM 139.3 mmol/L (137-145); TOTAL PROTEIN 5.5 g/dL (6.3-8.2)
[2018-08-31] MEDS: INSULIN LISPRO 100 UNIT/ML 3 ML VIAL SUBCUT SCH ×4 (08:57→22:56)
[2018-08-31] MEDS: ENOXAPARIN SODIUM INJ 40 MG/0.4 ML DISP.SYRIN SUBCUT SCH (09:50)
[2018-08-31] MEDS: INSULIN GLARGINE,HUM.REC.ANLOG 1,000 UNIT/10 ML VIAL SUBCUT SCH (09:51)
[2018-08-31] MEDS: KETOROLAC TROMETHAMINE INJ/PF 30 MG/1 ML SDV IV PRN (09:56)
[2018-08-31] MEDS: GUAIFENESIN 600 MG TABLET.SA PO SCH ×2 (09:57→22:51)
[2018-08-31] MEDS: CEFEPIME 1 GM/D5W RTU 1 GM/50 ML RTUPB IV SCH ×2 (09:57→22:53)
--- NOTE | 2018-08-31 11:05 | PDOC PROGRESS REPORT ---
Subjective Progress Note for:: 08/31/18 Subjective:: 27-year-old female with past medical history of uncontrolled type 1 diabetes mellitus and recurrent DKA who was brought in because of unresponsiveness. Patient was intubated she was noted to be obtunded upon presentation. She was also noted to be positive for amphetamines on her UDS. She was also not noted to have bilateral pneumonia. She is currently sedated on propofol. Currently saturating well on minimal vent settings at 30% FiO2. She does have dark watery stools from the rectal tube. She did have a fever last night. 08/27/2018. Assumed care today. Status post extubation due to severe DKA. Complaining of feeling weak, congestion, hoarseness otherwise denies any fever, chills, nausea, vomiting, diarrhea, constipation or any urinary symptoms. 08/28/2018. Was found to be tachypneic overnight, ABG was done which showed worsening of hypoxemia, otherwise no acute events, patient is feeling of very congested and short of breath, has been able to tolerate her p.o. meds, her hoarseness is getting better, denies any fever, chills, nausea, vomiting, diarrhea constipation or any urinary symptoms. 08/29/2018. No acute events overnight, and the chemistry patient's noted to have a bicarb of 44, ABG was done which showed worsening of hypoxia with CO2 retention. On my encounter patient is resting in bed in no apparent acute respiratory distress, stating that she still weak, was taking deep breathing because it makes her chest hurt, eyes any fever, chills, nausea, vomiting, diarrhea, constipation or any urinary symptoms. SBP 35159, T-max 98.3, pulse 7595, SPO2 99%, FiO2 45% on BiPAP. ABG: pH 7.52, PCO2 56.1, PO2 51.9, FiO2 21%. WBC 9.3, hemoglobin 10.6, platelets 593, sodium 141, potassium 3.2, bicarb 44, creatinine 0.31. 08/31/2017. No acute events overnight. On my encounter patient is resting comfortably in bed, in no apparent distress, stating that she is feeling much better, denies any fever, chills, nausea, vomiting, diarrhea, constipation or any urinary symptoms. Patient is still not able to tolerate food, speech therapy on board, pending follow-up. SBP 113-129, T-max 98.0, pulse 24256, SPO2 91-100% 2 L NC, FiO2 21%. WBC 7.7, hemoglobin 10, platelets 604, sodium 139, potassium 3.8, bicarb 36, creatinine 0.27, FBG 256. Reason For Visit: ACUTE METABOLIC ENCEPHALOPATHY,DKA Physical Exam Vital Signs: Temp Pulse Resp BP Pulse Ox 98 F 101 H 16 120/78 91 L 08/31/18 07:25 08/31/18 07:25 08/31/18 07:25 08/31/18 07:25 08/31/18 07:25 Intake & Output 08/30/18 08/31/18 09/01/18 06:59 06:59 06:59 Intake Total 1260 438 Output Total 2900 2400 Balance -1640 -1962 Weight 51.5 kg 55.3 kg General appearance: PRESENT: no acute distress, well-developed, well-nourished Head exam: PRESENT: atraumatic, normocephalic Respiratory exam: PRESENT: crackles, wheezes. ABSENT: rales, rhonchi Cardiovascular exam: PRESENT: RRR. ABSENT: diastolic murmur, rubs, systolic murmur GI/Abdominal exam: PRESENT: normal bowel sounds, soft. ABSENT: distended, guarding, mass, organolmegaly, rebound, tenderness Neurological exam: PRESENT: alert, awake, oriented to person, oriented to place, oriented to time, oriented to situation, CN II-XII grossly intact. ABSENT: motor sensory deficit Skin exam: PRESENT: dry, intact, warm. ABSENT: cyanosis, rash Results Laboratory Results: 08/31/18 06:34 08/31/18 06:34 08/30/18 08/31/18 08/31/18 10:06 06:34 06:34 WBC 7.7 RBC 3.21 L Hgb 10.0 L Hct 29.1 L MCV 91 MCH 31.1 MCHC 34.2 RDW 15.3 H Plt Count 604 H Seg Neutrophils % 71.2 Lymphocytes % 20.7 Monocytes % 6.8 Eosinophils % 0.8 Basophils % 0.5 Absolute Neutrophils 5.5 Absolute Lymphocytes 1.6 Absolute Monocytes 0.5 Absolute Eosinophils 0.1 Absolute Basophils 0.0 Sodium 139.5 139.3 Potassium 3.6 3.8 Chloride 92 L 98 Carbon Dioxide 40 H* 36 H Anion Gap 8 5 BUN 8 9 Creatinine 0.31 L 0.27 L Est GFR ( Amer) > 60 > 60 Est GFR (Non-Af Amer) > 60 > 60 Glucose 296 H 256 H Calcium 8.6 8.4 Magnesium 1.8 1.8 Total Bilirubin 0.3 0.2 AST 10 L 8 L ALT 16 18 Alkaline Phosphatase 125 114 Total Protein 5.9 L 5.5 L Albumin 2.9 L 2.6 L 08/25/18 18:43 Blood Blood Culture - Final NO GROWTH IN 5 DAYS 08/25/18 18:53 Blood Blood Culture - Final NO GROWTH IN 5 DAYS 08/23/18 08/23/18 08/23/18 08:55 08:55 15:55 Creatine Kinase 100 60 CK-MB (CK-2) 0.41 Troponin I < 0.012 08/23/18 16:30 Creatine Kinase CK-MB (CK-2) 0.42 Troponin I < 0.012 Impressions: Abdomen Ultrasound 08/24/18 09:27 IMPRESSION: Gallbladder wall thickening. This may merely be secondary to the nondistention of the gallbladder. Chest X-Ray 08/29/18 00:00 IMPRESSION: Slight improvement in pulmonary edema or atypical pneumonia. Chest/Abdomen CTA 08/29/18 00:00 IMPRESSION: Please see combined report for performance of procedure and radiologic supervision and interpretation. Assessment and Plan - Diagnosis (1) Acute respiratory failure Qualifiers: Respiratory failure complication: hypoxia Qualified Code(s): J96.01 - Acute respiratory failure with hypoxia Is this a current diagnosis for this admission?: Yes Plan: Improving, but Patient is still having significant wheezing and crackles on respiratory examination. 08/29/2018 ABG positive respiratory alkalosis, hypercarbia and hypoxemia. Patient stating she is afraid to take deep breath because it hurts her chest has not been using her incentive spirometer, patient also refusing to set stating that it hurts her back. Also having wheezing on physical examination could be due to her asthma exacerbation. Initially triggered by DKA, metabolic encephalopathy, and pneumonia was extubated on 08/16/2018. Extubated 08/26/2018. Extubation day 6. 08/29/2017 DC IV fluids and gave give 3 dose of albumin, Chest physical therapy. Continue Xopenex to DuoNeb's, BiPAP, IV steroids, Lasix, incentive spirometer. CTA 08/29/2017 negative for PE. 08/31/2018: SBP 113-129, T-max 98.0, pulse 38950, SPO2 91-100% 2 L NC, FiO2 21%. WBC 7.7, hemoglobin 10, platelets 604. 08/29/2018: SBP 97896, T-max 98.3, pulse 7595, RR 12-24, SPO2 99%, FiO2 45% on BiPAP. ABG: pH 7.52, PCO2 56.1, PO2 51.9, FiO2 21%. WBC 9.3, hemoglobin 10.6, platelets 593 08/28/2018. SBP 626891, T-max 97.8, pulse 99078, RR 1726, SPO2 95% 2 L NC FiO2 45%. ABG: pH 7.47, PCO2 48, PO2 65, FiO2 21%. WBC 7.3, hemoglobin 10.4, platelets 481 Sodium 139.7, potassium 3.5, bicarb 37, creatinine 0.24, HBG to 231. Calcium 7.7, magnesium 1.9, albumin 2.3, prealbumin 5.4. 08/23/2018. Sputum culture for MRSA. IV vancomycin 10 days. DC'd on 08/28/2018. 08/21/2017. Urine culture positive for E. coli pansensitive. Day 12 IV cefepime. (2) Bronchial asthma Is this a current diagnosis for this admission?: No Plan: Significant wheezing and crackles on physical examination. Continue DuoNeb's, IV steroids, BiPAP, supplemental oxygen. (3) Acute metabolic encephalopathy Is this a current diagnosis for this admission?: Yes Plan: Resolved. As per number 1. (4) DKA (diabetic ketoacidosis) Qualifiers: Diabetes mellitus type: type 1 Diabetes mellitus complication detail: without coma Qualified Code(s): E10.10 - Type 1 diabetes mellitus with ketoacidosis without coma Is this a current diagnosis for this admission?: Yes Plan: Resolved. (5) Hypokalemia Is this a current diagnosis for this admission?: Yes Plan: Improving. Continue supplemental K. BMP tomorrow. 08/31/2018:Sodium 139, potassium 3.8, bicarb 36, creatinine 0.27, 08/29/2018: Sodium 141, potassium 3.2, bicarb 44, creatinine 0.31. 08/28/2018. Sodium 139.7, potassium 3.5, bicarb 37, creatinine 0.24, calcium 7.7, magnesium 1.9, albumin 2.3, prealbumin 5.4. (6) Pneumonia Is this a current diagnosis for this admission?: Yes Plan: Repeat CT on 08/29/2018 shows persistent pneumonia however WBC within normal limits, afebrile. Received complete course of empiric IV vancomycin and cefepime. Day 12 IV cefepime. 08/31/2018 repeat sputum and blood culture. 08/23/2018. Sputum culture for MRSA. IV vancomycin 10 days. DC'd on 08/28/2018. 08/21/2017. Urine culture positive for E. coli pansensitive. (7) Pulmonary congestion Is this a current diagnosis for this admission?: Yes Plan: As problem #1.
[2018-08-31] MEDS: METHYLPREDNISOLONE INJ 40 MG/1 ML SDV IV SCH ×2 (16:15→22:52)
[2018-09-01] MEDS: IPRATROPIUM/ALBUTEROL 0.5-2.5 MG/3 ML AMPUL NEB SCH ×3 (00:19→08:29)
[2018-09-01] MEDS: POTASSIUM CHLORIDE 20 MEQ PACKET PO SCH (05:11)
[2018-09-01] MEDS: PANTOPRAZOLE SODIUM 40 MG TABLET.DR PO SCH (05:11)
[2018-09-01] MEDS: METHYLPREDNISOLONE INJ 40 MG/1 ML SDV IV SCH ×3 (05:11→22:26)
[2018-09-01 05:44] LABS: ABSOLUTE LYMPHOCYTES (AUTO) 0.9 10^3/uL (0.5-4.7); ABSOLUTE MONOCYTES (AUTO) 0.2 10^3/uL (0.1-1.4); ABSOLUTE NEUT (AUTO) 6.4 10^3/uL (1.7-8.2); BASOPHILS % (AUTO) 0.1 % (0-2); HEMATOCRIT 33.8 % (36.0-47.0); HEMOGLOBIN 11.5 g/dL (12.0-15.5); LYMPHOCYTES % (AUTO) 11.4 % (13-45); MEAN CORPUSCULAR HEMOGLOBIN 31.1 pg (27.0-33.4); MEAN CORPUSCULAR HGB CONC 33.9 g/dL (32.0-36.0); MEAN CORPUSCULAR VOLUME 92 fl (80-97); MONOCYTES % (AUTO) 2.4 % (3-13); PLATELET COUNT 643 10^3/uL (150-450); RED BLOOD COUNT 3.69 10^6/uL (3.72-5.28); RED CELL DISTRIBUTION WIDTH 15.1 % (11.5-14.0); SEGMENTED NEUTROPHILS % (AUTO) 86.1 % (42-78); TOTAL CELLS COUNTED % (AUTO) 100 %; WHITE BLOOD COUNT 7.5 10^3/uL (4.0-10.5)
[2018-09-01 06:11] LABS: ALANINE AMINOTRANSFERASE 12 U/L (9-52); ALKALINE PHOSPHATASE 124 U/L (38-126); ANION GAP 10 (5-19); ASPARTATE AMINO TRANSFERASE 12 U/L (14-36); BILIRUBIN,DIRECT 0.3 mg/dL (0.0-0.4); BILIRUBIN,TOTAL 0.3 mg/dL (0.2-1.3); BLOOD UREA NITROGEN 15 mg/dL (7-20); CALCIUM 9.2 mg/dL (8.4-10.2); CARBON DIOXIDE 30 mmol/L (22-30); CHLORIDE 98 mmol/L (98-107); GLUCOSE 301 mg/dL (75-110); SODIUM 137.8 mmol/L (137-145); TOTAL PROTEIN 6.1 g/dL (6.3-8.2)
[2018-09-01 06:18] LABS: POTASSIUM 5.3 mmol/L (3.6-5.0)
[2018-09-01] MEDS: ONDANSETRON HCL INJ/PF 4 MG/2 ML SDV IV PRN ×2 (08:09→18:29)
[2018-09-01] MEDS: INSULIN LISPRO 100 UNIT/ML 3 ML VIAL SUBCUT SCH ×7 (08:10→22:27)
[2018-09-01] MEDS ORDERED: IPRATROPIUM/ALBUTEROL 0.5-2.5 MG/3 ML AMPUL NEB PRN (08:53)
--- NOTE | 2018-09-01 10:04 | PDOC PROGRESS REPORT ---
Subjective Progress Note for:: 09/01/18 Subjective:: 27-year-old female with past medical history of uncontrolled type 1 diabetes mellitus and recurrent DKA who was brought in because of unresponsiveness. Patient was intubated she was noted to be obtunded upon presentation. She was also noted to be positive for amphetamines on her UDS. She was also not noted to have bilateral pneumonia. She is currently sedated on propofol. Currently saturating well on minimal vent settings at 30% FiO2. She does have dark watery stools from the rectal tube. She did have a fever last night. 08/27/2018. Assumed care today. Status post extubation due to severe DKA. Complaining of feeling weak, congestion, hoarseness otherwise denies any fever, chills, nausea, vomiting, diarrhea, constipation or any urinary symptoms. 08/28/2018. Was found to be tachypneic overnight, ABG was done which showed worsening of hypoxemia, otherwise no acute events, patient is feeling of very congested and short of breath, has been able to tolerate her p.o. meds, her hoarseness is getting better, denies any fever, chills, nausea, vomiting, diarrhea constipation or any urinary symptoms. 08/29/2018. No acute events overnight, and the chemistry patient's noted to have a bicarb of 44, ABG was done which showed worsening of hypoxia with CO2 retention. On my encounter patient is resting in bed in no apparent acute respiratory distress, stating that she still weak, was taking deep breathing because it makes her chest hurt, eyes any fever, chills, nausea, vomiting, diarrhea, constipation or any urinary symptoms. SBP 62468, T-max 98.3, pulse 7595, SPO2 99%, FiO2 45% on BiPAP. ABG: pH 7.52, PCO2 56.1, PO2 51.9, FiO2 21%. WBC 9.3, hemoglobin 10.6, platelets 593, sodium 141, potassium 3.2, bicarb 44, creatinine 0.31. 08/31/2017. No acute events overnight. On my encounter patient is resting comfortably in bed, in no apparent distress, stating that she is feeling much better, denies any fever, chills, nausea, vomiting, diarrhea, constipation or any urinary symptoms. Patient is still not able to tolerate food, speech therapy on board, pending follow-up. SBP 113-129, T-max 98.0, pulse 00460, SPO2 91-100% 2 L NC, FiO2 21%. WBC 7.7, hemoglobin 10, platelets 604, sodium 139, potassium 3.8, bicarb 36, creatinine 0.27, FBG 256. 09/01/2018. No acute events overnight. Significant improvement of her tens, complaining of nausea, has been refusing her breathing treatments and BiPAP. My encounter on room air in no apparent distress, denies any fever, chills, vomiting, diarrhea, constipation or any urinary symptoms. SBP 802975, T-max 98.2, pulse 80s, RR 1618, FiO2 92% 2 L NC RA. WBC 7.5, hemoglobin 11.5, pl atelets 643, sodium 137, potassium 5.3, bicarb 30, creatinine 0.3, FBG 301. Reason For Visit: ACUTE METABOLIC ENCEPHALOPATHY,DKA Physical Exam Vital Signs: Temp Pulse Resp BP Pulse Ox 98.2 F 69 16 125/78 92 09/01/18 03:24 09/01/18 07:00 09/01/18 03:24 09/01/18 03:24 09/01/18 03:24 Intake & Output 08/31/18 09/01/18 09/02/18 06:59 06:59 06:59 Intake Total 438 1030 Output Total 2400 3400 Balance -1962 -2370 Weight 55.3 kg 55.3 kg General appearance: PRESENT: no acute distress, well-developed, well-nourished Head exam: PRESENT: atraumatic, normocephalic Respiratory exam: PRESENT: crackles, rhonchi - RUL, wheezes. ABSENT: rales Cardiovascular exam: PRESENT: RRR. ABSENT: diastolic murmur, rubs, systolic murmur Neurological exam: PRESENT: alert, awake, oriented to person, oriented to place, oriented to time, oriented to situation, CN II-XII grossly intact. ABSENT: motor sensory deficit Results Laboratory Results: 09/01/18 04:30 09/01/18 04:30 09/01/18 09/01/18 04:30 04:30 WBC 7.5 RBC 3.69 L Hgb 11.5 L Hct 33.8 L MCV 92 MCH 31.1 MCHC 33.9 RDW 15.1 H Plt Count 643 H Seg Neutrophils % 86.1 H Lymphocytes % 11.4 L Monocytes % 2.4 L Eosinophils % 0.0 Basophils % 0.1 Absolute Neutrophils 6.4 Absolute Lymphocytes 0.9 Absolute Monocytes 0.2 Absolute Eosinophils 0.0 Absolute Basophils 0.0 Sodium 137.8 Potassium 5.3 H D Chloride 98 Carbon Dioxide 30 Anion Gap 10 BUN 15 Creatinine 0.30 L Est GFR ( Amer) > 60 Est GFR (Non-Af Amer) > 60 Glucose 301 H Calcium 9.2 Magnesium 2.1 Total Bilirubin 0.3 AST 12 L ALT 12 Alkaline Phosphatase 124 Total Protein 6.1 L Albumin 3.0 L 08/23/18 08/23/18 08/23/18 08:55 08:55 15:55 Creatine Kinase 100 60 CK-MB (CK-2) 0.41 Troponin I < 0.012 08/23/18 16:30 Creatine Kinase CK-MB (CK-2) 0.42 Troponin I < 0.012 Impressions: Abdomen Ultrasound 08/24/18 09:27 IMPRESSION: Gallbladder wall thickening. This may merely be secondary to the nondistention of the gallbladder. Chest X-Ray 08/29/18 00:00 IMPRESSION: Slight improvement in pulmonary edema or atypical pneumonia. Chest/Abdomen CTA 08/29/18 00:00 IMPRESSION: Please see combined report for performance of procedure and radiologic supervision and interpretation. Assessment and Plan - Diagnosis (1) Acute respiratory failure Qualifiers: Respiratory failure complication: hypoxia Qualified Code(s): J96.01 - Acute respiratory failure with hypoxia Is this a current diagnosis for this admission?: Yes Plan: Significant improvement but Patient is still having significant wheezing and crackles on respiratory examination. 08/29/2018 ABG positive respiratory alkalosis, hypercarbia and hypoxemia. Has been refusing nebs and BiPAP, stating that she is using her spirometer. Initially triggered by DKA, metabolic encephalopathy, and pneumonia was extubated on 08/16/2018. Extubated 08/26/2018. Extubation day 6. 08/29/2017 DC IV fluids and gave give 3 dose of albumin, Chest physical therapy. Continue Xopenex to DuoNeb's, BiPAP, IV steroids, Lasix, incentive spirometer. CTA 08/29/2017 negative for PE. 09/01/2018: SBP 669619, T-max 98.2, pulse 80s, RR 1618, FiO2 92% 2 L NC RA. WBC 7.5, hemoglobin 11.5, platelets 643 08/31/2018: SBP 113-129, T-max 98.0, pulse 53324, SPO2 91-100% 2 L NC, FiO2 21%. WBC 7.7, hemoglobin 10, platelets 604. 08/29/2018: SBP 50509, T-max 98.3, pulse 7595, RR 12-24, SPO2 99%, FiO2 45% on BiPAP. ABG: pH 7.52, PCO2 56.1, PO2 51.9, FiO2 21%. WBC 9.3, hemoglobin 10.6, platelets 593 08/28/2018. SBP 716785, T-max 97.8, pulse 40376, RR 1726, SPO2 95% 2 L NC FiO2 45%. ABG: pH 7.47, PCO2 48, PO2 65, FiO2 21%. WBC 7.3, hemoglobin 10.4, platelets 481 Sodium 139.7, potassium 3.5, bicarb 37, creatinine 0.24, HBG to 231. Calcium 7.7, magnesium 1.9, albumin 2.3, prealbumin 5.4. 08/23/2018. Sputum culture for MRSA. IV vancomycin 10 days. DC'd on 08/28/2018. 08/21/2017. Urine culture positive for E. coli pansensitive. Day 13 IV cefepime. (2) Diabetes type I Is this a current diagnosis for this admission?: Yes Plan: Uncontrolled. Due to noncompliance. History of recurrent DKA requiring intub ation. A1c 9.8%. 09/01/2018: FBG 301. Diabetic diet, sliding scale insulin, pre-meal insulin, long-acting insulin, diabetic education. Adjust insulin dosage as needed. Patient will need outpatient endocrinology follow-up and possible insulin pump placement. (3) Bronchial asthma Is this a current diagnosis for this admission?: No Plan: Significant wheezing and crackles on physical examination. Continue DuoNeb's, IV steroids, BiPAP, supplemental oxygen. Day 3 of IV steroids. (4) Acute metabolic encephalopathy Is this a current diagnosis for this admission?: Yes Plan: Resolved. As per number 1. (5) DKA (diabetic ketoacidosis) Qualifiers: Diabetes mellitus type: type 1 Diabetes mellitus complication detail: without coma Qualified Code(s): E10.10 - Type 1 diabetes mellitus with ketoacidosis without coma Is this a current diagnosis for this admission?: Yes Plan: Resolved. (6) Hypokalemia Is this a current diagnosis for this admission?: Yes Plan: Resolved. Patient has having hyperkalemia most likely due to supplemental p otassium. 09/01/2018: Sodium 137, potassium 5.3, bicarb 30, creatinine 0.3, FBG 301. 08/31/2018:Sodium 139, potassium 3.8, bicarb 36, creatinine 0.27, 08/29/2018: Sodium 141, potassium 3.2, bicarb 44, creatinine 0.31. 08/28/2018. Sodium 139.7, potassium 3.5, bicarb 37, creatinine 0.24, calcium 7.7, magnesium 1.9, albumin 2.3, prealbumin 5.4. (7) Pneumonia Is this a current diagnosis for this admission?: Yes Plan: Repeat CT on 08/29/2018 shows persistent pneumonia however WBC within normal limits, afebrile. Received complete course of empiric IV vancomycin and cefepime. Day 13 IV cefepime. 08/31/2018 repeat sputum and blood culture. 08/23/2018. Sputum culture for MRSA. IV vancomycin 10 days. DC'd on 08/28/2018. 08/21/2017. Urine culture positive for E. coli pansensitive. (8) Pulmonary congestion Is this a current diagnosis for this admission?: Yes Plan: Improving. As problem #1.
[2018-09-01] MEDS: ENOXAPARIN SODIUM INJ 40 MG/0.4 ML DISP.SYRIN SUBCUT SCH (10:42)
[2018-09-01] MEDS: CEFEPIME 1 GM/D5W RTU 1 GM/50 ML RTUPB IV SCH ×2 (10:43→22:27)
[2018-09-01] MEDS: GUAIFENESIN 600 MG TABLET.SA PO SCH ×2 (10:43→22:26)
[2018-09-01] MEDS: INSULIN GLARGINE,HUM.REC.ANLOG 1,000 UNIT/10 ML VIAL SUBCUT SCH (10:47)
[2018-09-01] MEDS ORDERED: PROMETHAZINE HCL INJ 25 MG/1 ML VIAL IV PRN (13:00)
[2018-09-01] MEDS ORDERED: METOCLOPRAMIDE HCL 10 MG TABLET PO SCH (17:00)
[2018-09-01] MEDS ORDERED: METOCLOPRAMIDE HCL INJ/PF 10 MG/2 ML SDV ONE (18:36)
[2018-09-01] MEDS: METOCLOPRAMIDE HCL INJ/PF 10 MG/2 ML SDV IV SCH ×2 (18:48→22:39)
[2018-09-02] MEDS: METHYLPREDNISOLONE INJ 40 MG/1 ML SDV IV SCH (05:35)
[2018-09-02] MEDS: PANTOPRAZOLE SODIUM 40 MG TABLET.DR PO SCH (05:37)
[2018-09-02] MEDS ORDERED: INSULIN GLARGINE,HUM.REC.ANLOG 1,000 UNIT/10 ML VIAL SUBCUT SCH (08:00)
[2018-09-02] MEDS: METOCLOPRAMIDE HCL INJ/PF 10 MG/2 ML SDV IV SCH (08:34)
[2018-09-02] MEDS: INSULIN LISPRO 100 UNIT/ML 3 ML VIAL SUBCUT SCH ×4 (08:38→11:36)
[2018-09-02] MEDS: GUAIFENESIN 600 MG TABLET.SA PO SCH (10:10)
[2018-09-02] MEDS: ENOXAPARIN SODIUM INJ 40 MG/0.4 ML DISP.SYRIN SUBCUT SCH (10:12)
[2018-09-02] MEDS: CEFEPIME 1 GM/D5W RTU 1 GM/50 ML RTUPB IV SCH (10:13)
[2018-09-02 10:52] LABS: ANION GAP 10 (5-19); BLOOD UREA NITROGEN 19 mg/dL (7-20); CALCIUM 9.3 mg/dL (8.4-10.2); CARBON DIOXIDE 28 mmol/L (22-30); CHLORIDE 97 mmol/L (98-107); GLUCOSE 339 mg/dL (75-110); POTASSIUM 4.4 mmol/L (3.6-5.0); SODIUM 135.3 mmol/L (137-145)
[2018-09-02 13:05] VITALS: BP 119/71
[2018-09-03] MEDS ORDERED: INSULIN GLARGINE,HUM.REC.ANLOG 1,000 UNIT/10 ML VIAL SUBCUT SCH (08:00)
--- NOTE | 2018-09-06 16:43 | PDOC DISCHARGE SUMMARY ---
General - Admit/Disc Date/PCP Admission Date/Primary Care Provider: 08/16/18 08:16 Discharge Date: 09/02/18 - Discharge Diagnosis (1) Acute respiratory failure Is this a current diagnosis for this admission?: Yes (2) Diabetes type I Is this a current diagnosis for this admission?: Yes (3) Bronchial asthma Is this a current diagnosis for this admission?: No (4) Acute metabolic encephalopathy Is this a current diagnosis for this admission?: Yes (5) DKA (diabetic ketoacidosis) Is this a current diagnosis for this admission?: Yes (6) Hypokalemia Is this a current diagnosis for this admission?: Yes (7) Pneumonia Is this a current diagnosis for this admission?: Yes (8) Pulmonary congestion Is this a current diagnosis for this admission?: Yes - Additional Information Resuscitation Status: Full Code Discharge Diet: As Tolerated, Regular, Diabetic Discharge Activity: Activity As Tolerated, Balance Activity w/Rest, Slowly Increase Activity, Walk Frequently Prescriptions: Guaifenesin [Mucinex Sr 600 mg Tablet.sa] 1,200 mg PO Q12 3 Days #6 tablet.sa Insulin Glargine,Hum.rec.anlog [Lantus Insulin 100 Unit/1 ml 10 ml] 35 unit SUBCUT QHS 30 Days #5 unit MDD NEVER PICKED UP Insulin Aspart [Novolog Flexpen] 15 unit SUBCUT AC 30 Days #5 insuln.pen Insulin Aspart [Novolog Flexpen] 0 unit SUBCUT .SLD SCALE 30 Days #1 pen Metoclopramide HCl [Reglan] 5 mg PO AC 4 Days #12 tablet Ondansetron HCl [Zofran 4 mg Tablet] 1 tab PO Q4H PRN 4 Days #12 tablet PRN Reason: Pantoprazole Sodium 40 mg PO DAILY 7 Days #7 tablet. Pantoprazole Sodium [Protonix [address] Tablet] 40 mg PO Q6AM 6 Days #6 tablet. Prednisone [Deltasone 20 mg Tablet] 40 mg PO DAILY 3 Days #6 tablet Home Medications: Guaifenesin [Mucinex Sr 600 mg Tablet.sa] 1,200 mg PO Q12 3 Days #6 tablet.sa 09/02/18 Insulin Aspart [Novolog Flexpen] 0 unit SUBCUT .SLD SCALE 30 Days #1 pen 09/02/18 Insulin Aspart [Novolog Flexpen] 15 unit SUBCUT AC 30 Days #5 insuln.pen 09/02/18 Insulin Glargine,Hum.rec.anlog [Lantus Insulin 100 Unit/1 ml 10 ml] 35 unit SUBCUT QHS 30 Days #5 unit MDD NEVER PICKED UP 09/02/18 Metoclopramide HCl [Reglan] 5 mg PO AC 4 Days #12 tablet 09/02/18 Ondansetron HCl [Zofran 4 mg Tablet] 1 tab PO Q4H PRN 4 Days #12 tablet 09/02/18 Pantoprazole Sodium 40 mg PO DAILY 7 Days #7 tablet. 09/02/18 Pantoprazole Sodium [Protonix [address] Tablet] 40 mg PO Q6AM 6 Days #6 tablet. 09/02/18 Prednisone [Deltasone 20 mg Tablet] 40 mg PO DAILY 3 Days #6 tablet 09/02/18 History of Present Illness History of Present Illness: 27-year-old female with past medical history of uncontrolled type 1 diabetes mellitus and recurrent DKA who was brought in because of unresponsiveness. Patient was intubated she was noted to be obtunded upon presentation. She was also noted to be positive for amphetamines on her UDS. She was also not noted to have bilateral pneumonia. She is currently sedated on propofol. Currently saturating well on minimal vent settings at 30% FiO2. She does have dark watery stools from the rectal tube. She did have a fever last night. Hospital Course Hospital Course: (1) Acute respiratory failure Initially triggered by DKA, metabolic encephalopathy, and pneumonia. Intubated 08/16/2018 and extubated 08/26/2018. Extubation day 7. Significant improvement before discharge. Lung examination clear bilaterally on auscultation. Continued Xopenex to DuoNeb's, BiPAP, IV steroids, Lasix, incentive spirometer. Pt was consulted and they recommneded home PT, but as per discharge planners pt was not a resident of [place] and did not qualify for it. Pt was taken home by her mother. Please refer to note. 08/29/2018 ABG positive respiratory alkalosis, hypercarbia and hypoxemia. But she has been refusing nebs and BiPAP, stating that she is using her spirometer. 08/29/2017 DC IV fluids and gave give 3 dose of albumin, Chest physical therapy. CTA 08/29/2017 negative for PE. 09/01/2018: SBP 967413, T-max 98.2, pulse 80s, RR 1618, FiO2 92% 2 L NC RA. WBC 7.5, hemoglobin 11.5, platelets 643 08/31/2018: SBP 113-129, T-max 98.0, pulse 17834, SPO2 91-100% 2 L NC, FiO2 21%. WBC 7.7, hemoglobin 10, platelets 604. 08/29/2018: SBP 19880, T-max 98.3, pulse 7595, RR 12-24, SPO2 99%, FiO2 45% on BiPAP. ABG: pH 7.52, PCO2 56.1, PO2 51.9, FiO2 21%. WBC 9.3, hemoglobin 10.6, platelets 593 08/28/2018. SBP 664005, T-max 97.8, pulse 00090, RR 1726, SPO2 95% 2 L NC FiO2 45%. ABG: pH 7.47, PCO2 48, PO2 65, FiO2 21%. WBC 7.3, hemoglobin 10.4, platelets 481 Sodium 139.7, potassium 3.5, bicarb 37, creatinine 0.24, HBG to 231. Calcium 7.7, magnesium 1.9, albumin 2.3, prealbumin 5.4. 08/23/2018. Sputum culture for MRSA. IV vancomycin 10 days. DC'd on 08/28/2018. Received 14 days of IV cefepime. 08/21/2017. Urine culture positive for E. coli pansensitive. (2) Diabetes type I Uncontrolled. Due to noncompliance. History of recurrent DKA requiring intubation. A1c 9.8%. Was started on diabetic diet, sliding scale insulin, pre-meal insulin, long- acting insulin, diabetic education. Insulin doses adjusted as needed. Patient is not a [place] resident with PCP in [place]. As per town planner they could not PCP. An appointment was made for her to see third rail installer XENA Oakley 09/10/2017 at 1 PM. Patient will need outpatient endocrinology follow-up and possible insulin pump placement. (3) Bronchial asthma Significant wheezing and crackles on physical examination being started on IV steroids. Continue DuoNeb's, IV steroids, BiPAP, supplemental oxygen. She refused BiPAP. She received 4 days of IV steroids and was switched to p.o. prednisone 40 mg on the day of discharge. To complete total of 7 days. (4) Acute metabolic encephalopathy Resolved. As per number 1. (5) DKA (diabetic ketoacidosis) Resolved. Initially started on DKA protocol and subsequently subcutaneous insulin. (6) Hypokalemia Resolved. Started on supplemental oxygen. Potassium 4.4 on the day of discharge. 09/01/2018: Sodium 137, potassium 5.3, bicarb 30, creatinine 0.3, 08/31/2018:Sodium 139, potassium 3.8, bicarb 36, creatinine 0.27, 08/29/2018: Sodium 141, potassium 3.2, bicarb 44, creatinine 0.31. 08/28/2018. Sodium 139.7, potassium 3.5, bicarb 37, creatinine 0.24, calcium 7.7, magnesium 1.9, albumin 2.3, prealbumin 5.4. (7) Pneumonia Resolved. Sputum culture positive for MRSA. Blood cultures remained negative. Repeat CT on 08/29/2018 shows persistent pneumonia however WBC within normal limits, afebrile. Received 10 days of IV vancomycin and 14 days of IV cefepime. 08/31/2018 Repeat sputum and blood culture. 08/23/2018. Sputum culture for MRSA. IV vancomycin 10 days. DC'd on 08/28/2018. 08/21/2017. Urine culture positive for E. coli pansensitive. (8) Pulmonary congestion Improved. Clear on chest examination. Was started on Lasix. Physical Exam Vital Signs: Temp Pulse Resp BP Pulse Ox 98.0 F 89 16 119/71 96 09/02/18 12:57 09/02/18 14:00 09/02/18 12:57 09/02/18 12:57 09/02/18 12:57 General appearance: PRESENT: no acute distress, well-developed, well-nourished Head exam: PRESENT: atraumatic, normocephalic Respiratory exam: PRESENT: clear to auscultation george. ABSENT: rales, rhonchi, wheezes Cardiovascular exam: PRESENT: RRR. ABSENT: diastolic murmur, rubs, systolic murmur GI/Abdominal exam: PRESENT: normal bowel sounds, soft. ABSENT: distended, guarding, mass, organolmegaly, rebound, tenderness Extremities exam: PRESENT: full ROM. ABSENT: calf tenderness, clubbing, pedal edema Neurological exam: PRESENT: alert, awake, oriented to person, oriented to place, oriented to time, oriented to situation, CN II-XII grossly intact. ABSENT: motor sensory deficit Skin exam: PRESENT: dry, intact, warm. ABSENT: cyanosis, rash Results Laboratory Results: 09/01/18 04:30 09/02/18 10:00 08/23/18 08/23/18 08/23/18 08:55 08:55 15:55 Creatine Kinase 100 60 CK-MB (CK-2) 0.41 Troponin I < 0.012 08/23/18 16:30 Creatine Kinase CK-MB (CK-2) 0.42 Troponin I < 0.012 Impressions: Abdomen Ultrasound 08/24/18 09:27 IMPRESSION: Gallbladder wall thickening. This may merely be secondary to the nondistention of the gallbladder. Chest X-Ray 08/29/18 00:00 IMPRESSION: Slight improvement in pulmonary edema or atypical pneumonia. Chest/Abdomen CTA 08/29/18 00:00 IMPRESSION: Please see combined report for performance of procedure and radiologic supervision and interpretation. Qualifiers - * PATIENT BEING DISCHARGED WITH ANY OF THE FOLLOWING DIAGNOSIS: No Acute Heart Failure - Is this a Heart Failure Patient?: No LVEF < 40%?: No- if no continue to question #3
== END 2018-09-02 14:20 | disposition home or self-care (01) | DRG 637 ==
LOC: ER 04:20 → EH 08:16 → ICU 09:23 → 4N 08-26 16:03
PROVIDERS: ADMIT Internal Medicine; ATTEND Internal Medicine
PROC: 5A1955Z Respiratory Ventilation, Greater than 96 Consecutive Hours (ICD-10-PCS; principal; 2018-08-16)
PROC: 0BH17EZ Insertion of Endotracheal Airway into Trachea, Via Natural or Artificial Opening (ICD-10-PCS; 2018-08-16)
PROC: 0DH673Z Insertion of Infusion Device into Stomach, Via Natural or Artificial Opening (ICD-10-PCS; 2018-08-16)
PROC: 30233N1 Transfusion of Nonautologous Red Blood Cells into Peripheral Vein, Percutaneous Approach (ICD-10-PCS; 2018-08-23)
DX: E10.11 Type 1 diabetes mellitus with ketoacidosis with coma (principal); J18.1 Lobar pneumonia, unspecified organism; J96.01 Acute respiratory failure with hypoxia; G93.41 Metabolic encephalopathy; N17.9 Acute kidney failure, unspecified; E87.0 Hyperosmolality and hypernatremia; N30.00 Acute cystitis without hematuria; F15.20 Other stimulant dependence, uncomplicated; D64.9 Anemia, unspecified; E87.6 Hypokalemia; J45.909 Unspecified asthma, uncomplicated; B96.20 Unspecified Escherichia coli [E. coli] as the cause of diseases classified elsewhere; B95.62 Methicillin resistant Staphylococcus aureus infection as the cause of diseases classified elsewhere; B96.89 Other specified bacterial agents as the cause of diseases classified elsewhere; R68.0 Hypothermia, not associated with low environmental temperature; F19.10 Other psychoactive substance abuse, uncomplicated; F17.210 Nicotine dependence, cigarettes, uncomplicated; Z78.1 Physical restraint status; Z79.4 Long term (current) use of insulin; Z91.14 Patient's other noncompliance with medication regimen
CPT/HCPCS: 36415; 36430; 36600; 71045; 71275; 76705; 80048; 80053; 80202; 80307; 81001; 81025; 82040; 82272; 82550; 82553; 82607; 82728; 82746; 82803; 82962; 83540; 83550; 83605; 83735; 84100; 84132; 84134; 84484; 84703; 85025; 85027; 85045; 85379; 86701; 86850; 86900; 86901; 86920; 87040; 87070; 87077; 87086; 87088; 87186; 87205; 87493; 93005; 93010; 93306; 94002; 94003; 94640; 94660; 94667; 94799; 96360; 96361; 99291; B4155; C1751; J0295; J0692; J1100; J1642; J1650; J1720; J1815; J1885; J1940; J2060; J2250; J2370; J2405; J2550; J2704; J2765; J2920; J3010; J3370; J3475; J3480; J3490; J7030; J7050; J7060; J7120; J7614; J7620; P9016; P9047; S0164

== ENCOUNTER 2019-10-03 20:57 | Inpatient (IN) | payer SELFPAY ==
[2019-10-03] MEDS ORDERED: PROCHLORPERAZINE EDISYLATE INJ 10 MG/2 ML VIAL IV ONE (21:28)
--- NOTE | 2019-10-03 21:36 | ER Document Report ---
ED General - General Stated Complaint: SHORTNESS OF BREATH,HEADACHE,VOMITING Time Seen by Provider: 10/03/19 21:11 Mode of Arrival: Medic Information source: Patient, Emergency Med Personnel Notes: 28-year-old female arrives by EMS from a motel room here in [place]. Patient has a history of encephalopathy and DKA. EMS reports they were called to her room because of uncontrolled vomiting and sensorium changes. Patient has a history of diabetes and has a 300+ fingerstick blood sugar. EMS started a line in her left forearm. She received 500 bolus of saline prior to my seeing the patient at 2120. Patient reports she was inhaling some brown liquid prior to her vomiting for the entire day. She is vomiting black mucoid emesis contents without any blood streaks. She complains of abdominal pain pointing to her left upper quadrant abdomen. She denies any black stools or bloody stools. She denies any trauma or abuse. She denies any vaginal discharge or . She lives in [place] on her mother reported to staff that she has not heard from her daughter for least 2 days. EMS reports her heart rate was in the +200 range but was 147 on my exam at 2120. Robinson RN is also in attendance with this patient. Patient is awake and oriented and advises she has had DKA in the past and needs something for her nausea. She reports" she has been vomiting all day." TRAVEL OUTSIDE OF THE [place] IN LAST 30 DAYS: No - HPI Onset: This morning Onset/Duration: Persistent Quality of pain: Achy Severity: Mild Pain Level: 1 - The one who is what room is is saw him is Associated symptoms: Nausea, Vomiting, Weakness Similar symptoms previously: Yes Recently seen / treated by doctor: No - Related Data Allergies/Adverse Reactions: No Known Allergies Allergy (Verified 08/16/18 07:37) Past Medical History - General Information source: Patient, Emergency Med Personnel - Social History Smoking Status: Current Every Day Smoker Cigarette use (# per day): Yes Chew tobacco use (# tins/day): No Smoking Education Provided: Yes Frequency of alcohol use: Occasional Drug Abuse: Other Lives with: Family Family History: Reviewed & Not Pertinent, DM, Other - unknown Patient has suicidal ideation: No Patient has homicidal ideation: No Pulmonary Medical History: Reports: Hx Asthma Endocrine Medical History: Reports: Hx Diabetes Mellitus Type 1 Renal/ Medical History: Denies: Hx Peritoneal Dialysis Traumatic Medical History: Denies: Hx Gunshot Wound Infectious Medical History: Denies: Hx MRSA - Immunizations Hx Diphtheria, Pertussis, Tetanus Vaccination: Yes Hx Pneumococcal Vaccination: 10/23/11 Review of Systems - Review of Systems Constitutional: No symptoms reported, Malaise, Weakness EENT: No symptoms reported, Other - dry mm mouth and black tongue and black emesis contents in emesis bag Cardiovascular: No symptoms reported Respiratory: No symptoms reported Gastrointestinal: No symptoms reported Genitourinary: No symptoms reported Female Genitourinary: No symptoms reported Musculoskeletal: No symptoms reported Skin: No symptoms reported Hematologic/Lymphatic: No symptoms reported Neurological/Psychological: No symptoms reported Physical Exam - Vital signs Vitals: Temp 98.3 F 10/03/19 20:57 Interpretation: Tachycardic - General General appearance: Other - sleepy but easily awakened - HEENT Head: Normocephalic, Atraumatic Eyes: Normal Pupils: PERRL Sinus: Normal Nasal: Normal Mucous membranes: Dry, Other - black tongue Pharynx: Normal Neck: Normal - Respiratory Respiratory status: Tachypnea Chest status: Nontender Breath sounds: Normal Chest palpation: Normal - Cardiovascular Rhythm: Tachycardia Heart sounds: Normal auscultation Murmur: No - Abdominal Inspection: Normal Distension: No distension Bowel sounds: Normal Tenderness: Nontender Organomegaly: No organomegaly - Rectal Tenderness: No Stool: Heme negative - at 0030 - Genitourinary External exam: Normal - Back Back: Nontender - Extremities General upper extremity: Normal inspection, Nontender, Normal color, Normal ROM, Normal temperature General lower extremity: Normal inspection, Nontender, Normal color, Normal ROM, Normal temperature, Normal weight bearing. No: Jayme's sign - Neurological Neuro grossly intact: Yes Cognition: Other - sleepy but easily awakened Orientation: AAOx4 [place] Coma Scale Eye Opening: Spontaneous Gabriel Coma Scale Verbal: Oriented [place] Coma Scale Motor: Obeys Commands [place] Coma Scale Total: 15 Speech: Normal Motor strength normal: LUE, RUE, LLE, RLE Sensory: Normal - Psychological Associated symptoms: Flat affect - Skin Skin Temperature: Cool Skin Moisture: Dry Course - Vital Signs Vital signs: Temp Pulse Resp BP Pulse Ox 98.3 F 22 H 97/52 L 100 10/03/19 20:57 10/04/19 03:01 10/04/19 03:01 10/04/19 00:42 - Laboratory Result Diagrams: 10/03/19 23:17 10/03/19 23:17 Laboratory results interpreted by me: 10/03/19 10/03/19 10/03/19 21:23 23:17 23:17 WBC 21.1 H RBC 5.50 H Hgb 16.0 H Hct 48.6 H RDW 18.5 H Seg Neuts % (Manual) 86 H Lymphocytes % (Manual) 9 L Monocytes % (Manual) 1 L Metamyelocytes % 2 H Abs Neuts (Manual) 18.6 H Sodium 146.5 H Potassium 5.3 H Carbon Dioxide 11 L Anion Gap 29 H BUN 48 H Creatinine 2.36 H Est GFR ( Amer) 30 L Est GFR (MDRD) Non-Af 25 L Glucose 342 H POC Glucose 377 H Lactic Acid Calcium 11.2 H Alkaline Phosphatase 145 H Total Protein 9.0 H Albumin 5.4 H Acetaminophen < 10 L 10/03/19 23:17 WBC RBC Hgb Hct RDW Seg Neuts % (Manual) Lymphocytes % (Manual) Monocytes % (Manual) Metamyelocytes % Abs Neuts (Manual) Sodium Potassium Carbon Dioxide Anion Gap BUN Creatinine Est GFR ( Amer) Est GFR (MDRD) Non-Af Glucose POC Glucose Lactic Acid 3.1 H Calcium Alkaline Phosphatase Total Protein Albumin Acetaminophen - Diagnostic Test Radiology reviewed: Reports reviewed Critical Care Note - Critical Care Note Total time excluding time spent on procedures (mins): 60 Comments: CAR ICER Last Prasad felled seam operator chainstitch who will see pt in ER. She reports patient may have used some narcotic like a #[place] black fashion. At 0 415 Jhonny MCKENNA found patient had a positive gastric cold. She was given Protonix Pepcid iv and Carafate via the NG. Also repeat H&H was done. Discharge - Discharge Clinical Impression: Need for intravenous access, Vomiting, Gastroparesis diabeticorum, GI bleed DKA (diabetic ketoacidosis) Qualifiers: Diabetes mellitus type: type 1 Diabetes mellitus complication detail: without coma Qualified Code(s): E10.10 - Type 1 diabetes mellitus with ketoacidosis without coma Leukocytosis Qualifiers: Leukocytosis type: unspecified Qualified Code(s): D72.829 - Elevated white blood cell count, unspecified Condition: Serious Disposition: ADMITTED INPATIENT Admitting Provider: Last Prasad NP felled seam operator chainstitch Unit Admitted: ICU
[2019-10-03] MEDS: NORMAL SALINE 1000 ML 1,000 ML IV PRN (22:01)
--- NOTE | 2019-10-03 22:44 | RADIOLOGY REPORT (SQ) ---
XR CHEST 1 VIEW HISTORY: Tachycardia. COMPARISON: 08/29/2018 FINDINGS: The heart size is within normal limits. There is no pulmonary vascular congestion. No consolidation, pleural effusion, or pneumothorax is seen. The bony structures are preserved. IMPRESSION: No evidence of acute cardiopulmonary disease.
--- NOTE | 2019-10-03 22:49 | RADIOLOGY REPORT (SQ) ---
XR ABDOMEN 1 VIEW (KUB) HISTORY: Abdominal pain & vomiting. COMPARISON: None. FINDINGS: There is a nonobstructive bowel gas pattern. No evidence of pneumoperitoneum. No radiopaque urinary stones are seen. The visualized lungs are clear. IMPRESSION: Unremarkable bowel gas pattern.
[2019-10-03 23:37] LABS: HEMATOCRIT 48.6 % (36.0-47.0); MEAN CORPUSCULAR HGB CONC 32.8 g/dL (32.0-36.0); MEAN CORPUSCULAR VOLUME 88 fl (80-97); PLATELET COUNT 428 10^3/uL (150-450); RED CELL DISTRIBUTION WIDTH 18.5 % (11.5-14.0); WHITE BLOOD COUNT 21.1 10^3/uL (4.0-10.5)
[2019-10-03] MEDS ORDERED: HYDROCODONE/ACETAMINOPHEN 5-325 MG (6 TAB/ER DISP) PO PRN (23:56)
[2019-10-04 00:01] LABS: ALBUMIN 5.4 g/dL (3.5-5.0); ALKALINE PHOSPHATASE 145 U/L (38-126); ASPARTATE AMINO TRANSFERASE 16 U/L (14-36); BILIRUBIN,DIRECT 0.3 mg/dL (0.0-0.4); BILIRUBIN,TOTAL 1.2 mg/dL (0.2-1.3); BLOOD UREA NITROGEN 48 mg/dL (7-20); CALCIUM 11.2 mg/dL (8.4-10.2); CARBON DIOXIDE 11 mmol/L (22-30); CHLORIDE 107 mmol/L (98-107); CREATINE KINASE 75 U/L (30-135); GLUCOSE 342 mg/dL (75-110); POTASSIUM 5.3 mmol/L (3.6-5.0)
[2019-10-04 00:06] LABS: ACETAMINOPHEN < 10 ug/mL (10-30); ALCOHOL < 10 mg/dL (NONE DETECTED); ANION GAP 29 (5-19)
[2019-10-04 00:17] LABS: ABSOLUTE LYMPHOCYTES# (MANUAL) 2.3 10^3/uL (0.5-4.7); ABSOLUTE MONOCYTES # (MANUAL) 0.2 10^3/uL (0.1-1.4); BASOPHILS % (MANUAL) 0 % (0-2); EOSINOPHILS % (MANUAL) 0 % (0-6); LYMPHOCYTES % (MANUAL) 9 % (13-45); MONOCYTES % (MANUAL) 1 % (3-13); SEGMENTED NEUTROPHILS % (MAN) 86 % (42-78); TOTAL CELLS COUNTED 100
[2019-10-04 00:20] LABS: ANISOCYTOSIS 1+; OVALOCYTES SLIGHT; PLATELET COMMENT ADEQUATE; POIKILOCYTOSIS SLIGHT; TEAR DROP CELLS SLIGHT
[2019-10-04 00:21] LABS: METAMYELOCYTES % (MANUAL) 2 % (0-1)
[2019-10-04] MEDS: NORMAL SALINE 1000 ML 1,000 ML IV PRN ×3 (01:30→08:03)
[2019-10-04 01:32] LABS: APPEARANCE,URINE SLIGHTLY-CLOUDY; BILIRUBIN,URINE NEGATIVE (NEGATIVE); COLOR,URINE YELLOW; GLUCOSE, URINE >=500 mg/dL (NEGATIVE); KETONES,URINE 20 mg/dL (NEGATIVE); LEUKOCYTE ESTERASE,URINE NEGATIVE (NEGATIVE); NITRITE,URINE NEGATIVE (NEGATIVE); PROTEIN,URINE 100 mg/dL (NEGATIVE); URINE SPECIFIC GRAVITY 1.015; UROBILINOGEN,URINE NEGATIVE mg/dL (<2.0)
[2019-10-04 01:51] LABS: URINE BARBITURATES SCREEN NEGATIVE; URINE BENZODIAZEPINES SCREEN NEGATIVE; URINE COCAINE SCREEN NEGATIVE; URINE MARIJUANA (THC) SCREEN NEGATIVE; URINE METHADONE SCREEN NEGATIVE; URINE PHENCYCLIDINE SCREEN NEGATIVE
[2019-10-04 01:53] LABS: ARTERIAL BLOOD BASE EXCESS -15.4 mmol/L; ARTERIAL BLOOD FIO2 ROOM AIR; ARTERIAL BLOOD H2CO3 0.48 mmol/L (1.05-1.35); ARTERIAL BLOOD O2 SATURATION 98.1 % (94-98); ARTERIAL BLOOD PH 7.32 (7.35-7.45); ARTERIAL BLOOD PO2 116.3 mmHg (80-100); ARTERIAL BLOOD TOTAL CO2 8.5 mmol/L (21-25)
[2019-10-04 01:56] LABS: ARTERIAL BLOOD PCO2 15.8 mmHg (35-45)
--- NOTE | 2019-10-04 03:13 | RADIOLOGY REPORT (SQ) ---
CLINICAL INDICATION: VERIFY NG TUBE PLACEMENT . TECHNIQUE: A single portable AP view was obtained of the chest at 0255 hours. COMPARISON: October 03, 2019. FINDINGS: The cardiomediastinal silhouette is prominent. The lungs definite progressive bibasilar interstitial prominence. No evidence of effusion or pneumothorax. Nasogastric tube tip and sidehole are not seen but occluded below the diaphragm. IMPRESSION: Satisfactory placement of nasogastric tube. Mild progressive interstitial prominence at the bases.
[2019-10-04] MEDS ORDERED: DEXTROSE 50%-WATER 25 GM/50 ML DISP.SYRIN IV PRN ×2 (03:29)
[2019-10-04] MEDS ORDERED: GLUCAGON,HUMAN RECOMB 1 MG INJ SUBCUT PRN (03:29)
[2019-10-04] MEDS ORDERED: DEXTROSE 40% GEL 15 GM TUBE PO PRN ×3 (03:29→17:21)
[2019-10-04] MEDS ORDERED: FAMOTIDINE INJ/PF 20 MG/2 ML SDV IV ONE (04:25)
[2019-10-04] MEDS ORDERED: PANTOPRAZOLE SODIUM 40 MG VIAL IV ONE (04:26)
[2019-10-04] MEDS ORDERED: SUCRALFATE 1 GM TABLET NG ONE (04:26)
[2019-10-04 04:43] LABS: ARTERIAL BLOOD BASE EXCESS -11.8 mmol/L; ARTERIAL BLOOD FIO2 ROOM AIR; ARTERIAL BLOOD H2CO3 0.68 mmol/L (1.05-1.35); ARTERIAL BLOOD HCO3 11.9 mmol/L (20-24); ARTERIAL BLOOD O2 SATURATION 97.7 % (94-98); ARTERIAL BLOOD PCO2 22.6 mmHg (35-45); ARTERIAL BLOOD PH 7.34 (7.35-7.45); ARTERIAL BLOOD PO2 104.8 mmHg (80-100); ARTERIAL BLOOD TOTAL CO2 12.6 mmol/L (21-25)
--- NOTE | 2019-10-04 04:44 | CRITICAL CARE ADMISSION REPORT ---
HPI Date:: 10/04/19 Time:: 03:55 Reason for ICU Reason:: altered mental status, Unknown drug ingestion Admission Date/Time & PCP: Admission Date/Time: 10/04/19 01:07 Primary Care Provider: HPI: Donna Ivy is a 28-year-old female with a known history of type 1 diabetes, DKA, and methamphetamine abuse. She presented to the ED via EMS from the [facility], with lethargy and vomiting. It is unclear who called EMS. Upon their arrival to the [facility] the patient was lethargic and vomiting of black emesis and IV was started in her left forearm and she received 500 cc bolus of normal saline. Upon arrival to the ED she continued vomiting and was given 10 mg of Compazine at which time she became obtunded. Her labs revealed a leukocytosis with a white count of 21.1 hemoglobin 16 hematocrit 48.6 she is n ormally baseline anemic, sodium 146 potassium 5.3 anion gap of 29 BUN 48 creatinine 2.36 [id number] glucose was 377, lactic acid 3.1 given 1 L normal saline bolus. ABG revealed a pH of 7.32 PCO2 15.8 PO2 116 bicarb 8.0. Urine drug screen was positive for amphetamines. When I saw Donna in the ED she was drowsy but able to answer my questions she states that she inhaled as well as ingested a melted down substance that she does not know what was in it. She denies any IV heroin use. While I was at the bedside she began to vomit a dark black emesis it was Hemoccult negative. CORINNE performed Hemoccult negative. She did complain of left lower quadrant abdominal pain on palpation. She was tachycardic at 160 and tachypneic. She had a irregular motor movement which resembled tardive dyskinesia unknown if this is from methamphetamine use or Compazine. I have asked for a rapid COVID test to be done and a stat CT of the abdomen as I am concerned for intestinal ischemia that can be seen with methamphetamine toxicity and given her black emesis as well as elevated lactate. Chest x-ray revealed bilateral lobe opacities concerning for aspiration. She will be admitted to the ICU for further management. - Diagnosis/Plan (1) DKA (diabetic ketoacidoses) Qualifiers: Diabetes mellitus type: type 1 Diabetes mellitus complication detail: without coma Qualified Code(s): E10.10 - Type 1 diabetes mellitus with ketoacidosis without coma Is this a current diagnosis for this admission?: Yes Plan: Continue volume resuscitation We will recheck blood sugar as this was not done in the ED last blood sugar seen was 311 no insulin has been given. We will await blood glucose results and order insulin accordingly. (2) Leukocytosis Qualifiers: Leukocytosis type: unspecified Qualified Code(s): D72.829 - Elevated white blood cell count, unspecified Is this a current diagnosis for this admission?: Yes Plan: WBC 21.1 with a left shift Blood cultures x2 ordered Will start Zosyn and vancomycin for presumed aspiration pneumonia (3) Acute kidney injury Is this a current diagnosis for this admission?: Yes Plan: Most likely secondary to dehydration we will continue volume resuscitation Recheck BMP Past Medical History Pulmonary Medical History: Reports: Asthma Endocrine Medical History: Reports: Diabetes Mellitus Type 1 Traumatic Medical History: Denies: Gunshot Wound Hematology: Denies: Sickle Cell Disease Infectious Medical History: Denies: Methicillin-Resistant Staph Aureus Social/Family History - Social History Lives with: Family Smoking Status: Current Every Day Smoker Frequency of Alcohol Use: None Hx Recreational Drug Use: Yes - mother states no longer uses drugs Drugs: Marijuana, Other - Methamphetamine Hx Prescription Drug Abuse: No - Medication/Allergies Home Medications: Guaifenesin [Mucinex Sr 600 mg Tablet.sa] 1,200 mg PO Q12 3 Days #6 tablet.sa 09/02/18 Insulin Aspart [Novolog Flexpen] 0 unit SUBCUT .SLD SCALE 30 Days #1 pen 09/02/18 Insulin Aspart [Novolog Flexpen] 15 unit SUBCUT AC 30 Days #5 insuln.pen 09/02/18 Insulin Glargine,Hum.rec.anlog [Lantus Insulin 100 Unit/1 ml 10 ml] 35 unit SUBCUT QHS 30 Days #5 unit MDD NEVER PICKED UP 09/02/18 Metoclopramide HCl [Reglan] 5 mg PO AC 4 Days #12 tablet 09/02/18 Ondansetron HCl [Zofran 4 mg Tablet] 1 tab PO Q4H PRN 4 Days #12 tablet 09/02/18 Pantoprazole Sodium 40 mg PO DAILY 7 Days #7 tablet.dr 09/02/18 Pantoprazole Sodium [Protonix [address] Tablet] 40 mg PO Q6AM 6 Days #6 tablet. 09/02/18 Prednisone [Deltasone 20 mg Tablet] 40 mg PO DAILY 3 Days #6 tablet 09/02/18 Allergies/Adverse Reactions: No Known Allergies Allergy (Verified 08/16/18 07:37) Review of Systems ROS unobtainable: Due to mental status Physical Exam Vital Signs: Temp Pulse Resp BP Pulse Ox 98.3 F 22 H 97/52 L 100 10/03/19 20:57 10/04/19 03:01 10/04/19 03:01 10/04/19 00:42 Intake & Output 10/02/19 10/03/19 10/04/19 06:59 06:59 06:59 Intake Total 1000 Balance 1000 Weight 62.1 kg Weight/Height Weight 62.1 kg Height 5 ft 2 in General appearance: PRESENT: disheveled, thin Head exam: PRESENT: atraumatic, normocephalic Eye exam: PRESENT: PERRLA Mouth exam: PRESENT: moist, tongue midline Teeth exam: PRESENT: dental caries, poor dentation Neck exam: PRESENT: full ROM Respiratory exam: PRESENT: clear to auscultation george Cardiovascular exam: PRESENT: tachycardia Pulses: PRESENT: normal radial pulses, normal dorsalis pedis pul GI/Abdominal exam: PRESENT: hypoactive bowel sounds, tenderness Rectal exam: PRESENT: heme (-) stool Gentrourinary exam: PRESENT: indwelling catheter Extremities exam: PRESENT: full ROM Musculoskeletal exam: PRESENT: full ROM Neurological exam: PRESENT: altered Tubes/Lines: PRESENT: Nasogastic Tube Laboratory/Radiographs Laboratory Results: 10/03/19 23:17 10/03/19 23:17 10/03/19 10/03/19 10/03/19 23:17 23:17 23:17 WBC 21.1 H RBC 5.50 H Hgb 16.0 H Hct 48.6 H MCV 88 MCH 29.0 MCHC 32.8 RDW 18.5 H Plt Count 428 Seg Neutrophils % Not Reportable Carbonic Acid HCO3/H2CO3 Ratio ABG pH ABG pCO2 ABG pO2 ABG HCO3 ABG O2 Saturation ABG Base Excess FiO2 Sodium 146.5 H Potassium 5.3 H Chloride 107 Carbon Dioxide 11 L Anion Gap 29 H BUN 48 H Creatinine 2.36 H Est GFR ( Amer) 30 L Glucose 342 H Lactic Acid Calcium 11.2 H Total Bilirubin 1.2 AST 16 Alkaline Phosphatase 145 H Total Protein 9.0 H Albumin 5.4 H Serum HCG, Qual NEGATIVE Urine Color Urine Appearance Urine pH Ur Specific [place] Urine Protein Urine Glucose (UA) Urine Ketones Urine Blood Urine Nitrite Ur Leukocyte Esterase Urine WBC (Auto) Urine RBC (Auto) 10/03/19 10/04/19 10/04/19 23:17 01:15 01:38 WBC RBC Hgb Hct MCV MCH MCHC RDW Plt Count Seg Neutrophils % Carbonic Acid 0.48 L HCO3/H2CO3 Ratio 16:1 ABG pH 7.32 L ABG pCO2 15.8 L* ABG pO2 116.3 H ABG HCO3 8.0 L ABG O2 Saturation 98.1 H ABG Base Excess -15.4 FiO2 ROOM AIR Sodium Potassium Chloride Carbon Dioxide Anion Gap BUN Creatinine Est GFR ( Amer) Glucose Lactic Acid 3.1 H Calcium Total Bilirubin AST Alkaline Phosphatase Total Protein Albumin Serum HCG, Qual Urine Color YELLOW Urine Appearance SLIGHTLY-CLOUDY Urine pH 5.0 Ur Specific [place] 1.015 Urine Protein 100 H Urine Glucose (UA) >=500 H Urine Ketones 20 H Urine Blood NEGATIVE Urine Nitrite NEGATIVE Ur Leukocyte Esterase NEGATIVE Urine WBC (Auto) 4 Urine RBC (Auto) 1 10/03/19 23:17 Creatine Kinase 75 Impressions: KUB X-Ray 10/03/19 21:30 IMPRESSION: Unremarkable bowel gas pattern. Chest X-Ray 10/04/19 02:16 IMPRESSION: Satisfactory placement of nasogastric tube. Mild progressive interstitial prominence at the bases. All labs, radiographs, diagnostic studies and EKGs were personally reviewed: Yes In addition, reports of radiographic and diagnostic studies were read: Yes Critical Time Critical Time (minutes): 60 -: The care of a critically ill patient is dynamic. This note represents a static moment in the admission process. Orders and treatments may be given simultaneously and urgently, and time is not commercial representative of the treatment process. This patient requires Critical Care secondary to life threatening organ or limb dysfunction. Without Critical Care services, the patient is at risk for increased mortality and morbidity.
--- NOTE | 2019-10-04 05:56 | RADIOLOGY REPORT (SQ) ---
CT abdomen and pelvis without contrast on 10/04/2019 at 5:06 AM CLINICAL INDICATION: Generalized abdominal pain, vomiting TECHNIQUE: Multiple axial images are obtained throughout the abdomen and pelvis without the administration of contrast. This exam was performed according to our departmental dose-optimization program, which includes automated exposure control, adjustment of the mA and/or kV according to patient size and/or use of iterative reconstruction technique. Total DLP is 284.32 mGy*cm. COMPARISON: CT chest and upper abdomen from 08/29/2018 FINDINGS: Abdomen: The lung bases are clear. NG tube extends into the proximal duodenum. There are no renal or ureteral stones and no hydronephrosis. The unenhanced solid abdominal organs are unremarkable. There is no abdominal adenopathy. There is no free fluid or free air within the abdomen. There is likely just inadequate distention of portions of the ascending and descending colon although cannot exclude focal areas of colitis. If this is a colitis would be consistent with either Crohn's disease or an infectious colitis. Pelvis: The uterus is retroverted/retroflexed. Yun catheter is noted in the bladder. Pelvic organs appear unremarkable by CT. There is no pelvic adenopathy. Pelvic portion of the GI tract including the appendix is otherwise unremarkable. No bony abnormality is noted. IMPRESSION: 1. Likely just an adequate distention of portions of the ascending and descending colon with colitis felt less likely. If this is a colitis would most likely be related to an infectious colitis or Crohn's disease. 2. Otherwise no acute abnormality.
[2019-10-04] MEDS ORDERED: VANCOMYCIN HCL INJ 1000 MG VIAL IV ONE (06:00)
[2019-10-04] MEDS: HEPARIN SOD (PORCINE) 5,000 UNIT/ML 1 ML VIAL SUBCUT SCH ×3 (06:12→22:17)
[2019-10-04] MEDS ORDERED: INSULIN, REGULAR 100 UNIT/100 ML NORMAL SALINE IV PRN ×2 (09:00)
[2019-10-04 09:39] LABS: ABSOLUTE LYMPHOCYTES (AUTO) 0.8 10^3/uL (0.5-4.7); ABSOLUTE MONOCYTES (AUTO) 0.8 10^3/uL (0.1-1.4); ABSOLUTE NEUT (AUTO) 10.9 10^3/uL (1.7-8.2); ALKALINE PHOSPHATASE 101 U/L (38-126); ANION GAP 16 (5-19); ASPARTATE AMINO TRANSFERASE 14 U/L (14-36); BASOPHILS % (AUTO) 0.1 % (0-2); BILIRUBIN,DIRECT 0.1 mg/dL (0.0-0.4); BILIRUBIN,TOTAL 0.6 mg/dL (0.2-1.3); BLOOD UREA NITROGEN 42 mg/dL (7-20); CALCIUM 9.5 mg/dL (8.4-10.2); CHLORIDE 117 mmol/L (98-107); GLUCOSE 358 mg/dL (75-110); HEMATOCRIT 37.9 % (36.0-47.0); LYMPHOCYTES % (AUTO) 6.7 % (13-45); MEAN CORPUSCULAR HEMOGLOBIN 29.4 pg (27.0-33.4); MEAN CORPUSCULAR HGB CONC 33.4 g/dL (32.0-36.0); MEAN CORPUSCULAR VOLUME 88 fl (80-97); MONOCYTES % (AUTO) 6.3 % (3-13); PLATELET COUNT 377 10^3/uL (150-450); POTASSIUM 4.7 mmol/L (3.6-5.0); RED BLOOD COUNT 4.31 10^6/uL (3.72-5.28); RED CELL DISTRIBUTION WIDTH 18.4 % (11.5-14.0); SEGMENTED NEUTROPHILS % (AUTO) 86.9 % (42-78); TOTAL CELLS COUNTED % (AUTO) 100 %; WHITE BLOOD COUNT 12.5 10^3/uL (4.0-10.5)
[2019-10-04 09:41] LABS: HEMOGLOBIN 12.6 g/dL (12.0-15.5)
[2019-10-04 09:54] LABS: CARBON DIOXIDE 10 mmol/L (22-30)
[2019-10-04] MEDS ORDERED: PIPERACILLIN/TAZOBACTAM 4.5 GM VIAL IV SCH (10:00)
[2019-10-04] MEDS ORDERED: PIPERACILLIN SODIUM/TAZOBACTAM 4.5 GM in NORMAL SALINE 100 ML IV SCH (10:00)
[2019-10-04] MEDS: PANTOPRAZOLE SODIUM 40 MG VIAL IV SCH (11:04)
[2019-10-04 11:10] LABS: PHOSPHORUS 4.4 mg/dL (2.5-4.5)
[2019-10-04] MEDS ORDERED: ONDANSETRON 4 MG TAB.RAPDIS ONE (11:32)
[2019-10-04 12:05] LABS: ARTERIAL BLOOD BASE EXCESS -12.6 mmol/L; ARTERIAL BLOOD FIO2 ROOM AIR; ARTERIAL BLOOD H2CO3 0.73 mmol/L (1.05-1.35); ARTERIAL BLOOD HCO3 11.9 mmol/L (20-24); ARTERIAL BLOOD O2 SATURATION 97.9 % (94-98); ARTERIAL BLOOD PCO2 24.4 mmHg (35-45); ARTERIAL BLOOD PH 7.31 (7.35-7.45); ARTERIAL BLOOD PO2 114.5 mmHg (80-100); ARTERIAL BLOOD TOTAL CO2 12.6 mmol/L (21-25)
[2019-10-04] MEDS ORDERED: ONDANSETRON 4 MG TAB.RAPDIS PO ONE (13:00)
[2019-10-04 13:24] LABS: PATH REVIEW PATHOLOGIST REVIEWED
[2019-10-04] MEDS ORDERED: DEXTROSE 5%-NORMAL SALINE 1,000 ML IV PRN (13:53)
[2019-10-04] MEDS ORDERED: PROMETHAZINE HCL INJ 25 MG/1 ML VIAL ONE (14:09)
[2019-10-04 14:34] LABS: ANION GAP 8 (5-19); BLOOD UREA NITROGEN 27 mg/dL (7-20); CALCIUM 7.1 mg/dL (8.4-10.2); CARBON DIOXIDE 14 mmol/L (22-30); CHLORIDE 125 mmol/L (98-107); GLUCOSE 160 mg/dL (75-110)
--- NOTE | 2019-10-04 14:34 | EKG REPORT ---
SEVERITY:- OTHERWISE NORMAL ECG - SINUS TACHYCARDIA RIGHT AXIS DEVIATION : Confirmed by: Navneet Montaño MD 04-Oct-2019 14:33:22
[2019-10-04 14:44] LABS: PHOSPHORUS 2.2 mg/dL (2.5-4.5)
[2019-10-04] MEDS ORDERED: PROMETHAZINE HCL INJ 25 MG/1 ML VIAL IV ONE (15:00)
[2019-10-04] MEDS: POTASSI CL 40 MEQ/D5-1/2NS 1L 40 MEQ/1,000 ML RTUINJ IV PRN ×2 (15:42→22:24)
[2019-10-04] MEDS: MAGNESIUM SULFATE/D5W 1 GM/100 ML RTUPB IV SCH ×2 (15:47→17:02)
[2019-10-04] MEDS: PIPERACILLIN SODIUM/TAZOBACTAM 3.375 GM in NORMAL SALINE 100 ML IV SCH ×2 (15:59→20:26)
[2019-10-04] MEDS ORDERED: POTASSIUM CHLORIDE 20 MEQ PACKET PO ONE (16:00)
[2019-10-04] MEDS ORDERED: POTASSIUM PHOS,M-BASIC-D-BASIC 15 MMOL in NORMAL SALINE 250 ML IV ONE (17:30)
[2019-10-04 18:10] LABS: BLOOD UREA NITROGEN 25 mg/dL (7-20); CALCIUM 8.6 mg/dL (8.4-10.2)
[2019-10-04 18:15] LABS: CARBON DIOXIDE 17 mmol/L (22-30); CHLORIDE 121 mmol/L (98-107)
[2019-10-04 18:23] LABS: POTASSIUM 6.9 mmol/L (3.6-5.0)
[2019-10-04 18:24] LABS: GLUCOSE 461 mg/dL (75-110)
[2019-10-04 18:54] LABS: ANION GAP 4 (5-19)
[2019-10-04] MEDS: PROMETHAZINE HCL INJ 25 MG/1 ML VIAL IV PRN ×2 (19:12→23:57)
[2019-10-04 22:02] LABS: BLOOD UREA NITROGEN 21 mg/dL (7-20); CALCIUM 9.2 mg/dL (8.4-10.2); CARBON DIOXIDE 22 mmol/L (22-30); CHLORIDE 122 mmol/L (98-107); GLUCOSE 110 mg/dL (75-110)
[2019-10-04 22:08] LABS: ANION GAP 3 (5-19)
[2019-10-04 22:09] LABS: POTASSIUM 4.3 mmol/L (3.6-5.0)
[2019-10-04] MEDS ORDERED: INSULIN GLARGINE,HUM.REC.ANLOG 1,000 UNIT/10 ML VIAL (PYX) SUBCUT ONE (23:13)
[2019-10-04] MEDS: INSULIN GLARGINE,HUM.REC.ANLOG 1,000 UNIT/10 ML VIAL SUBCUT SCH (23:15)
[2019-10-05 01:30] LABS: BLOOD UREA NITROGEN 18 mg/dL (7-20); GLUCOSE 157 mg/dL (75-110); PHOSPHORUS 2.4 mg/dL (2.5-4.5); POTASSIUM 4.3 mmol/L (3.6-5.0)
[2019-10-05 01:35] LABS: CARBON DIOXIDE 20 mmol/L (22-30); CHLORIDE 121 mmol/L (98-107)
[2019-10-05 01:39] LABS: ANION GAP 4 (5-19)
[2019-10-05] MEDS: PIPERACILLIN SODIUM/TAZOBACTAM 3.375 GM in NORMAL SALINE 100 ML IV SCH ×4 (02:11→21:54)
[2019-10-05] MEDS: PROMETHAZINE HCL INJ 25 MG/1 ML VIAL IV PRN ×2 (03:57→08:33)
[2019-10-05] MEDS: HEPARIN SOD (PORCINE) 5,000 UNIT/ML 1 ML VIAL SUBCUT SCH ×3 (05:03→21:54)
[2019-10-05 06:11] LABS: ABSOLUTE MONOCYTES (AUTO) 0.6 10^3/uL (0.1-1.4); ABSOLUTE NEUT (AUTO) 7.4 10^3/uL (1.7-8.2); BASOPHILS % (AUTO) 0.2 % (0-2); HEMATOCRIT 35.6 % (36.0-47.0); HEMOGLOBIN 11.8 g/dL (12.0-15.5); LYMPHOCYTES % (AUTO) 11.5 % (13-45); MEAN CORPUSCULAR HEMOGLOBIN 29.1 pg (27.0-33.4); MEAN CORPUSCULAR HGB CONC 33.2 g/dL (32.0-36.0); MEAN CORPUSCULAR VOLUME 88 fl (80-97); MONOCYTES % (AUTO) 6.4 % (3-13); PLATELET COUNT 294 10^3/uL (150-450); RED BLOOD COUNT 4.06 10^6/uL (3.72-5.28); RED CELL DISTRIBUTION WIDTH 18.8 % (11.5-14.0); SEGMENTED NEUTROPHILS % (AUTO) 81.9 % (42-78); TOTAL CELLS COUNTED % (AUTO) 100 %; WHITE BLOOD COUNT 9.1 10^3/uL (4.0-10.5)
[2019-10-05 06:25] LABS: BLOOD UREA NITROGEN 16 mg/dL (7-20); CARBON DIOXIDE 23 mmol/L (22-30); CHLORIDE 119 mmol/L (98-107); GLUCOSE 238 mg/dL (75-110); POTASSIUM 4.1 mmol/L (3.6-5.0)
[2019-10-05 06:32] LABS: ANION GAP 4 (5-19)
[2019-10-05] MEDS ORDERED: DEXTROSE 50%-WATER 25 GM/50 ML DISP.SYRIN IV PRN ×2 (06:40)
[2019-10-05] MEDS ORDERED: DEXTROSE 40% GEL 15 GM TUBE PO PRN ×2 (06:40)
[2019-10-05] MEDS ORDERED: GLUCAGON,HUMAN RECOMB 1 MG INJ IM PRN (06:40)
[2019-10-05] MEDS ORDERED: INSULIN REG, HUMAN 100 UNIT/ML 3 ML VIAL (PYX) ONE (06:45)
[2019-10-05] MEDS: INSULIN REG, HUMAN 100 UNIT/ML 3 ML VIAL (PYX) SUBCUT SCH ×5 (06:48→22:23)
[2019-10-05] MEDS: POTASSI CL 40 MEQ/D5-1/2NS 1L 40 MEQ/1,000 ML RTUINJ IV PRN ×2 (08:42→18:28)
--- NOTE | 2019-10-05 08:53 | PDOC CRITICAL CARE PROG REPORT ---
General Date:: 10/05/19 ICU Day:: 2 Hospital Day:: 2 Resuscitation Status: Full Code Events in the past 12 to 24 Hours:: 10/04: Admitted yesterday with altered mental status after ingestion of unknown substance, suspected to be methamphetamine. Presented in DKA. Currently, anion gap is closed. She is back on Lantus. Insulin infusion has been discontinued. Mentation has improved. Nausea has improved. Lipase has normalized. Review of systems relevant to events:: Neurologic: Altered mental status Endocrine: Diabetic ketoacidosis GI: Chemical pancreatitis Reason for ICU Addmission:: altered mental status, Unknown drug ingestion - Medications: Medications reviewed and adjusted accordingly: Yes Physical Exam Vital Signs: Temp Pulse Resp BP Pulse Ox 99.3 F 112 H 20 116/75 100 10/05/19 08:00 10/04/19 20:23 10/05/19 06:01 10/05/19 06:01 10/05/19 06:01 Intake & Output 10/04/19 10/05/19 10/06/19 06:59 06:59 06:59 Intake Total 1000 4841 Output Total 2975 100 Balance 1000 1866 -100 Weight 62.1 kg 64.6 kg Weight/Height Weight 64.6 kg Height 1.57 m General appearance: PRESENT: no acute distress, well-developed, well-nourished Head exam: PRESENT: atraumatic, normocephalic Eye exam: PRESENT: conjunctiva pink, EOMI, PERRLA. ABSENT: scleral icterus Mouth exam: PRESENT: moist, tongue midline Neck exam: ABSENT: carotid bruit, JVD, lymphadenopathy, thyromegaly Respiratory exam: PRESENT: clear to auscultation george. ABSENT: rales, rhonchi, wheezes Cardiovascular exam: PRESENT: RRR. ABSENT: diastolic murmur, rubs, systolic murmur GI/Abdominal exam: PRESENT: normal bowel sounds, soft. ABSENT: distended, guarding, mass, organolmegaly, rebound, tenderness Extremities exam: PRESENT: full ROM. ABSENT: calf tenderness, clubbing, pedal edema Musculoskeletal exam: PRESENT: normal inspection. ABSENT: deformity Neurological exam: PRESENT: awake, oriented to person, oriented to place, oriented to time, oriented to situation, CN II-XII grossly intact. ABSENT: motor sensory deficit Psychiatric exam: PRESENT: flat affect Skin exam: PRESENT: dry, intact, warm. ABSENT: cyanosis, rash Laboratory/Radiographs Laboratory Results: 10/05/19 05:29 10/05/19 05:29 10/04/19 10/04/19 10/04/19 09:00 09:00 09:00 WBC 12.5 H RBC 4.31 Hgb 12.6 D Hct 37.9 MCV 88 MCH 29.4 MCHC 33.4 RDW 18.4 H Plt Count 377 Seg Neutrophils % 86.9 H Carbonic Acid HCO3/H2CO3 Ratio ABG pH ABG pCO2 ABG pO2 ABG HCO3 ABG O2 Saturation ABG Base Excess FiO2 Sodium 143.1 Potassium 4.7 Chloride 117 H Carbon Dioxide 10 L* Anion Gap 16 BUN 42 H Creatinine 0.94 Est GFR ( Amer) > 60 Est GFR (Non-Af Amer) Glucose 358 H Lactic Acid 0.9 Calcium 9.5 Ionized Calcium Heidy Phosphorus Magnesium Total Bilirubin 0.6 AST 14 Alkaline Phosphatase 101 Total Protein 7.0 Albumin 4.0 Lipase 10/04/19 10/04/19 10/04/19 09:00 11:05 11:30 WBC RBC Hgb Hct MCV MCH MCHC RDW Plt Count Seg Neutrophils % Carbonic Acid Cancelled 0.73 L HCO3/H2CO3 Ratio Cancelled 16:1 ABG pH Cancelled 7.31 L ABG pCO2 Cancelled 24.4 L ABG pO2 Cancelled 114.5 H ABG HCO3 Cancelled 11.9 L ABG O2 Saturation Cancelled 97.9 ABG Base Excess Cancelled -12.6 FiO2 Cancelled ROOM AIR Sodium Cancelled Potassium Cancelled Chloride Cancelled Carbon Dioxide Cancelled Anion Gap Cancelled BUN Cancelled Creatinine Cancelled Est GFR ( Amer) Cancelled Est GFR (Non-Af Amer) Cancelled Glucose Cancelled Lactic Acid Calcium Cancelled Ionized Calcium Heidy Phosphorus 4.4 Magnesium 2.4 H Total Bilirubin AST Alkaline Phosphatase Total Protein Albumin Lipase 10/04/19 10/04/19 10/04/19 13:39 13:39 17:35 WBC RBC Hgb Hct MCV MCH MCHC RDW Plt Count Seg Neutrophils % Carbonic Acid HCO3/H2CO3 Ratio ABG pH ABG pCO2 ABG pO2 ABG HCO3 ABG O2 Saturation ABG Base Excess FiO2 Sodium 146.8 H 141.7 Potassium 3.0 L* D 6.9 H* D Chloride 125 H 121 H Carbon Dioxide 14 L 17 L Anion Gap 8 4 L BUN 27 H 25 H Creatinine 0.53 0.54 Est GFR ( Amer) > 60 > 60 Est GFR (Non-Af Amer) Glucose 160 H 461 H* Lactic Acid Calcium 7.1 L 8.6 Ionized Calcium Heidy Phosphorus 2.2 L D Magnesium 1.8 2.9 H D Total Bilirubin AST Alkaline Phosphatase Total Protein Albumin Lipase 20.8 L 10/04/19 10/04/19 10/05/19 17:35 21:32 01:07 WBC RBC Hgb Hct MCV MCH MCHC RDW Plt Count Seg Neutrophils % Carbonic Acid HCO3/H2CO3 Ratio ABG pH ABG pCO2 ABG pO2 ABG HCO3 ABG O2 Saturation ABG Base Excess FiO2 Sodium 146.6 H 145.0 Potassium 4.3 D 4.3 Chloride 122 H 121 H Carbon Dioxide 22 20 L Anion Gap 3 L 4 L BUN 21 H 18 Creatinine 0.54 0.53 Est GFR ( Amer) > 60 > 60 Est GFR (Non-Af Amer) Glucose 110 157 H Lactic Acid Calcium 9.2 9.0 Ionized Calcium [place]idy 1.25 Phosphorus 2.4 L Magnesium 2.8 H 2.7 H Total Bilirubin AST Alkaline Phosphatase Total Protein Albumin Lipase 10/05/19 10/05/19 05:29 05:29 WBC 9.1 RBC 4.06 Hgb 11.8 L Hct 35.6 L MCV 88 MCH 29.1 MCHC 33.2 RDW 18.8 H Plt Count 294 Seg Neutrophils % 81.9 H Carbonic Acid HCO3/H2CO3 Ratio ABG pH ABG pCO2 ABG pO2 ABG HCO3 ABG O2 Saturation ABG Base Excess FiO2 Sodium 146.1 H Potassium 4.1 Chloride 119 H Carbon Dioxide 23 Anion Gap 4 L BUN 16 Creatinine 0.55 Est GFR ( Amer) > 60 Est GFR (Non-Af Amer) Glucose 238 H Lactic Acid Calcium 9.0 Ionized Calcium [place] Phosphorus Magnesium 2.5 H Total Bilirubin AST Alkaline Phosphatase Total Protein Albumin Lipase 74.4 10/03/19 23:17 Creatine Kinase 75 Impressions: KUB X-Ray 10/03/19 21:30 IMPRESSION: Unremarkable bowel gas pattern. Abdomen/Pelvis CT 10/04/19 00:00 IMPRESSION: 1. Likely just an adequate distention of portions of the ascending and descending colon with colitis felt less likely. If this is a colitis would most likely be related to an infectious colitis or Crohn's disease. 2. Otherwise no acute abnormality. Chest X-Ray 10/04/19 02:16 IMPRESSION: Satisfactory placement of nasogastric tube. Mild progressive interstitial prominence at the bases. All labs, radiographs, diagnostic studies and EKGs were personally reviewed: Yes In addition, reports of radiographic and diagnostic studies were read: Yes Assessment and Plan - Diagnosis (1) DKA (diabetic ketoacidosis) Qualifiers: Diabetes mellitus type: type 1 Diabetes mellitus complication detail: without coma Qualified Code(s): E10.10 - Type 1 diabetes mellitus with ketoacidosis without coma Is this a current diagnosis for this admission?: Yes Plan: Restart p.o. diet. Continue Lantus plus sliding scale insulin coverage. Okay to transfer to the floor. (2) Acute metabolic encephalopathy Is this a current diagnosis for this admission?: Yes (3) Methamphetamine abuse Is this a current diagnosis for this admission?: Yes (4) Acute kidney injury Is this a current diagnosis for this admission?: Yes Plan: Resolved (5) Uncontrolled type 1 diabetes mellitus Qualifiers: Glycemic state: with hyperglycemia Qualified Code(s): E10.65 - Type 1 diabetes mellitus with hyperglycemia Is this a current diagnosis for this admission?: Yes (6) History of polysubstance abuse Is this a current diagnosis for this admission?: No Plan Summary: Transfer to the floor. Critical Time Critical Time (minutes): 30 Level of Care: ICU -: 1. The care of a critical patient is a dynamic process. This note is a credit and collections representative synopsis but static in nature. The timeframe for treatments given in order is not necessarily the actual time these treatments may have been done. 2. This patient requires critical care secondary to ongoing requirements for therapy not offered or safe outside the critical care environment. Transfer to a lower level of care will result in altered life or limb morbidity and mortality. 3. Multidisciplinary rounds completed. 4. ABCDE bundle addressed.
[2019-10-05] MEDS: PANTOPRAZOLE SODIUM 40 MG VIAL IV SCH (11:40)
[2019-10-05] MEDS: CARVEDILOL 3.125 MG TABLET PO SCH ×2 (11:45→21:54)
[2019-10-05] MEDS: LOSARTAN POTASSIUM 25 MG TABLET PO SCH (11:45)
[2019-10-05] MEDS: INSULIN GLARGINE,HUM.REC.ANLOG 1,000 UNIT/10 ML VIAL SUBCUT SCH (22:25)
[2019-10-06] MEDS: INSULIN REG, HUMAN 100 UNIT/ML 3 ML VIAL (PYX) SUBCUT SCH ×5 (02:33→21:42)
[2019-10-06] MEDS: PIPERACILLIN SODIUM/TAZOBACTAM 3.375 GM in NORMAL SALINE 100 ML IV SCH (04:00)
[2019-10-06] MEDS: HEPARIN SOD (PORCINE) 5,000 UNIT/ML 1 ML VIAL SUBCUT SCH ×3 (05:24→21:47)
[2019-10-06 05:32] LABS: ABSOLUTE LYMPHOCYTES (AUTO) 2.2 10^3/uL (0.5-4.7); ABSOLUTE MONOCYTES (AUTO) 0.4 10^3/uL (0.1-1.4); ABSOLUTE NEUT (AUTO) 2.3 10^3/uL (1.7-8.2); BASOPHILS % (AUTO) 0.2 % (0-2); EOSINOPHILS % (AUTO) 0.8 % (0-6); HEMOGLOBIN 11.1 g/dL (12.0-15.5); LYMPHOCYTES % (AUTO) 44.2 % (13-45); MEAN CORPUSCULAR HEMOGLOBIN 29.2 pg (27.0-33.4); MEAN CORPUSCULAR HGB CONC 33.5 g/dL (32.0-36.0); MEAN CORPUSCULAR VOLUME 87 fl (80-97); MONOCYTES % (AUTO) 7.3 % (3-13); PLATELET COUNT 257 10^3/uL (150-450); RED BLOOD COUNT 3.78 10^6/uL (3.72-5.28); RED CELL DISTRIBUTION WIDTH 18.2 % (11.5-14.0); SEGMENTED NEUTROPHILS % (AUTO) 47.5 % (42-78); TOTAL CELLS COUNTED % (AUTO) 100 %; WHITE BLOOD COUNT 4.9 10^3/uL (4.0-10.5)
[2019-10-06 05:44] LABS: BLOOD UREA NITROGEN 12 mg/dL (7-20); CALCIUM 8.6 mg/dL (8.4-10.2); GLUCOSE 223 mg/dL (75-110); POTASSIUM 3.8 mmol/L (3.6-5.0)
[2019-10-06 05:50] LABS: CARBON DIOXIDE 28 mmol/L (22-30); CHLORIDE 109 mmol/L (98-107)
[2019-10-06 05:51] LABS: ANION GAP 2 (5-19)
[2019-10-06] MEDS: AMOXICILLIN TR/POT CLAVULANATE 875-125 MG TAB PO SCH ×2 (09:39→21:47)
[2019-10-06] MEDS: PANTOPRAZOLE SODIUM 40 MG VIAL IV SCH (09:40)
[2019-10-06] MEDS: CARVEDILOL 3.125 MG TABLET PO SCH ×2 (09:40→21:43)
[2019-10-06] MEDS: LOSARTAN POTASSIUM 25 MG TABLET PO SCH (09:40)
[2019-10-06] MEDS ORDERED: NICOTINE 14 MG/24 HR PATCH.TD24 TD PRN (18:34)
--- NOTE | 2019-10-06 18:41 | PDOC PROGRESS REPORT ---
Subjective Progress Note for:: 10/06/19 Subjective:: The patient is a 28-year-old female with a past medical history of DM 1, asthma, tobacco abuse with continuous use, and substance abuse (marijuana and methamphetamines with continuous use) who was admitted 10/04/2019 [facility] the [facility] for DKA and altered mental status. DKA is resolved and she is downgraded to the telemetry floor on 10/06/2019. The patient was seen on morning rounds. She is found resting in bed, comfortably, on room air. She has NG tube in place; clamped. She reports continued nausea and sore throat. No emesis >24 hrs. she reports poor appetite. Otherwise, she states she is feeling well and has no questions or concerns at this time. She specifically denies fever, chills, chest pain, palpitations, dyspnea, cough, abdominal pain, diarrhea. No concerns per nursing. Reason For Visit: DRUG TOXICITY Physical Exam Vital Signs: Temp Pulse Resp BP Pulse Ox 97.8 F 54 L 16 104/67 100 10/06/19 15:31 10/06/19 15:31 10/06/19 15:31 10/06/19 15:31 10/06/19 15:31 Intake & Output 10/05/19 10/06/19 10/07/19 06:59 06:59 06:59 Intake Total 4841 1738 1000 Output Total 2975 1540 Balance 4306 861 6856 Weight 64.6 kg 64.2 kg General appearance: PRESENT: no acute distress, disheveled, well-developed, well-nourished Head exam: PRESENT: atraumatic, normocephalic Eye exam: PRESENT: conjunctiva pink, EOMI, PERRLA. ABSENT: scleral icterus Mouth exam: PRESENT: moist, tongue midline Respiratory exam: PRESENT: clear to auscultation george, symmetrical, unlabored. ABSENT: rales, rhonchi, wheezes Cardiovascular exam: PRESENT: RRR, +S1, +S2. ABSENT: diastolic murmur, rubs, systolic murmur Pulses: PRESENT: normal dorsalis pedis pul Vascular exam: PRESENT: normal capillary refill GI/Abdominal exam: PRESENT: normal bowel sounds, soft. ABSENT: distended, guarding, mass, organolmegaly, rebound, tenderness Rectal exam: PRESENT: deferred Extremities exam: PRESENT: full ROM. ABSENT: calf tenderness, clubbing, pedal edema Musculoskeletal exam: PRESENT: ambulatory - With assistance Neurological exam: PRESENT: alert, awake, oriented to person, oriented to place, oriented to time, oriented to situation, CN II-XII grossly intact. ABSENT: motor sensory deficit Psychiatric exam: PRESENT: flat affect, normal mood. ABSENT: homicidal ideation, suicidal ideation Skin exam: PRESENT: dry, intact, warm. ABSENT: cyanosis, rash Results Laboratory Results: 10/06/19 04:27 10/06/19 04:27 10/06/19 10/06/19 04:27 04:27 WBC 4.9 RBC 3.78 Hgb 11.1 L Hct 33.0 L MCV 87 MCH 29.2 MCHC 33.5 RDW 18.2 H Plt Count 257 Seg Neutrophils % 47.5 Sodium 139.2 Potassium 3.8 Chloride 109 H Carbon Dioxide 28 Anion Gap 2 L BUN 12 Creatinine 0.37 L Est GFR ( Amer) > 60 Glucose 223 H Calcium 8.6 10/03/19 23:17 Creatine Kinase 75 Impressions: KUB X-Ray 10/03/19 21:30 IMPRESSION: Unremarkable bowel gas pattern. Abdomen/Pelvis CT 10/04/19 00:00 IMPRESSION: 1. Likely just an adequate distention of portions of the ascending and descending colon with colitis felt less likely. If this is a colitis would most likely be related to an infectious colitis or Crohn's disease. 2. Otherwise no acute abnormality. Chest X-Ray 10/04/19 02:16 IMPRESSION: Satisfactory placement of nasogastric tube. Mild progressive interstitial prominence at the bases. Assessment and Plan - Diagnosis (1) DKA (diabetic ketoacidoses) Qualifiers: Diabetes mellitus type: type 1 Diabetes mellitus complication detail: without coma Qualified Code(s): E10.10 - Type 1 diabetes mellitus with ketoacidosis without coma Is this a current diagnosis for this admission?: Yes Plan: Resolved. Patient was initially admitted to the ICU. She was treated with standard DKA care set of generous IV fluids and insulin drip. Her anion gap is now closed and she has been transitioned to subcutaneous insulin. She is on a clear liquid diet; will advance to consistent carb for as tolerated. Continue Lantus and sliding scale insulin. Remaining management as below. (2) Uncontrolled type 1 diabetes mellitus Qualifiers: Glycemic state: with hyperglycemia Qualified Code(s): E10.65 - Type 1 diabetes mellitus with hyperglycemia Is this a current diagnosis for this admission?: Yes Plan: A1c 8.6% Patient is currently on a consistent carb/clear diet; will advance to CC4 as tolerated. Continue Lantus 30 units nightly. Accu-Cheks before meals and at bedtime with Humalog for sliding scale coverage. Hypoglycemia protocol in place. Registered dietitian senior health educator consulted. (3) Acute metabolic encephalopathy Is this a current diagnosis for this admission?: Yes Plan: Improved. Patient is alert and oriented to person, place, time. Oriented to current situation but cannot recall events leading up to admission. Continues to have a flat affect. NG tube removed. Supportive care. (4) Acute kidney injury Is this a current diagnosis for this admission?: Yes Plan: Resolved (5) Tobacco dependence Is this a current diagnosis for this admission?: Yes Plan: Smoking cessation encouraged. Nicotine replacement therapies provided. (6) History of polysubstance abuse Is this a current diagnosis for this admission?: Yes Plan: UDS was negative except for amphetamines; unable to interpret due to interfering substances. History of methamphetamine and marijuana use. Cessation encouraged. May benefit from outpatient mental health and/or substance abuse counseling. (7) Methamphetamine abuse Is this a current diagnosis for this admission?: Yes Plan: As above. - Time Time Spent with patient: 25-34 minutes Medications reviewed and adjusted accordingly: Yes Anticipated discharge: Home Within: within 24 hours - pending adequate oral intake.
[2019-10-06] MEDS: INSULIN GLARGINE,HUM.REC.ANLOG 1,000 UNIT/10 ML VIAL SUBCUT SCH (21:42)
[2019-10-07 05:30] LABS: HEMATOCRIT 33.9 % (36.0-47.0); HEMOGLOBIN 11.6 g/dL (12.0-15.5); MEAN CORPUSCULAR HEMOGLOBIN 29.8 pg (27.0-33.4); MEAN CORPUSCULAR HGB CONC 34.3 g/dL (32.0-36.0); MEAN CORPUSCULAR VOLUME 87 fl (80-97); PLATELET COUNT 244 10^3/uL (150-450); RED CELL DISTRIBUTION WIDTH 17.7 % (11.5-14.0); WHITE BLOOD COUNT 4.6 10^3/uL (4.0-10.5)
[2019-10-07] MEDS: HEPARIN SOD (PORCINE) 5,000 UNIT/ML 1 ML VIAL SUBCUT SCH (05:49)
[2019-10-07 06:00] LABS: ABSOLUTE LYMPHOCYTES# (MANUAL) 3.4 10^3/uL (0.5-4.7); ABSOLUTE MONOCYTES # (MANUAL) 0.1 10^3/uL (0.1-1.4); BASOPHILS % (MANUAL) 0 % (0-2); EOSINOPHILS % (MANUAL) 1 % (0-6); MONOCYTES % (MANUAL) 3 % (3-13); SEGMENTED NEUTROPHILS % (MAN) 22 % (42-78); TOTAL CELLS COUNTED 100
[2019-10-07 06:03] LABS: ANISOCYTOSIS 1+; OVALOCYTES 1+; PLATELET COMMENT ADEQUATE; POIKILOCYTOSIS 1+; TEAR DROP CELLS SLIGHT
[2019-10-07 06:08] LABS: LYMPHOCYTES % (MANUAL) 71 % (13-45)
[2019-10-07] MEDS: INSULIN REG, HUMAN 100 UNIT/ML 3 ML VIAL (PYX) SUBCUT SCH (07:26)
[2019-10-07 08:00] VITALS: BP 101/68
[2019-10-07] MEDS: AMOXICILLIN TR/POT CLAVULANATE 875-125 MG TAB PO SCH (09:20)
[2019-10-07] MEDS: PANTOPRAZOLE SODIUM 40 MG VIAL IV SCH (09:20)
[2019-10-07] MEDS: CARVEDILOL 3.125 MG TABLET PO SCH (09:22)
[2019-10-07] MEDS: LOSARTAN POTASSIUM 25 MG TABLET PO SCH (09:22)
[2019-10-07 12:30] LABS: PATH REVIEW PATHOLOGIST REVIEWED
--- NOTE | 2019-10-08 19:21 | Left Against Medical Advice ---
Against Medical Advice Admission Date/Time: 10/04/19 01:07 Primary Care Provider: Date of Patient Emigration: 10/07/19 - Diagnosis: (1) DKA (diabetic ketoacidoses) Is this a current diagnosis for this admission?: Yes (2) Uncontrolled type 1 diabetes mellitus Is this a current diagnosis for this admission?: Yes (3) Acute metabolic encephalopathy Is this a current diagnosis for this admission?: Yes (4) Acute kidney injury Is this a current diagnosis for this admission?: Yes (5) Tobacco dependence Is this a current diagnosis for this admission?: Yes (6) History of polysubstance abuse Is this a current diagnosis for this admission?: Yes (7) Methamphetamine abuse Is this a current diagnosis for this admission?: Yes - Summary: Summary: Please see Admission and Progress Notes as well. ZANE GEIGER is a 28 F, who LEFT AGAINST MEDICAL ADVICE. The Patient was admitted on 10/04/19 01:07. The patient was admitted to the inventory technician service for DKA and concern for methamphetamine use resulting in altered mental status. She was treated with standard DKA care set of generous IV fluids and insulin drip. Her anion gap closed and she was transitioned to subcutaneous insulin. The patient had progressed to a clear liquid diet with continued adequate glucose control. Anticipated discharge after advancing diet to consistent carb diet and adjusting Lantus/SSI to ensure appropriate coverage. Unfortunately, the patient elected to leave AGAINST MEDICAL ADVICE. Nursing was asked to verify the patient's pharmacy so that refills of her prior home-dose insulin could be sent in; patient declined stating that she had adequate medication available at home.
== END 2019-10-07 10:15 | disposition left against medical advice (07) | DRG 637 ==
LOC: ER 20:57 → EH 10-04 01:07 → ICU 10-04 07:31 → 4N 10-05 16:30
PROVIDERS: ADMIT Internal Medicine; ATTEND Registered Nurse
DX: E10.10 Type 1 diabetes mellitus with ketoacidosis without coma (principal); G93.41 Metabolic encephalopathy; N17.9 Acute kidney failure, unspecified; F17.210 Nicotine dependence, cigarettes, uncomplicated; F15.19 Other stimulant abuse with unspecified stimulant-induced disorder; F12.90 Cannabis use, unspecified, uncomplicated; D72.829 Elevated white blood cell count, unspecified; J45.909 Unspecified asthma, uncomplicated; Y92.59 Other trade areas as the place of occurrence of the external cause; Z79.4 Long term (current) use of insulin; Z03.818 Encounter for observation for suspected exposure to other biological agents ruled out
CPT/HCPCS: 36415; 36600; 71045; 74018; 74176; 80048; 80053; 80307; 81001; 82270; 82271; 82330; 82550; 82803; 82962; 83036; 83605; 83690; 83735; 84100; 84703; 85025; 87040; 87635; 93005; 93010; 96361; 96374; 99291; C9113; C9803; J0780; J1644; J1815; J2543; J2550; J3370; J3475; J3480; J3490; J7030; J7042; J7050; S0028; S0119